=== PATIENT | female | born 1935 | race Caucasian/White ===

== ENCOUNTER 2020-09-12 18:18 | Inpatient (IN) | payer MEDICARE, BC ==
--- NOTE | 2020-09-12 19:00 | ED ---
General Adult HPI - General Chief complaint: Recheck/Abnormal Lab/Rx Stated complaint: Abn Lab Time Seen by Provider: 09/12/20 18:22 Source: patient, EMS Mode of arrival: EMS Limitations: no limitations - History of Present Illness Initial comments: Patient is an 85 year old female past medical history of hypertension, gout who presents to the emergency department as a transfer from [facility]. Patient was taken into their facility for weakness and slurring. Patient reports that she has had the symptoms for the past month. Laboratory studies were obtained and the patient a CT of her head performed. Abnormal labs included a pro calcitonin of 23.9, troponin 0.481, AST 425, ALT 197, alk phos 455, white blood cell count 35.8. CT the patient's brain was performed which demonstrated chronic small vessel ischemia without acute process. She was given an aspirin, dose of Zosyn and Flagyl and sent to our emergency department for further evaluation. Patient admits that she did have some nausea without vomiting couple of days ago which has subsequently gone away. Denies any abdominal pain. No fevers. Patient does admit to recent weakness. No chest pain or shortness of breath. Patient lives alone however states that her nephew checks up on her frequently. Denies any sick contacts. Covid testing was negative. - Related Data Home Medications Medication Instructions Recorded Confirmed Allopurinol [Zyloprim] 100 mg PO DAILY 09/12/20 09/12/20 Losartan Potassium 100 mg PO DAILY 09/12/20 09/12/20 Metoprolol Tartrate [Lopressor] 50 mg PO BID 09/12/20 09/12/20 Travoprost [Travatan Z 0.004%] 1 drop BOTH EYES HS 09/12/20 09/12/20 Allergies Allergy/AdvReac Type Severity Reaction Status Date / Time No Known Allergies Allergy Verified 09/12/20 21:09 Review of Systems ROS Statement: Those systems with pertinent positive or pertinent negative responses have been documented in the HPI. ROS Other: All systems not noted in ROS Statement are negative. Past Medical History Past Medical History: Hyperlipidemia, Hypertension Additional Past Medical History / Comment(s): gout, History of Any Multi-Drug Resistant Organisms: None Reported Past Surgical History: Cholecystectomy, Orthopedic Surgery Past Psychological History: No Psychological Hx Reported Smoking Status: Never smoker Past Alcohol Use History: None Reported Past Drug Use History: None Reported General Exam Limitations: no limitations Course Vital Signs 09/12/20 09/12/20 18:24 21:48 Temperature 97.1 F L Pulse Rate 81 71 Respiratory 16 18 Rate Blood Pressure 103/55 94/50 O2 Sat by Pulse 97 98 Oximetry EKG Findings - EKG Comments: EKG Findings:: EKG demonstrates normal sinus rhythm with a ventricular rate of 71. VT interval 154. QRS 124. QTC of 5:30. Left bundle branch block. No sgarbossa criteria. Deep inverted t waves in V2-V3 Medical Decision Making - Medical Decision Making Upon arrival patient was placed into room 16. History and physical exam was performed. I did repeat laboratory studies. Urine was obtained and the patient went for chest x-ray disease were studies that were previously performed. Laboratory studies continued to demonstrate a high white count of 34.7. Creatinine 1.5 with no known baseline. Lactic acid 2.1. AST 346, ALT 188. Troponin 0.444. Urinalysis demonstrates a UTI. Budding yeast in the urine. Blood cultures have been obtained at [facility] the patient was given Zosyn and Flagyl. Chest x-ray demonstrates mild pneumonia in the left lower lobe. CT of the abdomen and pelvis demonstrates mild linear infiltrate and atelectasis at the lung bases. I did recommend hospital admission. We'll continue broad-spectrum antibiotics and fluid. Patient is placed on heparin due to her end-stage me. No contraindications. Patient agreed to the treatment plan and is awaiting on the floor - Lab Data Result diagrams: 09/12/20 19:00 09/12/20 19:00 Lab Results 09/12/20 09/12/20 09/12/20 Range/Units 19:00 19:00 19:00 WBC 34.7 H (3.8-10.6) k/uL RBC 3.55 L (3.80-5.40) m/uL Hgb 11.4 (11.4-16.0) gm/dL Hct 35.7 (34.0-46.0) % MCV 100.8 H (80.0-100.0) fL MCH 32.0 (25.0-35.0) pg MCHC 31.8 (31.0-37.0) g/dL RDW 14.5 (11.5-15.5) % Plt Count 213 (150-450) k/uL MPV 8.2 Neutrophils % 95 % Lymphocytes % 2 % Monocytes % 2 % Eosinophils % 1 % Basophils % 0 % Neutrophils # 33.0 H (1.3-7.7) k/uL Lymphocytes # 0.6 L (1.0-4.8) k/uL Monocytes # 0.6 (0-1.0) k/uL Eosinophils # 0.3 (0-0.7) k/uL Basophils # 0.1 (0-0.2) k/uL Macrocytosis Slight PT (9.0-12.0) sec INR (<1.2) APTT (22.0-30.0) sec Sodium 135 L (137-145) mmol/L Potassium 3.9 (3.5-5.1) mmol/L Chloride 100 (98-107) mmol/L Carbon Dioxide 23 (22-30) mmol/L Anion Gap 12 mmol/L BUN 25 H (7-17) mg/dL Creatinine 1.53 H (0.52-1.04) mg/dL Est GFR (CKD-EPI)AfAm 35 (>60 ml/min/1.73 sqM) Est GFR (CKD-EPI)NonAf 31 (>60 ml/min/1.73 sqM) Glucose 105 H (74-99) mg/dL Lactic Ac Sepsis Rflx Plasma Lactic Acid Christ (0.7-2.0) mmol/L Calcium 9.0 (8.4-10.2) mg/dL Magnesium 1.5 L (1.6-2.3) mg/dL Total Bilirubin 3.6 H (0.2-1.3) mg/dL AST 346 H (14-36) U/L ALT 188 H (4-34) U/L Alkaline Phosphatase 401 H (38-126) U/L Creatine Kinase 422 H (30-135) U/L Troponin I (0.000-0.034) ng/mL Total Protein 6.7 (6.3-8.2) g/dL Albumin 3.5 (3.5-5.0) g/dL Urine Color Dark Yellow Urine Appearance Turbid H (Clear) Urine pH 6.0 (5.0-8.0) Ur Specific Elmer 1.018 (1.001-1.035) Urine Protein 3+ H (Negative) Urine Glucose (UA) Negative (Negative) Urine Ketones Negative (Negative) Urine Blood Moderate H (Negative) Urine Nitrite Negative (Negative) Urine Bilirubin 2+ H (Negative) Urine Urobilinogen 3.0 (<2.0) mg/dL Ur Leukocyte Esterase Large H (Negative) Urine RBC 10 H (0-5) /hpf Urine WBC >182 H (0-5) /hpf Urine WBC Clumps Many H (None) /hpf Ur Squamous Epith Cells 5 H (0-4) /hpf Urine Bacteria Many H (None) /hpf Urine Yeast (Budding) Many H (None) /hpf 09/12/20 09/12/20 09/12/20 Range/Units 19:00 19:00 19:00 WBC (3.8-10.6) k/uL RBC (3.80-5.40) m/uL Hgb (11.4-16.0) gm/dL Hct (34.0-46.0) % MCV (80.0-100.0) fL MCH (25.0-35.0) pg MCHC (31.0-37.0) g/dL RDW (11.5-15.5) % Plt Count (150-450) k/uL MPV Neutrophils % % Lymphocytes % % Monocytes % % Eosinophils % % Basophils % % Neutrophils # (1.3-7.7) k/uL Lymphocytes # (1.0-4.8) k/uL Monocytes # (0-1.0) k/uL Eosinophils # (0-0.7) k/uL Basophils # (0-0.2) k/uL Macrocytosis PT 11.1 (9.0-12.0) sec INR 1.0 (<1.2) APTT 22.3 (22.0-30.0) sec Sodium (137-145) mmol/L Potassium (3.5-5.1) mmol/L Chloride (98-107) mmol/L Carbon Dioxide (22-30) mmol/L Anion Gap mmol/L BUN (7-17) mg/dL Creatinine (0.52-1.04) mg/dL Est GFR (CKD-EPI)AfAm (>60 ml/min/1.73 sqM) Est GFR (CKD-EPI)NonAf (>60 ml/min/1.73 sqM) Glucose (74-99) mg/dL Lactic Ac Sepsis Rflx Plasma Lactic Acid Christ 2.1 H* (0.7-2.0) mmol/L Calcium (8.4-10.2) mg/dL Magnesium (1.6-2.3) mg/dL Total Bilirubin (0.2-1.3) mg/dL AST (14-36) U/L ALT (4-34) U/L Alkaline Phosphatase (38-126) U/L Creatine Kinase (30-135) U/L Troponin I 0.444 H* (0.000-0.034) ng/mL Total Protein (6.3-8.2) g/dL Albumin (3.5-5.0) g/dL Urine Color Urine Appearance (Clear) Urine pH (5.0-8.0) Ur Specific Elmer (1.001-1.035) Urine Protein (Negative) Urine Glucose (UA) (Negative) Urine Ketones (Negative) Urine Blood (Negative) Urine Nitrite (Negative) Urine Bilirubin (Negative) Urine Urobilinogen (<2.0) mg/dL Ur Leukocyte Esterase (Negative) Urine RBC (0-5) /hpf Urine WBC (0-5) /hpf Urine WBC Clumps (None) /hpf Ur Squamous Epith Cells (0-4) /hpf Urine Bacteria (None) /hpf Urine Yeast (Budding) (None) /hpf 09/12/20 Range/Units 19:34 WBC (3.8-10.6) k/uL RBC (3.80-5.40) m/uL Hgb (11.4-16.0) gm/dL Hct (34.0-46.0) % MCV (80.0-100.0) fL MCH (25.0-35.0) pg MCHC (31.0-37.0) g/dL RDW (11.5-15.5) % Plt Count (150-450) k/uL MPV Neutrophils % % Lymphocytes % % Monocytes % % Eosinophils % % Basophils % % Neutrophils # (1.3-7.7) k/uL Lymphocytes # (1.0-4.8) k/uL Monocytes # (0-1.0) k/uL Eosinophils # (0-0.7) k/uL Basophils # (0-0.2) k/uL Macrocytosis PT (9.0-12.0) sec INR (<1.2) APTT (22.0-30.0) sec Sodium (137-145) mmol/L Potassium (3.5-5.1) mmol/L Chloride (98-107) mmol/L Carbon Dioxide (22-30) mmol/L Anion Gap mmol/L BUN (7-17) mg/dL Creatinine (0.52-1.04) mg/dL Est GFR (CKD-EPI)AfAm (>60 ml/min/1.73 sqM) Est GFR (CKD-EPI)NonAf (>60 ml/min/1.73 sqM) Glucose (74-99) mg/dL Lactic Ac Sepsis Rflx Y Plasma Lactic Acid Christ (0.7-2.0) mmol/L Calcium (8.4-10.2) mg/dL Magnesium (1.6-2.3) mg/dL Total Bilirubin (0.2-1.3) mg/dL AST (14-36) U/L ALT (4-34) U/L Alkaline Phosphatase (38-126) U/L Creatine Kinase (30-135) U/L Troponin I (0.000-0.034) ng/mL Total Protein (6.3-8.2) g/dL Albumin (3.5-5.0) g/dL Urine Color Urine Appearance (Clear) Urine pH (5.0-8.0) Ur Specific Elmer (1.001-1.035) Urine Protein (Negative) Urine Glucose (UA) (Negative) Urine Ketones (Negative) Urine Blood (Negative) Urine Nitrite (Negative) Urine Bilirubin (Negative) Urine Urobilinogen (<2.0) mg/dL Ur Leukocyte Esterase (Negative) Urine RBC (0-5) /hpf Urine WBC (0-5) /hpf Urine WBC Clumps (None) /hpf Ur Squamous Epith Cells (0-4) /hpf Urine Bacteria (None) /hpf Urine Yeast (Budding) (None) /hpf Disposition Clinical Impression: Leukocytosis, UTI (urinary tract infection), CAP (community acquired pneumonia), Transaminitis, NSTEMI (non-ST elevated myocardial infarction) Disposition: ADMITTED IP TO THIS HOSP Condition: Serious Is patient prescribed a controlled substance at d/c from ED?: No Decision to Admit Reason: Admit from EC Decision Date: 09/12/20 Decision Time: 22:32
[2020-09-12 19:19] LABS: Appearance,Urine Turbid (Clear); Bacteria,Urine Many /hpf; Bilirubin,Urine 2+ (Negative); Blood,Urine Moderate (Negative); Budding Yeast,Urine Many /hpf; Color,Urine Dark Yellow; Glucose,Urine (UA) Negative (Negative); Ketones,Urine Negative (Negative); Leukocyte Esterase,Urine Large (Negative); Nitrite,Urine Negative (Negative); Protein,Urine 3+ (Negative); RBC,Urine 10 /hpf (0-5); Specific Gravity,Urine 1.018 (1.001-1.035); Squamous Epithelial Cell,Urine 5 /hpf (0-4); WBC,Urine >182 /hpf (0-5)
[2020-09-12 19:21] LABS: Basophils # (A) 0.1 k/uL (0-0.2); Basophils % (A) 0 %; Eosinophils # (A) 0.3 k/uL (0-0.7); Eosinophils % (A) 1 %; HCT 35.7 % (34.0-46.0); HGB 11.4 gm/dL (11.4-16.0); Lymphocytes # (A) 0.6 k/uL (1.0-4.8); Lymphocytes % (A) 2 %; MCHC 31.8 g/dL (31.0-37.0); MCV 100.8 fL (80.0-100.0); Macrocytosis Slight; Mean Platelet Volume 8.2; Monocytes # (A) 0.6 k/uL (0-1.0); Monocytes % (A) 2 %; Neutrophils % (A) 95 %; Platelet Count 213 k/uL (150-450); RBC 3.55 m/uL (3.80-5.40); RDW 14.5 % (11.5-15.5); WBC 34.7 k/uL (3.8-10.6)
[2020-09-12 19:34] LABS: Albumin 3.5 g/dL (3.5-5.0); Magnesium 1.5 mg/dL (1.6-2.3); Potassium 3.9 mmol/L (3.5-5.1); Total Bilirubin 3.6 mg/dL (0.2-1.3); Total Protein 6.7 g/dL (6.3-8.2)
[2020-09-12 19:39] LABS: Partial Thromboplastin Time 22.3 sec (22.0-30.0); Prothrombin Time 11.1 sec (9.0-12.0)
--- NOTE | 2020-09-12 19:49 | XR ---
EXAMINATION TYPE: XR chest 2V DATE OF EXAM: 09/12/2020 COMPARISON: NONE HISTORY: Cough. Chest pain TECHNIQUE: 2 views FINDINGS: There is poor inspiration. Heart is enlarged. There is some patchy mild infiltrate in the l eft lower lobe. Right lung is fairly clear. There is no obvious heart failure. I see no pleural effus ion. IMPRESSION: There is evidence for mild pneumonia in the left lower lobe. Cardiomegaly.
[2020-09-12] MEDS ORDERED: MAGNESIUM SULFATE-D5W PMX 1 GM in DEXTROSE/WATER 1 100ML.BAG IVPB ONE (20:20)
[2020-09-12] MEDS ORDERED: SODIUM CHLORIDE 0.9% 500 ML 500 ML IV ONE (20:20)
--- NOTE | 2020-09-12 21:30 | CT ---
EXAMINATION TYPE: CT abdomen pelvis wo con DATE OF EXAM: 09/12/2020 COMPARISON: None HISTORY: elevated liver enzymes CT DLP: 544.7 mGycm Automated exposure control for dose reduction was used. Images obtained from the diaphragm to the floor the pelvis without contrast. There is some patchy atelectasis at the lung bases. Heart appears normal. There is no pericardial eff usion. There is bronchial cartilage calcification. There is dense coronary artery calcification. Liver spleen stomach pancreas appear intact. The bile ducts are not dilated. Gallbladder appears abse nt. There is no adrenal mass. Kidneys have normal size. There is no hydronephrosis. There is no retroperi toneal adenopathy. Bladder distends smoothly. There is no inguinal hernia. There is 6.7 cm rectum with fecal material. There is no free fluid in the pelvis. There is no mesente yaya edema. There is no ascites or free air. There is no evidence of a mechanical bowel obstruction. T here is multilevel lumbar spondylotic changes. There is no compression fracture. There is significant arthritic disease in both hip joints. There is acetabular spurring and osteosclerosis of the femoral heads and the acetabulum. IMPRESSION: There is some mild linear infiltrate and atelectasis at the lung bases. Atherosclerotic vascular dise ase. Mild rectal fecal impaction.
[2020-09-12] MEDS ORDERED: HEPARIN SODIUM 1,000 UN/ML (10ML VL) IV ONE (22:23)
[2020-09-12] MEDS ORDERED: HEPARIN SODIUM 1,000 UN/ML (10ML VL) IV PRN (22:23)
[2020-09-12] MEDS ORDERED: SODIUM CHLORIDE 0.9% 1,000 ML IV ONE (22:24)
[2020-09-12] MEDS ORDERED: HEPARIN SOD,PORK IN 0.45% NACL 25,000 UNIT in 0.45% NACL 1 250ML.BAG IV SCH (22:30)
[2020-09-12] MEDS ORDERED: NALOXONE 0.4 MG/ML 1 ML VIAL IV PRN (22:33)
[2020-09-12] MEDS ORDERED: PIPERACILLIN-TAZOBACTAM 3.375 GM in SODIUM CHLORIDE 0.9% 100 ML IVPB ONE (23:00)
[2020-09-13] MEDS: LATANOPROST 0.005% OPHTH DROPS 2.5 ML BTL BOTH EYES SCH ×2 (01:53→20:21)
[2020-09-13] MEDS: SODIUM CHLORIDE 0.9% 1,000 ML IV SCH ×4 (05:35→23:05)
[2020-09-13 07:53] LABS: Basophils % (A) 0 %; Eosinophils # (A) 0.1 k/uL (0-0.7); Eosinophils % (A) 0 %; HCT 31.7 % (34.0-46.0); HGB 10.3 gm/dL (11.4-16.0); Lymphocytes # (A) 1.1 k/uL (1.0-4.8); Lymphocytes % (A) 4 %; MCH 33.1 pg (25.0-35.0); MCHC 32.6 g/dL (31.0-37.0); MCV 101.4 fL (80.0-100.0); Macrocytosis Slight; Mean Platelet Volume 8.1; Monocytes # (A) 0.7 k/uL (0-1.0); Monocytes % (A) 3 %; Neutrophils # (A) 26.1 k/uL (1.3-7.7); Neutrophils % (A) 93 %; Platelet Count 179 k/uL (150-450); RBC 3.12 m/uL (3.80-5.40); RDW 14.1 % (11.5-15.5); WBC 28.2 k/uL (3.8-10.6)
[2020-09-13] MEDS ORDERED: PIPERACILLIN-TAZOBACTAM 3.375 GM in SODIUM CHLORIDE 0.9% 100 ML IVPB SCH ×2 (08:00→21:00)
[2020-09-13 08:19] LABS: INR 1.4 (<1.2)
[2020-09-13 08:41] LABS: Partial Thromboplastin Time >200.0 sec (22.0-30.0)
[2020-09-13] MEDS: allopurinoL 100 MG TAB PO SCH (08:42)
[2020-09-13 09:25] LABS: Calcium 8.1 mg/dL (8.4-10.2)
[2020-09-13] MEDS ORDERED: NA PHOS,M-B/NA PHOS,DI-BA 133 ML ENEMA RECTAL ONE (11:02)
--- NOTE | 2020-09-13 11:36 | ECHOF ---
Referral Reason:nstemi MEASUREMENTS -------- HEIGHT: 157.5 cm WEIGHT: 70.3 kg BP: IVSd: 1.5 cm (0.6 - 1.1) LVIDd: 4.3 cm (3.9 - 5.3) LVPWd: 1.3 cm (0.6 - 1.1) IVSs: 1.6 cm LVIDs: 2.6 cm LVPWs: 1.9 cm LAESV Index (A-L): 26.99 ml/m Ao Diam: 3.4 cm (2.0 - 3.7) AV Cusp: 1.9 cm (1.5 - 2.6) LA Diam: 3.9 cm (2.7 - 3.8) MV EXCURSION: 17.701 mm (> 18.000) MV EF SLOPE: 81 mm/s (70 - 150) EPSS: 2.6 cm MV E Rashaun: 0.91 m/s MV DecT: 216 ms MV A Rashaun: 1.19 m/s MV E/A Ratio: 0.76 RAP: 5.00 mmHg RVSP: 31.31 mmHg FINDINGS -------- This was a technically good study. The left ventricular size is normal. There is moderate concentric left ventricular hypertrophy. O verall left ventricular systolic function is low-normal with, an EF between 50 - 55 %. Normal LAP G rade 1 Diastolic Dysfunction. The right ventricle is normal in size. The left atrial size is normal. Normal LA size by volume 22+/-6 ml/m2. The right atrial size is normal. The aortic valve is trileaflet and appears structurally normal. The mitral valve is normal. The mitral valve leaflets are mildly thickened. Mild mitral regurgita tion is present. The tricuspid valve appears structurally normal. Mild tricuspid regurgitation present. Right vent ricular systolic pressure is normal at < 35 mmHg. There is no pulmonic regurgitation present. The aortic root size is normal. IVC Not well visulized. There is no pericardial effusion. CONCLUSIONS -------- 1. The left ventricular size is normal. 2. There is moderate concentric left ventricular hypertrophy. 3. Overall left ventricular systolic function is low-normal with, an EF between 50 - 55 %. 4. Normal LAP Grade 1 Diastolic Dysfunction. 5. The aortic valve is trileaflet and appears structurally normal. 6. The mitral valve leaflets are mildly thickened. 7. Mild mitral regurgitation is present. 8. Mild tricuspid regurgitation present. 9. There is no pericardial effusion. BUTTERMAKER HELPER: Destiny Menjivar RDCS
--- NOTE | 2020-09-13 11:49 | US ---
EXAMINATION TYPE: US liver DATE OF EXAM: 09/13/2020 COMPARISON: CT 09/12/20 CLINICAL HISTORY: transaminitis. EXAM MEASUREMENTS: Liver Length: 15.7 cm Gallbladder Wall: Surgically absent cm CBD: 0.8 cm Right Kidney: 11.4 x 5.9 x 5.0 cm Pancreas: Partially Obscured by bowel gas Liver: Partially Obscured by overlying bowel gas Gallbladder: Surgically absent Evidence for sonographic Wilcox's sign: No CBD: wnl Right Kidney: Decreased renal cortex =0.9 cm IMPRESSION: Renal parenchymal thinning.
[2020-09-13 11:59] LABS: Basophils % (A) 0 %; Eosinophils # (A) 0.1 k/uL (0-0.7); Eosinophils % (A) 0 %; HCT 31.5 % (34.0-46.0); HGB 10.4 gm/dL (11.4-16.0); Lymphocytes % (A) 4 %; MCHC 33.1 g/dL (31.0-37.0); MCV 102.5 fL (80.0-100.0); Macrocytosis Slight; Mean Platelet Volume 8.3; Monocytes # (A) 0.7 k/uL (0-1.0); Monocytes % (A) 2 %; Neutrophils # (A) 26.3 k/uL (1.3-7.7); Neutrophils % (A) 93 %; Platelet Count 183 k/uL (150-450); RBC 3.08 m/uL (3.80-5.40); RDW 14.2 % (11.5-15.5); WBC 28.2 k/uL (3.8-10.6)
--- NOTE | 2020-09-13 12:27 | P.CRDCN ---
History of Present Illness History of present illness: HISTORY OF PRESENTING ILLNESS This is a pleasant 85-year-old female past medical history significant for hypertension, dyslipidemia. 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 We have been asked to see in consultation for possible NSTEMI. Patient presents to [facility] with complaints of slurred speech for one month. Also complaining of abdominal pain and nausea. CT brain there revealed age related atrophic and chronic small vessel ischemic change without acute intracranial process, differental diagnosis dose include demyelination. 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 Patient transferred to [facility] for further evaluation. Patient states her nephew told her she had slurred speech. She also has been having lower extremity weakness. She denies any chest pain, shortness of breath, palpitations, dizziness or lightheadedness. Denies symptoms of orthopnea or PND. She is a non-smoker, non-diabetic. On admission BP 94/50, HR 71, afebrile, 98% on room air. Patient started on IV Zosyn, IV heparin. BP medications held due to hypotension. Echocardiogram revealed EF 50-55%, mild mitral regurgitation, mild tricuspid reguritation DIAGNOSTICS EKG reveals normal sinus rhythm HR 71, QTC of 530. Left bundle branch block. T wave inversions in lateral leads and V2-V6 Prior EKG at [facility] revealed sinus rhythm, left bundle branch block. Telemetry tracings indicate sinus mechanism HR 50-70, no arrhythmia noted Chest xray mild patchy infiltrate in the left lower lobe. no obvious heart failure. CT A/P- Mild rectal fecal impaction. Some mild linear infiltrate and atelectasis at the lung bases. Heart appears normal. Laboratory reviewed, troponin trend 0.48-->0.44-->0.27, sodium 135, potassium 3.9, serum creatinine 1.53, V1 25, lactate 2.1, repeat lactate 1.4, magnesium 1.5, AST 346, PLT 188, alkaline phosphatase 401, covid-19 negative, UA positive for UTI, WBC 34.7, Hgb 11.4, Plt 213. Current daily home cardiac medications include metoprolol tartrate 50mg BID, losartan 100mg daily REVIEW OF SYSTEMS At the time of my exam: CONSTITUTIONAL: Denies fever or chills. CARDIOVASCULAR: Denies chest pain, shortness of breath, orthopnea, PND or palpitations. RESPIRATORY: Denies cough. GASTROINTESTINAL: Denies abdominal pain, diarrhea, constipation, nausea or vomiting. MUSCULOSKELETAL: Denies myalgias. NEUROLOGIC: +slurred speech +bilateral leg weakness. ENDOCRINE: Denies fatigue, weight change, polydipsia or polyurina. GENITOURINARY: Denies burning, hematuria or urgency with micturation. HEMATOLOGIC: Denies history of anemia or bleeding. PHYSICAL EXAMINATION Blood pressure 101/58 heart rate 61 afebrile and maintaining oxygen saturation 97% on room air. CONSTITUTIONAL: No apparent distress. HEENT: Head is normocephalic. Pupils are equal, round. Sclerae anicteric. Mucous membranes of the mouth are moist. No JVD. No carotid bruit. CHEST EXAMINATION: Lungs are clear to auscultation. No chest wall tenderness is noted on palpation or with deep breathing. HEART EXAMINATION: Regular rate and rhythm. S1, S2 heard. No murmurs, gallops or rub. ABDOMEN: Soft, nontender. Positive bowel sounds. EXTREMITIES: 2+ peripheral pulses, no lower extremity edema and no calf tenderness. NEUROLOGIC EXAMINATION: Patient is awake, alert and oriented x3. ASSESSMENT Slurred Speech and Weakness Elevated troponin, pattern not indicative of acute coronary syndrome, patient without chest pain. no evidence of acute ischemia on EKG History of Hypertension- hypotensive on admission. BP medications on hold Dyslipidemia Hypomagnesemia - replaced Transaminitis PLAN 2D echocardiogram ordered revealed normal EF, mild MR, mild TR Continue to monitor blood pressure and heart rate, and add patient's anti- hypertensives if indicated. No further recommendations at this time from cardiology perspective Nurse Practitioner note has been reviewed, I agree with a documented findings and plan of care. Patient was seen and examined. Past Medical History Past Medical History: Hyperlipidemia, Hypertension Additional Past Medical History / Comment(s): gout, History of Any Multi-Drug Resistant Organisms: None Reported Past Surgical History: Cholecystectomy, Orthopedic Surgery Past Psychological History: No Psychological Hx Reported Smoking Status: Never smoker Past Alcohol Use History: None Reported Past Drug Use History: None Reported - Past Family History Mother Family Medical History: Cancer Father Family Medical History: Myocardial Infarction (MS) Medications and Allergies Home Medications Medication Instructions Recorded Confirmed Type Allopurinol [Zyloprim] 100 mg PO DAILY 09/12/20 09/12/20 History Losartan Potassium 100 mg PO DAILY 09/12/20 09/12/20 History Metoprolol Tartrate [Lopressor] 50 mg PO BID 09/12/20 09/12/20 History Travoprost [Travatan Z 0.004%] 1 drop BOTH EYES HS 09/12/20 09/12/20 History Allergies Allergy/AdvReac Type Severity Reaction Status Date / Time No Known Allergies Allergy Verified 09/12/20 21:09 Physical Exam Vitals: Vital Signs Temp Pulse Pulse Resp BP BP Pulse Ox 09/13/20 04:00 96.8 F L 67 17 128/62 96 09/13/20 00:25 70 09/13/20 00:00 97.7 F 72 18 133/59 97 09/12/20 21:48 71 18 94/50 98 09/12/20 18:24 97.1 F L 81 16 103/55 97 Intake and Output 09/12/20 09/13/20 09/13/20 22:59 06:59 14:59 Intake Total 1099 Balance 1099 Intake: Intake, IV Titration 1099 Amount Piperacillin-Tazobactam 3 100 .375 gm In Sodium Chloride 0.9% 100 ml @ 25 mls/hr IVPB Q8HR [facility] Rx# :[id number] Sodium Chloride 0.9% 1, 999 000 ml @ 999 mls/hr IV . Q1H1M ONE Rx#:[id number] Other: Weight 77.111 kg 70.5 kg Results 09/13/20 11:21 09/13/20 07:36 Cardiac Enzymes 09/12/20 09/12/20 Range/Units 19:00 19:00 AST 346 H (14-36) U/L Troponin I 0.444 H* (0.000-0.034) ng/mL Coagulation 09/12/20 Range/Units 19:00 PT 11.1 (9.0-12.0) sec APTT 22.3 (22.0-30.0) sec CBC 09/12/20 Range/Units 19:00 WBC 34.7 H (3.8-10.6) k/uL RBC 3.55 L (3.80-5.40) m/uL Hgb 11.4 (11.4-16.0) gm/dL Hct 35.7 (34.0-46.0) % Plt Count 213 (150-450) k/uL Comprehensive Metabolic Panel 09/12/20 Range/Units 19:00 Sodium 135 L (137-145) mmol/L Potassium 3.9 (3.5-5.1) mmol/L Chloride 100 (98-107) mmol/L Carbon Dioxide 23 (22-30) mmol/L BUN 25 H (7-17) mg/dL Creatinine 1.53 H (0.52-1.04) mg/dL Glucose 105 H (74-99) mg/dL Calcium 9.0 (8.4-10.2) mg/dL AST 346 H (14-36) U/L ALT 188 H (4-34) U/L Alkaline Phosphatase 401 H (38-126) U/L Total Protein 6.7 (6.3-8.2) g/dL Albumin 3.5 (3.5-5.0) g/dL Current Medications Generic Name Dose Route Start Last Admin Trade Name Freq PRN Reason Stop Dose Admin Allopurinol 100 mg 09/13/20 09:00 Allopurinol 100 Mg Tab PO DAILY [facility] Heparin Sodium (Porcine) 0 unit 09/12/20 22:23 Heparin Sodium 1,000 Un/Ml (10ml Vl) IV PER PROTOCOL PRN Low PTT Protocol Heparin Sodium/Sodium Chloride 250 mls @ 9.253 mls/hr 09/12/20 22:30 09/12/20 23:22 25,000 unit/ Sodium Chloride IV 12 units/kg/hr .Q24H KARI 9.253 mls/hr Administration Protocol 12 UNITS/KG/HR Sodium Chloride 1,000 mls @ 130 mls/hr 09/12/20 22:30 09/13/20 05:35 Saline 0.9% IV 130 mls/hr .Q7H42M KARI Administration Piperacillin Sod/Tazobactam 100 mls @ 25 mls/hr 09/13/20 08:00 Sod 3.375 gm/ Sodium Chloride IVPB Q8HR [facility] Latanoprost 1 drops 09/12/20 23:00 09/13/20 01:53 Latanoprost 0.005% Ophth Drops 2.5 Ml Btl BOTH EYES Not Given HS [facility] Naloxone HCl 0.2 mg 09/12/20 22:33 Naloxone 0.4 Mg/Ml 1 Ml Vial IV Q2M PRN Opioid Reversal Intake and Output 09/12/20 09/13/20 09/13/20 22:59 06:59 14:59 Intake Total 1099 Balance 1099 Intake: Intake, IV Titration 1099 Amount Piperacillin-Tazobactam 3 100 .375 gm In Sodium Chloride 0.9% 100 ml @ 25 mls/hr IVPB Q8HR [facility] Rx# :[id number] Sodium Chloride 0.9% 1, 999 000 ml @ 999 mls/hr IV . Q1H1M ONE Rx#:[id number] Other: Weight 77.111 kg 70.5 kg 09/12/20 19:00 09/12/20 19:00
[2020-09-13 12:45] LABS: Albumin 2.8 g/dL (3.5-5.0); Calcium 8.2 mg/dL (8.4-10.2); Total Bilirubin 2.9 mg/dL (0.2-1.3); Total Protein 5.6 g/dL (6.3-8.2)
[2020-09-13 13:13] LABS: Cholesterol 98 mg/dL (<200); HDL Cholesterol 52 mg/dL (40-60); LDL Cholesterol,Calculated 33 mg/dL (0-99); Triglycerides 66 mg/dL (<150)
--- NOTE | 2020-09-13 16:05 | P.HPIM ---
History of Present Illness H&P Date: 09/13/20 This is 85 years old female with past medical history of hypertension,and gout comes in as a transfer from [facility]. Patient came into the facility for increased weakness and slurring of speech. Apparently these symptoms are going on for a month intermittently. Patient is having significant weakness in the right lower extremity and intermittent slurring of speech. On evaluation in the ER patient was found to have pro- calcitonin of 23.9 elevated troponin and liver enzymes. WBC was high. CAT scan of head was performed that was negative for any acute abnormality but did d emonstrate chronic small vessel ischemia without acute process. She was given a dose of aspirin a dose of Zosyn and flatulence in to ER for evaluation. In the ER patient admitted to some nausea but denies any vomiting. She denies any abdominal pain, fever or chills. She denies any frequency or burning on micturition. She denies any sick contact. An assessment in the ER patient was found to be afebrile respiratory rate of 16 blood pressure 103/55 pulse of 81. EKG was obtained that showed normal sinus rhythm with inverted T waves in V2 and V3. Repeat labs were obtained, patient's WBC was 34.7 hemoglobin 11.4 glucose 213, sodium 135 potassium 3.9 chloride 100 bicarb 23 BUN 25 creatinine 1.53 glucose 105. Urinalysis were ordered that suggested UTI with budding yeast. Bilirubin 3.6 total protein 6.7 albumin 3.5 lactic acid 2.1 troponin 0.444. Patient was started on heparin drip. One dose of Zosyn was given. Patient received 1.5 L of IV fluids. GI and cardiology was consulted. On evaluation today patient denies any chest pain or shortness of breath. She does have some weakness in the right lower extremity but denies any slurring of speech. She had last bowel movement was 2 days ago denies any diarrhea or change in bowel habit. Patient denies any melena. She denies any loss of appetite or weight. Patient was seen by cardiology, heparin drip was discontinued. Echo was obtained that showed normal ejection fraction and mild MR and mild TR. No further intervention needed. If his was ruled out. Gastroenterology was consulted for increased liver enzymes. Hepatitis panel is pending. Neurology recommendations are pending. CT abdomen was obtained patient and mild bleeding infiltrate and atelectasis at lung bases and atherosclerotic vascular disease with mild rectal fecal impaction. Review of Systems Constitutional: Denies chills, Denies fever, endorses weakness Eyes: denies decreased vision, denies diplopia, denies discharge, denies pain Ears: deny: decreased hearing Ears, nose, mouth and throat: Denies dental pain, Denies headache, Denies nasal discharge, Denies nose pain Cardiovascular: Denies chest pain, Denies decreased exercise tolerance, Denies edema, Denies high blood pressure, Denies irregular heart beat, Denies palpitations, Denies paroxysmal nocturnal dyspnea, Denies rapid heart beat, Denies shortness of breath Respiratory: Denies congestion, Denies cough, Denies cough with sputum, Denies dyspnea, Denies home oxygen, Denies wheezing Gastrointestinal: Denies abdominal pain, Denies change in bowel habits, Denies coffee ground emesis, Denies early satiety, Denies excessive gas, Denies heartburn, Denies hematemesis, Denies hematochezia, Denies loss of appetite, Denies nausea, Denies vomiting Genitourinary: Denies dysuria, Denies flank pain, Denies kidney stones, Denies menorrhagia, Denies urgency, Denies urinary frequency Musculoskeletal: Endorses gait dysfunction, endorses limitation of motion, Denies morning stiffness, Denies muscle cramps Integumentary: Denies rash, Denies wounds, Denies brittle nails, Denies change in hair/nails, Denies darkening of skin Neurological: Endorses balance difficulties, endorses change in speech, Denies double vision, endorses gait dysfunction, Denies loss of vision, endorses motor disturbance, Denies numbness, Denies paralysis, Denies paresthesias, Denies seizures Psychiatric: Denies anxiety, Denies depression Endocrine: Denies excessive sweating, Denies excessive thirst, Denies high blood sugars, Denies palpitations Hematologic/Lymphatic: Denies easy bruising, Denies lymphadenopathy Past Medical History Past Medical History: Hyperlipidemia, Hypertension Additional Past Medical History / Comment(s): gout, History of Any Multi-Drug Resistant Organisms: None Reported Past Surgical History: Cholecystectomy, Orthopedic Surgery Past Psychological History: No Psychological Hx Reported Smoking Status: Never smoker Past Alcohol Use History: None Reported Past Drug Use History: None Reported - Past Family History Mother Family Medical History: Cancer Father Family Medical History: Myocardial Infarction ([place]) Medications and Allergies Home Medications Medication Instructions Recorded Confirmed Type Allopurinol [Zyloprim] 100 mg PO DAILY 09/12/20 09/12/20 History Losartan Potassium 100 mg PO DAILY 09/12/20 09/12/20 History Metoprolol Tartrate [Lopressor] 50 mg PO BID 09/12/20 09/12/20 History Travoprost [Travatan Z 0.004%] 1 drop BOTH EYES HS 09/12/20 09/12/20 History Allergies Allergy/AdvReac Type Severity Reaction Status Date / Time No Known Allergies Allergy Verified 09/12/20 21:09 Physical Exam Vitals: Vital Signs Temp Pulse Pulse Resp BP BP Pulse Ox 09/13/20 12:00 97.7 F 70 18 126/77 97 09/13/20 08:00 97.9 F 61 18 101/58 97 09/13/20 04:00 96.8 F L 67 17 128/62 96 09/13/20 00:25 70 09/13/20 00:00 97.7 F 72 18 133/59 97 09/12/20 21:48 71 18 94/50 98 09/12/20 18:24 97.1 F L 81 16 103/55 97 Intake and Output 09/13/20 09/13/20 09/13/20 06:59 14:59 22:59 Intake Total 1099 326.207 Balance 1099 326.207 Intake: Intake, IV Titration 1099 86.207 Amount Heparin Sod,Pork in 0.45% 86.207 NaCl 25,000 unit In 0.45 % NaCl 1 250ml.bag @ 12 UNITS/KG/HR 9.253 mls/hr IV .Q24H KARI Rx#: [id number] Piperacillin-Tazobactam 3 100 .375 gm In Sodium Chloride 0.9% 100 ml @ 25 mls/hr IVPB Q8HR KARI Rx# :[id number] Sodium Chloride 0.9% 1, 999 000 ml @ 999 mls/hr IV . Q1H1M ONE Rx#:[id number] Oral 240 Other: # Voids 1 # Bowel Movements 1 Weight 70.5 kg - Constitutional General appearance: cooperative, no acute distress, obese - EENT Eyes: anicteric sclerae, PERRLA, normal appearance ENT: hearing grossly normal - Neck Neck: no lymphadenopathy, normal ROM, no other, no rigidity, no stridor, no thyromegaly - Respiratory Respiratory: bilateral: CTA, negative: diminished, dullness, rales, rhonchi - Cardiovascular Rhythm: regular Heart sounds: normal: S1, S2 Abnormal Heart Sounds: no systolic murmur, no diastolic murmur, no rub, no S3 Gallop, no S4 Gallop, no click, no other - Gastrointestinal General gastrointestinal: normal bowel sounds, soft nontender - Integumentary Integumentary: no rash - Neurologic Neurologic: Right lower extremity weaker than the left 4+/5 bilateral lower extremity. [id number] test normal. No sensory deficit - Musculoskeletal Musculoskeletal: Gait not assessed strength decreased bilaterally lower extremity may be weaker on the right - Psychiatric Psychiatric: A&O x's 3, appropriate affect Results CBC & Chem 7: 09/13/20 11:21 09/13/20 11:21 Labs: Abnormal Lab Results - Last 24 Hours (Table) 09/12/20 09/12/20 09/12/20 Range/Units 19:00 19:00 19:00 WBC 34.7 H (3.8-10.6) k/uL RBC 3.55 L (3.80-5.40) m/uL Hgb (11.4-16.0) gm/dL Hct (34.0-46.0) % MCV 100.8 H (80.0-100.0) fL Neutrophils # 33.0 H (1.3-7.7) k/uL Lymphocytes # 0.6 L (1.0-4.8) k/uL PT (9.0-12.0) sec INR (<1.2) APTT (22.0-30.0) sec Sodium 135 L (137-145) mmol/L Chloride (98-107) mmol/L Carbon Dioxide (22-30) mmol/L BUN 25 H (7-17) mg/dL Creatinine 1.53 H (0.52-1.04) mg/dL Glucose 105 H (74-99) mg/dL Plasma Lactic Acid Christ (0.7-2.0) mmol/L Calcium (8.4-10.2) mg/dL Magnesium 1.5 L (1.6-2.3) mg/dL Total Bilirubin 3.6 H (0.2-1.3) mg/dL AST 346 H (14-36) U/L ALT 188 H (4-34) U/L Alkaline Phosphatase 401 H (38-126) U/L Creatine Kinase 422 H (30-135) U/L Troponin I (0.000-0.034) ng/mL Total Protein (6.3-8.2) g/dL Albumin (3.5-5.0) g/dL Urine Appearance Turbid H (Clear) Urine Protein 3+ H (Negative) Urine Blood Moderate H (Negative) Urine Bilirubin 2+ H (Negative) Ur Leukocyte Esterase Large H (Negative) Urine RBC 10 H (0-5) /hpf Urine WBC >182 H (0-5) /hpf Urine WBC Clumps Many H (None) /hpf Ur Squamous Epith Cells 5 H (0-4) /hpf Urine Bacteria Many H (None) /hpf Urine Yeast (Budding) Many H (None) /hpf 09/12/20 09/12/20 09/13/20 Range/Units 19:00 19:00 07:36 WBC (3.8-10.6) k/uL RBC (3.80-5.40) m/uL Hgb (11.4-16.0) gm/dL Hct (34.0-46.0) % MCV (80.0-100.0) fL Neutrophils # (1.3-7.7) k/uL Lymphocytes # (1.0-4.8) k/uL PT 14.0 H (9.0-12.0) sec INR 1.4 H (<1.2) APTT >200.0 H* (22.0-30.0) sec Sodium (137-145) mmol/L Chloride (98-107) mmol/L Carbon Dioxide (22-30) mmol/L BUN (7-17) mg/dL Creatinine (0.52-1.04) mg/dL Glucose (74-99) mg/dL Plasma Lactic Acid Christ 2.1 H* (0.7-2.0) mmol/L Calcium (8.4-10.2) mg/dL Magnesium (1.6-2.3) mg/dL Total Bilirubin (0.2-1.3) mg/dL AST (14-36) U/L ALT (4-34) U/L Alkaline Phosphatase (38-126) U/L Creatine Kinase (30-135) U/L Troponin I 0.444 H* (0.000-0.034) ng/mL Total Protein (6.3-8.2) g/dL Albumin (3.5-5.0) g/dL Urine Appearance (Clear) Urine Protein (Negative) Urine Blood (Negative) Urine Bilirubin (Negative) Ur Leukocyte Esterase (Negative) Urine RBC (0-5) /hpf Urine WBC (0-5) /hpf Urine WBC Clumps (None) /hpf Ur Squamous Epith Cells (0-4) /hpf Urine Bacteria (None) /hpf Urine Yeast (Budding) (None) /hpf 09/13/20 09/13/20 09/13/20 Range/Units 07:36 07:36 07:36 WBC 28.2 H (3.8-10.6) k/uL RBC 3.12 L (3.80-5.40) m/uL Hgb 10.3 L (11.4-16.0) gm/dL Hct 31.7 L (34.0-46.0) % MCV 101.4 H (80.0-100.0) fL Neutrophils # 26.1 H (1.3-7.7) k/uL Lymphocytes # (1.0-4.8) k/uL PT (9.0-12.0) sec INR (<1.2) APTT (22.0-30.0) sec Sodium (137-145) mmol/L Chloride 108 H (98-107) mmol/L Carbon Dioxide 17 L (22-30) mmol/L BUN 31 H (7-17) mg/dL Creatinine 2.06 H (0.52-1.04) mg/dL Glucose (74-99) mg/dL Plasma Lactic Acid Christ (0.7-2.0) mmol/L Calcium 8.1 L (8.4-10.2) mg/dL Magnesium (1.6-2.3) mg/dL Total Bilirubin (0.2-1.3) mg/dL AST (14-36) U/L ALT (4-34) U/L Alkaline Phosphatase (38-126) U/L Creatine Kinase (30-135) U/L Troponin I 0.277 H* (0.000-0.034) ng/mL Total Protein (6.3-8.2) g/dL Albumin (3.5-5.0) g/dL Urine Appearance (Clear) Urine Protein (Negative) Urine Blood (Negative) Urine Bilirubin (Negative) Ur Leukocyte Esterase (Negative) Urine RBC (0-5) /hpf Urine WBC (0-5) /hpf Urine WBC Clumps (None) /hpf Ur Squamous Epith Cells (0-4) /hpf Urine Bacteria (None) /hpf Urine Yeast (Budding) (None) /hpf 09/13/20 09/13/20 Range/Units 11:21 11:21 WBC 28.2 H (3.8-10.6) k/uL RBC 3.08 L (3.80-5.40) m/uL Hgb 10.4 L (11.4-16.0) gm/dL Hct 31.5 L (34.0-46.0) % MCV 102.5 H (80.0-100.0) fL Neutrophils # 26.3 H (1.3-7.7) k/uL Lymphocytes # (1.0-4.8) k/uL PT (9.0-12.0) sec INR (<1.2) APTT (22.0-30.0) sec Sodium 135 L (137-145) mmol/L Chloride (98-107) mmol/L Carbon Dioxide 18 L (22-30) mmol/L BUN 33 H (7-17) mg/dL Creatinine 2.17 H (0.52-1.04) mg/dL Glucose (74-99) mg/dL Plasma Lactic Acid Christ (0.7-2.0) mmol/L Calcium 8.2 L (8.4-10.2) mg/dL Magnesium (1.6-2.3) mg/dL Total Bilirubin 2.9 H (0.2-1.3) mg/dL AST 239 H (14-36) U/L ALT 160 H (4-34) U/L Alkaline Phosphatase 291 H (38-126) U/L Creatine Kinase (30-135) U/L Troponin I (0.000-0.034) ng/mL Total Protein 5.6 L (6.3-8.2) g/dL Albumin 2.8 L (3.5-5.0) g/dL Urine Appearance (Clear) Urine Protein (Negative) Urine Blood (Negative) Urine Bilirubin (Negative) Ur Leukocyte Esterase (Negative) Urine RBC (0-5) /hpf Urine WBC (0-5) /hpf Urine WBC Clumps (None) /hpf Ur Squamous Epith Cells (0-4) /hpf Urine Bacteria (None) /hpf Urine Yeast (Budding) (None) /hpf Microbiology - Last 24 Hours (Table) 09/12/20 19:00 Urine Culture - Preliminary Urine,Voided Thrombosis Risk Factor Assmnt - DVT/VTE Prophylaxis DVT/VTE Prophylaxis: Pharmacologic Prophylaxis ordered, Mechanical Prophylaxis ordered - Choose All That Apply Each Factor Represents 1 point: Obesity (BMI >25) Each Risk Factor Represents 3 Points: Age 75 years or older Thrombosis Risk Factor Assessment Total Risk Factor Score: 4 Thrombosis Risk Factor Assessment Level: Moderate Risk Assessment and Plan Plan: #1 slurring of speech with right-sided weakness echocardiogram and carotid ordered. CT head was negative for any acute intracranial process chronic ischemic changes noted. Lipid panel ordered. Aspirin started 81 mg by mouth daily. Lipitor study of 40 mg by mouth daily #2 sepsis secondary to UTI continue Zosyn 3.375 every 12 hours. Urine culture pending continue IV fluids at 1 30 mL per hour. 6 CBC tomorrow #3 troponin elevation likely secondary to sepsis most of ACS ruled out #4 hypertension with pressure pattern will initiated on metoprolol 50 twice a day #5 gout continue allopurinol 100 mg by mouth daily #6 chronic kidney disease stage III creatinine 2.17. Renal ultrasound suggestive of parenchymal thinning suggestive chronic kidney disease. #7 acute transaminitis. Hepatitis panel ordered. Liver ultrasound suggestive of renal parenchymal thinning. CBC within normal limits. Gallbladder surgically absent #8 hypomagnesemia status was magnesium sulfate 1 g 1 time dose. Repeat magnesium ordered #9 hyponatremia likely hypovolemic. Continue fluids at 1 30 mL/h #10 leukocytosis with anemia secondary to sepsis with bone marrow suppression continue to monitor #11 fecal impaction status post Fleet enema #12CODE STATUS full code #13DVT prophylaxis heparin every 12 #14 disposition patient needs to be in the hospital for 1-2 inpatient nights
[2020-09-13] MEDS ORDERED: IPRATROPIUM-ALBUTEROL 3 ML NEB INHALATION PRN (16:07)
[2020-09-13] MEDS ORDERED: ACETAMINOPHEN TAB 325 MG TAB PO PRN (16:07)
[2020-09-13] MEDS ORDERED: ONDANSETRON 4 MG/2 ML VIAL IVP PRN (16:07)
[2020-09-13] MEDS: ASPIRIN 81 MG PO SCH (16:55)
--- NOTE | 2020-09-13 17:15 | P.CNNES ---
History of Present Illness Consult date: 09/13/20 Requesting physician: Maria A Sparks Reason for Consult: slurring speech and weakness History of Present Illness: This is an 85-year-old woman with medical history of hypertension, hyperlipidemia that presented emergency department on 09/12/2020 as a transfer for [facility] for weakness and slurring the speech. Per the patient's she stated that she's been having the slurring the speech for last 1 month on and off as well as that she having weakness. Initially she was very vague about her weakness and she said generalized weakness but then later she stated that she's having right leg weakness. She denies of any visual disturbance, denies of any numbness. Denies of any difficulty getting her words out. She said that she takes aspirin 81 mg daily at home. She denies of being on any statins at home. Over [facility] she had CT of the head which was reported as age- related atrophic and chronic small vessel ischemic change without acute intracranial process seen at this time. Diffuse white matter changes may reflect underlying demyelinating. Remote cerebellar insult. She was given aspirin. Patient had elevated troponin over at the other facility of 0.481, AST 425 and ALT of 197 as well as alk phos of 455 as well as white blood cell is 35.8 patient was started on Zosyn. Workup in our facility consisted of: Initial vital signs his blood pressure of 103/55, heart rate of 81, temperature of 97.1 Fahrenheit oral, respiratory of 16 and pulse ox of 97% at room air. Patient labs initial white blood cell is 34.7 and it's trending down slightly the last one is 28.2. MCV is 100.8 and the most recent is 102.5. Patient's creatinine on initial presentation is 1.53 and BUN is 25 most recent creatinine is 2.17. Her troponin presentation is 0.277 which is elevated. As a result of the elev ated troponin the patient is on heparin drip. Lipid panel is triglyceride of 66, cholesterol of 98, LDL of 33 and HDL of 52. Sodium last sodium is 135 which is minimally low at. Glucose high 70s to 105. Urinalysis is positive for urinary tract infection. Looks turbid, nitrate was negative, looks a history of his large, urine white blood cells more than 182, urine white blood cell clumps are many. 2-D echo was reported as there is moderate concentric left ventricular hypertrophy. Ejection fraction of 50-55%. Left atrial size is normal. Past Medical History Past Medical History: Hyperlipidemia, Hypertension Additional Past Medical History / Comment(s): gout, History of Any Multi-Drug Resistant Organisms: None Reported Past Surgical History: Cholecystectomy, Orthopedic Surgery Past Psychological History: No Psychological Hx Reported Smoking Status: Never smoker Past Alcohol Use History: None Reported Past Drug Use History: None Reported - Past Family History Mother Family Medical History: Cancer Father Family Medical History: Myocardial Infarction ([place]) Medications and Allergies Home Medications Medication Instructions Recorded Confirmed Type Allopurinol [Zyloprim] 100 mg PO DAILY 09/12/20 09/12/20 History Losartan Potassium 100 mg PO DAILY 09/12/20 09/12/20 History Metoprolol Tartrate [Lopressor] 50 mg PO BID 09/12/20 09/12/20 History Travoprost [Travatan Z 0.004%] 1 drop BOTH EYES HS 09/12/20 09/12/20 History Allergies Allergy/AdvReac Type Severity Reaction Status Date / Time No Known Allergies Allergy Verified 09/12/20 21:09 Physical Examination - Vital Signs Vital Signs: Vital Signs Temp Pulse Pulse Resp BP BP Pulse Ox 09/13/20 12:00 97.7 F 70 18 126/77 97 09/13/20 08:00 97.9 F 61 18 101/58 97 09/13/20 04:00 96.8 F L 67 17 128/62 96 09/13/20 00:25 70 09/13/20 00:00 97.7 F 72 18 133/59 97 09/12/20 21:48 71 18 94/50 98 09/12/20 18:24 97.1 F L 81 16 103/55 97 Intake and Output 09/13/20 09/13/20 09/13/20 06:59 14:59 22:59 Intake Total 1099 326.207 Balance 1099 326.207 Intake: Intake, IV Titration 1099 86.207 Amount Heparin Sod,Pork in 0.45% 86.207 NaCl 25,000 unit In 0.45 % NaCl 1 250ml.bag @ 12 UNITS/KG/HR 9.253 mls/hr IV .Q24H [facility] Rx#: [id number] Piperacillin-Tazobactam 3 100 .375 gm In Sodium Chloride 0.9% 100 ml @ 25 mls/hr IVPB Q8HR [facility] Rx# :[id number] Sodium Chloride 0.9% 1, 999 000 ml @ 999 mls/hr IV . Q1H1M ONE Rx#:[id number] Oral 240 Other: # Voids 1 # Bowel Movements 1 Weight 70.5 kg GENERAL: The patient is lying in bed and is not in acute distress. CHEST: The heart rate is regular rate rhythm. No murmurs to auscultation. No carotid bruit bilaterally. LUNG: Clear to auscultation bilaterally no wheezing noted throughout. Not labored breathing. ABDOMEN/GI: Bowel sounds present in all 4 quadrants. No tenderness to palpation throughout. NEUROLOGICAL: Higher mental function: The patient is awake, alert, oriented to self, place and time. Patient is following commands. She had difficulty repeating phrase. Maybe some expressive aphasia at instances. No neglect. Cranial nerves: The pupils are round, equal and reactive to light and accommodation. Visual goldstein are full to confrontation throughout. Extraocular movement is intact no nystagmus is noted. Facial sensation is normal to touch throughout. The facial strength is right mild nasolabial flattening. Hearing is mildly to moderately decreased to hand rubs bilaterally to hand rub. Tongue is midline and moved [id number] without any difficulty. Mild dysarthria is noted. Shoulder shrug is normal bilaterally. Motor: Gait is deferred. The strength is bilateral hand collection correspondent are 4+ to 5-/5. While proximal are 5/5. While is able to lift bilateral lower extremities above graivty (strength over left > right and she mentioned something about her ankle pain that was remote). Normal tone and bulk. Cerebellum: Normal finger to nose bilaterally. Sensation: Sensation is normal to touch throughout. Reflexes (right/left): 1+ throughout. Plantars are downgoing bilaterally. Results Coagulation study in our facility initially PT of 11.1, INR 1.0, PTT of 22.3. Most recent INR is 1.4 and a PTT is more than 200. alcohol is less than 10. Marvin virus PCR was not detected - Laboratory Findings CBC and BMP: 09/13/20 11:21 09/13/20 11:21 Abnormal Lab Findings: Abnormal Labs 09/12/20 09/12/20 09/12/20 19:00 19:00 19:00 WBC 34.7 H RBC 3.55 L Hgb Hct MCV 100.8 H Neutrophils # 33.0 H Lymphocytes # 0.6 L PT INR APTT Sodium 135 L Chloride Carbon Dioxide BUN 25 H Creatinine 1.53 H Glucose 105 H Plasma Lactic Acid Christ Calcium Magnesium 1.5 L Total Bilirubin 3.6 H AST 346 H ALT 188 H Alkaline Phosphatase 401 H Creatine Kinase 422 H Troponin I Total Protein Albumin Urine Appearance Turbid H Urine Protein 3+ H Urine Blood Moderate H Urine Bilirubin 2+ H Ur Leukocyte Esterase Large H Urine RBC 10 H Urine WBC >182 H Urine WBC Clumps Many H Ur Squamous Epith Cells 5 H Urine Bacteria Many H Urine Yeast (Budding) Many H 09/12/20 09/12/20 09/13/20 19:00 19:00 07:36 WBC RBC Hgb Hct MCV Neutrophils # Lymphocytes # PT 14.0 H INR 1.4 H APTT >200.0 H* Sodium Chloride Carbon Dioxide BUN Creatinine Glucose Plasma Lactic Acid Christ 2.1 H* Calcium Magnesium Total Bilirubin AST ALT Alkaline Phosphatase Creatine Kinase Troponin I 0.444 H* Total Protein Albumin Urine Appearance Urine Protein Urine Blood Urine Bilirubin Ur Leukocyte Esterase Urine RBC Urine WBC Urine WBC Clumps Ur Squamous Epith Cells Urine Bacteria Urine Yeast (Budding) 09/13/20 09/13/20 09/13/20 07:36 07:36 07:36 WBC 28.2 H RBC 3.12 L Hgb 10.3 L Hct 31.7 L MCV 101.4 H Neutrophils # 26.1 H Lymphocytes # PT INR APTT Sodium Chloride 108 H Carbon Dioxide 17 L BUN 31 H Creatinine 2.06 H Glucose Plasma Lactic Acid Christ Calcium 8.1 L Magnesium Total Bilirubin AST ALT Alkaline Phosphatase Creatine Kinase Troponin I 0.277 H* Total Protein Albumin Urine Appearance Urine Protein Urine Blood Urine Bilirubin Ur Leukocyte Esterase Urine RBC Urine WBC Urine WBC Clumps Ur Squamous Epith Cells Urine Bacteria Urine Yeast (Budding) 09/13/20 09/13/20 11:21 11:21 WBC 28.2 H RBC 3.08 L Hgb 10.4 L Hct 31.5 L MCV 102.5 H Neutrophils # 26.3 H Lymphocytes # PT INR APTT Sodium 135 L Chloride Carbon Dioxide 18 L BUN 33 H Creatinine 2.17 H Glucose Plasma Lactic Acid Christ Calcium 8.2 L Magnesium Total Bilirubin 2.9 H AST 239 H ALT 160 H Alkaline Phosphatase 291 H Creatine Kinase Troponin I Total Protein 5.6 L Albumin 2.8 L Urine Appearance Urine Protein Urine Blood Urine Bilirubin Ur Leukocyte Esterase Urine RBC Urine WBC Urine WBC Clumps Ur Squamous Epith Cells Urine Bacteria Urine Yeast (Budding) Assessment and Plan Assessment: Mild dysarthria on for the last 1 month (on examination patient had mild dysarthria, right nasolabila flattening, difficulty repeating phrases and right lower extremity weakness). 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 Macrocytosis Acute urinary tract infection Hypertension with episode of hypotensive on admission (was low as 94/50) Elevated troponin Elevated liver function test (AST 239 and ALT 160) Acute kidney insufficiency--worsening Dyslipidemia Plan: Over [facility] she had CT of the head which was reported as age-related atrophic and chronic small vessel ischemic change without acute intracranial process seen at this time. Diffuse white matter changes may reflect underlying demyelinating. Remote cerebellar insult. Lipid panel is triglyceride of 66, cholesterol of 98, LDL of 33 and HDL of 52. 2-D echo was reported as there is moderate concentric left ventricular hypertrophy. Ejection fraction of 50-55%. Left atrial size is normal. I will get a repeat CT of the head since there is no imaging the on this the recent admission and it was at the outside the facility to see whether there is any acute/subacute ischemia. carotid duplex is ordered and is pending. Continue aspirin 81mg daily (home dose). Will not add plavix yet since patient was on heparin drip. Once PTT normalizes will consider adding Plavix in addition to ASA 81mg. Continue Lipitor 40 mg daily for secondary stroke prophylaxis. Patient is on heparin drip for the elevated troponin which stopped today. We'll defer the management to the cardiology team. I ordered TSH, vitamin B12, folate and hemoglobin A1c since the patient's having generalized weakness. q4 hour neuro checks. Continue cardiac monitoring Physical therapy and occupation therapy are consulted. I consulted the speech therapy I ordered ammonia level is elevated all defer the management to the primary team Cardiology is on board. The plan was discussed with the patient nurse Thank you for the consultation. Laith Michaud M.D. Neuro-hospitalist Time with Patient: Greater than 30
--- NOTE | 2020-09-13 19:17 | CT ---
EXAMINATION TYPE: CT brain wo con DATE OF EXAM: 09/13/2020 COMPARISON: None HISTORY: Altered mental status. CT DLP: 1099.4 mGycm Automated exposure control for dose reduction was used. Images were obtained of the brain without contrast. There is hypodensity in the periventricular white matter. There is no mass effect nor midline shift. There is no sign of intracranial hemorrhage. The calvarium is intact. Impression new graft bilateral white matter hypodensity probably due to chronic small vessel ischemia . No acute intracranial abnormality. Cerebral atrophy.
--- NOTE | 2020-09-13 19:34 | US ---
EXAMINATION TYPE: US carotid duplex BILAT DATE OF EXAM: 09/13/2020 COMPARISON: NONE CLINICAL HISTORY: stroke. EXAM MEASUREMENTS: RIGHT: Peak Systolic Velocity (PSV) cm/sec ----- Right CCA: 155.4 ----- Right ICA: 159.4 ----- Right ECA: 298.7 ICA/CCA ratio: 1.0 RIGHT: End Diastole cm/sec ----- Right CCA: 0.0 ----- Right ICA: 9.7 ----- Right ECA: 23.7 LEFT: Peak Systolic Velocity (PSV) cm/sec ----- Left CCA: 194.9 ----- Left ICA: 127.4 ----- Left ECA: 23.0 ICA/CCA ratio: 0.7 LEFT: End Diastole cm/sec ----- Left CCA: 13.7 ----- Left ICA: 14.4 ----- Left ECA: 23.0 VERTEBRALS (direction of flow): Right Vertebral: Antegrade Left Vertebral: Antegrade Rhythm: Normal . Elevated velocities noted throughout . Intimal thickening noted throughout. IMPRESSION: There is antegrade flow in the vertebral arteries. There are elevated velocities in the internal and external carotid arteries bilaterally that correspond to 50-70% stenosis. Bilateral plaque formation. Criteria for Assigning % of Stenosis / Diameter reduction (Estimation based on the indirect measurements of the internal carotid artery velocities (ICA PSV). 1. Normal (no stenosis)=ICA PSV < 125 cm/s: ratio < 2.0: ICA EDV<40 cm/s. 2. Less than 50% stenosis=ICA PSV < 125 cm/s: ratio < 2.0: ICA EDV<40 cm/s. 3. 50 to 69% stenosis=ICA PSV of 125 to 230 cm/s: ration 2.0 ? 4.0: ICA EDV 40-100 cm/s. 4. Greater than 70% stenosis to near occlusion= ICA PSV > 230 cm/s: ratio > 4.0: ICA EDV > 100 cm/s. 5. Near occlusion= ICA PSV velocities may be low or undetectable: variable ratio and ICA EDV. 6. Total occlusion=unable to detect flow.
[2020-09-13] MEDS: METOPROLOL TARTRATE 50 MG TAB PO SCH (23:04)
[2020-09-14 04:39] LABS: Hepatitis A Antibody IgM Non-Reactive (Non-Reactive); Hepatitis B Core IgM Non-Reactive (Non-Reactive); Hepatitis B Surface Antigen Non-Reactive (Non-Reactive); Hepatitis C IgG Antibody Non-Reactive (Non-Reactive)
--- NOTE | 2020-09-14 07:22 | P.CONS ---
History of Present Illness - Reason for Consult Consult date: 09/13/20 Elevated liver enzymes Requesting physician: Maria A Sparks - Chief Complaint Weakness, slurred speech - History of Present Illness 85-year-old female with a medical history significant for hypertension, hyperlipidemia and gout who was transferred from outside hospital for evaluation of weakness and slurred speech. She had initially presented for increasing weakness and altered speech reporting significant weakness in the right lower extremity with intermittent slurring of speech. Currently the patient is being evaluated by the neurology service. Gastroenterology was consulted to evaluate the patient for elevation in liver enzymes with initial elevation in liver enzymes about the outside facility with total bilirubin 3.8, alkaline phosphatase 455, AST 427 and ALT 197 which has subsequently improved at 3.1, 401, 346 and 188 respectively. On questioning the patient has no history of liver disease, alcohol abuse, viral hepatitis and no new medications. She denies any abdominal pain. She did have computed tomography scan of the abdomen and pelvis showing mild infiltrate in the chest with atelectasis at lung bases, atherosclerosis and mild fecal rectal impaction. Urinalysis was suggestive of urinary tract infection. Review of Systems REVIEW OF SYSTEMS: CONSTITUTIONAL: Denies any fevers, chills, weight change or fatigue. CARDIOVASCULAR: Denies any chest pain, palpitations high or low blood pressures RESPIRATORY: Denies any shortness of breath, hemoptysis or cough. GENITOURINARY: No dysuria or hematuria. MUSCULOSKELETAL: Intermittent right-sided weakness and slurred speech. SKIN: Denies any new rashes or lesions, jaundice or pallor. PSYCHIATRIC: Denies any depression or anxiety. NEUROLOGY: Denies headache, denies any new focal deficits, intermittent right- sided weakness and slurred speech. EARS/NOSE/THROAT: No recent hearing change, congestion, nasal discharge or sore throat. EYES: No pain in eyes, discharge or change in vision. GASTROINTESTINAL: As per HPI. Past Medical History Past Medical History: Hyperlipidemia, Hypertension Additional Past Medical History / Comment(s): gout, History of Any Multi-Drug Resistant Organisms: None Reported Past Surgical History: Cholecystectomy, Orthopedic Surgery Past Psychological History: No Psychological Hx Reported Smoking Status: Never smoker Past Alcohol Use History: None Reported Past Drug Use History: None Reported - Past Family History Mother Family Medical History: Cancer Father Family Medical History: Myocardial Infarction ([place]) Medications and Allergies Home Medications Medication Instructions Recorded Confirmed Type Allopurinol [Zyloprim] 100 mg PO DAILY 09/12/20 09/12/20 History Losartan Potassium 100 mg PO DAILY 09/12/20 09/12/20 History Metoprolol Tartrate [Lopressor] 50 mg PO BID 09/12/20 09/12/20 History Travoprost [Travatan Z 0.004%] 1 drop BOTH EYES HS 09/12/20 09/12/20 History Allergies Allergy/AdvReac Type Severity Reaction Status Date / Time No Known Allergies Allergy Verified 09/12/20 21:09 Physical Exam Vitals: Vital Signs Temp Pulse Pulse Resp BP BP Pulse Ox 09/13/20 04:00 96.8 F L 67 17 128/62 96 09/13/20 00:25 70 09/13/20 00:00 97.7 F 72 18 133/59 97 09/12/20 21:48 71 18 94/50 98 09/12/20 18:24 97.1 F L 81 16 103/55 97 Intake and Output 09/12/20 09/13/20 09/13/20 22:59 06:59 14:59 Intake Total 1099 Balance 1099 Intake: Intake, IV Titration 1099 Amount Piperacillin-Tazobactam 3 100 .375 gm In Sodium Chloride 0.9% 100 ml @ 25 mls/hr IVPB Q8HR [facility] Rx# :[id number] Sodium Chloride 0.9% 1, 999 000 ml @ 999 mls/hr IV . Q1H1M ONE Rx#:[id number] Other: Weight 77.111 kg 70.5 kg On physical examination, patient appears comfortable in no apparent distress. HEAD: Normocephalic, atraumatic. EYES: No scleral icterus. No conjunctival injection. MOUTH: No lesions, tongue midline. NECK: Trachea midline, no gross abnormalities. CHEST: Clear to auscultation with no wheezing or rhonchi appreciated. HEART: S1-S2 appreciated. ABDOMEN: Soft, nontender to palpation. Bowel sounds are positive. No organomegaly. No guarding or rigidity. EXTREMITIES: No pedal edema. SKIN: No rashes, no jaundice. NEUROLOGIC: Alert and oriented x3. Results CBC & Chem 7: 09/13/20 11:21 09/13/20 11:21 Labs: Abnormal Lab Results - Last 24 Hours (Table) 0509/12/20 09/12/20 Range/Units 19:00 19:00 19:00 WBC 34.7 H (3.8-10.6) k/uL RBC 3.55 L (3.80-5.40) m/uL MCV 100.8 H (80.0-100.0) fL Neutrophils # 33.0 H (1.3-7.7) k/uL Lymphocytes # 0.6 L (1.0-4.8) k/uL Sodium 135 L (137-145) mmol/L BUN 25 H (7-17) mg/dL Creatinine 1.53 H (0.52-1.04) mg/dL Glucose 105 H (74-99) mg/dL Plasma Lactic Acid Christ (0.7-2.0) mmol/L Magnesium 1.5 L (1.6-2.3) mg/dL Total Bilirubin 3.6 H (0.2-1.3) mg/dL AST 346 H (14-36) U/L ALT 188 H (4-34) U/L Alkaline Phosphatase 401 H (38-126) U/L Creatine Kinase 422 H (30-135) U/L Troponin I (0.000-0.034) ng/mL Urine Appearance Turbid H (Clear) Urine Protein 3+ H (Negative) Urine Blood Moderate H (Negative) Urine Bilirubin 2+ H (Negative) Ur Leukocyte Esterase Large H (Negative) Urine RBC 10 H (0-5) /hpf Urine WBC >182 H (0-5) /hpf Urine WBC Clumps Many H (None) /hpf Ur Squamous Epith Cells 5 H (0-4) /hpf Urine Bacteria Many H (None) /hpf Urine Yeast (Budding) Many H (None) /hpf 09/12/20 09/12/20 Range/Units 19:00 19:00 WBC (3.8-10.6) k/uL RBC (3.80-5.40) m/uL MCV (80.0-100.0) fL Neutrophils # (1.3-7.7) k/uL Lymphocytes # (1.0-4.8) k/uL Sodium (137-145) mmol/L BUN (7-17) mg/dL Creatinine (0.52-1.04) mg/dL Glucose (74-99) mg/dL Plasma Lactic Acid Christ 2.1 H* (0.7-2.0) mmol/L Magnesium (1.6-2.3) mg/dL Total Bilirubin (0.2-1.3) mg/dL AST (14-36) U/L ALT (4-34) U/L Alkaline Phosphatase (38-126) U/L Creatine Kinase (30-135) U/L Troponin I 0.444 H* (0.000-0.034) ng/mL Urine Appearance (Clear) Urine Protein (Negative) Urine Blood (Negative) Urine Bilirubin (Negative) Ur Leukocyte Esterase (Negative) Urine RBC (0-5) /hpf Urine WBC (0-5) /hpf Urine WBC Clumps (None) /hpf Ur Squamous Epith Cells (0-4) /hpf Urine Bacteria (None) /hpf Urine Yeast (Budding) (None) /hpf Microbiology - Last 24 Hours (Table) 09/12/20 19:00 Urine Culture - Preliminary Urine,Voided CT scan - abdomen: report reviewed (Computed tomography scan of the abdomen with findings of mild linear infiltrate and atelectasis at lung bases, at herosclerotic disease and mild fecal impaction.) Assessment and Plan (1) Transaminitis Narrative/Plan: 85-year-old female with multiple medical comorbidities presenting to the hospital as a transfer from outside facility where she was seen for weakness and slurred speech. Currently being evaluated by the neurology service she is also being evaluated for possible urinary tract infection and pneumonia. Patient was found to have elevation in her liver enzymes in both a hepatocellular and cholestatic pattern which are currently trending down with total bilirubin 3.1, alkaline phosphatase 41, AST 346 and ALT 188. Patient has no history of liver disease, alcohol abuse, viral hepatitis and denies any new medications. Unclear etiology, may be related to underlying infection or hypoperfusion with plan for liver serologies and ultrasound of the liver for further evaluation. Current Visit: Yes Status: Acute Code(s): R74.01 - ELEVATION OF LEVELS OF LIVER TRANSAMINASE LEVELS SNOMED Code(s): 707029548 (2) UTI (urinary tract infection) Current Visit: Yes Status: Acute Code(s): N39.0 - URINARY TRACT INFECTION, SITE NOT SPECIFIED SNOMED Code(s): 60776201 Plan: Supportive care Okay for diet as tolerated Continue monitor CBC, BMP, LFTs Ultrasound of the liver ordered, full liver serologies including acute viral hepatitis panel ordered Avoid hepatotoxic medications Continue management per primary team and other consulting services Thank you for allowing us to participate in the care of the patient
[2020-09-14] MEDS: SODIUM CHLORIDE 0.9% 1,000 ML IV SCH ×2 (07:43→12:36)
[2020-09-14 08:02] LABS: HGB 10.1 gm/dL (11.4-16.0); MCH 32.3 pg (25.0-35.0); MCHC 31.5 g/dL (31.0-37.0); MCV 102.5 fL (80.0-100.0); Macrocytosis Slight; Mean Platelet Volume 8.7; Platelet Count 196 k/uL (150-450); RBC 3.12 m/uL (3.80-5.40); RDW 14.6 % (11.5-15.5); WBC 17.1 k/uL (3.8-10.6)
[2020-09-14 08:24] LABS: Albumin 2.5 g/dL (3.5-5.0); Magnesium 2.1 mg/dL (1.6-2.3); Potassium 3.6 mmol/L (3.5-5.1); Total Bilirubin 1.3 mg/dL (0.2-1.3); Total Protein 5.2 g/dL (6.3-8.2)
[2020-09-14] MEDS: allopurinoL 100 MG TAB PO SCH (08:25)
[2020-09-14] MEDS: METOPROLOL TARTRATE 50 MG TAB PO SCH ×2 (08:25→19:52)
[2020-09-14] MEDS: ATORVASTATIN 40 MG TAB PO SCH (08:25)
[2020-09-14] MEDS: ENOXAPARIN 30 MG/0.3 ML SYRINGE SQ SCH (08:25)
[2020-09-14] MEDS: ASPIRIN 81 MG PO SCH (08:25)
--- NOTE | 2020-09-14 12:56 | P.PN ---
Subjective Progress Note Date: 09/14/20 Principal diagnosis: Transaminitis Patient was seen and examined sitting up at the bedside. She just worked with physical therapy. She states she had a bowel movement this morning. Denies any abdominal pain, nausea, or vomiting. Repeat liver enzymes are trending down. Neurology is following for possible TIA, rule out stroke. Patient continues treatment for urinary tract infection ceftriaxone. Objective - Vital Signs Vital signs: Vital Signs Temp 97.5 F L 09/14/20 03:55 Pulse 89 09/14/20 03:55 Resp 18 09/14/20 03:55 BP 129/74 09/14/20 03:55 Pulse Ox 99 09/14/20 03:55 Intake & Output 09/13/20 09/14/20 09/14/20 18:59 06:59 18:59 Intake Total 326.207 240 Balance 326.207 240 Weight 71 kg Intake: Intake, IV Titration 86.207 Amount Heparin Sod,Pork in 0.45% 86.207 NaCl 25,000 unit In 0.45 % NaCl 1 250ml.bag @ 12 UNITS/KG/HR 9.253 mls/hr IV .Q24H [facility] Rx#: [id number] Oral 240 240 Other: Voiding Method Diaper Incontinent # Voids 1 1 # Bowel Movements 1 - Exam General appearance: The patient is alert, oriented, appears in no acute distress. HET: Head is normocephalic and atraumatic. Conjunctiva pink. Sclera anicteric. Neck: Supple without lymphadenopathy. Abdomen: Soft, nontender, nondistended with bowel sounds. No guarding or rigidity. Extremities: Normal skin color and turgor. No pedal edema Skin: No rashes, no jaundice Neurological: No focal deficits. Alert and oriented 3. - Labs CBC & Chem 7: 09/14/20 07:01 09/14/20 07:01 Labs: Abnormal Lab Results - Last 24 Hours (Table) 09/13/20 09/13/20 09/14/20 Range/Units 11:21 11: 07:01 WBC 28.2 H (3.8-10.6) k/uL RBC 3.08 L (3.80-5.40) m/uL Hgb 10.4 L (11.4-16.0) gm/dL Hct 31.5 L (34.0-46.0) % MCV 102.5 H (80.0-100.0) fL Neutrophils # 26.3 H (1.3-7.7) k/uL Sodium 135 L (137-145) mmol/L Chloride 110 H (98-107) mmol/L Carbon Dioxide 18 L 17 L (22-30) mmol/L BUN 33 H 41 H (7-17) mg/dL Creatinine 2.17 H 2.65 H (0.52-1.04) mg/dL Calcium 8.2 L 8.0 L (8.4-10.2) mg/dL Total Bilirubin 2.9 H (0.2-1.3) mg/dL AST 239 H 111 H (14-36) U/L ALT 160 H 112 H (4-34) U/L Alkaline Phosphatase 291 H 240 H (38-126) U/L Total Protein 5.6 L 5.2 L (6.3-8.2) g/dL Albumin 2.8 L 2.5 L (3.5-5.0) g/dL 09/14/20 Range/Units 07:01 WBC 17.1 H (3.8-10.6) k/uL RBC 3.12 L (3.80-5.40) m/uL Hgb 10.1 L (11.4-16.0) gm/dL Hct 32.0 L (34.0-46.0) % MCV 102.5 H (80.0-100.0) fL Neutrophils # (1.3-7.7) k/uL Sodium (137-145) mmol/L Chloride (98-107) mmol/L Carbon Dioxide (22-30) mmol/L BUN (7-17) mg/dL Creatinine (0.52-1.04) mg/dL Calcium (8.4-10.2) mg/dL Total Bilirubin (0.2-1.3) mg/dL AST (14-36) U/L ALT (4-34) U/L Alkaline Phosphatase (38-126) U/L Total Protein (6.3-8.2) g/dL Albumin (3.5-5.0) g/dL Microbiology - Last 24 Hours (Table) 09/12/20 23:00 Blood Culture - Final Blood 09/12/20 23:15 Blood Culture - Preliminary Blood No Growth after 24 hours 09/12/20 23:15 Blood Culture Gram Stain - Preliminary Blood Blood Culture - Preliminary Klebsiella oxytoca 09/12/20 19:00 Urine Culture - Preliminary Urine,Voided Gram Neg Bacilli Assessment and Plan (1) Transaminitis Narrative/Plan: 85-year-old female with multiple medical comorbidities presenting to the hospital as a transfer from outside facility where she was seen for weakness and slurred speech. Currently being evaluated by the neurology service she is also being evaluated for possible urinary tract infection and pneumonia. Patient was found to have elevation in her liver enzymes in both a hepatocellular and cholestatic pattern which are currently trending down with total bilirubin 3.1, alkaline phosphatase 41, AST 346 and ALT 188. Patient has no history of liver disease, alcohol abuse, viral hepatitis and denies any new medications. Unclear etiology, may be related to underlying infection or hypoperfusion with plan for liver serologies and ultrasound of the liver for further evaluation. Hepatitis panel negative. Liver serologies pending. Liver ultrasound with no abnormal findings. Liver enzymes continue to trend down. Current Visit: Yes Status: Acute Code(s): R74.01 - ELEVATION OF LEVELS OF LIVER TRANSAMINASE LEVELS SNOMED Code(s): 588810067 (2) UTI (urinary tract infection) Current Visit: Yes Status: Acute Code(s): N39.0 - URINARY TRACT INFECTION, SITE NOT SPECIFIED SNOMED Code(s): 11377898 Plan: Supportive care Okay for diet as tolerated Continue monitor CBC, BMP, LFTs Ultrasound of the liver ordered, full liver serologies including acute viral hepatitis panel ordered and reviewed Avoid hepatotoxic medications Continue management per primary team and other consulting services Thank you for allowing us to participate in the care of the patient will we will continue to follow Dr. Diana I agree with the dictator's note, documented as a scribe by Rosa Ortiz.
[2020-09-14 13:01] LABS: Ceruloplasmin 24.9 mg/dL (20.0-60.0)
[2020-09-14 13:35] LABS: Protein, Total 5.2 g/dL (6.2-8.2)
[2020-09-14 13:41] LABS: Hemoglobin A1C 5.1 % (4.0-6.0)
--- NOTE | 2020-09-14 13:42 | P.PN ---
Subjective Progress Note Date: 09/14/20 This is 85 years old female with past medical history of hypertension,and gout comes in as a transfer from [facility]. Patient came into the facility for increased weakness and slurring of speech. Apparently these symptoms are going on for a month intermittently. Patient is having significant weakness in the right lower extremity and intermittent slurring of speech. On evaluation in the ER patient was found to have pro- calcitonin of 23.9 elevated troponin and liver enzymes. WBC was high. CAT scan of head was performed that was negative for any acute abnormality but did demonstrate chronic small vessel ischemia without acute process. She was given a dose of aspirin a dose of Zosyn and flatulence in to ER for evaluation. In the ER patient admitted to some nausea but denies any vomiting. She denies any abdominal pain, fever or chills. She denies any frequency or burning on micturition. She denies any sick contact. An assessment in the ER patient was found to be afebrile respiratory rate of 16 blood pressure 103/55 pulse of 81. EKG was obtained that showed normal sinus rhythm with inverted T waves in V2 and V3. Repeat labs were obtained, patient's WBC was 34.7 hemoglobin 11.4 glucose 213, sodium 135 potassium 3.9 chloride 100 bicarb 23 BUN 25 creatinine 1.53 glucose 105. Urinalysis were ordered that suggested UTI with budding yeast. Bilirubin 3.6 total protein 6.7 albumin 3.5 lactic acid 2.1 troponin 0.444. Patient was started on heparin drip. One dose of Zosyn was given. Patient received 1.5 L of IV fluids. GI and cardiology was consulted. On evaluation today patient denies any chest pain or shortness of breath. She does have some weakness in the right lower extremity but denies any slurring of speech. She had last bowel movement was 2 days ago denies any diarrhea or change in bowel habit. Patient denies any melena. She denies any loss of appetite or weight. Patient was seen by cardiology, heparin drip was discontinued. Echo was obtained that showed normal ejection fraction and mild MR and mild TR. No further intervention needed. If his was ruled out. Gastroenterology was consulted for increased liver enzymes. Hepatitis panel is pending. Neurology recommendations are pending. CT abdomen was obtained patient and mild bleeding infiltrate and atelectasis at lung bases and atherosclerotic vascular disease with mild rectal fecal impaction. 09/14 patient examined bedside. She is alert answering questions appropriately does feel a little numb in her face and has weakness involving the right upper extremity. She denies any chest pain or shortness of breath or abdominal pain or diarrhea. Vitals were reviewed patient on a temp of 96.8, respiratory rate 18 blood pressure 118/67 oxygen saturation 97% on room air. Labs suggest improvement in leukocytosis from 28-17, hemoglobin stable at 10, platelet 196, bicarb 17 creatinine was 2.65 BUN 41 AST ALT and alkaline phosphatase is improved since yesterday, triglycerides are normal LDL 33 TSH is 2.2 hepatitis panel is negative alcohol level is negative. Blood cultures are positive for Klebsiella. Repeat cultures ordered. Patient's carotid ultrasound positive for 50-70% stenosis bilaterally. Repeat CAT scan suggestive of chronic small vessel changes no acute phenomena noted. Neurology evaluation was concerning for an ischemic stroke. Further recommendations pending. Continue aspirin and Lipitor. With addition of Plavix once PTT normalizes. PTOT consult placed. Vascular surgery consult Constitutional: Denies chills, Denies fever, endorses lethargy, Denies weight loss Eyes: denies decreased vision, denies diplopia, denies discharge, denies pain Ears: deny: decreased hearing Ears, nose, mouth and throat: Denies dental pain, Denies headache, Denies nasal discharge, Denies nose pain Cardiovascular: Denies chest pain, Denies decreased exercise tolerance, Denies edema, Denies high blood pressure, Denies irregular heart beat, Denies palpitations, Denies paroxysmal nocturnal dyspnea, Denies rapid heart beat, Denies shortness of breath Respiratory: Denies congestion, Denies cough, Denies cough with sputum, Denies dyspnea, Denies home oxygen, Denies wheezing Gastrointestinal: Denies abdominal pain, Denies change in bowel habits, Denies coffee ground emesis, Denies early satiety, Denies excessive gas, Denies heartburn, Denies hematemesis, Denies hematochezia, Denies loss of appetite, Denies nausea, Denies vomiting Genitourinary: Denies dysuria, Denies flank pain, Denies kidney stones, Denies menorrhagia, Denies urgency, Denies urinary frequency Musculoskeletal: Endorses gait dysfunction, endorses limitation of motion, Denies morning stiffness, Denies muscle cramps Integumentary: Denies rash, Denies wounds, Denies brittle nails, Denies change in hair/nails, Denies darkening of skin Neurological: Endorses balance difficulties, endorses change in speech, Denies double vision, endorses gait dysfunction, Denies loss of vision, endorses motor disturbance, Denies numbness, Denies paralysis, Denies paresthesias, Denies seizures Psychiatric: Denies anxiety, Denies depression Endocrine: Denies excessive sweating, Denies excessive thirst, Denies high blood sugars, Denies palpitations Hematologic/Lymphatic: Denies easy bruising, Denies lymphadenopathy Objective - Vital Signs Vital signs: Vital Signs Temp 96.8 F L 09/14/20 11:30 Pulse 87 09/14/20 11:30 Resp 18 09/14/20 11:30 BP 118/67 09/14/20 11:30 Pulse Ox 97 09/14/20 11:30 Intake & Output 09/13/20 09/14/20 09/14/20 18:59 06:59 18:59 Intake Total 326.207 240 Balance 326.207 240 Weight 71 kg Intake: Intake, IV Titration 86.207 Amount Heparin Sod,Pork in 0.45% 86.207 NaCl 25,000 unit In 0.45 % NaCl 1 250ml.bag @ 12 UNITS/KG/HR 9.253 mls/hr IV .Q24H [facility] Rx#: [id number] Oral 240 240 Other: Voiding Method Diaper Diaper Incontinent Incontinent # Voids 1 1 # Bowel Movements 1 - Exam - Constitutional General appearance: cooperative, no acute distress, cachectic-appearing - EENT Eyes: anicteric sclerae, PERRLA, normal appearance ENT: hearing grossly normal - Neck Neck: no lymphadenopathy, normal ROM, no other, no rigidity, no stridor, no thyromegaly - Respiratory Respiratory: bilateral: CTA, negative: diminished, dullness, rales, rhonchi - Cardiovascular Rhythm: regular Heart sounds: normal: S1, S2 Abnormal Heart Sounds: no systolic murmur, no diastolic murmur, no rub, no S3 Gallop, no S4 Gallop, no click, no other - Gastrointestinal General gastrointestinal: normal bowel sounds, soft - Integumentary Integumentary: no rash - Neurologic Neurologic:Right lower extremity weaker than the left 4+/5 bilateral lower extremity. Mild facial droop noted on the right [id number] test normal. No sensory deficit - Musculoskeletal Musculoskeletal: gait normal, strength equal bilaterally - Psychiatric Psychiatric: A&O x's 3, appropriate affect - Labs CBC & Chem 7: 09/14/20 07:01 09/14/20 07:01 Labs: Abnormal Lab Results - Last 24 Hours (Table) 09/14/20 09/14/20 Range/Units 07:01 07:01 WBC 17.1 H (3.8-10.6) k/uL RBC 3.12 L (3.80-5.40) m/uL Hgb 10.1 L (11.4-16.0) gm/dL Hct 32.0 L (34.0-46.0) % MCV 102.5 H (80.0-100.0) fL Chloride 110 H (98-107) mmol/L Carbon Dioxide 17 L (22-30) mmol/L BUN 41 H (7-17) mg/dL Creatinine 2.65 H (0.52-1.04) mg/dL Calcium 8.0 L (8.4-10.2) mg/dL AST 111 H (14-36) U/L ALT 112 H (4-34) U/L Alkaline Phosphatase 240 H (38-126) U/L Total Protein 5.2 L (6.3-8.2) g/dL Albumin 2.5 L (3.5-5.0) g/dL Microbiology - Last 24 Hours (Table) 09/12/20 23:00 Blood Culture - Final Blood 09/12/20 23:15 Blood Culture - Preliminary Blood No Growth after 24 hours 09/12/20 23:15 Blood Culture Gram Stain - Preliminary Blood Blood Culture - Preliminary Klebsiella oxytoca 09/12/20 19:00 Urine Culture - Preliminary Urine,Voided Gram Neg Bacilli Assessment and Plan Plan: #1 slurring of speech with right-sided weakness echocardiogram and carotid ordered. CT head was negative for any acute intracranial process chronic ischemic changes noted. Repeat CT with no changes Lipid panel ordered. Aspirin started 81 mg by mouth daily. Lipitor study of 40 mg by mouth daily neurology recommendation appreciated. Plavix to be initiated once PTT normalizes. Repeat PTT ordered #2 sepsis with bacteremia secondary to UTI Klebsiella positive on blood cultures. Repeat blood cultures ordered Zosyn switched to Rocephin. Urine culture pending continue IV fluids at 1 30 mL per hour. 6 CBC tomorrow #3 troponin elevation likely secondary to sepsis most of ACS ruled out #4 hypertension with pressure pattern will initiated on metoprolol 50 twice a day #5 gout continue allopurinol 100 mg by mouth daily #6 chronic kidney disease stage III Renal ultrasound suggestive of parenchymal thinning suggestive chronic kidney disease. #7 acute transaminitis. Improving Hepatitis panel normal Liver ultrasound suggestive of renal parenchymal thinning. CBC within normal limits. Gallbladder surgically absent #8 hypomagnesemia status was magnesium sulfate 1 g 1 time dose. Repeat magnesium normal #9 hyponatremia likely hypovolemic. Resolved #10 leukocytosis with anemia secondary to sepsis with bone marrow suppression continue to monitor #11 fecal impaction status post Fleet enema #12CODE STATUS full code #13DVT prophylaxis heparin every 12 #14 disposition PT OT consult for possible re-
[2020-09-14 14:29] LABS: Alpha Fetoprotein, Tumor Mkr <2.5 ng/mL (0.0-7.9)
--- NOTE | 2020-09-14 15:14 | P.PN ---
Subjective Progress Note Date: 09/14/20 She was seen at bedside and she denies of any neurological problems. She feels about the same today compared to yesterday. CT of the head is reported as "new graft bilateral matter hypodensity probably due to chronic small vessel ischemia. No acute intracranial abnormality. Cerebral atrophy". I spoke with (reading radiologist) also was the one that read this CT and I notified him that the I felt that the patient did have chronic small vessel disease but I felt like there is a lacunar infarct over the left frontal region which seems old. He agreed with me and he stated that that he'll addendum's note. Carotid duplex was reported as they're antegrade flow in the vertebral arteries. There are elevated velocity in the internal/external carotid artery bilaterally corresponding to 50-70% stenosis. Bilateral plaque formation. Objective - Vital Signs Vital signs: Vital Signs Temp 96.8 F L 09/14/20 11:30 Pulse 87 09/14/20 11:30 Resp 18 09/14/20 11:30 BP 118/67 09/14/20 11:30 Pulse Ox 97 09/14/20 11:30 Intake & Output 09/13/20 09/14/20 09/14/20 18:59 06:59 18:59 Intake Total 326.207 240 Balance 326.207 240 Weight 71 kg Intake: Intake, IV Titration 86.207 Amount Heparin Sod,Pork in 0.45% 86.207 NaCl 25,000 unit In 0.45 % NaCl 1 250ml.bag @ 12 UNITS/KG/HR 9.253 mls/hr IV .Q24H [facility] [place] Rx#: [id number] Oral 240 240 Other: Voiding Method Diaper Diaper Incontinent Incontinent # Voids 1 1 1 # Bowel Movements 1 - Exam GENERAL: The patient is lying in bed and is not in acute distress. NEUROLOGICAL: Higher mental function: The patient is awake, alert, oriented to self, place and time. Patient is following commands. She had difficulty repeating phrase. Maybe some expressive aphasia at instances. No neglect. Cranial nerves: The pupils are round, equal and reactive to light and accommodation. Visual goldstein are full to confrontation throughout. Extraocular movement is intact no nystagmus is noted. Facial sensation is normal to touch throughout. The facial strength is right mild nasolabial flattening. Hearing is mildly to moderately decreased to hand rubs bilaterally to hand rub. Tongue is midline and moved [id number] without any difficulty. Mild dysarthria is noted. Shoulder shrug is normal bilaterally. Motor: Gait is deferred. 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 While proximal are 5/5. While is able to lift bilateral lower extremities above graivty (strength over left > right and she mentioned something about her ankle pain that was remote). Normal tone and bulk. Cerebellum: Normal finger to nose bilaterally. Sensation: Sensation is normal to touch throughout. Reflexes (right/left): 1+ throughout. Plantars are downgoing bilaterally. - Labs CBC & Chem 7: 09/14/20 07:01 09/14/20 07:01 Labs: Abnormal Lab Results - Last 24 Hours (Table) 09/14/20 09/14/20 09/14/20 Range/Units 07:01 07:01 07:01 WBC 17.1 H (3.8-10.6) k/uL RBC 3.12 L (3.80-5.40) m/uL Hgb 10.1 L (11.4-16.0) gm/dL Hct 32.0 L (34.0-46.0) % MCV 102.5 H (80.0-100.0) fL Chloride 110 H (98-107) mmol/L Carbon Dioxide 17 L (22-30) mmol/L BUN 41 H (7-17) mg/dL Creatinine 2.65 H (0.52-1.04) mg/dL Calcium 8.0 L (8.4-10.2) mg/dL AST 111 H (14-36) U/L ALT 112 H (4-34) U/L Alkaline Phosphatase 240 H (38-126) U/L Total Protein 5.2 L (6.3-8.2) g/dL Total Protein (PEP) 5.2 L (6.2-8.2) g/dL Albumin 2.5 L (3.5-5.0) g/dL Microbiology - Last 24 Hours (Table) 09/12/20 23:00 Blood Culture - Final Blood 09/12/20 23:15 Blood Culture - Preliminary Blood No Growth after 24 hours 09/12/20 23:15 Blood Culture Gram Stain - Preliminary Blood Blood Culture - Preliminary Klebsiella oxytoca 09/12/20 19:00 Urine Culture - Preliminary Urine,Voided Gram Neg Bacilli Assessment and Plan Assessment: Old left lacunar infarct over the left frontal region (with presentation of Mild dysarthria on for the last 1 month. on examination patient had mild dysarthria, right nasolabila flattening, difficulty repeating phrases and right lower ex tremity weakness). 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 Internal/external carotid artery bilaterally corresponding to 50-70% stenosis per carotid duplex Macrocytosis Acute urinary tract infection Hypertension with episode of hypotensive on admission (was low as 94/50) Elevated troponin Elevated liver function test (AST 239 and ALT 160) Acute kidney insufficiency--worsening Dyslipidemia Plan: * Over [facility] she had CT of the head which was reported as age- related atrophic and chronic small vessel ischemic change without acute intracranial process seen at this time. Diffuse white matter changes may reflect underlying demyelinating. Remote cerebellar insult. * Lipid panel is triglyceride of 66, cholesterol of 98, LDL of 33 and HDL of 52. * 2-D echo was reported as there is moderate concentric left ventricular hypertrophy. Ejection fraction of 50-55%. Left atrial size is normal. * CT of the head is reported as "new graft bilateral matter hypodensity probably due to chronic small vessel ischemia. No acute intracranial abnormality. Cerebral atrophy". I spoke with (reading radiologist) also was the one that read this CT and I notified him that the I felt that the patient did have chronic small vessel disease but I felt like there is a lacunar infarct over the left frontal region which seems old. He agreed with me and he stated that that he'll addendum's note. * Carotid duplex was reported as they're antegrade flow in the vertebral arterie s. There are elevated velocity in the internal/external carotid artery bilaterally corresponding to 50-70% stenosis. Bilateral plaque formation. * Hemoglobin A1c is 5.1 which is considered normal. * Continue aspirin 81 mg and will add Plavix 75mg daily for secondary stroke prophylaxis and will help with carotid stenosis. Continue Lipitor 40 mg daily * Vascular surgery team is consulted because of the carotid stenosis by the primary team. They recommended symptomatic treatment. * vitamin B12, folate are ordered because of patient's generalized weakness and are pending. If Vitamin B12 is low recommend Vitamin B12 1000mcg daily and if folate is low then recommend folate 1mg daily. Will defer management to the primary team. * Continue q4 hour neuro checks. * Continue cardiac monitoring * Physical therapy, occupation therapy and speech therapy are consulted * I ordered ammonia level is elevated all defer the management to the primary team * Cardiology is on board. * Receommend VIN since patient had old bilateral cerebellar and left frontal lacunar but patient refused (she is alert oriented X3 and naming objects appropriately). Consider VIN as outpatient if patient changes her mind. * Recommend loop recorder/holter monitor. * Will defer the rest of the medical management to the primary team. There is no further neurological work-up needed. The patient needs to follow-up with a neurologist as outpatient upon discharge within 1-2 weeks. The plan was discussed with the patient nurse Laith Michaud M.D. Neuro-hospitalist Time with Patient: Less than 30
[2020-09-14 16:04] LABS: Folate, Serum 16.2 ng/mL
--- NOTE | 2020-09-14 16:18 | P.GSCN ---
History of Present Illness Consult date: 09/14/20 Reason for Consult: Bilateral carotid stenosis Requesting physician: Maria A Sparks History of present illness: This is an 85-year-old woman with medical history of hypertension, hyperlipidemia that presented emergency department on 09/12/2020 as a transfer for [facility] for weakness and slurring the speech. Per the patient's she stated that she's been having the slurring the speech for last 1 month on and off as well as that she having weakness. Initially she was very vague about her weakness and she said generalized weakness but then later she stated that she's having right leg weakness. She denies of any visual disturbance, denies of any numbness. Denies of any difficulty getting her words out. She said that she takes aspirin 81 mg daily at home. She denies of being on any statins at home. Over [facility] she had CT of the head which was reported as age- related atrophic and chronic small vessel ischemic change without acute intracranial process seen at this time. Diffuse white matter changes may reflect underlying demyelinating. Remote cerebellar insult. Was noted to have some right-sided weakness and facial droop therefore neurology was consulted. Further evaluation for TIA/stroke included CT and carotid ultrasound. Patient was noted to have bilateral carotid stenosis therefore vascular surgery was consulted. Today the patient states she is feeling well. She did have some to some work with physical therapy. She is denying any visual disturbances, extremity weakness, states that she always has somewhat of a slurred speech, and denies any other focal deficits at this time. She denies any shortness of breath, chest pain, or abdominal pain. She is also being worked up for transaminitis and noted to have a current urinary tract infection and initially acute encephalopathy. She had a carotid ultrasound as part of her workup which showed right ICA 159.4 with an ICA/CCA ratio 1.0, left ICA 127.4 with an ICA/CCA ratio of 0.7. Impression states there is antegrade flow in the vertebral arteries. There are elevated velocities in the internal and external carotid arteries bilaterally that correspond to 50-70% stenosis. Bilateral plaque formation. CT of brain impression states bilateral white matter hypodensity probably due to chronic small vessel ischemia. No acute intracranial abnormality. Cerebral atrophy. Addendum states there is a 1 cm area of more noticeable hypodensity in the left posterior frontal lobe white matter adjacent to the more extensive diffuse white matter disease. This is consistent with an old lacunar infarct left posterior frontal lobe. This appears unchanged compared to [place] computed tomography scan of 09/12/2020 Review of Systems A 14 point review of systems was completed all pertinent positives and negatives as stated in the HPI. Past Medical History Past Medical History: Hyperlipidemia, Hypertension Additional Past Medical History / Comment(s): gout, History of Any Multi-Drug Resistant Organisms: None Reported Past Surgical History: Cholecystectomy, Orthopedic Surgery Past Psychological History: No Psychological Hx Reported Smoking Status: Never smoker Past Alcohol Use History: None Reported Past Drug Use History: None Reported - Past Family History Mother Family Medical History: Cancer Father Family Medical History: Myocardial Infarction (MT) Medications and Allergies Home Medications Medication Instructions Recorded Confirmed Type Allopurinol [Zyloprim] 100 mg PO DAILY 09/12/20 09/12/20 History Metoprolol Tartrate [Lopressor] 50 mg PO BID 09/12/20 09/12/20 History RX: Losartan Potassium 100 mg PO DAILY 09/12/20 09/12/20 History Travoprost [Travatan Z 0.004%] 1 drop BOTH EYES HS 09/12/20 09/12/20 History Allergies Allergy/AdvReac Type Severity Reaction Status Date / Time No Known Allergies Allergy Verified 09/12/20 21:09 Surgical - Exam Vital Signs Temp Pulse Resp BP Pulse Ox 97.1 F L 81 16 103/55 97 09/12/20 18:24 09/12/20 18:24 09/12/20 18:24 09/12/20 18:24 09/12/20 18:24 General appearance: The patient is alert, oriented, in no acute distress. HET: Head is normocephalic and atraumatic. Neck: Supple without lymphadenopathy. Trachea midline. Heart: S1 S2. Regular rate and rhythm. Lungs: Clear to auscultation Abdomen: Soft, nontender, nondistended with bowel sounds. Extremities: Normal skin color and turgor. No pedal edema bilaterally. Palpable bilateral radial +2 pulses Neurological: Speech is understandable, slight slur noted. Answers questions appropriately and follows commands. Tongue protrudes midline, patient did look like she had a slight left facial droop with smile. She has some extremity weakness bilateral upper and lower. Results - Labs 09/14/20 07:01 09/14/20 07:01 Abnormal Lab Results - Last 24 Hours (Table) 09/14/20 09/14/20 09/14/20 Range/Units 07:01 07:01 07:01 WBC 17.1 H (3.8-10.6) k/uL RBC 3.12 L (3.80-5.40) m/uL Hgb 10.1 L (11.4-16.0) gm/dL Hct 32.0 L (34.0-46.0) % MCV 102.5 H (80.0-100.0) fL Chloride 110 H (98-107) mmol/L Carbon Dioxide 17 L (22-30) mmol/L BUN 41 H (7-17) mg/dL Creatinine 2.65 H (0.52-1.04) mg/dL Calcium 8.0 L (8.4-10.2) mg/dL AST 111 H (14-36) U/L ALT 112 H (4-34) U/L Alkaline Phosphatase 240 H (38-126) U/L Total Protein 5.2 L (6.3-8.2) g/dL Total Protein (PEP) 5.2 L (6.2-8.2) g/dL Albumin 2.5 L (3.5-5.0) g/dL Microbiology - Last 24 Hours (Table) 09/12/20 23:00 Blood Culture - Final Blood 09/12/20 23:15 Blood Culture - Preliminary Blood No Growth after 24 hours 09/12/20 23:15 Blood Culture Gram Stain - Preliminary Blood Blood Culture - Preliminary Klebsiella oxytoca 09/12/20 19:00 Urine Culture - Preliminary Urine,Voided Gram Neg Bacilli Diabetes panel 09/14/20 09/14/20 Range/Units 07:01 07:01 Sodium 138 (137-145) mmol/L Potassium 3.6 (3.5-5.1) mmol/L Chloride 110 H (98-107) mmol/L Carbon Dioxide 17 L (22-30) mmol/L BUN 41 H (7-17) mg/dL Creatinine 2.65 H (0.52-1.04) mg/dL Glucose 92 (74-99) mg/dL Hemoglobin A1c 5.1 (4.0-6.0) % Calcium 8.0 L (8.4-10.2) mg/dL AST 111 H (14-36) U/L ALT 112 H (4-34) U/L Alkaline Phosphatase 240 H (38-126) U/L Total Protein 5.2 L (6.3-8.2) g/dL Albumin 2.5 L (3.5-5.0) g/dL Thyroid panel 09/14/20 Range/Units 07:01 TSH 2.260 (0.465-4.680) mIU/L Calcium panel 09/14/20 Range/Units 07:01 Calcium 8.0 L (8.4-10.2) mg/dL Albumin 2.5 L (3.5-5.0) g/dL Pituitary panel 09/14/20 Range/Units 07:01 Sodium 138 (137-145) mmol/L Potassium 3.6 (3.5-5.1) mmol/L Chloride 110 H (98-107) mmol/L Carbon Dioxide 17 L (22-30) mmol/L BUN 41 H (7-17) mg/dL Creatinine 2.65 H (0.52-1.04) mg/dL Glucose 92 (74-99) mg/dL Calcium 8.0 L (8.4-10.2) mg/dL TSH 2.260 (0.465-4.680) mIU/L Adrenal panel 09/14/20 Range/Units 07:01 Sodium 138 (137-145) mmol/L Potassium 3.6 (3.5-5.1) mmol/L Chloride 110 H (98-107) mmol/L Carbon Dioxide 17 L (22-30) mmol/L BUN 41 H (7-17) mg/dL Creatinine 2.65 H (0.52-1.04) mg/dL Glucose 92 (74-99) mg/dL Calcium 8.0 L (8.4-10.2) mg/dL Total Bilirubin 1.3 (0.2-1.3) mg/dL AST 111 H (14-36) U/L ALT 112 H (4-34) U/L Alkaline Phosphatase 240 H (38-126) U/L Total Protein 5.2 L (6.3-8.2) g/dL Albumin 2.5 L (3.5-5.0) g/dL - Imaging Additional studies: carotid ultrasound as part of her workup which showed right ICA 159.4 with an ICA/CCA ratio 1.0, left ICA 127.4 with an ICA/CCA ratio of 0.7. Impression states there is antegrade flow in the vertebral arteries. There are elevated velocities in the internal and external carotid arteries bilaterally that correspond to 50-70% stenosis. Bilateral plaque formation. CT of brain impression states bilateral white matter hypodensity probably due to chronic small vessel ischemia. No acute intracranial abnormality. Cerebral atrophy. Addendum states there is a 1 cm area of more noticeable hypodensity in the left posterior frontal lobe white matter adjacent to the more extensive diffuse white matter disease. This is consistent with an old lacunar infarct left posterior frontal lobe. This appears unchanged compared to [facility] of 09[facility]12/2020 Assessment and Plan Assessment: 1. Bilateral carotid stenosis noted on carotid ultrasound estimating 50-70% 2. 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 Urinary tract infection 4. History of hypertension with episode of hypotension on admission 5. History of hyperlipidemia (1) Transaminitis Current Visit: Yes Status: Acute Code(s): R74.01 - ELEVATION OF LEVELS OF LIVER TRANSAMINASE LEVELS SNOMED Code(s): 603029463 (2) UTI (urinary tract infection) Current Visit: Yes Status: Acute Code(s): N39.0 - URINARY TRACT INFECTION, SITE NOT SPECIFIED SNOMED Code(s): 10435535 Plan: Continue symptomatic and supportive care Carotid ultrasound reviewed Consider CT angiogram of head and neck, however patient currently has acute kidney insufficiency with a creatinine of 2.65 Continue with aspirin and Plavix as ordered per neurology Outpatient follow-up recommended Further recommendations to follow Thank you for this consultation and allowing us take part in the plan of care of your patient The impression and plan of care has been dictated as directed. Dr. Wolfe I performed a history and examination of this patient, discussed the same with the dictator. I agree with the dictator's note ,documented as a scribe. Any additional findings or plans will be noted.
[2020-09-14] MEDS: CLOPIDOGREL 75 MG TAB PO SCH (16:42)
[2020-09-14] MEDS: LATANOPROST 0.005% OPHTH DROPS 2.5 ML BTL BOTH EYES SCH (19:52)
[2020-09-15 07:50] LABS: Basophils % (A) 0 %; Eosinophils # (A) 0.2 k/uL (0-0.7); Eosinophils % (A) 1 %; HCT 29.9 % (34.0-46.0); HGB 9.8 gm/dL (11.4-16.0); Hypochromasia Slight; Lymphocytes # (A) 1.1 k/uL (1.0-4.8); Lymphocytes % (A) 9 %; MCH 33.9 pg (25.0-35.0); MCHC 32.6 g/dL (31.0-37.0); MCV 103.9 fL (80.0-100.0); Macrocytosis Slight; Mean Platelet Volume 8.6; Monocytes # (A) 0.3 k/uL (0-1.0); Monocytes % (A) 3 %; Neutrophils # (A) 9.6 k/uL (1.3-7.7); Neutrophils % (A) 85 %; Platelet Count 154 k/uL (150-450); RBC 2.88 m/uL (3.80-5.40); RDW 14.3 % (11.5-15.5); WBC 11.3 k/uL (3.8-10.6)
[2020-09-15 07:58] LABS: Albumin 2.4 g/dL (3.5-5.0); Potassium 4.2 mmol/L (3.5-5.1); Total Bilirubin 0.8 mg/dL (0.2-1.3); Total Protein 5.2 g/dL (6.3-8.2)
[2020-09-15] MEDS: ASPIRIN 81 MG PO SCH (08:44)
[2020-09-15] MEDS: METOPROLOL TARTRATE 50 MG TAB PO SCH ×2 (08:44→20:41)
[2020-09-15] MEDS: ENOXAPARIN 30 MG/0.3 ML SYRINGE SQ SCH (08:45)
[2020-09-15] MEDS: ATORVASTATIN 40 MG TAB PO SCH (08:45)
[2020-09-15] MEDS: allopurinoL 100 MG TAB PO SCH (08:45)
[2020-09-15] MEDS: CLOPIDOGREL 75 MG TAB PO SCH (08:45)
--- NOTE | 2020-09-15 09:51 | P.PN ---
Subjective Progress Note Date: 09/15/20 Principal diagnosis: Transaminitis She was seen and examined sitting up in her bed. She denies any abdominal pain, nausea, or vomiting. She is tolerating her regular diet. Liver enzymes continued to trend down and are almost normalized. Objective - Vital Signs Vital signs: Vital Signs Temp 98.2 F 09/15/20 08:00 Pulse 93 09/15/20 08:00 Resp 18 09/15/20 08:00 BP 153/83 09/15/20 08:00 Pulse Ox 96 09/15/20 08:00 Intake & Output 09/14/20 09/15/20 09/15/20 18:59 06:59 18:59 Intake Total 720 100 Balance 720 100 Weight 73.5 kg Intake: Intake, IV Titration 100 Amount cefTRIAXone 2 gm In 100 Sodium Chloride 0.9% 50 ml @ 100 mls/hr IVPB Q24HR [facility] Rx#:[id number] Oral 720 Other: Voiding Method Diaper Bedpan Incontinent Diaper # Voids 1 1 - Exam General appearance: The patient is alert, oriented, appears in no acute distress. HET: Head is normocephalic and atraumatic. Conjunctiva pink. Sclera anicteric. Neck: Supple without lymphadenopathy. Abdomen: Soft, nontender, nondistended with bowel sounds. No guarding or rigidity. Extremities: Normal skin color and turgor. No pedal edema Skin: No rashes, no jaundice Neurological: No focal deficits. Alert and oriented 3. - Labs CBC & Chem 7: 09/15/20 07:04 09/15/20 07:04 Labs: Abnormal Lab Results - Last 24 Hours (Table) 09/14/20 09/14/20 09/15/20 Range/Units 07:01 07:01 07:04 WBC 11.3 H (3.8-10.6) k/uL RBC 2.88 L (3.80-5.40) m/uL Hgb 9.8 L (11.4-16.0) gm/dL Hct 29.9 L (34.0-46.0) % MCV 103.9 H (80.0-100.0) fL Neutrophils # 9.6 H (1.3-7.7) k/uL Chloride (98-107) mmol/L Carbon Dioxide (22-30) mmol/L BUN (7-17) mg/dL Creatinine (0.52-1.04) mg/dL Calcium (8.4-10.2) mg/dL Iron 37 L (50-170) ug/dL TIBC 185 L (228-460) ug/dL AST (14-36) U/L ALT (4-34) U/L Alkaline Phosphatase (38-126) U/L Total Protein (6.3-8.2) g/dL Total Protein (PEP) 5.2 L (6.2-8.2) g/dL Albumin (3.5-5.0) g/dL 09/15/20 Range/Units 07:04 WBC (3.8-10.6) k/uL RBC (3.80-5.40) m/uL Hgb (11.4-16.0) gm/dL Hct (34.0-46.0) % MCV (80.0-100.0) fL Neutrophils # (1.3-7.7) k/uL Chloride 115 H (98-107) mmol/L Carbon Dioxide 15 L (22-30) mmol/L BUN 41 H (7-17) mg/dL Creatinine 2.46 H (0.52-1.04) mg/dL Calcium 8.0 L (8.4-10.2) mg/dL Iron (50-170) ug/dL TIBC (228-460) ug/dL AST 56 H (14-36) U/L ALT 80 H (4-34) U/L Alkaline Phosphatase 221 H (38-126) U/L Total Protein 5.2 L (6.3-8.2) g/dL Total Protein (PEP) (6.2-8.2) g/dL Albumin 2.4 L (3.5-5.0) g/dL Microbiology - Last 24 Hours (Table) 09/12/20 23:15 Blood Culture - Preliminary Blood No Growth after 48 hours 09/12/20 23:15 Blood Culture Gram Stain - Final Blood Blood Culture - Final Klebsiella oxytoca 09/12/20 19:00 Urine Culture - Final Urine,Voided Escherichia coli 09/12/20 23:00 Blood Culture - Final Blood Assessment and Plan (1) Transaminitis Narrative/Plan: 85-year-old female with multiple medical comorbidities presenting to the hospital as a transfer from outside facility where she was seen for weakness and slurred speech. Currently being evaluated by the neurology service she is also being evaluated for possible urinary tract infection and pneumonia. Patient was found to have elevation in her liver enzymes in both a hepatocellular and cholestatic pattern which are currently trending down with total bilirubin 3.1, alkaline phosphatase 41, AST 346 and ALT 188. Patient has no history of liver disease, alcohol abuse, viral hepatitis and denies any new medications. Unclear etiology, may be related to underlying infection or hypoperfusion with plan for liver serologies and ultrasound of the liver for further evaluation. Hepatitis panel negative. Liver serologies negative. Liver ultrasound with no abnormal findings. Liver enzymes continue to trend down and are almost normalized. Current Visit: Yes Status: Acute Code(s): R74.01 - ELEVATION OF LEVELS OF LIVER TRANSAMINASE LEVELS SNOMED Code(s): 099223542 (2) UTI (urinary tract infection) Current Visit: Yes Status: Acute Code(s): N39.0 - URINARY TRACT INFECTION, SITE NOT SPECIFIED SNOMED Code(s): 63935794 Plan: Continue symptomatic and supportive care Diet as tolerated Liver serologies ordered and reviewed, negative Hepatitis panel negative LFTs continue to trend down and are almost normalized, likely related to hypoperfusion and underlying infection Thank you for this consultation, we will sign off at this time Dr. Diana I agree with the dictator's note, documented as a scribe by Rosa Ortiz.
[2020-09-15 11:47] LABS: Liver/Kidney Microsome Antibod 2.6 UNITS (<=20)
--- NOTE | 2020-09-15 14:25 | P.PN ---
Subjective This is 85 years old female with past medical history of hypertension,and gout comes in as a transfer from [facility]. Patient came into the facility for increased weakness and slurring of speech. Apparently these symptoms are going on for a month intermittently. Patient is having significant weakness in the right lower extremity and intermittent slurring of speech. On evaluation in the ER patient was found to have pro-calci tonin of 23.9 elevated troponin and liver enzymes. WBC was high. CAT scan of head was performed that was negative for any acute abnormality but did demonstrate chronic small vessel ischemia without acute process. She was given a dose of aspirin a dose of Zosyn and flatulence in to ER for evaluation. In the ER patient admitted to some nausea but denies any vomiting. She denies any abdominal pain, fever or chills. She denies any frequency or burning on micturition. She denies any sick contact. An assessment in the ER patient was found to be afebrile respiratory rate of 16 blood pressure 103/55 pulse of 81. EKG was obtained that showed normal sinus rhythm with inverted T waves in V2 and V3. Repeat labs were obtained, patient's WBC was 34.7 hemoglobin 11.4 glucose 213, sodium 135 potassium 3.9 chloride 100 bicarb 23 BUN 25 creatinine 1.53 glucose 105. Urinalysis were ordered that suggested UTI with budding yeast. Bilirubin 3.6 total protein 6.7 albumin 3.5 lactic acid 2.1 troponin 0.444. Patient was started on heparin drip. One dose of Zosyn was given. Patient received 1.5 L of IV fluids. GI and cardiology was consulted. On evaluation today patient denies any chest pain or shortness of breath. She does have some weakness in the right lower extremity but denies any slurring of speech. She had last bowel movement was 2 days ago denies any diarrhea or change in bowel habit. Patient denies any melena. She denies any loss of appetite or weight. Patient was seen by cardiology, heparin drip was discontinued. Echo was obtained that showed normal ejection fraction and mild MR and mild TR. No further intervention needed. If his was ruled out. Gastroenterology was consulted for increased liver enzymes. Hepatitis panel is pending. Neurology recommendations are pending. CT abdomen was obtained patient and mild bleeding infiltrate and atelectasis at lung bases and atherosclerotic vascular disease with mild rectal fecal impaction. 09/14 patient examined bedside. She is alert answering questions appropriately does feel a little numb in her face and has weakness involving the right upper extremity. She denies any chest pain or shortness of breath or abdominal pain or diarrhea. Vitals were reviewed patient on a temp of 96.8, respiratory rate 18 blood pressure 118/67 oxygen saturation 97% on room air. Labs suggest improvement in leukocytosis from 28-17, hemoglobin stable at 10, platelet 196, bicarb 17 creatinine was 2.65 BUN 41 AST ALT and alkaline phosphatase is improved since yesterday, triglycerides are normal LDL 33 TSH is 2.2 hepatitis panel is negative alcohol level is negative. Blood cultures are positive for Klebsiella. Repeat cultures ordered. Patient's carotid ultrasound positive for 50-70% stenosis bilaterally. Repeat CAT scan suggestive of chronic small vessel changes no acute phenomena noted. Neurology evaluation was concerning for an ischemic stroke. Further recommendations pending. Continue aspirin and Lipitor. With addition of Plavix once PTT normalizes. PTOT consult placed. Vascular surgery consult 09/15: Patient examined the bedside today. She denies any abdominal pain, nausea, or vomiting. She is tolerating a regular diet. Vital signs are stable she is afebrile temp 98.2, pulse 93, blood pressure 153/83, respiratory 18, she's 96% on room air. Labs show improvement in leukocytosis to 11.3 today, h emoglobin 9.8, BUN 41, creatinine 2.46, AST 56, ALT 80, alk phos 221. Liver enzymes continue to trend down. Blood cultures were positive for Klebsiella, repeat preliminary blood cultures show no growth to date. Neurology has recommended VIN but patient is currently declining. Objective - Vital Signs Vital signs: Vital Signs Temp 98.2 F 09/15/20 08:00 Pulse 93 09/15/20 08:00 Resp 18 09/15/20 08:00 BP 153/83 09/15/20 08:00 Pulse Ox 96 09/15/20 08:00 Intake & Output 09/14/20 09/15/20 09/15/20 18:59 06:59 18:59 Intake Total 720 100 Balance 720 100 Weight 73.5 kg Intake: Intake, IV Titration 100 Amount cefTRIAXone 2 gm In 100 Sodium Chloride 0.9% 50 ml @ 100 mls/hr IVPB Q24HR [facility] Rx#:[id number] Oral 720 Other: Voiding Method Diaper Bedpan Incontinent Diaper # Voids 1 1 - Exam - Exam - Constitutional General appearance: cooperative, no acute distress, cachectic-appearing - EENT Eyes: anicteric sclerae, PERRLA, normal appearance ENT: hearing grossly normal - Neck Neck: no lymphadenopathy, normal ROM, no other, no rigidity, no stridor, no thyromegaly - Respiratory Respiratory: bilateral: CTA, negative: diminished, dullness, rales, rhonchi - Cardiovascular Rhythm: regular Heart sounds: normal: S1, S2 Abnormal Heart Sounds: no systolic murmur, no diastolic murmur, no rub, no S3 Gallop, no S4 Gallop, no click, no other - Gastrointestinal General gastrointestinal: normal bowel sounds, soft - Integumentary Integumentary: no rash - Neurologic Neurologic:Right lower extremity weaker than the left 4+/5 bilateral lower extremity. Mild facial droop noted on the right [id number] test normal. No sensory deficit. - Musculoskeletal Musculoskeletal: gait normal, strength equal bilaterally - Psychiatric Psychiatric: A&O x's 3, appropriate affect - Labs CBC & Chem 7: 09/15/20 07:04 09/15/20 07:04 Labs: Abnormal Lab Results - Last 24 Hours (Table) 09/14/20 09/15/20 09/15/20 Range/Units 07:01 07:04 07:04 WBC 11.3 H (3.8-10.6) k/uL RBC 2.88 L (3.80-5.40) m/uL Hgb 9.8 L (11.4-16.0) gm/dL Hct 29.9 L (34.0-46.0) % MCV 103.9 H (80.0-100.0) fL Neutrophils # 9.6 H (1.3-7.7) k/uL Chloride 115 H (98-107) mmol/L Carbon Dioxide 15 L (22-30) mmol/L BUN 41 H (7-17) mg/dL Creatinine 2.46 H (0.52-1.04) mg/dL Calcium 8.0 L (8.4-10.2) mg/dL Iron 37 L (50-170) ug/dL TIBC 185 L (228-460) ug/dL AST 56 H (14-36) U/L ALT 80 H (4-34) U/L Alkaline Phosphatase 221 H (38-126) U/L Total Protein 5.2 L (6.3-8.2) g/dL Albumin 2.4 L (3.5-5.0) g/dL Microbiology - Last 24 Hours (Table) 09/14/20 11:40 Blood Culture - Preliminary Blood No Growth after 24 hours 09/14/20 11:46 Blood Culture - Preliminary Blood No Growth after 24 hours 09/12/20 23:15 Blood Culture - Preliminary Blood No Growth after 48 hours 09/12/20 23:15 Blood Culture Gram Stain - Final Blood Blood Culture - Final Klebsiella oxytoca 09/12/20 19:00 Urine Culture - Final Urine,Voided Escherichia coli Assessment and Plan Plan: #1 slurring of speech with right-sided weakness echocardiogram and carotid ordered. CT head was negative for any acute intracranial process chronic ischemic changes noted. Repeat CT with no changes Lipid panel ordered. Aspirin started 81 mg by mouth daily. Lipitor study of 40 mg by mouth daily neurology recommendation appreciated. Plavix to be initiated once PTT normalizes. #2 sepsis with bacteremia secondary to UTI Klebsiella positive on blood cultures. Repeat blood cultures ordered Zosyn switched to Rocephin. Urine cu lture pending continue IV fluids at 1 30 mL per hour. #3 troponin elevation likely secondary to sepsis most of ACS ruled out #4 hypertension with pressure pattern will initiated on metoprolol 50 twice a day #5 gout continue allopurinol 100 mg by mouth daily #6 chronic kidney disease stage III Renal ultrasound suggestive of parenchymal thinning suggestive chronic kidney disease. #7 acute transaminitis. Improving Hepatitis panel normal Liver ultrasound suggestive of renal parenchymal thinning. CBC within normal limits. Gallbladder surgically absent #8 hypomagnesemia status was magnesium sulfate 1 g 1 time dose. Repeat magnesium normal #9 hyponatremia likely hypovolemic. Resolved #10 leukocytosis with anemia secondary to sepsis with bone marrow suppression continue to monitor #11 fecal impaction status post Fleet enema #12CODE STATUS full code #13DVT prophylaxis heparin every 12 #14 disposition PT OT consult for possible re-hab The above impression and plan of care have been discussed and directed by signing physician. Savannah Mott nurse practitioner acting as scribe for signing physician.
--- NOTE | 2020-09-15 16:21 | P.PN ---
Subjective Progress Note Date: 09/15/20 Principal diagnosis: Carotid stenosis Patient was seen and examined sitting up in chair. She denies any acute changes through the night. Denies any focal deficits. Physical therapy has been working with patient. Neurology has seen and signed off on patient. Recommends cardiology follow-up with loop recorder and Holter monitor. 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 HET: Head is normocephalic and atraumatic. Pupils are equal and reactive. Neck: Supple without lymphadenopathy. Trachea midline. No audible carotid bruit Abdomen: Soft, nontender, nondistended. Extremities: Normal skin color and turgor. No cyanosis, rash, ulceration, clubbing, or edema. Radial and pedal pulses are 2/4 bilaterally. Neurological: No focal deficits. Left highway painter greater than right, bilateral lower extremity strength equal, with good tone. Tongue protrudes midline, patient has slight facial droop to the right side of mouth with smiling. Otherwise facial symmetry is noted. Patient is alert and oriented answers questions appropriately and follows commands. - Labs CBC & Chem 7: 09/15/20 07:04 09/15/20 07:04 Labs: Abnormal Lab Results - Last 24 Hours (Table) 09/14/20 09/14/20 09/15/20 Range/Units 07:01 07:01 07:04 WBC 11.3 H (3.8-10.6) k/uL RBC 2.88 L (3.80-5.40) m/uL Hgb 9.8 L (11.4-16.0) gm/dL Hct 29.9 L (34.0-46.0) % MCV 103.9 H (80.0-100.0) fL Neutrophils # 9.6 H (1.3-7.7) k/uL Chloride (98-107) mmol/L Carbon Dioxide (22-30) mmol/L BUN (7-17) mg/dL Creatinine (0.52-1.04) mg/dL Calcium (8.4-10.2) mg/dL Iron 37 L (50-170) ug/dL TIBC 185 L (228-460) ug/dL AST (14-36) U/L ALT (4-34) U/L Alkaline Phosphatase (38-126) U/L Total Protein (6.3-8.2) g/dL Total Protein (PEP) 5.2 L (6.2-8.2) g/dL Albumin (3.5-5.0) g/dL 09/15/20 Range/Units 07:04 WBC (3.8-10.6) k/uL RBC (3.80-5.40) m/uL Hgb (11.4-16.0) gm/dL Hct (34.0-46.0) % MCV (80.0-100.0) fL Neutrophils # (1.3-7.7) k/uL Chloride 115 H (98-107) mmol/L Carbon Dioxide 15 L (22-30) mmol/L BUN 41 H (7-17) mg/dL Creatinine 2.46 H (0.52-1.04) mg/dL Calcium 8.0 L (8.4-10.2) mg/dL Iron (50-170) ug/dL TIBC (228-460) ug/dL AST 56 H (14-36) U/L ALT 80 H (4-34) U/L Alkaline Phosphatase 221 H (38-126) U/L Total Protein 5.2 L (6.3-8.2) g/dL Total Protein (PEP) (6.2-8.2) g/dL Albumin 2.4 L (3.5-5.0) g/dL Microbiology - Last 24 Hours (Table) 05/11/21 23:15 Blood Culture - Preliminary Blood No Growth after 48 hours 09/12/20 23:15 Blood Culture Gram Stain - Final Blood Blood Culture - Final Klebsiella oxytoca 09/12/20 19:00 Urine Culture - Final Urine,Voided Escherichia coli 09/12/20 23:00 Blood Culture - Final Blood Assessment and Plan Assessment: 1. Bilateral carotid stenosis noted on carotid ultrasound estimating 50-70% 2. 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 Urinary tract infection 4. History of hypertension with episode of hypotension on admission 5. History of hyperlipidemia (1) Transaminitis Current Visit: Yes Status: Acute Code(s): R74.01 - ELEVATION OF LEVELS OF LIVER TRANSAMINASE LEVELS SNOMED Code(s): 749183325 (2) UTI (urinary tract infection) Current Visit: Yes Status: Acute Code(s): N39.0 - URINARY TRACT INFECTION, SITE NOT SPECIFIED SNOMED Code(s): 59324151 Plan: Continue symptomatic and supportive care Carotid ultrasound reviewed Recommend CT angiogram of head and neck, unfortunately patient currently has acute kidney insufficiency with a creatinine of 2.49. Can consider this as an outpatient option. Continue with aspirin, Plavix, and statin Outpatient follow-up recommended There is no indication for any acute vascular surgical intervention at this time. Discussed with patient importance of outpatient follow-up to monitor carotid stenosis. Thank you for this consultation and allowing us take part in the plan of care of your patient The impression and plan of care has been dictated as directed. Dr. Spaulding I performed a history and examination of this patient, discussed the same with the dictator. I agree with the dictator's note ,documented as a scribe. Any additional findings or plans will be noted.Chelly
[2020-09-15] MEDS: LATANOPROST 0.005% OPHTH DROPS 2.5 ML BTL BOTH EYES SCH (20:41)
[2020-09-16 08:53] LABS: HCT 35.4 % (34.0-46.0); HGB 10.8 gm/dL (11.4-16.0); Hypochromasia Moderate; MCH 32.5 pg (25.0-35.0); MCHC 30.5 g/dL (31.0-37.0); MCV 106.3 fL (80.0-100.0); Macrocytosis Moderate; Mean Platelet Volume 8.7; Platelet Count 192 k/uL (150-450); RBC 3.33 m/uL (3.80-5.40); RDW 14.7 % (11.5-15.5); WBC 13.3 k/uL (3.8-10.6)
[2020-09-16 09:03] LABS: Albumin 2.9 g/dL (3.5-5.0); Calcium 8.6 mg/dL (8.4-10.2); Potassium 4.2 mmol/L (3.5-5.1); Total Bilirubin 0.6 mg/dL (0.2-1.3); Total Protein 5.8 g/dL (6.3-8.2)
[2020-09-16] MEDS: METOPROLOL TARTRATE 50 MG TAB PO SCH ×2 (10:30→20:56)
[2020-09-16] MEDS: ENOXAPARIN 30 MG/0.3 ML SYRINGE SQ SCH (10:30)
[2020-09-16] MEDS: allopurinoL 100 MG TAB PO SCH (10:30)
[2020-09-16] MEDS: ATORVASTATIN 40 MG TAB PO SCH (10:30)
[2020-09-16] MEDS: ASPIRIN 81 MG PO SCH (10:30)
[2020-09-16] MEDS: CLOPIDOGREL 75 MG TAB PO SCH (10:30)
--- NOTE | 2020-09-16 10:50 | P.PN ---
Subjective This is 85 years old female with past medical history of hypertension,and gout comes in as a transfer from [facility]. Patient came into the facility for increased weakness and slurring of speech. Apparently these symptoms are going on for a month intermittently. Patient is having significant weakness in the right lower extremity and intermittent slurring of speech. On evaluation in the ER patient was found to have pro-calci tonin of 23.9 elevated troponin and liver enzymes. WBC was high. CAT scan of head was performed that was negative for any acute abnormality but did demonstrate chronic small vessel ischemia without acute process. She was given a dose of aspirin a dose of Zosyn and flatulence in to ER for evaluation. In the ER patient admitted to some nausea but denies any vomiting. She denies any abdominal pain, fever or chills. She denies any frequency or burning on micturition. She denies any sick contact. An assessment in the ER patient was found to be afebrile respiratory rate of 16 blood pressure 103/55 pulse of 81. EKG was obtained that showed normal sinus rhythm with inverted T waves in V2 and V3. Repeat labs were obtained, patient's WBC was 34.7 hemoglobin 11.4 glucose 213, sodium 135 potassium 3.9 chloride 100 bicarb 23 BUN 25 creatinine 1.53 glucose 105. Urinalysis were ordered that suggested UTI with budding yeast. Bilirubin 3.6 total protein 6.7 albumin 3.5 lactic acid 2.1 troponin 0.444. Patient was started on heparin drip. One dose of Zosyn was given. Patient received 1.5 L of IV fluids. GI and cardiology was consulted. On evaluation today patient denies any chest pain or shortness of breath. She does have some weakness in the right lower extremity but denies any slurring of speech. She had last bowel movement was 2 days ago denies any diarrhea or change in bowel habit. Patient denies any melena. She denies any loss of appetite or weight. Patient was seen by cardiology, heparin drip was discontinued. Echo was obtained that showed normal ejection fraction and mild MR and mild TR. No further intervention needed. If his was ruled out. Gastroenterology was consulted for increased liver enzymes. Hepatitis panel is pending. Neurology recommendations are pending. CT abdomen was obtained patient and mild bleeding infiltrate and atelectasis at lung bases and atherosclerotic vascular disease with mild rectal fecal impaction. 09/14 patient examined bedside. She is alert answering questions appropriately does feel a little numb in her face and has weakness involving the right upper extremity. She denies any chest pain or shortness of breath or abdominal pain or diarrhea. Vitals were reviewed patient on a temp of 96.8, respiratory rate 18 blood pressure 118/67 oxygen saturation 97% on room air. Labs suggest improvement in leukocytosis from 28-17, hemoglobin stable at 10, platelet 196, bicarb 17 creatinine was 2.65 BUN 41 AST ALT and alkaline phosphatase is improved since yesterday, triglycerides are normal LDL 33 TSH is 2.2 hepatitis panel is negative alcohol level is negative. Blood cultures are positive for Klebsiella. Repeat cultures ordered. Patient's carotid ultrasound positive for 50-70% stenosis bilaterally. Repeat CAT scan suggestive of chronic small vessel changes no acute phenomena noted. Neurology evaluation was concerning for an ischemic stroke. Further recommendations pending. Continue aspirin and Lipitor. With addition of Plavix once PTT normalizes. PTOT consult placed. Vascular surgery consult 09/15: Patient examined the bedside today. She denies any abdominal pain, nausea, or vomiting. She is tolerating a regular diet. Vital signs are stable she is afebrile temp 98.2, pulse 93, blood pressure 153/83, respiratory 18, she's 96% on room air. Labs show improvement in leukocytosis to 11.3 today, h emoglobin 9.8, BUN 41, creatinine 2.46, AST 56, ALT 80, alk phos 221. Liver enzymes continue to trend down. Blood cultures were positive for Klebsiella, repeat preliminary blood cultures show no growth to date. Neurology has recommended VIN but patient is currently declining. 09/16: Patient seen at bedside for follow-up. She denies any complaints of abdominal pain, nausea, vomiting, constipation or diarrhea. Previous blood cultures were positive for Klebsiella, repeat blood cultures still show no growth to date. Urine culture was positive for E. coli, she continues on ceftriaxone. Vital signs are stable, blood pressure 148/71, heart rate 78, she is afebrile with a temperature of 98.2. Nephrology and GI plans for no further workup. Will plan for subacute rehab possibly for Friday Objective - Vital Signs Vital signs: Vital Signs Temp 98.2 F 09/16/20 04:00 Pulse 78 09/16/20 04:00 Resp 17 09/16/20 04:00 BP 148/71 09/16/20 04:00 Pulse Ox 97 09/16/20 04:00 Intake & Output 09/15/20 09/16/20 09/16/20 18:59 06:59 18:59 Intake Total 480 0 Output Total 200 0 Balance 280 0 Weight 67 kg Intake: Oral 480 0 Output: Urine 0 Stool 200 Other: Voiding Method Bedpan Bedpan Diaper Diaper - Exam - Exam - Constitutional General appearance: cooperative, no acute distress, cachectic-appearing. - EENT Eyes: anicteric sclerae, PERRLA, normal appearance ENT: hearing grossly normal - Neck Neck: no lymphadenopathy, normal ROM, no other, no rigidity, no stridor, no thyromegaly - Respiratory Respiratory: bilateral: CTA, negative: diminished, dullness, rales, rhonchi - Cardiovascular Rhythm: regular Heart sounds: normal: S1, S2 Abnormal Heart Sounds: no systolic murmur, no diastolic murmur, no rub, no S3 Gallop, no S4 Gallop, no click, no other - Gastrointestinal General gastrointestinal: normal bowel sounds, soft - Integumentary Integumentary: no rash - Neurologic Neurologic: Right lower extremity weaker than the left 4+/5 bilateral lower extremity. Mild facial droop noted on the right [id number] test normal. No sensory deficit. - Musculoskeletal Musculoskeletal: gait normal, strength equal bilaterally - Psychiatric Psychiatric: A&O x's 3, appropriate affect - Labs CBC & Chem 7: 09/16/20 08:31 09/16/20 08:31 Labs: Microbiology - Last 24 Hours (Table) 09/12/20 23:15 Blood Culture - Preliminary Blood No Growth after 72 hours 09/14/20 11:40 Blood Culture - Preliminary Blood No Growth after 24 hours 09/14/20 11:46 Blood Culture - Preliminary Blood No Growth after 24 hours Assessment and Plan Plan: #1 slurring of speech with right-sided weakness echocardiogram and carotid ordered. CT head was negative for any acute intracranial process chronic ischemic changes noted. Repeat CT with no changes. Aspirin started 81 mg by mouth daily. Lipitor 40 mg by mouth daily neurology recommendation appreciated. Plavix 75 mg daily #2 sepsis with bacteremia secondary to UTI Klebsiella positive on blood cultures. Repeat blood cultures ordered, showed no growth to date. Zosyn switched to Rocephin. #3 troponin elevation likely secondary to sepsis most of ACS ruled out #4 hypertension with pressure pattern will initiated on metoprolol 50 twice a day #5 gout continue allopurinol 100 mg by mouth daily #6 chronic kidney disease stage III Renal ultrasound suggestive of parenchymal thinning suggestive chronic kidney disease. #7 acute transaminitis. Improving Hepatitis panel normal Liver ultrasound suggestive of renal parenchymal thinning. CBC within normal limits. Gallbladder surgically absent #8 hypomagnesemia status was magnesium sulfate 1 g 1 time dose. Repeat magnesium normal #9 hyponatremia likely hypovolemic. Resolved #10 leukocytosis with anemia secondary to sepsis with bone marrow suppression continue to monitor #11 fecal impaction status post Fleet enema #12CODE STATUS full code #13DVT prophylaxis heparin every 12 #14 disposition PT OT consult for possible re-hab #15 bilateral carotid stenosis. Carotid ultrasound shows 50-70%, vascular consult appreciated recommends a small CT angiogram of the head and neck possibly as outpatient. The above impression and plan of care have been discussed and directed by signing physician. Savannah Mott nurse practitioner acting as scribe for signing physician.
[2020-09-16] MEDS: LATANOPROST 0.005% OPHTH DROPS 2.5 ML BTL BOTH EYES SCH (20:57)
[2020-09-17 08:03] LABS: Basophils # (A) 0.1 k/uL (0-0.2); Basophils % (A) 1 %; Eosinophils # (A) 0.3 k/uL (0-0.7); Eosinophils % (A) 3 %; HCT 35.4 % (34.0-46.0); HGB 11.4 gm/dL (11.4-16.0); Hypochromasia Slight; Lymphocytes # (A) 1.4 k/uL (1.0-4.8); Lymphocytes % (A) 14 %; MCH 33.5 pg (25.0-35.0); MCHC 32.2 g/dL (31.0-37.0); Macrocytosis Slight; Mean Platelet Volume 8.7; Monocytes # (A) 0.5 k/uL (0-1.0); Monocytes % (A) 5 %; Neutrophils # (A) 7.8 k/uL (1.3-7.7); Neutrophils % (A) 76 %; Platelet Count 171 k/uL (150-450); RBC 3.41 m/uL (3.80-5.40); RDW 14.3 % (11.5-15.5); WBC 10.3 k/uL (3.8-10.6)
[2020-09-17 08:11] LABS: Albumin 2.7 g/dL (3.5-5.0); Calcium 8.4 mg/dL (8.4-10.2); Potassium 4.4 mmol/L (3.5-5.1); Total Bilirubin 0.7 mg/dL (0.2-1.3); Total Protein 5.8 g/dL (6.3-8.2)
[2020-09-17] MEDS: allopurinoL 100 MG TAB PO SCH (09:11)
[2020-09-17] MEDS: METOPROLOL TARTRATE 50 MG TAB PO SCH ×2 (09:11→20:46)
[2020-09-17] MEDS: ENOXAPARIN 30 MG/0.3 ML SYRINGE SQ SCH (09:11)
[2020-09-17] MEDS: ATORVASTATIN 40 MG TAB PO SCH (09:11)
[2020-09-17] MEDS: ASPIRIN 81 MG PO SCH (09:11)
[2020-09-17] MEDS: CLOPIDOGREL 75 MG TAB PO SCH (09:11)
--- NOTE | 2020-09-17 09:55 | XR ---
EXAMINATION TYPE: XR chest 2V DATE OF EXAM: 09/17/2020 COMPARISON: 09/12/2020 TECHNIQUE: PA and lateral views submitted. HISTORY: Cough FINDINGS: Calcified granuloma is coarsened interstitial pattern Limited inspiration small bilateral effusions w ith basilar infiltrate. Degenerative changes spine. Prominence the right paratracheal region may be r otational. Arthropathy shoulders. No pneumothorax. IMPRESSION: 1. Small bilateral pleural effusions and basilar atelectasis or infiltrate. Pleural effusions appear increased from prior exam. Interstitium appears improved correlate for interstitial pneumonitis or ve nous congestion.
--- NOTE | 2020-09-17 10:24 | P.PN ---
Subjective This is 85 years old female with past medical history of hypertension,and gout comes in as a transfer from [facility]. Patient came into the facility for increased weakness and slurring of speech. Apparently these symptoms are going on for a month intermittently. Patient is having significant weakness in the right lower extremity and intermittent slurring of speech. On evaluation in the ER patient was found to have pro-calci tonin of 23.9 elevated troponin and liver enzymes. WBC was high. CAT scan of head was performed that was negative for any acute abnormality but did demonstrate chronic small vessel ischemia without acute process. She was given a dose of aspirin a dose of Zosyn and flatulence in to ER for evaluation. In the ER patient admitted to some nausea but denies any vomiting. She denies any abdominal pain, fever or chills. She denies any frequency or burning on micturition. She denies any sick contact. An assessment in the ER patient was found to be afebrile respiratory rate of 16 blood pressure 103/55 pulse of 81. EKG was obtained that showed normal sinus rhythm with inverted T waves in V2 and V3. Repeat labs were obtained, patient's WBC was 34.7 hemoglobin 11.4 glucose 213, sodium 135 potassium 3.9 chloride 100 bicarb 23 BUN 25 creatinine 1.53 glucose 105. Urinalysis were ordered that suggested UTI with budding yeast. Bilirubin 3.6 total protein 6.7 albumin 3.5 lactic acid 2.1 troponin 0.444. Patient was started on heparin drip. One dose of Zosyn was given. Patient received 1.5 L of IV fluids. GI and cardiology was consulted. On evaluation today patient denies any chest pain or shortness of breath. She does have some weakness in the right lower extremity but denies any slurring of speech. She had last bowel movement was 2 days ago denies any diarrhea or change in bowel habit. Patient denies any melena. She denies any loss of appetite or weight. Patient was seen by cardiology, heparin drip was discontinued. Echo was obtained that showed normal ejection fraction and mild MR and mild TR. No further intervention needed. If his was ruled out. Gastroenterology was consulted for increased liver enzymes. Hepatitis panel is pending. Neurology recommendations are pending. CT abdomen was obtained patient and mild bleeding infiltrate and atelectasis at lung bases and atherosclerotic vascular disease with mild rectal fecal impaction. 09/14 patient examined bedside. She is alert answering questions appropriately does feel a little numb in her face and has weakness involving the right upper extremity. She denies any chest pain or shortness of breath or abdominal pain or diarrhea. Vitals were reviewed patient on a temp of 96.8, respiratory rate 18 blood pressure 118/67 oxygen saturation 97% on room air. Labs suggest improvement in leukocytosis from 28-17, hemoglobin stable at 10, platelet 196, bicarb 17 creatinine was 2.65 BUN 41 AST ALT and alkaline phosphatase is improved since yesterday, triglycerides are normal LDL 33 TSH is 2.2 hepatitis panel is negative alcohol level is negative. Blood cultures are positive for Klebsiella. Repeat cultures ordered. Patient's carotid ultrasound positive for 50-70% stenosis bilaterally. Repeat CAT scan suggestive of chronic small vessel changes no acute phenomena noted. Neurology evaluation was concerning for an ischemic stroke. Further recommendations pending. Continue aspirin and Lipitor. With addition of Plavix once PTT normalizes. PTOT consult placed. Vascular surgery consult 09/15: Patient examined the bedside today. She denies any abdominal pain, nausea, or vomiting. She is tolerating a regular diet. Vital signs are stable she is afebrile temp 98.2, pulse 93, blood pressure 153/83, respiratory 18, she's 96% on room air. Labs show improvement in leukocytosis to 11.3 today, h emoglobin 9.8, BUN 41, creatinine 2.46, AST 56, ALT 80, alk phos 221. Liver enzymes continue to trend down. Blood cultures were positive for Klebsiella, repeat preliminary blood cultures show no growth to date. Neurology has recommended VIN but patient is currently declining. 09/16: Patient seen at bedside for follow-up. She denies any complaints of abdominal pain, nausea, vomiting, constipation or diarrhea. Previous blood cultures were positive for Klebsiella, repeat blood cultures still show no growth to date. Urine culture was positive for E. coli, she continues on ceftriaxone. Vital signs are stable, blood pressure 148/71, heart rate 78, she is afebrile with a temperature of 98.2. Nephrology and GI plans for no further workup. Will plan for subacute rehab possibly for Sunday 09/17: Patient evaluated this morning. Patient resting comfortably in bed, has no complaints of abdominal pain, nausea, vomiting. Previous blood cultures were positive for Klebsiella, repeat blood cultures still show no growth to date. Consult placed to to infectious disease for positive blood and urine cultures, and recommendations for discharge antibiotics. Patient's blood pressure noted to be elevated at 181/83, Norvasc 5 mg daily was added. Laboratory values showed WBC 10.3, sodium 140, potassium 4.4, BUN 39, creatinine 1.7. Will plan for discharge tomorrow. Objective - Vital Signs Vital signs: Vital Signs Temp 98.4 F 09/17/20 08:00 Pulse 73 09/17/20 08:00 Resp 18 09/17/20 08:00 BP 181/83 09/17/20 08:00 Pulse Ox 95 09/17/20 08:00 Intake & Output 09/16/20 09/17/20 09/17/20 18:59 06:59 18:59 Intake Total 720 480 480 Balance 720 480 480 Weight 66.5 kg Intake: Oral 720 480 480 Other: Voiding Method Bedpan Bedpan Diaper Diaper # Voids 2 - Exam - Exam - Constitutional General appearance: cooperative, no acute distress - EENT Eyes: anicteric sclerae, PERRLA, normal appearance ENT: hearing grossly normal - Neck Neck: no lymphadenopathy, normal ROM, no other, no rigidity, no stridor, no thyromegaly - Respiratory Respiratory: bilateral: Rhonchi at the bases - Cardiovascular Rhythm: regular Heart sounds: normal: S1, S2 Abnormal Heart Sounds: no systolic murmur, no diastolic murmur, no rub, no S3 Gallop, no S4 Gallop, no click, no other - Gastrointestinal General gastrointestinal: normal bowel sounds, soft - Integumentary Integumentary: no rash - Neurologic Neurologic: Generalized weakness - Musculoskeletal Musculoskeletal: strength equal bilaterally - Psychiatric Psychiatric: A&O x's 3, appropriate affect - Labs CBC & Chem 7: 09/17/20 06:39 09/17/20 06:39 Labs: Abnormal Lab Results - Last 24 Hours (Table) 09/17/20 09/17/20 Range/Units 06:39 06:39 RBC 3.41 L (3.80-5.40) m/uL MCV 104.0 H (80.0-100.0) fL Neutrophils # 7.8 H (1.3-7.7) k/uL Chloride 114 H (98-107) mmol/L Carbon Dioxide 15 L (22-30) mmol/L BUN 39 H (7-17) mg/dL Creatinine 1.77 H (0.52-1.04) mg/dL ALT 46 H (4-34) U/L Alkaline Phosphatase 275 H (38-126) U/L Total Protein 5.8 L (6.3-8.2) g/dL Albumin 2.7 L (3.5-5.0) g/dL Microbiology - Last 24 Hours (Table) 09/12/20 23:15 Blood Culture - Preliminary Blood No Growth after 96 hours 09/14/20 11:40 Blood Culture - Preliminary Blood No Growth after 48 hours 09/14/20 11:46 Blood Culture - Preliminary Blood No Growth after 48 hours Assessment and Plan Plan: #1 slurring of speech with right-sided weakness echocardiogram and carotid ordered. CT head was negative for any acute intracranial process chronic ische lashae changes noted. Repeat CT with no changes. Aspirin started 81 mg by mouth daily. Lipitor 40 mg by mouth daily neurology recommendation appreciated. Plavix 75 mg daily #2 sepsis with bacteremia secondary to UTI Klebsiella positive on blood cultures. Repeat blood cultures ordered, showed no growth to date. Continues on Rocephin, infectious disease consulted for discharge antibiotic choice #3 troponin elevation likely secondary to sepsis most of ACS ruled out #4 hypertension with pressure pattern will initiated on metoprolol 50 twice a day #5 gout continue allopurinol 100 mg by mouth daily #6 chronic kidney disease stage III Renal ultrasound suggestive of parenchymal thinning suggestive chronic kidney disease. #7 acute transaminitis. Improving Hepatitis panel normal Liver ultrasound suggestive of renal parenchymal thinning. CBC within normal limits. Gallbladder surgically absent #8 hypomagnesemia status was magnesium sulfate 1 g 1 time dose. Repeat magnesium normal #9 hyponatremia likely hypovolemic. Resolved #10 leukocytosis with anemia secondary to sepsis with bone marrow suppression continue to monitor #11 fecal impaction status post Fleet enema #12CODE STATUS full code #13DVT prophylaxis heparin every 12 #14 disposition PT OT consult for possible re-hab #15 bilateral carotid stenosis. Carotid ultrasound shows 50-70%, vascular consult appreciated recommends a small CT angiogram of the head and neck possibly as outpatient. The above impression and plan of care have been discussed and directed by signing physician. Savannah Mott nurse practitioner acting as scribe for signing physician.
[2020-09-17] MEDS: amLODIPine 5 MG TAB PO SCH (10:30)
[2020-09-17] MEDS: LATANOPROST 0.005% OPHTH DROPS 2.5 ML BTL BOTH EYES SCH (20:46)
--- NOTE | 2020-09-18 06:52 | CONS ---
CONSULTATION DATE OF SERVICE: 09/17/2020 REASON FOR CONSULTATION: Klebsiella bacteremia. HISTORY OF PRESENT ILLNESS: The patient is an 85-year-old female who presented to [facility] on September 12, about 5 days ago, for evaluation of slurred speech as the patient's family was concerned for possible CVA stroke. The patient did have an evaluation at that facility. The patient's CT of the head was negative for any bleed. She was noticed to have elevated procalcitonin, as well as elevated white count. The patient received a dose of Zosyn and Flagyl and subsequently transferred to this facility. On arrival to this facility, the patient did have a CT of abdomen and pelvis completed which shows mild linear infiltrate with atelectasis in lung bases. Mild active fecal impaction. The patient did have a positive UA. Subsequently blood culture came back positive with Gram-negative. However, urine showing E coli with blood culture and Klebsiella. Repeat blood cultures have been negative. The patient has been treated with Rocephin. She did have a white count of 34.7 on admission, which is down to 10.3 as of today. Infectious Disease was was consulted today regarding further management this bacteremia that the patient has had for about 5 days now. The patient did mention she is feeling better. The patient denies any headache. The patient denies having any chest pain, shortness of breath. Occasional cough. The patient denies any nausea, vomiting. Denies any abdominal pain. No vomiting. No diarrhea. REVIEW OF SYSTEMS: Positive points have been mentioned in HPI. Rest of systems are negative. PAST MEDICAL HISTORY: Hypertension, hyperlipidemia, gout. PAST SURGICAL HISTORY: Cholecystectomy. SOCIAL HISTORY: Denies smoking, drinking or drug use. FAMILY HISTORY: No pertinent findings noticed. ALLERGIES: No known drug allergies. MEDICATIONS: The patient is currently on Tylenol, DuoNeb, Zyloprim, , aspirin, Lipitor, Rocephin 2 grams daily. She is on Plavix, Lovenox, Lopressor, Narcan, Zofran. PHYSICAL EXAMINATION: VITAL SIGNS: Blood pressure 135/76 with a pulse of 68, temperature 98.4. She is 97% on room air. GENERAL DESCRIPTION: Patient is an elderly female lying in bed in no distress. HEENT: Examination shows pallor, no scleral icterus. Oral mucous membrane is dry. NECK: Trachea central, no thyromegaly. LUNGS: Unlabored breathing, clear to auscultation anteriorly. No wheeze or crackle. HEART: S1-S2, regular rate and rhythm. ABDOMEN: Soft, no tenderness. No guarding or rigidity. EXTREMITIES: No edema of the feet. SKIN: No rash or mass palpable. NEUROLOGICAL: Patient is awake, alert, oriented times three. Mood and affect normal. LABS: Hemoglobin 11.4, white count of 10.3, BUN of 39, creatinine 1.77. Liver enzymes have improved. The abdomen apparently showed some rectal fecal impaction. Ultrasound of the liver with surgically absent gallbladder and CBD was mildly dilated. DIAGNOSTIC IMPRESSION AND PLAN: 1. Patient with Klebsiella bacteremia, source could be more likely abdominal concern, possible ascending cholangitis in this patient admitted to the hospital with weakness, slurred speech. Patient did have elevated liver enzymes. The patient has history of cholecystectomy. Hepatitis panel was negative. The patient did have a positive UA. However, urine grew E coli different that what she has in the blood. PLAN: 1. The patient to continue on Rocephin 2 gram IV. 2. The patient to continue to finish with oral antibiotics. Duration of antibiotics should be 2 weeks. Thank you for this consultation. Will follow this patient along with you. MMODL / IJN: [id number] /
[2020-09-18 07:51] LABS: Basophils # (A) 0.1 k/uL (0-0.2); Basophils % (A) 0 %; Eosinophils # (A) 0.3 k/uL (0-0.7); Eosinophils % (A) 2 %; HCT 33.1 % (34.0-46.0); HGB 10.6 gm/dL (11.4-16.0); Lymphocytes # (A) 1.6 k/uL (1.0-4.8); Lymphocytes % (A) 11 %; MCH 32.8 pg (25.0-35.0); MCHC 32.1 g/dL (31.0-37.0); MCV 102.3 fL (80.0-100.0); Macrocytosis Slight; Mean Platelet Volume 8.3; Monocytes # (A) 0.7 k/uL (0-1.0); Monocytes % (A) 5 %; Neutrophils # (A) 11.5 k/uL (1.3-7.7); Neutrophils % (A) 80 %; Platelet Count 226 k/uL (150-450); RBC 3.23 m/uL (3.80-5.40); RDW 14.3 % (11.5-15.5); WBC 14.4 k/uL (3.8-10.6)
[2020-09-18 07:59] LABS: Albumin 2.6 g/dL (3.5-5.0); Calcium 8.3 mg/dL (8.4-10.2); Total Bilirubin 0.6 mg/dL (0.2-1.3); Total Protein 5.5 g/dL (6.3-8.2)
[2020-09-18] MEDS: METOPROLOL TARTRATE 50 MG TAB PO SCH (08:03)
[2020-09-18] MEDS: ENOXAPARIN 30 MG/0.3 ML SYRINGE SQ SCH (08:03)
[2020-09-18] MEDS: CLOPIDOGREL 75 MG TAB PO SCH (08:03)
[2020-09-18] MEDS: amLODIPine 5 MG TAB PO SCH (08:03)
[2020-09-18] MEDS: allopurinoL 100 MG TAB PO SCH (08:03)
[2020-09-18] MEDS: ASPIRIN 81 MG PO SCH (08:04)
[2020-09-18 08:05] VITALS: BP 176/76; PULSE 79; RESP 18; TEMP 97.8
[2020-09-18] MEDS: ATORVASTATIN 40 MG TAB PO SCH (08:06)
--- NOTE | 2020-09-18 10:09 | P.DS ---
Providers Date of admission: 09/12/20 22:33 Expected date of discharge: 09/18/20 Attending physician: Maria A Sparks MD Consults: 09/12/20 22:34 Consult Physician Urgent Consulting Provider: [facility] Consult Reason/Comments: nstemi Do you want consulting provider notified?: Yes 09/13/20 11:00 Consult Physician Routine Consulting Provider: Laith Michaud Consult Reason/Comments: acute stroke, slurring speech and weakness Do you want consulting provider notified?: Yes 09/14/20 13:36 Consult Physician Routine Consulting Provider: Tonia Sultana Consult Reason/Comments: b/l carotid stenosis Do you want consulting provider notified?: Yes 09/17/20 09:18 Consult Physician Routine Consulting Provider: Lynne Eisenberg Consult Reason/Comments: Klebsiella bactremia Do you want consulting provider notified?: Yes Primary care physician: [facility] Course: This is 85 years old female with past medical history of hypertension,and gout comes in as a transfer from [facility]. Patient came into the facility for increased weakness and slurring of speech. Apparently these symptoms are going on for a month intermittently. Patient is having significant weakness in the right lower extremity and intermittent slurring of speech. On evaluation in the ER patient was found to have pro- calcitonin of 23.9 elevated troponin and liver enzymes. WBC was high. CAT scan of head was performed that was negative for any acute abnormality but did demonstrate chronic small vessel ischemia without acute process. She was given a dose of aspirin a dose of Zosyn and flatulence in to ER for evaluation. In the ER patient admitted to some nausea but denies any vomiting. She denies any abdominal pain, fever or chills. She denies any frequency or burning on micturition. She denies any sick contact. An assessment in the ER patient was found to be afebrile respiratory rate of 16 blood pressure 103/55 pulse of 81. EKG was obtained that showed normal sinus rhythm with inverted T waves in V2 and V3. Repeat labs were obtained, patient's WBC was 34.7 hemoglobin 11.4 glucose 213, sodium 135 potassium 3.9 chloride 100 bicarb 23 BUN 25 creatinine 1.53 glucose 105. Urinalysis were ordered that suggested UTI with budding yeast. Bilirubin 3.6 total protein 6.7 albumin 3.5 lactic acid 2.1 troponin 0.444. Patient was started on heparin drip. One dose of Zosyn was given. Patient received 1.5 L of IV fluids. GI and cardiology was consulted. On evaluation today patient denies any chest pain or shortness of breath. She does have some weakness in the right lower extremity but denies any slurring of speech. She had last bowel movement was 2 days ago denies any diarrhea or change in bowel habit. Patient denies any melena. She denies any loss of appetite or weight. Patient was seen by cardiology, heparin drip was discontinued. Echo was obtained that showed normal ejection fraction and mild MR and mild TR. No further intervention needed. If his was ruled out. Gastroenterology was consulted for increased liver enzymes. Hepatitis panel is pending. Neurology recommendations are pending. CT abdomen was obtained patient and mild bleeding infiltrate and atelectasis at lung bases and atherosclerotic vascular disease with mild rectal fecal impaction. 09/14 patient examined bedside. She is alert answering questions appropriately does feel a little numb in her face and has weakness involving the right upper extremity. She denies any chest pain or shortness of breath or abdominal pain or diarrhea. Vitals were reviewed patient on a temp of 96.8, respiratory rate 18 blood pressure 118/67 oxygen saturation 97% on room air. Labs suggest improvement in leukocytosis from 28-17, hemoglobin stable at 10, platelet 196, bicarb 17 creatinine was 2.65 BUN 41 AST ALT and alkaline phosphatase is improved since yesterday, triglycerides are normal LDL 33 TSH is 2.2 hepatitis panel is negative alcohol level is negative. Blood cultures are positive for Klebsiella. Repeat cultures ordered. Patient's carotid ultrasound positive for 50-70% stenosis bilaterally. Repeat CAT scan suggestive of chronic small vessel changes no acute phenomena noted. Neurology evaluation was concerning for an ischemic stroke. Further recommendations pending. Continue aspirin and Lipitor. With addition of Plavix once PTT normalizes. PTOT consult placed. Vascular surgery consult 09/15: Patient examined the bedside today. She denies any abdominal pain, nausea, or vomiting. She is tolerating a regular diet. Vital signs are stable she is afebrile temp 98.2, pulse 93, blood pressure 153/83, respiratory 18, she's 96% on room air. Labs show improvement in leukocytosis to 11.3 today, hemoglobin 9.8, BUN 41, creatinine 2.46, AST 56, ALT 80, alk phos 221. Liver enzymes continue to trend down. Blood cultures were positive for Klebsiella, repeat preliminary blood cultures show no growth to date. Neurology has recommended VIN but patient is currently declining. 09/16: Patient seen at bedside for follow-up. She denies any complaints of abdominal pain, nausea, vomiting, constipation or diarrhea. Previous blood cultures were positive for Klebsiella, repeat blood cultures still show no growth to date. Urine culture was positive for E. coli, she continues on ceftriaxone. Vital signs are stable, blood pressure 148/71, heart rate 78, she is afebrile with a temperature of 98.2. Nephrology and GI plans for no further workup. Will plan for subacute rehab possibly for Sunday 09/17: Patient evaluated this morning. Patient resting comfortably in bed, has no complaints of abdominal pain, nausea, vomiting. Previous blood cultures were positive for Klebsiella, repeat blood cultures still show no growth to date. Co nsult placed to to infectious disease for positive blood and urine cultures, and recommendations for discharge antibiotics. Patient's blood pressure noted to be elevated at 181/83, Norvasc 5 mg daily was added. Laboratory values showed WBC 10.3, sodium 140, potassium 4.4, BUN 39, creatinine 1.7. Will plan for discharge tomorrow. 09/18: Patient has been seen by Dr. Eisenberg with recommendations for Ceftin and Flagyl to complete course of antibiotics regarding Klebsiella bacteremia possible: Jaundice or abdominal source. DISCHARGE DIAGNOSES #1 slurring of speech with right-sided weakness echocardiogram and carotid ordered. CT head was negative for any acute intracranial process chronic ischemic changes noted. Repeat CT with no changes. Aspirin started 81 mg by mouth daily. Lipitor 40 mg by mouth daily neurology recommendation appreciated. Plavix 75 mg daily #2 sepsis with bacteremia secondary to UTI Klebsiella positive on blood cultures. Repeat blood cultures ordered, showed no growth to date. Continues on Rocephin, infectious disease consulted for discharge antibiotic choice #3 troponin elevation likely secondary to sepsis most of ACS ruled out #4 hypertension with pressure pattern will initiated on metoprolol 50 twice a day #5 gout continue allopurinol 100 mg by mouth daily #6 chronic kidney disease stage III Renal ultrasound suggestive of parenchymal thinning suggestive chronic kidney disease. #7 acute transaminitis secondary to hypoperfusion. #8 hypomagnesemia status post replacement #9 hyponatremia likely hypovolemic. Resolved #10 leukocytosis with anemia secondary to sepsis with bone marrow suppression continue to monitor #11 fecal impaction status post Fleet enema #15 bilateral carotid stenosis. Carotid ultrasound shows 50-70%, vascular consult appreciated recommends a small CT angiogram of the head and neck possibly as outpatient. DISCHARGE PLAN [facility] for subacute rehab Impression and plan of care have been directed as dictated by the signing physician. Elidia Messina nurse practitioner acting as scribe for signing physician. Patient Condition at Discharge: Stable Plan - Discharge Summary New Discharge Prescriptions: New Aspirin 81 mg PO DAILY chew Ipratropium-Albuterol Nebulize [Duoneb 0.5 mg-3 mg/3 ml Soln] 3 ml INHALATION RT-QID PRN ml PRN Reason: Shortness Of Breath Atorvastatin [Lipitor] 40 mg PO DAILY tab metroNIDAZOLE [Flagyl] 500 mg PO Q8HR #30 tab Cefuroxime [Ceftin] 250 mg PO BID 14 Days #28 tab amLODIPine [Norvasc] 5 mg PO DAILY tab Clopidogrel [Plavix] 75 mg PO DAILY #0 tab Continue Metoprolol Tartrate [Lopressor] 50 mg PO BID Allopurinol [Zyloprim] 100 mg PO DAILY Travoprost [Travatan Z 0.004%] 1 drop BOTH EYES HS Discontinued Losartan Potassium 100 mg PO DAILY Discharge Medication List Allopurinol [Zyloprim] 100 mg PO DAILY 09/12/20 [History] Metoprolol Tartrate [Lopressor] 50 mg PO BID 09/12/20 [History] Travoprost [Travatan Z 0.004%] 1 drop BOTH EYES HS 09/12/20 [History] Aspirin 81 mg PO DAILY chew 09/18/20 [Rx] Atorvastatin [Lipitor] 40 mg PO DAILY tab 09/18/20 [Rx] Cefuroxime [Ceftin] 250 mg PO BID 14 Days #28 tab 09/18/20 [Rx] Clopidogrel [Plavix] 75 mg PO DAILY #0 tab 09/18/20 [Rx] Ipratropium-Albuterol Nebulize [Duoneb 0.5 mg-3 mg/3 ml Soln] 3 ml INHALATION RT-QID PRN ml 09/18/20 [Rx] amLODIPine [Norvasc] 5 mg PO DAILY tab 09/18/20 [Rx] metroNIDAZOLE [Flagyl] 500 mg PO Q8HR #30 tab 09/18/20 [Rx] Follow up Appointment(s)/Referral(s): [facility] [NON-STAFF] - Aiden Wolfe DO [Doctor of Osteopathic Medicine] - 1 Week Lynne Eisenberg MD [STAFF PHYSICIAN] - 1 Week Brennon Delong MD [Primary Care Provider] - 1 Week (AFTER DC FROM [facility]) Discharge Disposition: TRANSFER TO SNF/ECF
[2020-09-18 11:03] LABS: Albumin 2.44 g/dL (3.80-4.90); Gamma Globulin 0.68 g/dL (0.70-1.50)
--- NOTE | 2020-09-18 13:10 | PN ---
PROGRESS NOTE DATE OF SERVICE: 09/18/2020 REASON FOR FOLLOWUP: Klebsiella bacteremia. INTERVAL HISTORY: The patient is currently afebrile. Patient is breathing comfortably. Patient denies having any chest pain. No shortness of breath or cough. No nausea, no vomiting. No abdominal pain or diarrhea. PHYSICAL EXAMINATION: Blood pressure is 176/76, pulse of 79, temperature 97.8. She is 95% on room air. General description is an elderly female up in the chair in no distress. RESPIRATORY SYSTEM: Unlabored breathing, clear to auscultation anteriorly. HEART: S1, S2. Regular rate and rhythm. ABDOMEN: Soft, no tenderness. LABS: Hemoglobin 10.6, white count 14.4. DIAGNOSTIC IMPRESSION AND PLAN: Patient with Klebsiella bacteremia possible cholangitis or abdominal source while improvement on Rocephin finishing therapy with Ceftin and Flagyl and close outpatient followup. Continue with supportive care. MMODL / IJN: [id number] /
== END 2020-09-18 14:01 | DRG 871 ==
LOC: EC 18:18 → 3SCARD 22:33
PROVIDERS: ADMIT Internal Medicine; ATTEND Internal Medicine
DX: A41.59 Other Gram-negative sepsis (principal); J18.9 Pneumonia, unspecified organism; R64 Cachexia; I67.89 Other cerebrovascular disease; I69.351 Hemiplegia and hemiparesis following cerebral infarction affecting right dominant side; E87.1 Hypo-osmolality and hyponatremia; N39.0 Urinary tract infection, site not specified; J98.11 Atelectasis; I95.9 Hypotension, unspecified; I13.10 Hypertensive heart and chronic kidney disease without heart failure, with stage 1 through stage 4 chronic kidney disease, or unspecified chronic kidney disease; N18.30 Chronic kidney disease, stage 3 unspecified; K56.41 Fecal impaction; Z20.822 Contact with and (suspected) exposure to COVID-19; B96.20 Unspecified Escherichia coli [E. coli] as the cause of diseases classified elsewhere; I65.23 Occlusion and stenosis of bilateral carotid arteries; R77.8 Other specified abnormalities of plasma proteins; R74.01 Elevation of levels of liver transaminase levels; E83.42 Hypomagnesemia; E86.1 Hypovolemia; D75.89 Other specified diseases of blood and blood-forming organs; E78.5 Hyperlipidemia, unspecified; M10.9 Gout, unspecified; E66.9 Obesity, unspecified; Z68.25 Body mass index [BMI] 25.0-25.9, adult; Z79.899 Other long term (current) drug therapy; Z90.49 Acquired absence of other specified parts of digestive tract; Z87.19 Personal history of other diseases of the digestive system; Z98.890 Other specified postprocedural states; Z82.49 Family history of ischemic heart disease and other diseases of the circulatory system; I69.322 Dysarthria following cerebral infarction; D64.9 Anemia, unspecified
CPT/HCPCS: 36415; 70450; 71046; 74176; 76705; 80048; 80053; 80061; 80074; 80143; 80320; 81001; 82103; 82105; 82390; 82550; 82607; 82746; 83036; 83516; 83540; 83550; 83605; 83735; 84165; 84443; 84484; 85025; 85027; 85610; 85730; 86376; 87040; 87077; 87086; 87186; 87635; 93005; 93306; 93880; 96365; 99285

== ENCOUNTER 2021-01-18 18:42 | Inpatient (IN) | payer MEDICARE, BC ==
[2021-01-18] MEDS ORDERED: cefTRIAXone IN SWFI 1,000 MG/10 ML SYRINGE IVP STA (19:17)
[2021-01-18] MEDS ORDERED: AZITHROMYCIN 500 MG in SODIUM CHLORIDE 0.9% 250 ML IVPB STA (19:17)
--- NOTE | 2021-01-18 19:17 | ED ---
General Adult HPI - General Stated complaint: SOB Time Seen by Provider: 01/18/21 18:46 Source: patient Mode of arrival: EMS Limitations: no limitations - History of Present Illness Initial comments: Dictation was produced using [employer] dictation software. please excuse any g rammatical, word or spelling errors. Chief Complaint: 85-year-old female presents to the emergency department for higher level of care. History of Present Illness: Patient is a 5-year-old female she was transferred from [facility] emergency room. Patient was transferred to emergency department for concerns of ST segment elevation AR. EKG was performed and was interpreted by [facility] emergency room doctor as a ST segment elevation AR. Patient was given thrombolytics. She was then transferred to our hospital. More history was obtained from patient. Patient states that she initially presented to [facility] for ep isode of shortness of breath this morning. She states she is she's been having a cough and wheezy breathing. At the bedside she denies any complaints at this time. She denies any chest pain. No headache numbness and paresthesias. Patient has history of idiopathic gout and encephalopathy. She is currently resident at [facility]. Patient was given thrombolytics for EKG interpretation of STEMI. En route, EMS reports the patient had severe bleeding. Patient is DO NOT RESUSCITATE. The ROS documented in this emergency department record has been reviewed and confirmed by me. Those systems with pertinent positive or negative responses have been documented in the HPI. All other systems are other negative and/or noncontributory. PHYSICAL EXAM: General Impression: Alert and oriented x3, not in acute distress HEENT: Normocephalic atraumatic, extra-ocular movements intact, pupils equal and reactive to light bilaterally, mucous membranes moist. Cardiovascular: Heart regular rate and rhythm Chest: Able to complete full sentences, no retractions, no tachypnea, diffuse rhonchi with auscultation Abdomen: abdomen soft, non-tender, non-distended, no organomegaly Musculoskeletal: Pulses present and equal in all extremities, no peripheral edema Motor: no focal deficits noted Neurological: CN II-XII grossly intact, no focal motor or sensory deficits noted Skin: Intact with no visualized rashes Psych: Normal affect and mood ED course: 5-year-old female brought to our emergency Department from [facility] emergency room for higher level of care. She was diagnosed by emergency medicine doctor at [facility] for ST segment elevation AR. She was given treatment with thrombolytics. Patient was also given aspirin and heparin and metoprolol. At the bedside patient is well- appearing. She has no complaints. She does have multiple sites of blood oozing from IV catheters likely secondary to thrombolytic administration. Patient does report respiratory symptoms and has noisy breathing and cough. Concern that patient has pneumonia. Patient has A. fib with RVR on the monitor and an EKG. Patient's transfer documentation was reviewed in its entirety. EKGs were reviewed. There were 5 EKGs. Initial EKG showed A. fib with RVR. QRS is 124. EKG concerning for A. fib RVR. EKG from 09/12/2020 shows that patient has left bundle branch block. The wave forms of the ST and T waves appear to be stable compared to previous EKG from September. There is a note on the second EKG interpreting the EKG from as STEMI with A. fib with RVR. Patient was given normal lytics started on heparin given aspirin and given metoprolol [address] banks shows that patient initially presented with shortness of breath and epigastric abdominal pain for 30 minutes. X-ray from today showed an radiology interpretation is diffuse reticular airspace opacities throughout both lungs may represent edema or pneumonia. Patient's d-dimer was 4.400, troponin 0.168. Metabolic panel showed CO2 of 18 with a gap of 17. Brain natruretic peptide was 21. White Blood cell count of 27.8. Chest x-ray shows perhaps early developing pneumonia. EKG in our hospital shows atrial fibrillation with rapid ventricular rate with the rate of 121. Patient reviewed at the bedside found to be stable medical condition per she has no active complaints at this time. She states she had shortness of breath and some mild epigastric pain last for 30 minutes. Clinical presentation concerning for respiratory infection. Patient has positive lung sounds, reported symptoms of cough, congestion. His elevated white count of 27.8. Patient is in A. fib with rapid ventricular rate likely secondary to sepsis. Patient's oxygenation went up and down. Nonrebreather was removed and patient was placed on bilevel positive airway pressure. Case is discussed with cardiology who will be on consult. Case discussed with map drafter was on consult. Patient be admitted to [facility] hospitalist group's service. Case was discussed with Marina Willett. Patient's lactic acidosis of 7.1. There is concern of sepsis. Patient given 30 mL per KG bolus idealbodyweight. - Related Data Home Medications Medication Instructions Recorded Confirmed Allopurinol [Zyloprim] 100 mg PO DAILY 09/12/20 01/18/21 Travoprost [Travatan Z 0.004%] 1 drop BOTH EYES HS 09/12/20 01/18/21 Acetaminophen Tab [Tylenol] 650 mg PO Q6H PRN 01/18/21 01/18/21 Ascorbic Acid [Vitamin C] 500 mg PO DAILY 01/18/21 01/18/21 Atorvastatin [Lipitor] 40 mg PO HS 01/18/21 01/18/21 Bisacodyl 5 - 10 mg PO Q72H PRN 01/18/21 01/18/21 Ferrous Sulfate [Feosol] 325 mg PO DAILY 01/18/21 01/18/21 Furosemide [Lasix] 20 mg PO DAILY 01/18/21 01/18/21 HYDROcodone/APAP 5-325MG [[place] 1 tab PO TID@0900,1300,2100 01/18/21 01/18/21 5-325] Mag Hydrox/Aluminum Hyd/Simeth 30 ml PO Q4H PRN 01/18/21 01/18/21 [Mylanta Maximum Strength Liq] Metoprolol Tartrate [Lopressor] 25 mg PO BID 01/18/21 01/18/21 bisacodyL [Dulcolax] 10 mg RECTAL Q72H PRN 01/18/21 01/18/21 Previous Rx's Medication Instructions Recorded Aspirin 81 mg PO DAILY chew 09/18/20 Clopidogrel [Plavix] 75 mg PO DAILY #0 tab 09/18/20 Ipratropium-Albuterol Nebulize 3 ml INHALATION RT-QID PRN ml 09/18/20 [Duoneb 0.5 mg-3 mg/3 ml Soln] amLODIPine [Norvasc] 5 mg PO DAILY tab 09/18/20 Allergies Allergy/AdvReac Type Severity Reaction Status Date / Time No Known Allergies Allergy Verified 01/18/21 18:53 Review of Systems ROS Statement: Those systems with pertinent positive or pertinent negative responses have been documented in the HPI. ROS Other: All systems not noted in ROS Statement are negative. Past Medical History Past Medical History: Hyperlipidemia, Hypertension Additional Past Medical History / Comment(s): gout, History of Any Multi-Drug Resistant Organisms: None Reported Past Surgical History: Cholecystectomy, Orthopedic Surgery Past Psychological History: No Psychological Hx Reported Smoking Status: Never smoker Past Alcohol Use History: None Reported Past Drug Use History: None Reported - Past Family History Mother Family Medical History: Cancer Father Family Medical History: Myocardial Infarction (AR) General Exam Limitations: no limitations Course Vital Signs 01/18/21 01/18/21 01/18/21 18:44 19:19 20:24 Temperature 98.2 F Pulse Rate 120 H 161 H 130 H Respiratory 20 22 29 H Rate Blood Pressure 120/75 116/78 O2 Sat by Pulse 98 96 Oximetry 01/18/21 21:00 Temperature Pulse Rate 118 H Respiratory 18 Rate Blood Pressure 89/60 O2 Sat by Pulse 99 Oximetry Procedures - Sepsis Sepsis Focused Exam #1 Time Sepsis Criteria Met: 21:01 Sepsis Focused Exam Date: 01/18/21 Sepsis Focused Exam Time: 21:01 Sepsis Focused Exam Complete: Yes Vital Signs & RN Notes Reviewed: Yes Capillary Refill: > 2 Seconds: Fingers, Toes Peripheral Pulses: Weak: Radial (R), Radial (L), Posterior Tibialis (R), Posterior Tibialis (L), Dorsalis Pedis (R), Dorsalis Pedis (L) Skin Color: Normal for Patient Respiratory Exam: rhonchi Cardiovascular Exam: tachycardia, other (afib rvr) Medical Decision Making - Lab Data Result diagrams: 01/18/21 19:15 01/18/21 19:15 Lab Results 01/18/21 01/18/21 01/18/21 Range/Units 19:15 19:15 19:15 WBC 29.2 H (3.8-10.6) k/uL RBC 3.48 L (3.80-5.40) m/uL Hgb 11.3 L (11.4-16.0) gm/dL Hct 34.6 (34.0-46.0) % MCV 99.2 (80.0-100.0) fL MCH 32.5 (25.0-35.0) pg MCHC 32.8 (31.0-37.0) g/dL RDW 14.3 (11.5-15.5) % Plt Count 304 (150-450) k/uL MPV 8.1 Neutrophils % 96 % Lymphocytes % 1 % Monocytes % 2 % Eosinophils % 0 % Basophils % 0 % Neutrophils # 28.0 H (1.3-7.7) k/uL Lymphocytes # 0.3 L (1.0-4.8) k/uL Monocytes # 0.7 (0-1.0) k/uL Eosinophils # 0.1 (0-0.7) k/uL Basophils # 0.0 (0-0.2) k/uL PT 12.1 H (9.0-12.0) sec INR 1.2 H (<1.2) APTT 58.3 H (22.0-30.0) sec Sodium (137-145) mmol/L Potassium (3.5-5.1) mmol/L Chloride (98-107) mmol/L Carbon Dioxide (22-30) mmol/L Anion Gap mmol/L BUN (7-17) mg/dL Creatinine (0.52-1.04) mg/dL Est GFR (CKD-EPI)AfAm (>60 ml/min/1.73 sqM) Est GFR (CKD-EPI)NonAf (>60 ml/min/1.73 sqM) Glucose (74-99) mg/dL Plasma Lactic Acid Christ (0.7-2.0) mmol/L Calcium (8.4-10.2) mg/dL Total Bilirubin (0.2-1.3) mg/dL AST (14-36) U/L ALT (4-34) U/L Alkaline Phosphatase (38-126) U/L Troponin I (0.000-0.034) ng/mL Total Protein (6.3-8.2) g/dL Albumin (3.5-5.0) g/dL Coronavirus (PCR) (Not Detectd) Blood Type A Positive Blood Type Confirm Blood Type Recheck No Previous Record Bld Type Recheck Status CABO Indicated Antibody Screen NEGATIVE Spec Expiration Date 01/21/2021 - 231401/18/21 01/18/21 01/18/21 Range/Units 19:15 19:15 19:30 WBC (3.8-10.6) k/uL RBC (3.80-5.40) m/uL Hgb (11.4-16.0) gm/dL Hct (34.0-46.0) % MCV (80.0-100.0) fL MCH (25.0-35.0) pg MCHC (31.0-37.0) g/dL RDW (11.5-15.5) % Plt Count (150-450) k/uL MPV Neutrophils % % Lymphocytes % % Monocytes % % Eosinophils % % Basophils % % Neutrophils # (1.3-7.7) k/uL Lymphocytes # (1.0-4.8) k/uL Monocytes # (0-1.0) k/uL Eosinophils # (0-0.7) k/uL Basophils # (0-0.2) k/uL PT (9.0-12.0) sec INR (<1.2) APTT (22.0-30.0) sec Sodium 129 L (137-145) mmol/L Potassium 3.5 (3.5-5.1) mmol/L Chloride 97 L (98-107) mmol/L Carbon Dioxide 18 L (22-30) mmol/L Anion Gap 14 mmol/L BUN 34 H (7-17) mg/dL Creatinine 0.86 (0.52-1.04) mg/dL Est GFR (CKD-EPI)AfAm 71 (>60 ml/min/1.73 sqM) Est GFR (CKD-EPI)NonAf 62 (>60 ml/min/1.73 sqM) Glucose 174 H (74-99) mg/dL Plasma Lactic Acid Christ (0.7-2.0) mmol/L Calcium 8.2 L (8.4-10.2) mg/dL Total Bilirubin 2.5 H (0.2-1.3) mg/dL AST 250 H (14-36) U/L ALT 115 H (4-34) U/L Alkaline Phosphatase 873 H (38-126) U/L Troponin I 0.790 H* (0.000-0.034) ng/mL Total Protein 6.6 (6.3-8.2) g/dL Albumin 3.0 L (3.5-5.0) g/dL Coronavirus (PCR) Not Detected (Not Detectd) Blood Type Blood Type Confirm Blood Type Recheck Bld Type Recheck Status Antibody Screen Spec Expiration Date 01/18/21 01/18/21 Range/Units 19:45 19:49 WBC (3.8-10.6) k/uL RBC (3.80-5.40) m/uL Hgb (11.4-16.0) gm/dL Hct (34.0-46.0) % MCV (80.0-100.0) fL MCH (25.0-35.0) pg MCHC (31.0-37.0) g/dL RDW (11.5-15.5) % Plt Count (150-450) k/uL MPV Neutrophils % % Lymphocytes % % Monocytes % % Eosinophils % % Basophils % % Neutrophils # (1.3-7.7) k/uL Lymphocytes # (1.0-4.8) k/uL Monocytes # (0-1.0) k/uL Eosinophils # (0-0.7) k/uL Basophils # (0-0.2) k/uL PT (9.0-12.0) sec INR (<1.2) APTT (22.0-30.0) sec Sodium (137-145) mmol/L Potassium (3.5-5.1) mmol/L Chloride (98-107) mmol/L Carbon Dioxide (22-30) mmol/L Anion Gap mmol/L BUN (7-17) mg/dL Creatinine (0.52-1.04) mg/dL Est GFR (CKD-EPI)AfAm (>60 ml/min/1.73 sqM) Est GFR (CKD-EPI)NonAf (>60 ml/min/1.73 sqM) Glucose (74-99) mg/dL Plasma Lactic Acid Christ 7.1 H* (0.7-2.0) mmol/L Calcium (8.4-10.2) mg/dL Total Bilirubin (0.2-1.3) mg/dL AST (14-36) U/L ALT (4-34) U/L Alkaline Phosphatase (38-126) U/L Troponin I (0.000-0.034) ng/mL Total Protein (6.3-8.2) g/dL Albumin (3.5-5.0) g/dL Coronavirus (PCR) (Not Detectd) Blood Type Blood Type Confirm A Positive Blood Type Recheck Bld Type Recheck Status Antibody Screen Spec Expiration Date Critical Care Time Critical Care Time: Yes Total Critical Care Time: 33 Disposition Clinical Impression: Sepsis, Pneumonia Disposition: ADMITTED IP TO THIS HOSP Condition: Critical
[2021-01-18] MEDS ORDERED: SODIUM CHLORIDE 0.9% 1,000 ML IV STA (19:22)
[2021-01-18 19:24] LABS: Basophils % (A) 0 %; Eosinophils # (A) 0.1 k/uL (0-0.7); Eosinophils % (A) 0 %; HCT 34.6 % (34.0-46.0); HGB 11.3 gm/dL (11.4-16.0); Lymphocytes # (A) 0.3 k/uL (1.0-4.8); Lymphocytes % (A) 1 %; MCH 32.5 pg (25.0-35.0); MCHC 32.8 g/dL (31.0-37.0); MCV 99.2 fL (80.0-100.0); Mean Platelet Volume 8.1; Monocytes # (A) 0.7 k/uL (0-1.0); Monocytes % (A) 2 %; Neutrophils % (A) 96 %; Platelet Count 304 k/uL (150-450); RBC 3.48 m/uL (3.80-5.40); RDW 14.3 % (11.5-15.5); WBC 29.2 k/uL (3.8-10.6)
[2021-01-18] MEDS ORDERED: PANTOPRAZOLE 40 MG/10 ML VIAL IVP STA (19:25)
[2021-01-18 19:30] LABS: INR 1.2 (<1.2); Partial Thromboplastin Time 58.3 sec (22.0-30.0); Prothrombin Time 12.1 sec (9.0-12.0)
[2021-01-18 19:43] LABS: Calcium 8.2 mg/dL (8.4-10.2); Total Bilirubin 2.5 mg/dL (0.2-1.3); Total Protein 6.6 g/dL (6.3-8.2)
[2021-01-18 19:59] LABS: Potassium 3.5 mmol/L (3.5-5.1)
[2021-01-18] MEDS ORDERED: SODIUM CHLORIDE 0.9% 1,100 ML IV STA (20:50)
[2021-01-18] MEDS ORDERED: ACETAMINOPHEN TAB 325 MG TAB PO PRN (20:59)
[2021-01-18] MEDS ORDERED: NALOXONE 0.4 MG/ML 1 ML VIAL IV PRN (20:59)
[2021-01-18] MEDS: SODIUM CHLORIDE 0.9% 1,000 ML IV SCH (21:00)
--- NOTE | 2021-01-18 21:22 | XR ---
EXAMINATION: XR chest 1V portable DATE AND TIME: 01/18/2021 8:04 PM CLINICAL INDICATION: PHH; hypoxia TECHNIQUE: AP upright portable COMPARISON: 09/17/2020 FINDINGS: There are a few scattered subtle opacities over the lungs, which could correlate with a clinical diag nosis of developing pneumonia. In addition, there is a fine reticular pattern which can correlate wit h a clinical diagnosis of mild interstitial phase pulmonary edema. The above findings are mild in degree. The lungs demonstrate no lucy consolidation. No airspace filling process. The pleural spaces are negative. The cardiac silhouette is not enlarged. The remainder of the mediastinal silhouette is unremarkable. The skeletal structures and soft tissues are negative for acute findings. IMPRESSION: Mild pulmonary findings.
[2021-01-18] MEDS ORDERED: NOREPINEPHRINE 4 MG in SODIUM CHLORIDE 0.9% 250 ML IV ONE (22:15)
[2021-01-18 22:55] LABS: HCT 27.5 % (34.0-46.0); MCH 32.8 pg (25.0-35.0); MCV 99.5 fL (80.0-100.0); Mean Platelet Volume 7.9; Platelet Count 224 k/uL (150-450); RBC 2.76 m/uL (3.80-5.40); RDW 14.4 % (11.5-15.5); WBC 28.7 k/uL (3.8-10.6)
[2021-01-18 23:01] LABS: HGB 9.1 gm/dL (11.4-16.0)
[2021-01-19] MEDS: SODIUM CHLORIDE 0.9% 1,000 ML IV SCH ×2 (06:42→09:21)
[2021-01-19] MEDS ORDERED: HEPARIN SODIUM 1,000 UN/ML (10ML VL) IV PRN (08:57)
[2021-01-19] MEDS ORDERED: HEPARIN SODIUM 1,000 UN/ML (10ML VL) IV ONE (08:57)
[2021-01-19 09:03] LABS: HCT 34.2 % (34.0-46.0); HGB 10.8 gm/dL (11.4-16.0); MCH 31.6 pg (25.0-35.0); MCHC 31.5 g/dL (31.0-37.0); MCV 100.4 fL (80.0-100.0); Macrocytosis Slight; Platelet Count 368 k/uL (150-450); RDW 14.7 % (11.5-15.5); WBC 41.1 k/uL (3.8-10.6)
[2021-01-19] MEDS ORDERED: RX INFO: IV CONTRAST WAS GIVEN 1 EACH MISC MISCELLANE PRN (09:05)
[2021-01-19 09:12] LABS: Calcium 8.3 mg/dL (8.4-10.2); Potassium 4.1 mmol/L (3.5-5.1)
--- NOTE | 2021-01-19 09:12 | P.CRDCN ---
History of Present Illness History of present illness: HISTORY OF PRESENTING ILLNESS This is a pleasant 85-year-old with past medical history significant for carotid artery stenosis, hypertension, hyperlipidemia who presents as a transfer from [facility]. She normally resides in an F where she was noted to be hypoxic with oxygen saturation in the 80s, short of breath and some reported epigastric pain. Patient is a fair historian however does not recall the details of her medical history. She states she has not had much of an appetite over the last 3 days, has not been eating or drinking much and had a fever approximately 3 days ago. She states she has felt somewhat like she could not catch her breath. Per [place] chart she had acute onset of short of breath as well as some epigastric pain. There was concern regarding ST elevation however EKG appears to be A. fib with left bundle branch morphology with mild V1 and V2 and 1-1.5 mm. There was no improvement with TPA which was given. Lab work from [place] reveals elevated white blood cell count in the 20s, initial troponin 0.16, d-dimer greater than 4.4, mildly elevated AST, ALT, total bilirubin in the 2's. Chest x-ray without acute process. Currently she denies any chest pain or pressure. She states her breathing is somewhat better. She has been in A. fib with heart rates in the 100s to 130s. She was placed on Levophed drip however blood pressures have improved after 2 L IV fluid bolus. She had been on BiPAP however now currently on nasal cannula and appears comfortable. REVIEW OF SYSTEMS At the time of my exam: CONSTITUTIONAL: +fever, no chills. CARDIOVASCULAR: Denies chest pain, +shortness of breath, no orthopnea, PND or palpitations. RESPIRATORY: Denies cough. GASTROINTESTINAL: Denies abdominal pain, diarrhea, constipation, nausea or vomiting. MUSCULOSKELETAL: Denies myalgias. NEUROLOGIC: Denies numbness, tingling or weakness. ENDOCRINE: Denies fatigue, weight change, polydipsia or polyurina. GENITOURINARY: Denies burning, hematuria or urgency with micturation. HEMATOLOGIC: Denies history of anemia or bleeding. PHYSICAL EXAMINATION Vital signs reviewed. CONSTITUTIONAL: No apparent distress. HEENT: Head is normocephalic. Pupils are equal, round. Sclerae anicteric. Mucous membranes of the mouth are moist. No JVD. No carotid bruit. CHEST EXAMINATION: Lungs are clear to auscultation. No chest wall tenderness is noted on palpation or with deep breathing. HEART EXAMINATION: Irregularly irregular rate and rhythm. S1, S2 heard. No murmurs, gallops or rub. ABDOMEN: Soft, nontender. Positive bowel sounds. EXTREMITIES: 2+ peripheral pulses, no lower extremity edema and no calf tenderness. NEUROLOGIC EXAMINATION: Patient is awake, alert and oriented x3. ASSESSMENT 1. Non-STEMI, initial concern of ST elevation however appears related to left bundle branch morphology, s/p TPA at [facility] 2. Hypotension, currently improved status post IV fluids 3. Reported fever approximately 3 days prior to arrival, elevated white blood cell count, elevated lactic acid, rule out sepsis 4. Reported carotid artery stenosis, on aspirin and Plavix at home 5. Mildly elevated AST, ALT 6. A. fib with mild RVR, unclear if new or old 7. Lactic acidosis 8. History of hypertension 9. Hyperlipidemia 10. Elevated d-dimer 11. Hyponatremia PLAN Continue to trend troponins. Initial EKG not consistent with STEMI. There is concern of possible pulmonary embolism with acute onset of dyspnea and hypoxia. PE may however have been resolved with TPA. We will check CT PE protocol. We will start amiodarone and monitor heart rates. Ideally beta aba if blood pressure control rate. Rule out infection, sepsis. Trend lactic acid. Monitor response of gentle IV fluids. Check 2-D echo. Continue aspirin and heparin drip at this time. Further recommendations to follow. Past Medical History Past Medical History: Hyperlipidemia, Hypertension Additional Past Medical History / Comment(s): gout, History of Any Multi-Drug Resistant Organisms: None Reported Past Surgical History: Cholecystectomy, Orthopedic Surgery Past Psychological History: No Psychological Hx Reported Smoking Status: Never smoker Past Alcohol Use History: None Reported Past Drug Use History: None Reported - Past Family History Mother Family Medical History: Cancer Father Family Medical History: Myocardial Infarction (DC) Medications and Allergies Home Medications Medication Instructions Recorded Confirmed Type Allopurinol [Zyloprim] 100 mg PO DAILY 09/12/20 01/18/21 History Travoprost [Travatan Z 0.004%] 1 drop BOTH EYES HS 09/12/20 01/18/21 History Aspirin 81 mg PO DAILY chew 09/18/20 01/18/21 Rx Clopidogrel [Plavix] 75 mg PO DAILY #0 tab 09/18/20 01/18/21 Rx Ipratropium-Albuterol Nebulize 3 ml INHALATION RT-QID PRN ml 09/18/20 01/18/21 Rx [Duoneb 0.5 mg-3 mg/3 ml Soln] amLODIPine [Norvasc] 5 mg PO DAILY tab 09/18/20 01/18/21 Rx Acetaminophen Tab [Tylenol] 650 mg PO Q6H PRN 01/18/21 01/18/21 History Ascorbic Acid [Vitamin C] 500 mg PO DAILY 01/18/21 01/18/21 History Atorvastatin [Lipitor] 40 mg PO HS 01/18/21 01/18/21 History Bisacodyl 5 - 10 mg PO Q72H PRN 01/18/21 01/18/21 History Ferrous Sulfate [Feosol] 325 mg PO DAILY 01/18/21 01/18/21 History Furosemide [Lasix] 20 mg PO DAILY 01/18/21 01/18/21 History HYDROcodone/APAP 5-325MG [[place] 1 tab PO TID@0900,1300,2100 01/18/21 01/18/21 History 5-325] Mag Hydrox/Aluminum Hyd/Simeth 30 ml PO Q4H PRN 01/18/21 01/18/21 History [Mylanta Maximum Strength Liq] Metoprolol Tartrate [Lopressor] 25 mg PO BID 01/18/21 01/18/21 History bisacodyL [Dulcolax] 10 mg RECTAL Q72H PRN 01/18/21 01/18/21 History Allergies Allergy/AdvReac Type Severity Reaction Status Date / Time No Known Allergies Allergy Verified 01/18/21 18:53 Physical Exam Vitals: Vital Signs Temp Pulse Resp BP Pulse Ox 01/19/21 07:11 84 22 101/54 99 01/19/21 06:00 93 25 H 118/66 99 01/19/21 05:00 77 23 107/56 99 01/19/21 04:00 78 25 H 114/63 98 01/19/21 03:00 88 30 H 96/34 99 01/19/21 02:00 98.1 F 87 22 81/41 100 01/19/21 01:00 96 22 102/66 98 01/19/21 00:00 90 23 95/76 99 01/18/21 23:16 67/39 01/18/21 22:39 92 28 H 76/49 99 01/18/21 22:08 99 28 H 69/43 99 01/18/21 21:00 118 H 22 89/60 99 01/18/21 20:24 130 H 29 H 116/78 96 01/18/21 19:19 161 H 22 01/18/21 18:44 98.2 F 120 H 20 120/75 98 Intake and Output 01/18/21 01/19/21 01/19/21 22:59 06:59 14:59 Intake Total 75.938 Balance 75.938 Intake: Intake, IV Titration 75.938 Amount Norepinephrine 4 mg In 75.938 Sodium Chloride 0.9% 250 ml @ 0.05 MCG/KG/MIN 13. 48 mls/hr IV .[id number] ONE Rx#:[id number] Other: Weight 70.76 kg Results 01/18/21 22:45 01/18/21 19:15 Cardiac Enzymes 01/18/21 01/18/21 Range/Units 19:15 19:15 AST 250 H (14-36) U/L Troponin I 0.790 H* (0.000-0.034) ng/mL Coagulation 01/18/21 Range/Units 19:15 PT 12.1 H (9.0-12.0) sec APTT 58.3 H (22.0-30.0) sec CBC 01/18/21 01/18/21 Range/Units 19:15 22:45 WBC 29.2 H 28.7 H (3.8-10.6) k/uL RBC 3.48 L 2.76 L (3.80-5.40) m/uL Hgb 11.3 L 9.1 L D (11.4-16.0) gm/dL Hct 34.6 27.5 L (34.0-46.0) % Plt Count 304 224 (150-450) k/uL Comprehensive Metabolic Panel 01/18/21 Range/Units 19:15 Sodium 129 L (137-145) mmol/L Potassium 3.5 (3.5-5.1) mmol/L Chloride 97 L (98-107) mmol/L Carbon Dioxide 18 L (22-30) mmol/L BUN 34 H (7-17) mg/dL Creatinine 0.86 (0.52-1.04) mg/dL Glucose 174 H (74-99) mg/dL Calcium 8.2 L (8.4-10.2) mg/dL AST 250 H (14-36) U/L ALT 115 H (4-34) U/L Alkaline Phosphatase 873 H (38-126) U/L Total Protein 6.6 (6.3-8.2) g/dL Albumin 3.0 L (3.5-5.0) g/dL Current Medications Generic Name Dose Route Start Last Admin Trade Name Freq PRN Reason Stop Dose Admin Acetaminophen 650 mg 01/18/21 20:59 Acetaminophen Tab 325 Mg Tab PO Q4HR PRN Fever and/or Mild Pain Aspirin 81 mg 01/19/21 09:00 Aspirin 81 Mg PO DAILY KARI Sodium Chloride 1,000 mls @ 130 mls/hr 01/18/21 21:00 01/19/21 06:42 Saline 0.9% IV 130 mls/hr .[id number] KARI Administration Norepinephrine Bitartrate 4 mg 254 mls @ 13.48 mls/hr 01/18/21 22:15 01/19/21 02:52 / Sodium Chloride IV 01/19/21 17:05 0.09 mcg/kg/min .[id number] ONE 24.264 mls/hr Titration Protocol 0.05 MCG/KG/MIN Sodium Chloride 1,000 mls @ 75 mls/hr 01/19/21 08:45 Saline 0.9% IV .[id number] KARI Naloxone HCl 0.2 mg 01/18/21 20:59 Naloxone 0.4 Mg/Ml 1 Ml Vial IV Q2M PRN Opioid Reversal Intake and Output 01/18/21 01/19/21 01/19/21 22:59 06:59 14:59 Intake Total 75.938 Balance 75.938 Intake: Intake, IV Titration 75.938 Amount Norepinephrine 4 mg In 75.938 Sodium Chloride 0.9% 250 ml @ 0.05 MCG/KG/MIN 13. 48 mls/hr IV .[id number] ONE Rx#:[id number] Other: Weight 70.76 kg 01/18/21 22:45 01/18/21 19:15
[2021-01-19] MEDS ORDERED: DEXTROSE 5% IN WATER 100 ML with AMIODARONE 150 MG IV ONE (09:15)
[2021-01-19] MEDS ORDERED: HEPARIN SOD,PORK IN 0.45% NACL 25,000 UNIT in 0.45% NACL 1 250ML.BAG IV SCH ×2 (09:15→15:30)
[2021-01-19 09:19] LABS: Glucose,Whole Blood 135 mg/dL (75-99)
--- NOTE | 2021-01-19 09:29 | ECHOF ---
Referral Reason:re: LV function MEASUREMENTS -------- HEIGHT: 157.5 cm WEIGHT: 70.8 kg BP: 142/73 RVIDd: 2.5 cm (< 3.3) IVSd: 1.0 cm (0.6 - 1.1) LVIDd: 4.0 cm (3.9 - 5.3) LVPWd: 1.2 cm (0.6 - 1.1) IVSs: 1.5 cm LVIDs: 3.1 cm LVPWs: 1.4 cm LA Diam: 3.7 cm (2.7 - 3.8) LAESV Index (A-L): 27.44 ml/m Ao Diam: 3.2 cm (2.0 - 3.7) AV Cusp: 2.2 cm (1.5 - 2.6) MV EXCURSION: 18.872 mm (> 18.000) MV EF SLOPE: 99 mm/s (70 - 150) EPSS: 0.4 cm RAP: 5.00 mmHg RVSP: 40.14 mmHg FINDINGS -------- Atrial fibrillation. This was a technically adequate study. The left ventricular size is normal. There is borderline concentric left ventricular hypertrophy. Overall left ventricular systolic function is moderate-severely impaired with, an EF between 30 - 35 %. Global hypokinesis The right ventricle is normal in size. Normal LA size by volume 22+/-6 ml/m2. The right atrium is normal in size. Interatrial and interventricular septum intact. The aortic valve is trileaflet, and appears structurally normal. No aortic stenosis or regurgitation. Moderate mitral regurgitation is present. Moderate tricuspid regurgitation present. There is mild pulmonary hypertension. The right ventric ular systolic pressure, as measured by Doppler, is 40.14mmHg. There is no pulmonic regurgitation present. The aortic root size is normal. Normal inferior vena cava with normal inspiratory collapse consistent with estimated right atrial pre ssure of 5 mmHg. There is no pericardial effusion. CONCLUSIONS -------- 1. The left ventricular size is normal. 2. There is borderline concentric left ventricular hypertrophy. 3. Overall left ventricular systolic function is moderate-severely impaired with, an EF between 30 - 35 %. 4. Global hypokinesis 5. The aortic valve is trileaflet, and appears structurally normal. No aortic stenosis or regurgitati on. 6. Moderate mitral regurgitation is present. 7. Moderate tricuspid regurgitation present. 8. There is mild pulmonary hypertension. 9. The right ventricular systolic pressure, as measured by Doppler, is 40.14mmHg. 10. There is no pulmonic regurgitation present. 11. There is no pericardial effusion. WILDLIFE ECOLOGY PROFESSOR: Tiffany Estrada RDCS
[2021-01-19] MEDS ORDERED: AMIODARONE 360 MG in DEXTROSE 5% IN WATER 200 ML IV ONE ×2 (09:30)
[2021-01-19] MEDS: ASPIRIN 81 MG PO SCH (09:40)
--- NOTE | 2021-01-19 11:01 | CT ---
CT CHEST FOR PULMONARY EMBOLISM. EXAMINATION TYPE: CT chest angio for PE DATE OF EXAM: 01/19/2021 INDICATION: rule out pe CT DLP: 338.8 mGycm, Automated exposure control for dose reduction was used. CONTRAST: Patient injected with 100 mL of Isovue 370. COMPARISON: None TECHNIQUE: CT of the chest is performed on a spiral scan at 2 mm thick sections. Study is performed with intravenous contrast timed for evaluation for pulmonary embolism. This will limit additional po rtions of the evaluation. 3-D MIP images reconstructed by the technologist are reviewed on the compu ter in the coronal and sagittal planes. FINDINGS: No persistent filling defects are evident to suggest an acute pulmonary embolism. No mediastinal or hilar adenopathy enlarged by CT criteria is evident. The ascending aorta diameter at the level of the main pulmonary artery is 3.3 cm. The main pulmonary artery diameter at the bifur cation is 3.6 cm. Correlate for pulmonary hypertension. Right heart strain however is not identified. There is a small right pleural effusion. Small left pleural effusion is evident. Some adjacent compre ssive atelectasis is evident. Limited CT section through the upper abdomen are unremarkable. IMPRESSIONS: 1. No acute pulmonary embolism. 2. Small bilateral pleural effusions with some adjacent compressive atelectasis. 3. Clinical consideration for pulmonary edema hypertension is recommended.
[2021-01-19 11:08] LABS: INR 1.5 (<1.2); Prothrombin Time 15.2 sec (9.0-12.0)
[2021-01-19] MEDS ORDERED: IPRATROPIUM-ALBUTEROL 3 ML NEB INHALATION PRN (11:11)
[2021-01-19 11:16] LABS: Appearance,Urine Cloudy (Clear); Bacteria,Urine Moderate /hpf; Bilirubin,Urine 1+ (Negative); Blood,Urine Negative (Negative); Color,Urine Yellow; Glucose,Urine (UA) Negative (Negative); Ketones,Urine Negative (Negative); Leukocyte Esterase,Urine Large (Negative); Mucus,Urine Occasional /hpf; Nitrite,Urine Negative (Negative); PH, Urine 5.5 (5.0-8.0); Protein,Urine 1+ (Negative); RBC,Urine 2 /hpf (0-5); Squamous Epithelial Cell,Urine 1 /hpf (0-4); WBC,Urine 166 /hpf (0-5)
--- NOTE | 2021-01-19 11:21 | P.HPIM ---
History of Present Illness H&P Date: 01/19/21 HISTORY OF PRESENT ILLNESS This is an 85-year-old female patient of Dr. Brennon Delong with past medical history of hypertension, gout, chronic kidney disease stage III, bilateral carotid stenosis. Patient had a recent hospitalization with us in September of this year which time she presented with slurring of speech and right-sided weakness, sepsis with bacteremia and Klebsiella UTI. Patient was discharged to subacute rehab at [facility] and continues to reside there. She states that yesterday she developed a cough along with shortness of breath and chest pressure. She denies abdominal pain. She was found to be hypoxic with pulse ox in the 80s. She states she has not had much of an appetite over the last 3 days, has not been eating or drinking much and had a fever approximately 3 days ago. She was transferred to [facility] for evaluation and there was concern about ST elevation on EKG but subsequently cardiology has evaluated and EKG was A. fib with left bundle branch. Patient was provided with TPA. Lab work from [facility] reveals elevated white blood cell count in the 20s, initial troponin 0.16, d-dimer greater than 4.4. Chest x-ray without acute process. Patient was then transferred to [facility] emergency center. Patient has been placed on BiPAP initially now seen in the ICU on O2 at 2 L nasal cannula. Patient was on norepinephrine for brief period and is status post 2 L of IV fluid maintaining adequate blood pressure. Patient did have episode of A. fib with heart rates in the 100s to 130s And cardiology has ordered amiodarone bolus which has affected her blood pressure somewhat but not back on vasopressors at this point and amiodarone drip. Laboratory studies here revealed white count of 29.2, hemoglobin 11.3, platelet count 304. INR 1.2. Sodium 129 with repeat 134. CO2 17, BUN 34 creatinine 1.03. Troponins have been 0.79 and 2.57. Lactic acid 7.1 currently down to 1.4. Magnesium 2.0. Liver function tests are all elevated with total bilirubin 2.5, AST 250, ALT 115, alkaline phosphatase 873. Marvin virus not detected. Echocardiogram reveals EF of 30-35% with borderline concentric left ventricular hypertrophy, moderate mitral regurgitation, moderate tricuspid regurgitation, mild pulmonary hypertension. Echocardiogram performed in September revealed EF of 50-55% with mild mitral regu rgitation, mild tricuspid regurgitation. Patient was admitted into the intensive care unit and consults are also in place with pulmonary medicine. Patient is status post a azithromycin and Rocephin 1 dose each and currently on Zosyn. CT angiogram of the chest and repeat chest x- ray ordered for today. Patient denies history of irregular heartbeat. She is not O2 dependent. REVIEW OF SYSTEMS Constitutional: Reported fever, no chills, no night sweats. No weight change. Reported weakness, reported fatigue no lethargy. No daytime sleepiness. EENT: No headache. No blurred vision or double vision, no loss of vision. No dizziness. No nasal drainage or congestion. No epistaxis. No sore throat. Lungs: Reported shortness of breath, cough, no sputum production. No wheezing. Cardiovascular: Reported chest pain and resolved, no lower extremity edema. Denies palpitations. No paroxysmal nocturnal dyspnea. No orthopnea. No lightheadedness or dizziness. No syncopal episodes. Abdominal: Denies abdominal pain. No nausea, vomiting. No diarrhea. No constipation. No bloody or tarry stools. Reports loss of appetite. Genitourinary: No dysuria, increased frequency, urgency. No urinary retention. Musculoskeletal: No myalgias. No muscle weakness, no gait dysfunction, no frequent falls. No back pain. No neck pain. Integumentary: No wounds, no lesions. No rash or pruritus. No unusual bruising. No change in hair or nails. Neurologic: No aphasia. No facial droop. No change in mentation. No head injury. No headache. No paralysis. No paresthesia. Psychiatric: No depression. No anxiety. No mood swings. Endocrine: No abnormal blood sugars. No weight change. SOCIAL HISTORY Patient is a lifelong nonsmoker, no illicit drug use, no marijuana use. She is currently residing at [facility]. Patient verbalizes her nephew, Chris Lubin, is the person to make decisions for her if she is unable to make her decisions. FAMILY HISTORY Mother had history of cancer and is . Father from myocardial infarction. She states that all her brothers and sisters have passed. She does not have any children. PHYSICAL EXAMINATION Gen: This is an 85-year-old female. Patient is sitting up in the ICU bed and appears to be comfortable, in no acute distress noted. She is currently on nasal cannula oxygen at 2 L. HEENT: Head is atraumatic, normocephalic. Pupils equal, round. Sclerae is anicteric. Oral mucous membranes slightly dry. NECK: Supple. No JVD. No lymphadenopathy. No thyromegaly. LUNGS: Clear to auscultation. No wheezes or rhonchi. No intercostal retractions. No accessory muscle usage. HEART: Irregular rate and rhythm. No murmur. ABDOMEN: Soft. Bowel sounds are present. No masses. No tenderness. Sultana catheter draining clear francisco urine. EXTREMITIES: No pedal edema. No calf tenderness. Dorsalis pedis +2 bilaterally. NEUROLOGICAL: Patient is awake, alert and oriented x3. Cranial nerves 2 through 12 are grossly intact. ASSESSMENT AND PLAN 1. Non-ST elevated myocardial infarction. Cardiology consult appreciated. Patient is status post TPA. 2. Elevated d-dimer, rule out pulmonary embolism. Patient is scheduled for CTA of the chest today. Patient is status post TPA. 3. Lactic acidosis resolved. Patient is status post 2 L of IV fluid. 4. Hypotension possible septic shock versus cardiogenic shock. Suspect sepsis as underlying cause due to fever prior to arrival and leukocytosis. Patient is currently on Zosyn, repeat chest x-ray ordered, urinalysis and culture to be obtained. 5. A. fib with RVR, new onset paroxysmal atrial fibrillation. Cardiology consult appreciated. Patient's to start on amiodarone bolus and drip, heparin drip. 6. Elevated liver function tests secondary to shock liver. Hold atorvastatin, monitor CMP. 7. History of hypertension. Amlodipine 5 mg daily, Lasix 20 mg daily, Lopressor 25 mg twice daily on hold. 8. Chronic gout. Continue allopurinol 100 mg daily. 9. Hyperlipidemia. Hold Lipitor 40 mg at bedtime. 10. Chronic kidney disease stage III. Avoid nephrotoxic agents, hypotension, monitor renal function. 11. Anemia of chronic disease. Continue ferrous sulfate 325 mg daily. 12. Bilateral carotid stenosis. Continue aspirin 81 mg daily, Plavix 75 mg daily, hold atorvastatin 40 mg at bedtime. 13. Glaucoma. Continue eyedrops. 14. GI prophylaxis. Protonix. 15. DVT prophylaxis. Heparin drip. Patient will be admitted to the hospital for a minimum of 2 night stay. CODE STATUS: DNR DISCHARGE PLAN Return to [facility]. Impression and plan of care have been directed as dictated by the signing physician. Elidia Messina nurse practitioner acting as scribe for signing physician. Past Medical History Past Medical History: Hyperlipidemia, Hypertension Additional Past Medical History / Comment(s): gout, History of Any Multi-Drug Resistant Organisms: None Reported Past Surgical History: Cholecystectomy, Orthopedic Surgery Past Psychological History: No Psychological Hx Reported Smoking Status: Never smoker Past Alcohol Use History: None Reported Past Drug Use History: None Reported - Past Family History Mother Family Medical History: Cancer Father Family Medical History: Myocardial Infarction ([place]) Medications and Allergies Home Medications Medication Instructions Recorded Confirmed Type Allopurinol [Zyloprim] 100 mg PO DAILY 09/12/20 01/18/21 History Travoprost [Travatan Z 0.004%] 1 drop BOTH EYES HS 09/12/20 01/18/21 History Aspirin 81 mg PO DAILY chew 09/18/20 01/18/21 Rx Clopidogrel [Plavix] 75 mg PO DAILY #0 tab 09/18/20 01/18/21 Rx Ipratropium-Albuterol Nebulize 3 ml INHALATION RT-QID PRN ml 09/18/20 01/18/21 Rx [Duoneb 0.5 mg-3 mg/3 ml Soln] amLODIPine [Norvasc] 5 mg PO DAILY tab 09/18/20 01/18/21 Rx Acetaminophen Tab [Tylenol] 650 mg PO Q6H PRN 01/18/21 01/18/21 History Ascorbic Acid [Vitamin C] 500 mg PO DAILY 01/18/21 01/18/21 History Atorvastatin [Lipitor] 40 mg PO HS 01/18/21 01/18/21 History Bisacodyl 5 - 10 mg PO Q72H PRN 01/18/21 01/18/21 History Ferrous Sulfate [Feosol] 325 mg PO DAILY 01/18/21 01/18/21 History Furosemide [Lasix] 20 mg PO DAILY 01/18/21 01/18/21 History HYDROcodone/APAP 5-325MG [N[place]in 1 tab PO TID@0900,1300,2100 01/18/21 01/18/21 History 5-325] Mag Hydrox/Aluminum Hyd/Simeth 30 ml PO Q4H PRN 01/18/21 01/18/21 History [Mylanta Maximum Strength Liq] Metoprolol Tartrate [Lopressor] 25 mg PO BID 01/18/21 01/18/21 History bisacodyL [Dulcolax] 10 mg RECTAL Q72H PRN 01/18/21 01/18/21 History Allergies Allergy/AdvReac Type Severity Reaction Status Date / Time No Known Allergies Allergy Verified 01/18/21 18:53 Physical Exam Vitals: Vital Signs Temp Pulse Resp BP Pulse Ox 01/19/21 07:11 84 22 101/54 99 01/19/21 06:00 93 25 H 118/66 99 01/19/21 05:00 77 23 107/56 99 01/19/21 04:00 78 25 H 114/63 98 01/19/21 03:00 88 30 H 96/34 99 01/19/21 02:00 98.1 F 87 22 81/41 100 01/19/21 01:00 96 22 102/66 98 01/19/21 00:00 90 23 95/76 99 01/18/21 23:16 67/39 01/18/21 22:39 92 28 H 76/49 99 01/18/21 22:08 99 28 H 69/43 99 01/18/21 21:00 118 H 22 89/60 99 01/18/21 20:24 130 H 29 H 116/78 96 01/18/21 19:19 161 H 22 01/18/21 18:44 98.2 F 120 H 20 120/75 98 Intake and Output 01/18/21 01/19/21 01/19/21 22:59 06:59 14:59 Intake Total 75.938 Balance 75.938 Intake: Intake, IV Titration 75.938 Amount Norepinephrine 4 mg In 75.938 Sodium Chloride 0.9% 250 ml @ 0.05 MCG/KG/MIN 13. 48 mls/hr IV .[id number] ONE Rx#:[id number] Other: Weight 70.76 kg Results CBC & Chem 7: 01/19/21 08:47 01/19/21 08:47 Labs: Abnormal Lab Results - Last 24 Hours (Table) 01/18/21 01/18/21 01/18/21 Range/Units 19:15 19:15 19:15 WBC 29.2 H (3.8-10.6) k/uL RBC 3.48 L (3.80-5.40) m/uL Hgb 11.3 L (11.4-16.0) gm/dL Hct (34.0-46.0) % Neutrophils # 28.0 H (1.3-7.7) k/uL Lymphocytes # 0.3 L (1.0-4.8) k/uL PT 12.1 H (9.0-12.0) sec INR 1.2 H (<1.2) APTT 58.3 H (22.0-30.0) sec Sodium 129 L (137-145) mmol/L Chloride 97 L (98-107) mmol/L Carbon Dioxide 18 L (22-30) mmol/L BUN 34 H (7-17) mg/dL Glucose 174 H (74-99) mg/dL Plasma Lactic Acid Christ (0.7-2.0) mmol/L Calcium 8.2 L (8.4-10.2) mg/dL Total Bilirubin 2.5 H (0.2-1.3) mg/dL AST 250 H (14-36) U/L ALT 115 H (4-34) U/L Alkaline Phosphatase 873 H (38-126) U/L Troponin I (0.000-0.034) ng/mL Albumin 3.0 L (3.5-5.0) g/dL 01/18/21 01/18/21 01/18/21 Range/Units 19:15 19:45 22:45 WBC 28.7 H (3.8-10.6) k/uL RBC 2.76 L (3.80-5.40) m/uL Hgb 9.1 L D (11.4-16.0) gm/dL Hct 27.5 L (34.0-46.0) % Neutrophils # (1.3-7.7) k/uL Lymphocytes # (1.0-4.8) k/uL PT (9.0-12.0) sec INR (<1.2) APTT (22.0-30.0) sec Sodium (137-145) mmol/L Chloride (98-107) mmol/L Carbon Dioxide (22-30) mmol/L BUN (7-17) mg/dL Glucose (74-99) mg/dL Plasma Lactic Acid Christ 7.1 H* (0.7-2.0) mmol/L Calcium (8.4-10.2) mg/dL Total Bilirubin (0.2-1.3) mg/dL AST (14-36) U/L ALT (4-34) U/L Alkaline Phosphatase (38-126) U/L Troponin I 0.790 H* (0.000-0.034) ng/mL Albumin (3.5-5.0) g/dL 01/18/21 01/19/21 Range/Units 22:45 02:05 WBC (3.8-10.6) k/uL RBC (3.80-5.40) m/uL Hgb (11.4-16.0) gm/dL Hct (34.0-46.0) % Neutrophils # (1.3-7.7) k/uL Lymphocytes # (1.0-4.8) k/uL PT (9.0-12.0) sec INR (<1.2) APTT (22.0-30.0) sec Sodium (137-145) mmol/L Chloride (98-107) mmol/L Carbon Dioxide (22-30) mmol/L BUN (7-17) mg/dL Glucose (74-99) mg/dL Plasma Lactic Acid Christ 3.9 H* 2.7 H* (0.7-2.0) mmol/L Calcium (8.4-10.2) mg/dL Total Bilirubin (0.2-1.3) mg/dL AST (14-36) U/L ALT (4-34) U/L Alkaline Phosphatase (38-126) U/L Troponin I (0.000-0.034) ng/mL Albumin (3.5-5.0) g/dL
--- NOTE | 2021-01-19 11:31 | XR ---
EXAMINATION TYPE: XR chest 1V portable DATE OF EXAM: 01/19/2021 COMPARISON: 01/18/2021 HISTORY: Sepsis TECHNIQUE: Single frontal view of the chest is obtained. FINDINGS: Small bilateral pleural effusions with basilar consolidation. Patient is rotated. Likely a ccounts for the prominence of left hilum. No overt failure. No pneumothorax. Arthropathy of the shoul ders. Hypertrophic and degenerative change of the spine. Heart size normal. Tiny calcified granuloma left lower lobe. IMPRESSION: Bilateral lower lobe infiltrate and small pleural effusion.
[2021-01-19 11:36] LABS: Band Neutrophils % 1 %; Lymphocytes # (M) 1.23 k/uL (1.0-4.8); Monocytes # (M) 0.41 k/uL (0-1.0); Neutrophils % (M) 96 %; Nucleated Red Blood Cells 0 /100 WBC (0-0); Total Cells Counted 200
[2021-01-19] MEDS: PIPERACILLIN-TAZOBACTAM 3.375 GM in SODIUM CHLORIDE 0.9% 100 ML IVPB SCH ×2 (11:50→17:16)
--- NOTE | 2021-01-19 13:31 | P.CNPUL ---
History of Present Illness Consult date: 01/19/21 Requesting physician: Maria A Sparks Reason for consult: other Chief complaint: Non-ST elevated myocardial infarction, elevated d-dimer History of present illness: 85-year-old female patient with past medical history of hypertension, gout, chronic kidney disease stage III, glaucoma, chronic anemia, and bilateral carotid stenosis who was transferred to [facility] yesterday for evaluation of shortness of breath, pulse ox in the 80s, poor appetite, weakness, and fever approximately 3 days ago. The [facility] she had EKG and there was a concern about ST elevation which was determined to be atrial fibrillation with left bundle branch block by cardiology. Patient did receive TPA. She was transferred to [facility] for further care, her CODE STATUS is DO NOT RESUSCITATE, her rate was still poorly controlled, she remains in A. fib this morning as well with a rate of 106-135 BPM, she was placed on BiPAP support overnight with pressures of 12/6 and FiO2 of 35%, she was given IV fluids for hypotension, she is on a small amount of labor fed currently at 4 mics per minute. Her d-dimer was elevated at 1.4. COVID-19 PCR was negative, chest x-ray did not show acute process. Lab work from [place] showed white blood cell count 29.2, hemoglobin is 11.3, platelet count of 304, INR is 1.2, sodium is 1.29, subsequently improved to 134, CO2 17, BUN is 34 creatinine is 1.03. Second and third troponin came back as 0.79 and 2.57. Lactic acid was 7.1, currently down to 1.4, LFTs showed elevated bilirubin of 2.5, AST of 250, ALT is 1:15, and alkaline phosphatase of 873. Echocardiogram showed EF of 30- 35% with borderline concentric left ventricular hypertrophy, moderate mitral regurgitation, moderate tricuspid regurgitation mild pulmonary hypertension. He r previous echocardiogram from September 2020 showed EF of 50-55%. Those a concern for underlying sepsis, patient was given a dose of azithromycin and Rocephin in the emergency department. Currently CT angiogram of the chest is pending. Her follow-up blood work from today shows white blood cell count which is up to 41.1, hemoglobin is 10.8, sodium is 134, potassium is 4.1, BUN is 84, creatinine is 1.03, urinalysis showed 1+ protein, 1+ bilirubin, large amount of leuks, large amount of white blood cells and white blood cells in clumps with moderate amount of bacteria, suggesting acute urinary tract infection, patient is on 3 L of oxygen a pulse ox of 98%, breathing comfortably Review of Systems All systems: negative Constitutional: Reports fever, Reports malaise, Reports weakness, Denies chills Eyes: denies blurred vision, denies pain Ears, nose, mouth and throat: Denies headache, Denies sore throat Cardiovascular: Denies chest pain, Denies shortness of breath Respiratory: Reports dyspnea, Denies cough Gastrointestinal: Denies abdominal pain, Denies diarrhea, Denies nausea, Denies vomiting Genitourinary: Denies dysuria, Denies hematuria Musculoskeletal: Denies myalgias Integumentary: Denies pruritus, Denies rash Neurological: Denies numbness, Denies weakness Psychiatric: Denies anxiety, Denies depression Endocrine: Denies fatigue, Denies weight change Past Medical History Past Medical History: Hyperlipidemia, Hypertension Additional Past Medical History / Comment(s): gout, History of Any Multi-Drug Resistant Organisms: None Reported Past Surgical History: Cholecystectomy, Orthopedic Surgery Past Psychological History: No Psychological Hx Reported Smoking Status: Never smoker Past Alcohol Use History: None Reported Past Drug Use History: None Reported - Past Family History Mother Family Medical History: Cancer Father Family Medical History: Myocardial Infarction ([place]) Medications and Allergies Home Medications Medication Instructions Recorded Confirmed Type Allopurinol [Zyloprim] 100 mg PO DAILY 09/12/20 01/18/21 History Travoprost [Travatan Z 0.004%] 1 drop BOTH EYES HS 09/12/20 01/18/21 History Aspirin 81 mg PO DAILY chew 09/18/20 01/18/21 Rx Clopidogrel [Plavix] 75 mg PO DAILY #0 tab 09/18/20 01/18/21 Rx Ipratropium-Albuterol Nebulize 3 ml INHALATION RT-QID PRN ml 09/18/20 01/18/21 Rx [Duoneb 0.5 mg-3 mg/3 ml Soln] amLODIPine [Norvasc] 5 mg PO DAILY tab 09/18/20 01/18/21 Rx Acetaminophen Tab [Tylenol] 650 mg PO Q6H PRN 01/18/21 01/18/21 History Ascorbic Acid [Vitamin C] 500 mg PO DAILY 01/18/21 01/18/21 History Atorvastatin [Lipitor] 40 mg PO HS 01/18/21 01/18/21 History Bisacodyl 5 - 10 mg PO Q72H PRN 01/18/21 01/18/21 History Ferrous Sulfate [Feosol] 325 mg PO DAILY 01/18/21 01/18/21 History Furosemide [Lasix] 20 mg PO DAILY 01/18/21 01/18/21 History HYDROcodone/APAP 5-325MG [[place] 1 tab PO TID@0900,1300,2100 01/18/21 01/18/21 History 5-325] Mag Hydrox/Aluminum Hyd/Simeth 30 ml PO Q4H PRN 01/18/21 01/18/21 History [Mylanta Maximum Strength Liq] Metoprolol Tartrate [Lopressor] 25 mg PO BID 01/18/21 01/18/21 History bisacodyL [Dulcolax] 10 mg RECTAL Q72H PRN 01/18/21 01/18/21 History Allergies Allergy/AdvReac Type Severity Reaction Status Date / Time No Known Allergies Allergy Verified 01/18/21 18:53 Physical Exam Vitals: Vital Signs Temp Pulse Resp BP Pulse Ox 01/19/21 12:15 91 12 80/50 98 01/19/21 12:00 97.7 F 95 13 85/49 98 01/19/21 11:45 86 11 L 93/52 98 01/19/21 11:30 94 10 L 96/62 99 01/19/21 11:15 92 14 93/53 97 01/19/21 11:00 96 20 85/68 96 01/19/21 10:45 104 H 4 L 88/52 98 01/19/21 10:30 101 H 18 96/56 96 01/19/21 10:15 96 20 106/84 97 01/19/21 10:00 98 19 89/48 96 01/19/21 09:45 87 16 121/70 97 01/19/21 09:30 101 H 15 140/71 99 01/19/21 09:15 116 H 17 130/61 98 01/19/21 09:00 98.2 F 107 H 15 142/73 99 01/19/21 08:47 121 H 9 L 105/67 98 01/19/21 07:11 84 22 101/54 99 01/19/21 06:00 93 25 H 118/66 99 01/19/21 05:00 77 23 107/56 99 01/19/21 04:00 78 25 H 114/63 98 01/19/21 03:00 88 30 H 96/34 99 01/19/21 02:00 98.1 F 87 22 81/41 100 01/19/21 01:00 96 22 102/66 98 01/19/21 00:00 90 23 95/76 99 01/18/21 23:16 67/39 01/18/21 22:39 92 28 H 76/49 99 01/18/21 22:08 99 28 H 69/43 99 01/18/21 21:00 118 H 22 89/60 99 01/18/21 20:24 130 H 29 H 116/78 96 01/18/21 19:19 161 H 22 01/18/21 18:44 98.2 F 120 H 20 120/75 98 Intake and Output 01/18/21 01/19/21 01/19/21 22:59 06:59 14:59 Intake Total 75.938 969.994 Output Total 455 Balance 75.938 514.994 Intake: IV 784 Amiodarone 360 mg In 99 Dextrose 5% in Water 200 ml @ 1 MG/MIN 33.333 mls/ hr IV .Q6H ONE Rx#: [id number] Dextrose 5% in Water 100 100 ml @ 618 mls/hr IV .Q10M ONE with Amiodarone 150 mg Rx#:[id number] Piperacillin-Tazobactam 3 100 .375 gm In Sodium Chloride 0.9% 100 ml @ 25 mls/hr IVPB Q8HR [facility] Rx# :[id number] Sodium Chloride 0.9% 1, 485 000 ml @ 75 mls/hr IV . [id number] [facility] Rx#:[id number] Intake, IV Titration 75.938 185.994 Amount Heparin Sod,Pork in 0.45% 24.413 NaCl 25,000 unit In 0.45 % NaCl 1 250ml.bag @ 18 UNITS/KG/HR 12.737 mls/hr IV .[id number] [facility] Rx#: [id number] Norepinephrine 4 mg In 75.938 161.581 Sodium Chloride 0.9% 250 ml @ 0.05 MCG/KG/MIN 13. 48 mls/hr IV .[id number] [facility] Rx#:[id number] Output: Urine 455 Other: Voiding Method Indwelling Catheter Weight 70.76 kg GENERAL EXAM: Alert, 85-year-old white female, appears weak, but awake, answers simple questions, currently on 3 L of oxygen, pulse ox of 98%, comfortable in no apparent distress. HEAD: Normocephalic/atraumatic. EYES: Normal reaction of pupils, equal size. Conjunctiva pink, sclera white. NOSE: Clear with pink turbinates. THROAT: No erythema or exudates. NECK: No masses, no JVD, no thyroid enlargement, no adenopathy. CHEST: No chest wall deformity. Symmetrical expansion. LUNGS: Equal air entry with diminished breath sounds at the bases, with no rhonchi or wheezes. CVS: Irregular rate and rhythm, normal S1 and S2, no gallops, no murmurs, no rubs ABDOMEN: Soft, nontender. No hepatosplenomegaly, normal bowel sounds, no guarding or rigidity. EXTREMITIES: No clubbing, no edema, no cyanosis, 2+ pulses and upper and lower extremities. MUSCULOSKELETAL: Muscle strength and tone normal. SPINE: No scoliosis or deformity SKIN: No rashes CENTRAL NERVOUS SYSTEM: Alert and oriented -3. No focal deficits, tone is normal in all 4 extremities. PSYCHIATRIC: Alert and oriented -3. Appropriate affect. Intact judgment and insight. Results - Laboratory Findings CBC and BMP: 01/19/21 08:47 01/19/21 08:47 PT/INR, D-dimer PT 15.2 sec (9.0-12.0) H 01/19/21 10:10 INR 1.5 (<1.2) H 01/19/21 10:10 Abnormal lab findings: Abnormal Labs 01/18/21 01/18/21 01/18/21 19:15 19:15 19:15 WBC 29.2 H RBC 3.48 L Hgb 11.3 L Hct MCV Neutrophils # 28.0 H Neutrophils # (Manual) Lymphocytes # 0.3 L PT 12.1 H INR 1.2 H APTT 58.3 H Sodium 129 L Chloride 97 L Carbon Dioxide 18 L BUN 34 H Glucose 174 H POC Glucose (mg/dL) Plasma Lactic Acid Christ Calcium 8.2 L Total Bilirubin 2.5 H AST 250 H ALT 115 H Alkaline Phosphatase 873 H Troponin I Albumin 3.0 L Urine Appearance Urine Protein Urine Bilirubin Ur Leukocyte Esterase Urine WBC Urine WBC Clumps Urine Bacteria Urine Mucus 01/18/21 01/18/21 01/18/21 19:15 19:45 22:45 WBC 28.7 H RBC 2.76 L Hgb 9.1 L D Hct 27.5 L MCV Neutrophils # Neutrophils # (Manual) Lymphocytes # PT INR APTT Sodium Chloride Carbon Dioxide BUN Glucose POC Glucose (mg/dL) Plasma Lactic Acid Christ 7.1 H* Calcium Total Bilirubin AST ALT Alkaline Phosphatase Troponin I 0.790 H* Albumin Urine Appearance Urine Protein Urine Bilirubin Ur Leukocyte Esterase Urine WBC Urine WBC Clumps Urine Bacteria Urine Mucus 01/18/21 01/19/21 01/19/21 22:45 02:05 08:47 WBC RBC Hgb Hct MCV Neutrophils # Neutrophils # (Manual) Lymphocytes # PT INR APTT Sodium Chloride Carbon Dioxide BUN Glucose POC Glucose (mg/dL) Plasma Lactic Acid Christ 3.9 H* 2.7 H* Calcium Total Bilirubin AST ALT Alkaline Phosphatase Troponin I 0.257 H* Albumin Urine Appearance Urine Protein Urine Bilirubin Ur Leukocyte Esterase Urine WBC Urine WBC Clumps Urine Bacteria Urine Mucus 01/19/21 01/19/21 01/19/21 08:47 08:47 09:16 WBC 41.1 H RBC 3.40 L Hgb 10.8 L Hct MCV 100.4 H Neutrophils # Neutrophils # (Manual) 39.80 H Lymphocytes # PT INR APTT Sodium 134 L Chloride Carbon Dioxide 17 L BUN 34 H Glucose 145 H POC Glucose (mg/dL) 135 H Plasma Lactic Acid Christ Calcium 8.3 L Total Bilirubin AST ALT Alkaline Phosphatase Troponin I Albumin Urine Appearance Urine Protein Urine Bilirubin Ur Leukocyte Esterase Urine WBC Urine WBC Clumps Urine Bacteria Urine Mucus 01/19/21 01/19/21 10:10 11:02 WBC RBC Hgb Hct MCV Neutrophils # Neutrophils # (Manual) Lymphocytes # PT 15.2 H INR 1.5 H APTT 198.0 H* Sodium Chloride Carbon Dioxide BUN Glucose POC Glucose (mg/dL) Plasma Lactic Acid Christ Calcium Total Bilirubin AST ALT Alkaline Phosphatase Troponin I Albumin Urine Appearance Cloudy H Urine Protein 1+ H Urine Bilirubin 1+ H Ur Leukocyte Esterase Large H Urine WBC 166 H Urine WBC Clumps Moderate H Urine Bacteria Moderate H Urine Mucus Occasional H - Diagnostic Findings Chest x-ray: report reviewed, image reviewed CT scan - chest: report reviewed, image reviewed Assessment and Plan Plan: Assessment: #1. Acute hypoxic respiratory failure related to acute sepsis, possibly related to acute urinary tract infection. COVID-19 PCR was negative, CTA chest ruled out pulmonary embolism, did show mild bilateral pleural effusions with compressive atelectasis #2. Non-ST elevated myocardial infarction, she received a dose of TPA at the [facility] #3. Septic shock #4. Elevated d-dimer, CT chest was negative for acute pulmonary embolism #5. Hyponatremia likely hypovolemic, improved with IV hydration #6. Lactic acidosis related to sepsis, improved with IV fluid resuscitation #7. History of hypertension #8. Hyperlipidemia #9. Elevated liver function test, and elevated bilirubin, rule out possibility of acute gallbladder cholecystitis #10. Anemia of chronic disease #11. History of bilateral carotid stenosis #12. Glaucoma Plan: Switch the antibiotic coverage to Zosyn, Continue IV hydration, we'll cut back the IV Fto 75 ML per hour Wean vasopressor support Patient is being started on heparin infusion Monitor for any signs of bleeding CTA chest showed no evidence of pulmonary embolism Send cultures, urine culture and sputum culture Urinalysis shows infected urine Consider abdominal ultrasound for possibility of acute cholecystitis We'll obtain amylase and lipase Echocardiogram has been noted Rate control medications and anticoagulation of atrial fibrillation with RVR per cardiology Continue close monitoring in the intensive care unit Patient is off BiPAP support, she is breathing comfortably, she is maintaining stable O2 saturations on 2 L May use BiPAP support as needed We'll continue to follow I performed a history & physical examination of the patient and discussed their management with my nurse practitioner, Radha Gurrola. I reviewed the nurse practitioner's note and agree with the documented findings and plan of care. Lung sounds are positive for diminished breath sounds throughout the lung goldstein. The findings and the impression was discussed with the patient. I attest to the documentation by the nurse practitioner. Time with Patient: Greater than 30
[2021-01-19 15:14] LABS: Amylase 41 U/L (30-110); Lipase 55 U/L (23-300)
[2021-01-19] MEDS: AMIODARONE 450 MG in DEXTROSE 5% IN WATER 250 ML IV SCH ×2 (15:28)
--- NOTE | 2021-01-19 15:55 | US ---
EXAMINATION TYPE: US liver DATE OF EXAM: 01/19/2021 COMPARISON: 09/13/2020 CLINICAL HISTORY: elevated LFTs. elevated LFT's. cholecystectomy EXAM MEASUREMENTS: Liver Length: 15.1 cm Gallbladder Wall: Surgically absent CBD: 0.8 cm Right Kidney: 9.0 x 3.9 x 4.1 cm *technical limitations due to large amount of overlying bowel content Pancreas: Obscured by bowel gas Liver: only visualized intercostally Gallbladder: Surgically absent Evidence for sonographic Wilcox's sign: no CBD: wnl Right Kidney: no evidence of hydronephrosis IMPRESSION: 1. Markedly limited exam as discussed above. Visualized portions of the liver homogeneous. Small amou nt of fluid surrounding the liver not excluded correlate with CT scan as clinically warranted. 2. Small right pleural effusion
[2021-01-19] MEDS ORDERED: NOREPINEPHRINE 4 MG in SODIUM CHLORIDE 0.9% 250 ML IV SCH (17:45)
[2021-01-19 18:20] LABS: Glucose,Whole Blood 137 mg/dL (75-99)
[2021-01-19] MEDS: LATANOPROST 0.005% OPHTH DROPS 2.5 ML BTL BOTH EYES SCH (20:29)
[2021-01-19] MEDS ORDERED: ATORVASTATIN 40 MG TAB PO SCH (21:00)
[2021-01-20 00:29] LABS: Hepatitis A Antibody IgM Non-Reactive (Non-Reactive); Hepatitis B Surface Antigen Non-Reactive (Non-Reactive); Hepatitis C IgG Antibody Non-Reactive (Non-Reactive)
[2021-01-20 03:25] LABS: Hepatitis B Core IgM Non-Reactive (Non-Reactive)
[2021-01-20] MEDS: SODIUM CHLORIDE 0.9% 1,000 ML IV SCH ×2 (04:35→09:45)
[2021-01-20 05:44] LABS: Basophils % (A) 0 %; Eosinophils % (A) 0 %; HCT 28.1 % (34.0-46.0); Lymphocytes % (A) 5 %; MCH 32.2 pg (25.0-35.0); MCHC 32.5 g/dL (31.0-37.0); MCV 98.8 fL (80.0-100.0); Mean Platelet Volume 8.4; Monocytes # (A) 0.5 k/uL (0-1.0); Monocytes % (A) 2 %; Neutrophils # (A) 18.8 k/uL (1.3-7.7); Neutrophils % (A) 92 %; Platelet Count 277 k/uL (150-450); RBC 2.84 m/uL (3.80-5.40); WBC 20.5 k/uL (3.8-10.6)
[2021-01-20 05:48] LABS: HGB 9.1 gm/dL (11.4-16.0)
[2021-01-20 05:52] LABS: Partial Thromboplastin Time 52.7 sec (22.0-30.0); Prothrombin Time 10.5 sec (9.0-12.0)
[2021-01-20 06:02] LABS: Calcium 8.1 mg/dL (8.4-10.2); Potassium 3.5 mmol/L (3.5-5.1)
[2021-01-20] MEDS ORDERED: Potassium Replacement Protocol 1 EACH MISC MISCELLANE PRN (06:13)
[2021-01-20] MEDS: POTASSIUM CHLORIDE ER 20 MEQ TAB.ER PO SCH ×2 (06:53→08:22)
[2021-01-20] MEDS: PANTOPRAZOLE 40 MG TABLET PO SCH (06:53)
[2021-01-20] MEDS: AMIODARONE 450 MG in DEXTROSE 5% IN WATER 250 ML IV SCH ×2 (06:53)
--- NOTE | 2021-01-20 07:19 | XR ---
EXAMINATION TYPE: XR chest 1V portable DATE OF EXAM: 01/20/2021 COMPARISON: 01/19/2021 HISTORY: 85 years Female. STUDY INDICATION GIVEN: shortness of breath . TECHNIQUE: AP chest radiograph IMPRESSION: No pleural effusion or pneumothorax seen. Stable bibasilar opacities which could represent a combination of subsegmental atelectasis and/or pne umonic infiltrates. Mild central interstitial prominence suggests mild pulmonary vascular congestion. Normal cardiomediastinal silhouette. Stable osseous structures. Gas-filled distended bowel loops noted in the upper abdomen decreased amount of stool compared to sylvia or study.
[2021-01-20] MEDS: allopurinoL 100 MG TAB PO SCH (08:33)
[2021-01-20] MEDS: FERROUS SULFATE 325 MG TAB PO SCH (08:33)
[2021-01-20] MEDS: ASPIRIN 81 MG PO SCH (08:33)
[2021-01-20] MEDS: PIPERACILLIN-TAZOBACTAM 3.375 GM in SODIUM CHLORIDE 0.9% 100 ML IVPB SCH ×5 (08:34→23:34)
[2021-01-20] MEDS ORDERED: CLOPIDOGREL 75 MG TAB PO SCH (09:00)
[2021-01-20] MEDS ORDERED: SODIUM CHLORIDE 0.9% 1,000 ML IV SCH (09:15)
--- NOTE | 2021-01-20 09:49 | P.PN ---
Subjective HISTORY OF PRESENTING ILLNESS This is a pleasant 85-year-old with past medical history significant for carotid artery stenosis, hypertension, hyperlipidemia who presents as a transfer from [facility]. She normally resides in an ECF where she was noted to be hypoxic with oxygen saturation in the 80s, short of breath and some reported ep igastric pain. Patient is a fair historian however does not recall the details of her medical history. She states she has not had much of an appetite over the last 3 days, has not been eating or drinking much and had a fever approximately 3 days ago. She states she has felt somewhat like she could not catch her breath. Per [place] chart she had acute onset of short of breath as well as some epigastric pain. There was concern regarding ST elevation however EKG appears to be A. fib with left bundle branch morphology with mild V1 and V2 and 1-1.5 mm. There was no improvement with TPA which was given. Lab work from [place] reveals elevated white blood cell count in the 20s, initial troponin 0.16, d-dimer greater than 4.4, mildly elevated AST, ALT, total bilirubin in the 2's. Chest x-ray without acute process. Currently she denies any chest pain or pressure. She states her breathing is somewhat better. She has been in A. fib with heart rates in the 100s to 130s. She was placed on Levophed drip however blood pressures have improved after 2 L IV fluid bolus. She had been on BiPAP however now currently on nasal cannula and appears comfortable. 01/20 Patient seen and examined. Patient remains somewhat lethargic. She did not sleep well last night. CT PE protocol showed no PE. Urinalysis showed UTI. White blood cell count improved today. She denies any chest pain, pressure, shortness breath. She has been getting IV fluids at 75 mL/h. She has been on the amiodarone drip and she did briefly converted to normal sinus rhythm however back in A. fib, heart rates predominantly controlled 80s up to low 100s. Blood pressures have been marginal however vasopressors were discontinued approximately midnight and blood pressure remained stable. Echo reveals ejec tion fraction 30-35%. PHYSICAL EXAMINATION Vital signs reviewed. CONSTITUTIONAL: No apparent distress. HEENT: Head is normocephalic. Pupils are equal, round. Sclerae anicteric. Mucous membranes of the mouth are moist. No JVD. No carotid bruit. CHEST EXAMINATION: Lungs are clear to auscultation. No chest wall tenderness is noted on palpation or with deep breathing. HEART EXAMINATION: Irregularly irregular rate and rhythm. S1, S2 heard. No murmurs, gallops or rub. ABDOMEN: Soft, nontender. Positive bowel sounds. EXTREMITIES: 2+ peripheral pulses, no lower extremity edema and no calf tenderne ss. NEUROLOGIC EXAMINATION: Patient is awake, alert and oriented x3. ASSESSMENT 1. Non-STEMI, initial concern of ST elevation however appears related to left bundle branch morphology, s/p TPA at [facility] 2. Hypotension, currently improved status post IV fluids 3. Reported fever approximately 3 days prior to arrival, elevated white blood cell count, elevated lactic acid, rule out sepsis 4. Reported carotid artery stenosis, on aspirin and Plavix at home 5. Mildly elevated AST, ALT 6. A. fib with mild RVR, unclear if new or old 7. Lactic acidosis 8. History of hypertension 9. Hyperlipidemia 10. Elevated d-dimer 11. Hyponatremia 12. Cardiomyopathy ejection fraction 30-35% PLAN Troponins relatively flat and patient not experiencing obvious angina-type symptoms. She did have decrease in ejection fraction however suspect related to A. fib, cardioversions, sepsis. Ideally heart catheterization however do not feel patient is good interventional candidate at this standpoint. Patient's main presentation appears consistent with sepsis with urinary tract infection. Continue to treat patient medically, antibiotics. If patient continues improved and ejection fraction remains down, may consider ischemic workup. Blood pressures still marginal and we will give gentle IV fluids as she has not been much oral intake. Stop heparin drip and start Eliquis 5 mg twice a day. Stop Plavix which was for her carotid artery stenosis. Continue amiodarone however changed to oral loading. Prognosis guarded. Objective - Vital Signs Vital signs: Vital Signs Temp 97.5 F L 01/20/21 04:00 Pulse 100 01/20/21 07:00 Resp 19 01/20/21 07:00 BP 96/53 01/20/21 07:00 Pulse Ox 96 01/20/21 07:00 Intake & Output 01/19/21 01/20/21 01/20/21 18:59 06:59 18:59 Intake Total 7000.369 3983.844 75 Output Total 640 345 30 Balance 979.994 890.844 45 Weight 70.76 kg 73.8 kg Intake: IV 1234 900 75 Amiodarone 360 mg In 99 Dextrose 5% in Water 200 ml @ 1 MG/MIN 33.333 mls/ hr IV .Q6H ONE Rx#: [id number] Dextrose 5% in Water 100 100 ml @ 618 mls/hr IV .Q10M ONE with Amiodarone 150 mg Rx#:[id number] Piperacillin-Tazobactam 3 100 .375 gm In Sodium Chloride 0.9% 100 ml @ 25 mls/hr IVPB Q8HR [facility] Rx# :[id number] Sodium Chloride 0.9% 1, 935 900 75 000 ml @ 75 mls/hr IV . [id number] [facility] Rx#:[id number] Intake, IV Titration 385.994 335.844 Amount Amiodarone 360 mg In 200 Dextrose 5% in Water 200 ml @ 1 MG/MIN 33.333 mls/ hr IV .Q6H [facility] Rx#: [id number] Amiodarone 450 mg In 250 Dextrose 5% in Water 250 ml @ 0.5 MG/MIN 16.667 mls/hr IV .Q15H [facility] Rx#: [id number] Heparin Sod,Pork in 0.45% 52.503 NaCl 25,000 unit In 0.45 % NaCl 1 250ml.bag @ 12 UNITS/KG/HR 8.491 mls/hr IV .Q24H [facility] Rx#: [id number] Heparin Sod,Pork in 0.45% 24.413 NaCl 25,000 unit In 0.45 % NaCl 1 250ml.bag @ 18 UNITS/KG/HR 12.737 mls/hr IV .[id number] [facility] Rx#: [id number] Norepinephrine 4 mg In 33.341 Sodium Chloride 0.9% 250 ml @ 0.02 MCG/KG/MIN 5. 392 mls/hr IV .Q24H [facility] Rx#:[id number] Norepinephrine 4 mg In 161.581 Sodium Chloride 0.9% 250 ml @ 0.05 MCG/KG/MIN 13. 48 mls/hr IV .[id number] [facility] Rx#:[id number] Output: Urine 640 345 30 Other: Voiding Method Indwelling Catheter Indwelling Catheter - Labs CBC & Chem 7: 01/20/21 04:45 01/20/21 04:45 Labs: Abnormal Lab Results - Last 24 Hours (Table) 01/19/21 01/19/21 01/19/21 Range/Units 08:47 08:47 10:10 WBC (3.8-10.6) k/uL RBC (3.80-5.40) m/uL Hgb (11.4-16.0) gm/dL Hct (34.0-46.0) % Neutrophils # (1.3-7.7) k/uL Neutrophils # (Manual) 39.80 H (1.3-7.7) k/uL PT 15.2 H (9.0-12.0) sec INR 1.5 H (<1.2) APTT 198.0 H* (22.0-30.0) sec Sodium (137-145) mmol/L Carbon Dioxide (22-30) mmol/L BUN (7-17) mg/dL Creatinine (0.52-1.04) mg/dL Glucose (74-99) mg/dL POC Glucose (mg/dL) (75-99) mg/dL Calcium (8.4-10.2) mg/dL Troponin I 0.257 H* (0.000-0.034) ng/mL Urine Appearance (Clear) Urine Protein (Negative) Urine Bilirubin (Negative) Ur Leukocyte Esterase (Negative) Urine WBC (0-5) /hpf Urine WBC Clumps (None) /hpf Urine Bacteria (None) /hpf Urine Mucus (None) /hpf 01/19/21 01/19/21 01/19/21 Range/Units 11:02 14:06 18:19 WBC (3.8-10.6) k/uL RBC (3.80-5.40) m/uL Hgb (11.4-16.0) gm/dL Hct (34.0-46.0) % Neutrophils # (1.3-7.7) k/uL Neutrophils # (Manual) (1.3-7.7) k/uL PT (9.0-12.0) sec INR (<1.2) APTT 34.4 H (22.0-30.0) sec Sodium (137-145) mmol/L Carbon Dioxide (22-30) mmol/L BUN (7-17) mg/dL Creatinine (0.52-1.04) mg/dL Glucose (74-99) mg/dL POC Glucose (mg/dL) 137 H (75-99) mg/dL Calcium (8.4-10.2) mg/dL Troponin I (0.000-0.034) ng/mL Urine Appearance Cloudy H (Clear) Urine Protein 1+ H (Negative) Urine Bilirubin 1+ H (Negative) Ur Leukocyte Esterase Large H (Negative) Urine WBC 166 H (0-5) /hpf Urine WBC Clumps Moderate H (None) /hpf Urine Bacteria Moderate H (None) /hpf Urine Mucus Occasional H (None) /hpf 01/19/21 01/20/21 01/20/21 Range/Units 21:09 04:45 04:45 WBC 20.5 H (3.8-10.6) k/uL RBC 2.84 L (3.80-5.40) m/uL Hgb 9.1 L D (11.4-16.0) gm/dL Hct 28.1 L (34.0-46.0) % Neutrophils # 18.8 H (1.3-7.7) k/uL Neutrophils # (Manual) (1.3-7.7) k/uL PT (9.0-12.0) sec INR (<1.2) APTT 39.2 H 52.7 H (22.0-30.0) sec Sodium (137-145) mmol/L Carbon Dioxide (22-30) mmol/L BUN (7-17) mg/dL Creatinine (0.52-1.04) mg/dL Glucose (74-99) mg/dL POC Glucose (mg/dL) (75-99) mg/dL Calcium (8.4-10.2) mg/dL Troponin I (0.000-0.034) ng/mL Urine Appearance (Clear) Urine Protein (Negative) Urine Bilirubin (Negative) Ur Leukocyte Esterase (Negative) Urine WBC (0-5) /hpf Urine WBC Clumps (None) /hpf Urine Bacteria (None) /hpf Urine Mucus (None) /hpf 01/20/21 Range/Units 04:45 WBC (3.8-10.6) k/uL RBC (3.80-5.40) m/uL Hgb (11.4-16.0) gm/dL Hct (34.0-46.0) % Neutrophils # (1.3-7.7) k/uL Neutrophils # (Manual) (1.3-7.7) k/uL PT (9.0-12.0) sec INR (<1.2) APTT (22.0-30.0) sec Sodium 134 L (137-145) mmol/L Carbon Dioxide 15 L (22-30) mmol/L BUN 35 H (7-17) mg/dL Creatinine 1.08 H (0.52-1.04) mg/dL Glucose 113 H (74-99) mg/dL POC Glucose (mg/dL) (75-99) mg/dL Calcium 8.1 L (8.4-10.2) mg/dL Troponin I (0.000-0.034) ng/mL Urine Appearance (Clear) Urine Protein (Negative) Urine Bilirubin (Negative) Ur Leukocyte Esterase (Negative) Urine WBC (0-5) /hpf Urine WBC Clumps (None) /hpf Urine Bacteria (None) /hpf Urine Mucus (None) /hpf Microbiology - Last 24 Hours (Table) 01/18/21 22:00 Blood Culture - Preliminary Blood No Growth after 24 hours 01/18/21 20:30 Blood Culture - Preliminary Blood No Growth after 24 hours 01/19/21 11:02 Urine Culture - Preliminary Urine,Voided
--- NOTE | 2021-01-20 10:14 | P.PN ---
Subjective Progress Note Date: 01/20/21 Principal diagnosis: non-ST TN, severe ischemic heart failure, A. fib with RVR, abnormal liver function tests, anemia and hyperlipidemia. HISTORY OF PRESENT ILLNESS This is an 85-year-old female patient of Dr. Brennon Delong with past medical history of hypertension, gout, chronic kidney disease stage III, bilateral carotid stenosis. Patient had a recent hospitalization with us in September of this year which time she presented with slurring of speech and right-sided weakness, sepsis with bacteremia and Klebsiella UTI. Patient was discharged to subacute rehab at [facility] and continues to reside there. She states that yesterday she developed a cough along with shortness of breath and chest pressure. She denies abdominal pain. She was found to be hypoxic with pulse ox in the 80s. She states she has not had much of an appetite over the last 3 days, has not been eating or drinking much and had a fever approximately 3 days ago. She was transferred to [facility] for evaluation and there was concern about ST elevation on EKG but subsequently cardiology has evaluated and EKG was A. fib with left bundle branch. Patient was provided with TPA. Lab work from [place] reveals elevated white blood cell count in the 20s, in itial troponin 0.16, d-dimer greater than 4.4. Chest x-ray without acute process. Patient was then transferred to [facility] emergency center. Patient has been placed on BiPAP initially now seen in the ICU on O2 at 2 L nasal cannula. Patient was on norepinephrine for brief period and is status post 2 L of IV fluid maintaining adequate blood pressure. Patient did have episode of A. fib with heart rates in the 100s to 130s And cardiology has ordered amiodarone bolus which has affected her blood pressure somewhat but not back on vasopressors at this point and amiodarone dri p. Laboratory studies here revealed white count of 29.2, hemoglobin 11.3, platelet count 304. INR 1.2. Sodium 129 with repeat 134. CO2 17, BUN 34 creatinine 1.03. Troponins have been 0.79 and 2.57. Lactic acid 7.1 currently down to 1.4. Magnesium 2.0. Liver function tests are all elevated with total bilirubin 2.5, AST 250, ALT 115, alkaline phosphatase 873. Marvin virus not detected. Echocardiogram reveals EF of 30-35% with borderline concentric left ventricular hypertrophy, moderate mitral regurgitation, moderate tricuspid regurgitation, mild pulmonary hypertension. Echocardiogram performed in September revealed EF of 50-55% with mild mitral regurgitation, mild tricuspid regurgitation. Patient was admitted into the intensive care unit and consults are also in place with pulmonary medicine. Patient is status post a azithromycin and Rocephin 1 dose each and currently on Zosyn. CT angiogram of the chest and repeat chest x- ray ordered for today. Patient denies history of irregular heartbeat. She is not O2 dependent. 01/20: Patient is doing slightly but better today, ejection fraction came at 30- 35% Only. Patient was switched to azithromycin and Zosyn after receiving 1 dose of Rocephin with suspicion for aspiration pneumonia. Heart failure management still not doing well at this point. Liver function test and ultrasound did not show any major abnormality, patient still been treated for UTI, culture is not finalized so far. She still on heparin drip and patient most likely will require amiodarone drip at this point because of her A. fib still not well-controlled with oral medication. Chest x-ray will be done tomorrow again to see the change compared to the original one if there is any more infiltrate or more heart failure with fluid retention. REVIEW OF SYSTEMS Constitutional: Reported fever, no chills, no night sweats. No weight change. Reported weakness, reported fatigue no lethargy. No daytime sleepiness. EENT: No headache. No blurred vision or double vision, no loss of vision. No dizziness. No nasal drainage or congestion. No epistaxis. No sore throat. Lungs: Reported shortness of breath, cough, no sputum production. No wheezing. Cardiovascular: Reported chest pain and resolved, no lower extremity edema. Denies palpitations. No paroxysmal nocturnal dyspnea. No orthopnea. No lightheadedness or dizziness. No syncopal episodes. Abdominal: Denies abdominal pain. No nausea, vomiting. No diarrhea. No constipation. No bloody or tarry stools. Reports loss of appetite. Genitourinary: No dysuria, increased frequency, urgency. No urinary retention. Musculoskeletal: No myalgias. No muscle weakness, no gait dysfunction, no frequent falls. No back pain. No neck pain. Integumentary: No wounds, no lesions. No rash or pruritus. No unusual bruising. No change in hair or nails. Neurologic: No aphasia. No facial droop. No change in mentation. No head injury. No headache. No paralysis. No paresthesia. Psychiatric: No depression. No anxiety. No mood swings. Endocrine: No abnormal blood sugars. No weight change. PHYSICAL EXAMINATION Gen: This is an 85-year-old female. Patient is sitting up in the ICU bed and appears to be comfortable, in no acute distress noted. She is currently on nasal cannula oxygen at 2 L. HEENT: Head is atraumatic, normocephalic. Pupils equal, round. Sclerae is anicteric. Oral mucous membranes slightly dry. NECK: Supple. No JVD. No lymphadenopathy. No thyromegaly. LUNGS: Clear to auscultation. No wheezes or rhonchi. No intercostal retractions. No accessory muscle usage. HEART: Irregular rate and rhythm. No murmur. ABDOMEN: Soft. Bowel sounds are present. No masses. No tenderness. Sultana catheter draining clear francisco urine. EXTREMITIES: No pedal edema. No calf tenderness. Dorsalis pedis +2 bilaterally. NEUROLOGICAL: Patient is awake, alert and oriented x3. Cranial nerves 2 through 12 are grossly intact. ASSESSMENT AND PLAN 1. Non-ST elevated myocardial infarction. post TPA patient still seeing cardiology echocardiogram showed ischemic cardiopathy no intervention will be done at this point continue medical management. 2. ischemic cardiomyopathy: With significant low ejection fraction most likely from the effect of the TN happen last 24 hours patient is not going to go for any intervention with heart cath continue medical management continue IV diuretics at this point. 3. UTI and possible aspiration pneumonia: Continue patient on Zosyn and azithromycin for now final culture is not complete continue to watch chest x-ray in culture the next 24 hours. 4. Hypotension possible septic shock versus cardiogenic shock. Suspect sepsis as underlying cause due to fever prior to arrival and leukocytosis. Patient is currently on Zosyn, repeat chest x-ray ordered, urinalysis and culture to be obtained. 5. A. fib with RVR, new onset paroxysmal atrial fibrillation. patient still on heparin drip will require probably amiodarone drip the meanwhile continue metoprolol try to control her pulse rate. 6. Elevated liver function tests secondary to shock liver. Hold atorvastatin, monitor CMP. 7. History of hypertension. Amlodipine 5 mg daily, Lasix 20 mg daily, Lopressor 25 mg twice daily on hold. 8. Chronic gout. Continue allopurinol 100 mg daily. 9. Hyperlipidemia. Hold Lipitor 40 mg at bedtime. 10. Chronic kidney disease stage III. Avoid nephrotoxic agents, hypotension, monitor renal function. 11. Anemia of chronic disease. Continue ferrous sulfate 325 mg daily. 12. Bilateral carotid stenosis. Continue aspirin 81 mg daily, Plavix 75 mg daily, hold atorvastatin 40 mg at bedtime. 13. Glaucoma. Continue eyedrops. CODE STATUS: DO NOT RESUSCITATE Prognosis: Is very guarded. Objective - Vital Signs Vital signs: Vital Signs Temp 97.8 F 01/20/21 08:00 Pulse 100 01/20/21 09:30 Resp 12 01/20/21 09:30 BP 98/46 01/20/21 09:30 Pulse Ox 98 01/20/21 09:30 Intake & Output 01/19/21 01/20/21 01/20/21 18:59 06:59 18:59 Intake Total 3522.665 4248.844 75 Output Total 640 345 30 Balance 979.994 890.844 45 Weight 70.76 kg 73.8 kg Intake: IV 1234 900 75 Amiodarone 360 mg In 99 Dextrose 5% in Water 200 ml @ 1 MG/MIN 33.333 mls/ hr IV .Q6H ONE Rx#: [id number] Dextrose 5% in Water 100 100 ml @ 618 mls/hr IV .Q10M ONE with Amiodarone 150 mg Rx#:[id number] Piperacillin-Tazobactam 3 100 .375 gm In Sodium Chloride 0.9% 100 ml @ 25 mls/hr IVPB Q8HR [facility] Rx# :[id number] Sodium Chloride 0.9% 1, 935 900 75 000 ml @ 75 mls/hr IV . [id number] [facility] Rx#:[id number] Intake, IV Titration 385.994 335.844 Amount Amiodarone 360 mg In 200 Dextrose 5% in Water 200 ml @ 1 MG/MIN 33.333 mls/ hr IV .Q6H ONE Rx#: [id number] Amiodarone 450 mg In 250 Dextrose 5% in Water 250 ml @ 0.5 MG/MIN 16.667 mls/hr IV .Q15H [facility] Rx#: [id number] Heparin Sod,Pork in 0.45% 52.503 NaCl 25,000 unit In 0.45 % NaCl 1 250ml.bag @ 12 UNITS/KG/HR 8.491 mls/hr IV .Q24H [facility] Rx#: [id number] Heparin Sod,Pork in 0.45% 24.413 NaCl 25,000 unit In 0.45 % NaCl 1 250ml.bag @ 18 UNITS/KG/HR 12.737 mls/hr IV .[id number] [facility] Rx#: [id number] Norepinephrine 4 mg In 33.341 Sodium Chloride 0.9% 250 ml @ 0.02 MCG/KG/MIN 5. 392 mls/hr IV .Q24H [facility] Rx#:[id number] Norepinephrine 4 mg In 161.581 Sodium Chloride 0.9% 250 ml @ 0.05 MCG/KG/MIN 13. 48 mls/hr IV .[id number] [facility] Rx#:[id number] Output: Urine 640 345 30 Other: Voiding Method Indwelling Catheter Indwelling Catheter - Labs CBC & Chem 7: 01/20/21 04:45 01/20/21 04:45 Labs: Abnormal Lab Results - Last 24 Hours (Table) 01/19/21 01/19/21 01/19/21 Range/Units 08:47 10:10 11:02 WBC (3.8-10.6) k/uL RBC (3.80-5.40) m/uL Hgb (11.4-16.0) gm/dL Hct (34.0-46.0) % Neutrophils # (1.3-7.7) k/uL Neutrophils # (Manual) 39.80 H (1.3-7.7) k/uL PT 15.2 H (9.0-12.0) sec INR 1.5 H (<1.2) APTT 198.0 H* (22.0-30.0) sec Sodium (137-145) mmol/L Carbon Dioxide (22-30) mmol/L BUN (7-17) mg/dL Creatinine (0.52-1.04) mg/dL Glucose (74-99) mg/dL POC Glucose (mg/dL) (75-99) mg/dL Calcium (8.4-10.2) mg/dL Urine Appearance Cloudy H (Clear) Urine Protein 1+ H (Negative) Urine Bilirubin 1+ H (Negative) Ur Leukocyte Esterase Large H (Negative) Urine WBC 166 H (0-5) /hpf Urine WBC Clumps Moderate H (None) /hpf Urine Bacteria Moderate H (None) /hpf Urine Mucus Occasional H (None) /hpf 01/19/21 01/19/21 01/19/21 Range/Units 14:06 18:19 21:09 WBC (3.8-10.6) k/uL RBC (3.80-5.40) m/uL Hgb (11.4-16.0) gm/dL Hct (34.0-46.0) % Neutrophils # (1.3-7.7) k/uL Neutrophils # (Manual) (1.3-7.7) k/uL PT (9.0-12.0) sec INR (<1.2) APTT 34.4 H 39.2 H (22.0-30.0) sec Sodium (137-145) mmol/L Carbon Dioxide (22-30) mmol/L BUN (7-17) mg/dL Creatinine (0.52-1.04) mg/dL Glucose (74-99) mg/dL POC Glucose (mg/dL) 137 H (75-99) mg/dL Calcium (8.4-10.2) mg/dL Urine Appearance (Clear) Urine Protein (Negative) Urine Bilirubin (Negative) Ur Leukocyte Esterase (Negative) Urine WBC (0-5) /hpf Urine WBC Clumps (None) /hpf Urine Bacteria (None) /hpf Urine Mucus (None) /hpf 01/20/21 01/20/21 01/20/21 Range/Units 04:45 04:45 04:45 WBC 20.5 H (3.8-10.6) k/uL RBC 2.84 L (3.80-5.40) m/uL Hgb 9.1 L D (11.4-16.0) gm/dL Hct 28.1 L (34.0-46.0) % Neutrophils # 18.8 H (1.3-7.7) k/uL Neutrophils # (Manual) (1.3-7.7) k/uL PT (9.0-12.0) sec INR (<1.2) APTT 52.7 H (22.0-30.0) sec Sodium 134 L (137-145) mmol/L Carbon Dioxide 15 L (22-30) mmol/L BUN 35 H (7-17) mg/dL Creatinine 1.08 H (0.52-1.04) mg/dL Glucose 113 H (74-99) mg/dL POC Glucose (mg/dL) (75-99) mg/dL Calcium 8.1 L (8.4-10.2) mg/dL Urine Appearance (Clear) Urine Protein (Negative) Urine Bilirubin (Negative) Ur Leukocyte Esterase (Negative) Urine WBC (0-5) /hpf Urine WBC Clumps (None) /hpf Urine Bacteria (None) /hpf Urine Mucus (None) /hpf Microbiology - Last 24 Hours (Table) 01/18/21 22:00 Blood Culture - Preliminary Blood No Growth after 24 hours 01/18/21 20:30 Blood Culture - Preliminary Blood No Growth after 24 hours 01/19/21 11:02 Urine Culture - Preliminary Urine,Voided
[2021-01-20] MEDS: AMIODARONE 200 MG TAB PO SCH ×2 (11:38→21:16)
[2021-01-20] MEDS: APIXABAN 5 MG TAB PO SCH ×2 (11:38→21:16)
--- NOTE | 2021-01-20 11:39 | P.PN ---
Subjective Progress Note Date: 01/20/21 Principal diagnosis: Acute non-ST elevation myocardial infarction, suspect sepsis and septic shock, acute urinary tract infection, possible aspiration pneumonia. 85-year-old female patient with past medical history of hypertension, gout, chronic kidney disease stage III, glaucoma, chronic anemia, and bilateral carotid stenosis who was transferred to [facility] yesterday for evaluation of shortness of breath, pulse ox in the 80s, poor appetite, weakness, and fever approximately 3 days ago. [facility] she had EKG and there was a concern about ST elevation which was determined to be atrial fibrillation with left bundle branch block by cardiology. Patient did receive TPA. She was transferred to [facility] for further care, her CODE STATUS is DO NOT RESUSCITATE, her rate was still poorly controlled, she remains in A. fib this morning as well with a rate of 106-135 BPM, she was placed on BiPAP support overnight with pressures of 12/6 and FiO2 of 35%, she was given IV fluids for hypotension, she is on a small amount of labor fed currently at 4 mics per minute. Her d-dimer was elevated at 1.4. COVID-19 PCR was negative, chest x-ray did not show acute process. Lab work from [place] showed white blood cell count 29.2, hemoglobin is 11.3, platelet count of 304, INR is 1.2, sodium is 1.29, subsequently improved to 134, CO2 17, BUN is 34 creatinine is 1.03. Second and third troponin came back as 0.79 and 2.57. Lactic acid was 7.1, currently down to 1.4, LFTs showed elevated bilirubin of 2.5, AST of 250, ALT is 1:15, and alkaline phosphatase of 873. Echocardiogram showed EF of 30- 35% with borderline concentric left ventricular hypertrophy, moderate mitral regurgitation, moderate tricuspid regurgitation mild pulmonary hypertension. Her previous echocardiogram from September 2020 showed EF of 50-55%. Those a concern for underlying sepsis, patient was given a dose of azithromycin and Rocephin in the emergency department. Currently CT angiogram of the chest is pending. Her follow-up blood work from today shows white blood cell count which is up to 41.1, hemoglobin is 10.8, sodium is 134, potassium is 4.1, BUN is 84, creatinine is 1.03, urinalysis showed 1+ protein, 1+ bilirubin, large amount of leuks, large amount of white blood cells and white blood cells in clumps with moderate amount of bacteria, suggesting acute urinary tract infection, patient is on 3 L of oxygen a pulse ox of 98%, breathing comfortably Patient was reevaluated today on 01/20/2021, remains in the ICU, hemodynamically stable, remains on amiodarone, off pressors not requiring any more norepinephrine. Remains on Zosyn. Patient is on 2 L nasal cannula with O2 saturation 96%. IV fluid is at 75 mL per hour. Patient is in sinus rhythm, a patient converted to sinus. And she is alert oriented, she has minimal cough. And feels generally weak. WBC count is elevated 20.5, hemoglobin is 9.1. PTT is 52.7. Electrolytes are normal bicarb remains low at 15 and anion gap of 14. Cultures including blood cultures and urine cultures are nondiagnostic so far. Chest x-ray showed stable bibasilar opacities suspicious for pneumonia and/or at electasis. There is also slight prominence of the pulmonary vasculature. Objective - Vital Signs Vital signs: Vital Signs Temp 97.8 F 01/20/21 08:00 Pulse 87 01/20/21 11:00 Resp 16 01/20/21 11:00 BP 112/73 01/20/21 11:00 Pulse Ox 97 01/20/21 11:00 Intake & Output 01/19/21 01/20/21 01/20/21 18:59 06:59 18:59 Intake Total 2263.699 5104.844 75 Output Total 640 345 30 Balance 979.994 890.844 45 Weight 70.76 kg 73.8 kg Intake: IV 1234 900 75 Amiodarone 360 mg In 99 Dextrose 5% in Water 200 ml @ 1 MG/MIN 33.333 mls/ hr IV .Q6H [facility] Rx#: [id number] Dextrose 5% in Water 100 100 ml @ 618 mls/hr IV .Q10M ONE with Amiodarone 150 mg Rx#:[id number] Piperacillin-Tazobactam 3 100 .375 gm In Sodium Chloride 0.9% 100 ml @ 25 mls/hr IVPB Q8HR [facility] Rx# :[id number] Sodium Chloride 0.9% 1, 935 900 75 000 ml @ 75 mls/hr IV . [id number] [facility] Rx#:[id number] Intake, IV Titration 385.994 335.844 Amount Amiodarone 360 mg In 200 Dextrose 5% in Water 200 ml @ 1 MG/MIN 33.333 mls/ hr IV .Q6H [facility] Rx#: [id number] Amiodarone 450 mg In 250 Dextrose 5% in Water 250 ml @ 0.5 MG/MIN 16.667 mls/hr IV .Q15H [facility] Rx#: [id number] Heparin Sod,Pork in 0.45% 52.503 NaCl 25,000 unit In 0.45 % NaCl 1 250ml.bag @ 12 UNITS/KG/HR 8.491 mls/hr IV .Q24H [facility] Rx#: [id number] Heparin Sod,Pork in 0.45% 24.413 NaCl 25,000 unit In 0.45 % NaCl 1 250ml.bag @ 18 UNITS/KG/HR 12.737 mls/hr IV .[id number] [facility] Rx#: [id number] Norepinephrine 4 mg In 33.341 Sodium Chloride 0.9% 250 ml @ 0.02 MCG/KG/MIN 5. 392 mls/hr IV .Q24H [facility] Rx#:[id number] Norepinephrine 4 mg In 161.581 Sodium Chloride 0.9% 250 ml @ 0.05 MCG/KG/MIN 13. 48 mls/hr IV .[id number] [facility] Rx#:[id number] Output: Urine 640 345 30 Other: Voiding Method Indwelling Catheter Indwelling Catheter - Exam GENERAL EXAM: Revealed 85-year-old female in no distress. On 2 L nasal cannula. HEAD: Normocephalic/atraumatic. ENT: PERRLA, EOMI, nonicteric, no neck masses, no JVD. CHEST: No chest wall deformity. Symmetrical expansion. LUNGS: Equal air entry with diminished breath sounds at the bases, minimal crackles at the bases. CVS: Regular rate and rhythm, normal S1 and S2, no S3 gallop. ABDOMEN: Soft nontender no megaly no rebound no guarding. EXTREMITIES: No clubbing, no edema, no cyanosis, 2+ pulses and upper and lower extremities. MUSCULOSKELETAL: Muscle strength and tone normal. SKIN: No rashes CENTRAL NERVOUS SYSTEM: Alert and oriented 3 no gross focal deficits. PSYCHIATRIC: Normal mood affect and normal mental status examination. - Labs CBC & Chem 7: 01/20/21 04:45 01/20/21 04:45 Labs: Abnormal Lab Results - Last 24 Hours (Table) 01/19/21 01/19/21 01/19/21 Range/Units 08:47 14:06 18:19 WBC (3.8-10.6) k/uL RBC (3.80-5.40) m/uL Hgb (11.4-16.0) gm/dL Hct (34.0-46.0) % Neutrophils # (1.3-7.7) k/uL Neutrophils # (Manual) 39.80 H (1.3-7.7) k/uL APTT 34.4 H (22.0-30.0) sec Sodium (137-145) mmol/L Carbon Dioxide (22-30) mmol/L BUN (7-17) mg/dL Creatinine (0.52-1.04) mg/dL Glucose (74-99) mg/dL POC Glucose (mg/dL) 137 H (75-99) mg/dL Calcium (8.4-10.2) mg/dL 01/19/21 01/20/21 01/20/21 Range/Units 21:09 04:45 04:45 WBC 20.5 H (3.8-10.6) k/uL RBC 2.84 L (3.80-5.40) m/uL Hgb 9.1 L D (11.4-16.0) gm/dL Hct 28.1 L (34.0-46.0) % Neutrophils # 18.8 H (1.3-7.7) k/uL Neutrophils # (Manual) (1.3-7.7) k/uL APTT 39.2 H 52.7 H (22.0-30.0) sec Sodium (137-145) mmol/L Carbon Dioxide (22-30) mmol/L BUN (7-17) mg/dL Creatinine (0.52-1.04) mg/dL Glucose (74-99) mg/dL POC Glucose (mg/dL) (75-99) mg/dL Calcium (8.4-10.2) mg/dL 01/20/21 Range/Units 04:45 WBC (3.8-10.6) k/uL RBC (3.80-5.40) m/uL Hgb (11.4-16.0) gm/dL Hct (34.0-46.0) % Neutrophils # (1.3-7.7) k/uL Neutrophils # (Manual) (1.3-7.7) k/uL APTT (22.0-30.0) sec Sodium 134 L (137-145) mmol/L Carbon Dioxide 15 L (22-30) mmol/L BUN 35 H (7-17) mg/dL Creatinine 1.08 H (0.52-1.04) mg/dL Glucose 113 H (74-99) mg/dL POC Glucose (mg/dL) (75-99) mg/dL Calcium 8.1 L (8.4-10.2) mg/dL Microbiology - Last 24 Hours (Table) 01/18/21 22:00 Blood Culture - Preliminary Blood No Growth after 24 hours 01/18/21 20:30 Blood Culture - Preliminary Blood No Growth after 24 hours 01/19/21 11:02 Urine Culture - Preliminary Urine,Voided Assessment and Plan Assessment: #1. Acute hypoxic respiratory failure related to acute sepsis, possibly related to acute urinary tract infection. COVID-19 PCR was negative, CTA chest ruled out pulmonary embolism, did show mild bilateral pleural effusions with compressive atelectasis #2. Non-ST elevated myocardial infarction, she received a dose of TPA at the [facility] #3. Septic shock, source could be related to UTI or pulmonary in nature. #4. Elevated d-dimer, CT chest was negative for acute pulmonary embolism #5. Hyponatremia likely hypovolemic, improved with IV hydration #6. Lactic acidosis related to sepsis, improved with IV fluid resuscitation #7. History of hypertension #8. Hyperlipidemia #9. Elevated liver function test, and elevated bilirubin, rule out possibility of acute gallbladder cholecystitis #10. Anemia of chronic disease #11. History of bilateral carotid stenosis #12. Glaucoma Recommendation: Continue antibiotics. Continue antiarrhythmic treatment as per cardiology. Patient is on amiodarone. Continue IV fluids. Reviewed the results of her ultrasound of the abdomen. Anticoagulation therapy as per cardiology on the case. Patient is on heparin at present. Early ambulation. Transfer patient out of the ICU to a monitor bed on selective. We will continue to follow. Time with Patient: Less than 30
[2021-01-20] MEDS: LATANOPROST 0.005% OPHTH DROPS 2.5 ML BTL BOTH EYES SCH (21:17)
[2021-01-21 04:18] LABS: HCT 27.4 % (34.0-46.0); HGB 8.7 gm/dL (11.4-16.0); MCH 31.9 pg (25.0-35.0); MCHC 31.7 g/dL (31.0-37.0); MCV 100.7 fL (80.0-100.0); Macrocytosis Slight; Mean Platelet Volume 8.3; Platelet Count 230 k/uL (150-450); RBC 2.73 m/uL (3.80-5.40); RDW 14.6 % (11.5-15.5); WBC 13.1 k/uL (3.8-10.6)
[2021-01-21 04:48] LABS: Albumin 2.5 g/dL (3.5-5.0); Calcium 8.2 mg/dL (8.4-10.2); Potassium 4.1 mmol/L (3.5-5.1); Total Bilirubin 1.2 mg/dL (0.2-1.3); Total Protein 5.6 g/dL (6.3-8.2)
[2021-01-21] MEDS: SODIUM CHLORIDE 0.9% 1,000 ML IV SCH (08:14)
[2021-01-21] MEDS: PIPERACILLIN-TAZOBACTAM 3.375 GM in SODIUM CHLORIDE 0.9% 100 ML IVPB SCH ×2 (08:18→20:46)
[2021-01-21] MEDS: PANTOPRAZOLE 40 MG TABLET PO SCH (08:18)
[2021-01-21] MEDS: AMIODARONE 200 MG TAB PO SCH ×2 (08:19→20:46)
[2021-01-21] MEDS: FERROUS SULFATE 325 MG TAB PO SCH (08:19)
[2021-01-21] MEDS: allopurinoL 100 MG TAB PO SCH (08:19)
[2021-01-21] MEDS: ASPIRIN 81 MG PO SCH (08:19)
[2021-01-21] MEDS: APIXABAN 5 MG TAB PO SCH ×2 (08:19→20:46)
--- NOTE | 2021-01-21 11:24 | P.PN ---
Subjective Progress Note Date: 01/21/21 Principal diagnosis: non-ST WI, severe ischemic heart failure, A. fib with RVR, abnormal liver function tests, anemia and hyperlipidemia. HISTORY OF PRESENT ILLNESS This is an 85-year-old female patient of Dr. Brennon Delong with past medical history of hypertension, gout, chronic kidney disease stage III, bilateral carotid stenosis. Patient had a recent hospitalization with us in September of this year which time she presented with slurring of speech and right-sided weakness, sepsis with bacteremia and Klebsiella UTI. Patient was discharged to subacute rehab at [facility] and continues to reside there. She states that yesterday she developed a cough along with shortness of breath and chest pressure. She denies abdominal pain. She was found to be hypoxic with pulse ox in the 80s. She states she has not had much of an appetite over the last 3 days, has not been eating or drinking much and had a fever approximately 3 days ago. She was transferred to [facility] for evaluation and there was concern about ST elevation on EKG but subsequently cardiology has evaluated and EKG was A. fib with left bundle branch. Patient was provided with TPA. Lab work from [employer] reveals elevated white blood cell count in the 20s, in itial troponin 0.16, d-dimer greater than 4.4. Chest x-ray without acute process. Patient was then transferred to [facility] emergency center. Patient has been placed on BiPAP initially now seen in the ICU on O2 at 2 L nasal cannula. Patient was on norepinephrine for brief period and is status post 2 L of IV fluid maintaining adequate blood pressure. Patient did have episode of A. fib with heart rates in the 100s to 130s And cardiology has ordered amiodarone bolus which has affected her blood pressure somewhat but not back on vasopressors at this point and amiodarone dri p. Laboratory studies here revealed white count of 29.2, hemoglobin 11.3, platelet count 304. INR 1.2. Sodium 129 with repeat 134. CO2 17, BUN 34 creatinine 1.03. Troponins have been 0.79 and 2.57. Lactic acid 7.1 currently down to 1.4. Magnesium 2.0. Liver function tests are all elevated with total bilirubin 2.5, AST 250, ALT 115, alkaline phosphatase 873. Marvin virus not detected. Echocardiogram reveals EF of 30-35% with borderline concentric left ventricular hypertrophy, moderate mitral regurgitation, moderate tricuspid regurgitation, mild pulmonary hypertension. Echocardiogram performed in September revealed EF of 50-55% with mild mitral regurgitation, mild tricuspid regurgitation. Patient was admitted into the intensive care unit and consults are also in place with pulmonary medicine. Patient is status post a azithromycin and Rocephin 1 dose each and currently on Zosyn. CT angiogram of the chest and repeat chest x- ray ordered for today. Patient denies history of irregular heartbeat. She is not O2 dependent. 01/20: Patient is doing slightly but better today, ejection fraction came at 30- 35% Only. Patient was switched to azithromycin and Zosyn after receiving 1 dose of Rocephin with suspicion for aspiration pneumonia. Heart failure management still not doing well at this point. Liver function test and ultrasound did not show any major abnormality, patient still been treated for UTI, culture is not finalized so far. She still on heparin drip and patient most likely will require amiodarone drip at this point because of her A. fib still not well-controlled with oral medication. Chest x-ray will be done tomorrow again to see the change compared to the original one if there is any more infiltrate or more heart failure with fluid retention. 01/21: Patient is resting comfortable still in the ICU as an overflow, she is not having any chest pain or angina, her A. fib is well controlled this point. Patient remain on anticoagulation with Eliquis 5 mg twice a day pulse rate is under better control so far having to start amiodarone 400 mg twice a day when she is ready to be discharge we will reduce amiodarone to 200 mg twice a day for one week then once a day thereafter the meanwhile patient is to be watch for any bradycardia she was taking off metoprolol by cardiology since yesterday. Hemoglobin is dropped down today to 8.7 and her GFR decline down to 37 from 47 yesterday. Repeat CMP and CBC tomorrow patient possible discharge to [facility] on Friday morning. REVIEW OF SYSTEMS Constitutional: Reported fever, no chills, no night sweats. No weight change. Reported weakness, reported fatigue no lethargy. No daytime sleepiness. EENT: No headache. No blurred vision or double vision, no loss of vision. No dizziness. No nasal drainage or congestion. No epistaxis. No sore throat. Lungs: Reported shortness of breath, cough, no sputum production. No wheezing. Cardiovascular: Reported chest pain and resolved, no lower extremity edema. Denies palpitations. No paroxysmal nocturnal dyspnea. No orthopnea. No lightheadedness or dizziness. No syncopal episodes. Abdominal: Denies abdominal pain. No nausea, vomiting. No diarrhea. No constipation. No bloody or tarry stools. Reports loss of appetite. Genitourinary: No dysuria, increased frequency, urgency. No urinary retention. Musculoskeletal: No myalgias. No muscle weakness, no gait dysfunction, no frequent falls. No back pain. No neck pain. Integumentary: No wounds, no lesions. No rash or pruritus. No unusual bruising. No change in hair or nails. Neurologic: No aphasia. No facial droop. No change in mentation. No head injury. No headache. No paralysis. No paresthesia. Psychiatric: No depression. No anxiety. No mood swings. Endocrine: No abnormal blood sugars. No weight change. PHYSICAL EXAMINATION Gen: This is an 85-year-old female. Patient is sitting up in the ICU bed and appears to be comfortable, in no acute distress noted. She is currently on nasal cannula oxygen at 2 L. HEENT: Head is atraumatic, normocephalic. Pupils equal, round. Sclerae is anicteric. Oral mucous membranes slightly dry. NECK: Supple. No JVD. No lymphadenopathy. No thyromegaly. LUNGS: Clear to auscultation. No wheezes or rhonchi. No intercostal retractions. No accessory muscle usage. HEART: Irregular rate and rhythm. No murmur. ABDOMEN: Soft. Bowel sounds are present. No masses. No tenderness. Sultana catheter draining clear francisco urine. EXTREMITIES: No pedal edema. No calf tenderness. Dorsalis pedis +2 bilaterally. NEUROLOGICAL: Patient is awake, alert and oriented x3. Cranial nerves 2 through 12 are grossly intact. ASSESSMENT AND PLAN 1. Non-ST elevated myocardial infarction. post TPA patient still seeing cardiology echocardiogram showed ischemic cardiopathy no intervention will be done at this point continue medical management. She has done well so far might benefit from adding smaller dose of diuretics mostly spironolactone possible. Also if the blood pressure will help well can benefit from adding smaller dose of azar, she will be good candidate for Entresto whille watching side effect. 2. ischemic cardiomyopathy: With significant low ejection fraction most likely from the effect of the WI happen last 24 hours patient is not going to go for any intervention with heart cath, patient might benefit from smaller dose of Entresto or Azar with Aldactone. 3. UTI and possible aspiration pneumonia: Continue patient on Zosyn and when she is ready to be discharged can be switched to Ceftin. 4. Hypotension possible septic shock versus cardiogenic shock. Suspect sepsis as underlying cause due to fever prior to arrival and leukocytosis. Patient is currently on Zosyn, repeat chest x-ray ordered, urinalysis and culture to be obtained. 5. A. fib with RVR, new onset paroxysmal atrial fibrillation. patient still on heparin drip will require probably amiodarone drip the meanwhile continue metoprolol try to control her pulse rate. 6. Elevated liver function tests secondary to shock liver. Hold atorvastatin, monitor CMP. 7. History of hypertension. Amlodipine 5 mg daily, Lasix 20 mg daily, Lopressor 25 mg twice daily on hold. 8. Chronic gout. Continue allopurinol 100 mg daily. 9. Hyperlipidemia. Hold Lipitor 40 mg at bedtime. 10. Chronic kidney disease stage III. Avoid nephrotoxic agents, hypotension, monitor renal function. 11. Anemia of chronic disease. Continue ferrous sulfate 325 mg daily. 12. Bilateral carotid stenosis. Continue aspirin 81 mg daily, Plavix 75 mg daily, hold atorvastatin 40 mg at bedtime. 13. Glaucoma. Continue eyedrops. CODE STATUS: DO NOT RESUSCITATE Prognosis: Is very guarded. Discharge planning: Most likely will be able to go back to the [facility] on Friday. Objective - Vital Signs Vital signs: Vital Signs Temp 98.1 F 01/21/21 08:00 Pulse 91 01/21/21 08:00 Resp 29 H 01/21/21 08:00 BP 115/65 01/21/21 08:00 Pulse Ox 96 01/21/21 08:00 Intake & Output 01/20/21 01/21/21 01/21/21 18:59 06:59 18:59 Intake Total 600 600 50 Output Total 216 195 50 Balance 384 405 0 Weight 74 kg Intake: IV 500 600 50 Piperacillin-Tazobactam 3 100 .375 gm In Sodium Chloride 0.9% 100 ml @ 25 mls/hr IVPB Q8HR [facility] Rx# :[id number] Sodium Chloride 0.9% 1, 250 600 50 000 ml @ 50 mls/hr IV . Q20H [facility] Rx#:[id number] Sodium Chloride 0.9% 1, 150 000 ml @ 75 mls/hr IV . [id number] [facility] Rx#:[id number] Intake, IV Titration 100 Amount Sodium Chloride 0.9% 1, 100 000 ml @ 50 mls/hr IV . Q20H [facility] Rx#:[id number] Output: Urine 216 195 50 Other: Voiding Method Indwelling Catheter Indwelling Catheter Indwelling Catheter - Labs CBC & Chem 7: 01/21/21 03:20 01/21/21 03:20 Labs: Abnormal Lab Results - Last 24 Hours (Table) 01/21/21 01/21/21 Range/Units 03:20 03:20 WBC 13.1 H (3.8-10.6) k/uL RBC 2.73 L (3.80-5.40) m/uL Hgb 8.7 L (11.4-16.0) gm/dL Hct 27.4 L (34.0-46.0) % MCV 100.7 H (80.0-100.0) fL Sodium 135 L (137-145) mmol/L Chloride 109 H (98-107) mmol/L Carbon Dioxide 17 L (22-30) mmol/L BUN 36 H (7-17) mg/dL Creatinine 1.32 H (0.52-1.04) mg/dL Calcium 8.2 L (8.4-10.2) mg/dL AST 99 H (14-36) U/L ALT 72 H (4-34) U/L Alkaline Phosphatase 688 H (38-126) U/L Total Protein 5.6 L (6.3-8.2) g/dL Albumin 2.5 L (3.5-5.0) g/dL Microbiology - Last 24 Hours (Table) 01/18/21 22:00 Blood Culture - Preliminary Blood No Growth after 48 hours 01/18/21 20:30 Blood Culture - Preliminary Blood No Growth after 48 hours 01/19/21 11:02 Urine Culture - Preliminary Urine,Voided Gram Neg Bacilli
--- NOTE | 2021-01-21 12:20 | P.PN ---
Subjective Progress Note Date: 01/21/21 Principal diagnosis: Acute non-ST elevation myocardial infarction, suspect sepsis and septic shock, acute urinary tract infection, possible aspiration pneumonia. 85-year-old female patient with past medical history of hypertension, gout, chronic kidney disease stage III, glaucoma, chronic anemia, and bilateral carotid stenosis who was transferred to [facility] yesterday for evaluation of shortness of breath, pulse ox in the 80s, poor appetite, weakness, and fever approximately 3 days ago. The [facility] she had EKG and there was a concern about ST elevation which was determined to be atrial fibrillation with left bundle branch block by cardiology. Patient did receive TPA. She was transferred to [facility] for further care, her CODE STATUS is DO NOT RESUSCITATE, her rate was still poorly controlled, she remains in A. fib this morning as well with a rate of 106-135 BPM, she was placed on BiPAP support overnight with pressures of 12/6 and FiO2 of 35%, she was given IV fluids for hypotension, she is on a small amount of labor fed currently at 4 mics per minute. Her d-dimer was elevated at 1.4. COVID-19 PCR was negative, chest x-ray did not show acute process. Lab work from [place] showed white blood cell count 29.2, hemoglobin is 11.3, platelet count of 304, INR is 1.2, sodium is 1.29, subsequently improved to 134, CO2 17, BUN is 34 creatinine is 1.03. Second and third troponin came back as 0.79 and 2.57. Lactic acid was 7.1, currently down to 1.4, LFTs showed elevated bilirubin of 2.5, AST of 250, ALT is 1:15, and alkaline phosphatase of 873. Echocardiogram showed EF of 30- 35% with borderline concentric left ventricular hypertrophy, moderate mitral regurgitation, moderate tricuspid regurgitation mild pulmonary hypertension. Her previous echocardiogram from September 2020 showed EF of 50-55%. Those a concern for underlying sepsis, patient was given a dose of azithromycin and Rocephin in the emergency department. Currently CT angiogram of the chest is pending. Her follow-up blood work from today shows white blood cell count which is up to 41.1, hemoglobin is 10.8, sodium is 134, potassium is 4.1, BUN is 84, creatinine is 1.03, urinalysis showed 1+ protein, 1+ bilirubin, large amount of leuks, large amount of white blood cells and white blood cells in clumps with moderate amount of bacteria, suggesting acute urinary tract infection, patient is on 3 L of oxygen a pulse ox of 98%, breathing comfortably Patient was reevaluated today on 01/20/2021, remains in the ICU, hemodynamically stable, remains on amiodarone, off pressors not requiring any more norepinephrine. Remains on Zosyn. Patient is on 2 L nasal cannula with O2 saturation 96%. IV fluid is at 75 mL per hour. Patient is in sinus rhythm, a patient converted to sinus. And she is alert oriented, she has minimal cough. And feels generally weak. WBC count is elevated 20.5, hemoglobin is 9.1. PTT is 52.7. Electrolytes are normal bicarb remains low at 15 and anion gap of 14. Cultures including blood cultures and urine cultures are nondiagnostic so far. Chest x-ray showed stable bibasilar opacities suspicious for pneumonia and/or at electasis. There is also slight prominence of the pulmonary vasculature. Reevaluated today on 01/22/24, patient remains in the ICU as an overflow, she is comfortable, she is in sinus rhythm, patient remains on anticoagulation therapy in the form of Eliquis. She is also on oral amiodarone. Patient is doing great, relatively asymptomatic, CBC is relatively normal hemoglobin 13.7.Abnormal renal profile showed slightly elevated creatinine of 1.32. Otherwise her labs are unremarkable. No chest x-ray done today, however chest x-ray from yesterday showed stable bibasilar opacities consistent with atelectasis or possibly minimal infiltrates. Objective - Vital Signs Vital signs: Vital Signs Temp 98.1 F 01/21/21 08:00 Pulse 91 01/21/21 08:00 Resp 29 H 01/21/21 08:00 BP 115/65 01/21/21 08:00 Pulse Ox 96 01/21/21 08:00 Intake & Output 01/20/21 01/21/21 01/21/21 18:59 06:59 18:59 Intake Total 600 600 50 Output Total 216 195 50 Balance 384 405 0 Weight 74 kg Intake: IV 500 600 50 Piperacillin-Tazobactam 3 100 .375 gm In Sodium Chloride 0.9% 100 ml @ 25 mls/hr IVPB Q8HR [facility] Rx# :[id number] Sodium Chloride 0.9% 1, 250 600 50 000 ml @ 50 mls/hr IV . Q20H [facility] Rx#:[id number] Sodium Chloride 0.9% 1, 150 000 ml @ 75 mls/hr IV . [id number] [facility] Rx#:[id number] Intake, IV Titration 100 Amount Sodium Chloride 0.9% 1, 100 000 ml @ 50 mls/hr IV . Q20H [facility] Rx#:[id number] Output: Urine 216 195 50 Other: Voiding Method Indwelling Catheter Indwelling Catheter Indwelling Catheter - Exam GENERAL EXAM: Revealed 85-year-old female in no distress. On 2 L nasal cannula. HEAD: Normocephalic/atraumatic. ENT: PERRLA, EOMI, nonicteric, no neck masses, no JVD. CHEST: No chest wall deformity. Symmetrical expansion. LUNGS: Equal air entry with diminished breath sounds at the bases, minimal crackles at the bases. CVS: Regular rate and rhythm, normal S1 and S2, no S3 gallop. ABDOMEN: Soft nontender no megaly no rebound no guarding. EXTREMITIES: No clubbing, no edema, no cyanosis, 2+ pulses and upper and lower extremities. MUSCULOSKELETAL: Muscle strength and tone normal. SKIN: No rashes CENTRAL NERVOUS SYSTEM: Alert and oriented 3 no gross focal deficits. PSYCHIATRIC: Normal mood affect and normal mental status examination. - Labs CBC & Chem 7: 01/21/21 03:20 01/21/21 03:20 Labs: Abnormal Lab Results - Last 24 Hours (Table) 01/21/21 01/21/21 Range/Units 03:20 03:20 WBC 13.1 H (3.8-10.6) k/uL RBC 2.73 L (3.80-5.40) m/uL Hgb 8.7 L (11.4-16.0) gm/dL Hct 27.4 L (34.0-46.0) % MCV 100.7 H (80.0-100.0) fL Sodium 135 L (137-145) mmol/L Chloride 109 H (98-107) mmol/L Carbon Dioxide 17 L (22-30) mmol/L BUN 36 H (7-17) mg/dL Creatinine 1.32 H (0.52-1.04) mg/dL Calcium 8.2 L (8.4-10.2) mg/dL AST 99 H (14-36) U/L ALT 72 H (4-34) U/L Alkaline Phosphatase 688 H (38-126) U/L Total Protein 5.6 L (6.3-8.2) g/dL Albumin 2.5 L (3.5-5.0) g/dL Microbiology - Last 24 Hours (Table) 01/18/21 22:00 Blood Culture - Preliminary Blood No Growth after 48 hours 01/18/21 20:30 Blood Culture - Preliminary Blood No Growth after 48 hours 01/19/21 11:02 Urine Culture - Preliminary Urine,Voided Gram Neg Bacilli Assessment and Plan Assessment: #1. Acute hypoxic respiratory failure related to acute sepsis, possibly related to acute urinary tract infection. COVID-19 PCR was negative, CTA chest ruled out pulmonary embolism, did show mild bilateral pleural effusions with compressive atelectasis #2. Non-ST elevated myocardial infarction, she received a dose of TPA at the [facility] #3. Septic shock, source could be related to UTI or pulmonary in nature. #4. Elevated d-dimer, CT chest was negative for acute pulmonary embolism #5. Hyponatremia likely hypovolemic, improved with IV hydration #6. Lactic acidosis related to sepsis, improved with IV fluid resuscitation #7. History of hypertension #8. Hyperlipidemia #9. Elevated liver function test, and elevated bilirubin, rule out possibility of acute gallbladder cholecystitis #10. Anemia of chronic disease #11. History of bilateral carotid stenosis #12. Glaucoma Recommendation: Continue antibiotics. Continue oral amiodarone, off metoprolol. Continue IV fluids. Anticoagulation therapy as per cardiology on the case. , Patient is on adequate Emulate patient with assistance. Transfer patient out of the ICU to a monitor bed on selective. Once a bed is available. Will see the patient on when necessary basis.. Time with Patient: Less than 30
--- NOTE | 2021-01-21 13:50 | P.PN ---
Subjective HISTORY OF PRESENTING ILLNESS This is a pleasant 85-year-old with past medical history significant for carotid artery stenosis, hypertension, hyperlipidemia who presents as a transfer from [facility]. She normally resides in an ECF where she was noted to be hypoxic with oxygen saturation in the 80s, short of breath and some reported ep igastric pain. Patient is a fair historian however does not recall the details of her medical history. She states she has not had much of an appetite over the last 3 days, has not been eating or drinking much and had a fever approximately 3 days ago. She states she has felt somewhat like she could not catch her breath. Per [place] chart she had acute onset of short of breath as well as some epigastric pain. There was concern regarding ST elevation however EKG appears to be A. fib with left bundle branch morphology with mild V1 and V2 and 1-1.5 mm. There was no improvement with TPA which was given. Lab work from [place] reveals elevated white blood cell count in the 20s, initial troponin 0.16, d-dimer greater than 4.4, mildly elevated AST, ALT, total bilirubin in the 2's. Chest x-ray without acute process. Currently she denies any chest pain or pressure. She states her breathing is somewhat better. She has been in A. fib with heart rates in the 100s to 130s. She was placed on Levophed drip however blood pressures have improved after 2 L IV fluid bolus. She had been on BiPAP however now currently on nasal cannula and appears comfortable. 01/20 Patient seen and examined. Patient remains somewhat lethargic. She did not sleep well last night. CT PE protocol showed no PE. Urinalysis showed UTI. White blood cell count improved today. She denies any chest pain, pressure, shortness breath. She has been getting IV fluids at 75 mL/h. She has been on the amiodarone drip and she did briefly converted to normal sinus rhythm however back in A. fib, heart rates predominantly controlled 80s up to low 100s. Blood pressures have been marginal however vasopressors were discontinued approximately midnight and blood pressure remained stable. Echo reveals ejec tion fraction 30-35%. 01/21 Patient seen and examined. Patient states she feels somewhat better today however still ill-appearing, fatigued. Blood pressures however have been stable and heart rates predominantly controlled on amiodarone oral with heart rates 80s up to the low 100s. She denies any chest pain or pressure. PHYSICAL EXAMINATION Vital signs reviewed. CONSTITUTIONAL: No apparent distress. HEENT: Head is normocephalic. Pupils are equal, round. Sclerae anicteric. Mucous membranes of the mouth are moist. No JVD. No carotid bruit. CHEST EXAMINATION: Lungs are clear to auscultation. No chest wall tenderness is noted on palpation or with deep breathing. HEART EXAMINATION: Irregularly irregular rate and rhythm. S1, S2 heard. No murmurs, gallops or rub. ABDOMEN: Soft, nontender. Positive bowel sounds. EXTREMITIES: 2+ peripheral pulses, no lower extremity edema and no calf tend erness. NEUROLOGIC EXAMINATION: Patient is awake, alert and oriented x3. ASSESSMENT 1. Non-STEMI, initial concern of ST elevation however appears related to left bundle branch morphology, s/p TPA at [facility] [place] 2. Hypotension, currently improved status post IV fluids 3. Reported fever approximately 3 days prior to arrival, elevated white blood cell count, elevated lactic acid, rule out sepsis 4. Reported carotid artery stenosis, on aspirin and Plavix at home 5. Mildly elevated AST, ALT 6. A. fib with mild RVR, unclear if new or old 7. Lactic acidosis 8. History of hypertension 9. Hyperlipidemia 10. Elevated d-dimer 11. Hyponatremia 12. Cardiomyopathy ejection fraction 30-35% PLAN A she and appears to be somewhat improving, shock has improved and shock most likely related to sepsis. Her kidney function did increase, creatinine 1.3 today and likely related to ATN from hypotension. Continue antibiotics and treatment of sepsis. Patient did have a mild drop in ejection fraction with mild non-STEMI however not having significant angina-type symptoms. We will co ntinue to treat medically and optimize heart failure regimen as able however borderline IPO tensive. Continue amiodarone which may help somewhat with rate control and unclear if she is more chronic or persistent atrial fibrillation. Continue with anticoagulation. Stop aspirin given epistaxis Objective - Vital Signs Vital signs: Vital Signs Temp 98.1 F 01/21/21 12:00 Pulse 134 H 01/21/21 12:00 Resp 22 01/21/21 12:00 BP 111/59 01/21/21 12:00 Pulse Ox 93 L 01/21/21 12:00 Intake & Output 01/20/21 01/21/21 01/21/21 18:59 06:59 18:59 Intake Total 600 600 50 Output Total 216 195 50 Balance 384 405 0 Weight 74 kg Intake: IV 500 600 50 Piperacillin-Tazobactam 3 100 .375 gm In Sodium Chloride 0.9% 100 ml @ 25 mls/hr IVPB Q8HR KARI Rx# :[id number] Sodium Chloride 0.9% 1, 250 600 50 000 ml @ 50 mls/hr IV . Q20H KARI Rx#:[id number] Sodium Chloride 0.9% 1, 150 000 ml @ 75 mls/hr IV . [id number] KARI Rx#:[id number] Intake, IV Titration 100 Amount Sodium Chloride 0.9% 1, 100 000 ml @ 50 mls/hr IV . Q20H KARI Rx#:[id number] Output: Urine 216 195 50 Other: Voiding Method Indwelling Catheter Indwelling Catheter Indwelling Catheter - Labs CBC & Chem 7: 01/21/21 03:20 01/21/21 03:20 Labs: Abnormal Lab Results - Last 24 Hours (Table) 01/21/21 01/21/21 Range/Units 03:20 03:20 WBC 13.1 H (3.8-10.6) k/uL RBC 2.73 L (3.80-5.40) m/uL Hgb 8.7 L (11.4-16.0) gm/dL Hct 27.4 L (34.0-46.0) % MCV 100.7 H (80.0-100.0) fL Sodium 135 L (137-145) mmol/L Chloride 109 H (98-107) mmol/L Carbon Dioxide 17 L (22-30) mmol/L BUN 36 H (7-17) mg/dL Creatinine 1.32 H (0.52-1.04) mg/dL Calcium 8.2 L (8.4-10.2) mg/dL AST 99 H (14-36) U/L ALT 72 H (4-34) U/L Alkaline Phosphatase 688 H (38-126) U/L Total Protein 5.6 L (6.3-8.2) g/dL Albumin 2.5 L (3.5-5.0) g/dL Microbiology - Last 24 Hours (Table) 01/18/21 22:00 Blood Culture - Preliminary Blood No Growth after 48 hours 01/18/21 20:30 Blood Culture - Preliminary Blood No Growth after 48 hours 01/19/21 11:02 Urine Culture - Preliminary Urine,Voided Gram Neg Bacilli
[2021-01-21] MEDS: LATANOPROST 0.005% OPHTH DROPS 2.5 ML BTL BOTH EYES SCH (20:46)
[2021-01-22] MEDS: PIPERACILLIN-TAZOBACTAM 3.375 GM in SODIUM CHLORIDE 0.9% 100 ML IVPB SCH ×3 (03:21→15:13)
[2021-01-22] MEDS: SODIUM CHLORIDE 0.9% 1,000 ML IV SCH ×2 (03:43→21:00)
[2021-01-22 04:49] LABS: HCT 26.3 % (34.0-46.0); HGB 8.7 gm/dL (11.4-16.0); MCH 32.4 pg (25.0-35.0); MCV 98.1 fL (80.0-100.0); Platelet Count 305 k/uL (150-450); RBC 2.68 m/uL (3.80-5.40); RDW 15.2 % (11.5-15.5); WBC 14.5 k/uL (3.8-10.6)
[2021-01-22 05:07] LABS: Albumin 2.7 g/dL (3.5-5.0); Calcium 8.2 mg/dL (8.4-10.2); Potassium 3.9 mmol/L (3.5-5.1); Total Bilirubin 1.4 mg/dL (0.2-1.3); Total Protein 5.8 g/dL (6.3-8.2)
--- NOTE | 2021-01-22 07:29 | P.PN ---
Subjective Progress Note Date: 01/22/21 Principal diagnosis: Acute coronary syndrome The patient was seen this morning. She seems to be slightly confused and somewhat poor historian. No reports of any chest pain or chest discomfort. On examination she is slightly hypervolemic with lower extremities edema noted. Cholo lozano continues to be in atrial fibrillation with relatively controlled heart rate and she continues to be on oral anticoagulation. The echo revealed impaired LV function with EF between 30-35% with moderate MR and moderate TR. The atrial fibrillation is of unknown duration and with normal she was diagnosed with atrial fibrillation in the past or not. She was treated medically for acute coronary syndrome. The hemoglobin continues to be stable and around 8. At this point I'm going to continue the current medical regimen including oral anticoagulation with Eliquis and in addition to that and going to start the patient on small dose of beta aba for the cardiomyopathy. Down the line she is to be also on NADER inhibitor for the same reason. We'll continue amiodarone by mouth at this point. Beside that and because she is slightly hypervolemic with lower extremities edema going to start the patient on Lasix by mouth at a small dose of 20 mg daily. We'll continue monitor the kidney function and electrolytes and continue monitoring the hemoglobin Objective - Vital Signs Vital signs: Vital Signs Temp 98.5 F 01/22/21 00:00 Pulse 87 01/22/21 04:00 Resp 22 01/22/21 04:00 BP 111/53 01/22/21 04:00 Pulse Ox 91 L 01/22/21 04:00 Intake & Output 01/21/21 01/22/21 01/22/21 18:59 06:59 18:59 Intake Total 500 900 Output Total 130 610 Balance 370 290 Weight 75.4 kg Intake: IV 500 900 Piperacillin-Tazobactam 3 100 100 .375 gm In Sodium Chloride 0.9% 100 ml @ 25 mls/hr IVPB Q8HR KARI Rx# :[id number] Sodium Chloride 0.9% 1, 400 000 ml @ 50 mls/hr IV . Q20H KARI Rx#:[id number] Sodium Chloride 0.9% 1, 800 000 ml @ 50 mls/hr IV . Q20H KARI Rx#:[id number] Output: Urine 130 610 Other: Voiding Method Indwelling Catheter Indwelling Catheter # Voids 1 - Constitutional General appearance: Present: no acute distress - Respiratory Respiratory: bilateral: diminished - Cardiovascular Rhythm: irregularly irregular Heart sounds: normal: S1 - Labs CBC & Chem 7: 01/22/21 03:49 01/22/21 03:49 Labs: Abnormal Lab Results - Last 24 Hours (Table) 01/22/21 01/22/21 Range/Units 03:49 03:49 WBC 14.5 H (3.8-10.6) k/uL RBC 2.68 L (3.80-5.40) m/uL Hgb 8.7 L (11.4-16.0) gm/dL Hct 26.3 L (34.0-46.0) % Sodium 136 L (137-145) mmol/L Chloride 110 H (98-107) mmol/L Carbon Dioxide 17 L (22-30) mmol/L BUN 31 H (7-17) mg/dL Creatinine 1.33 H (0.52-1.04) mg/dL Calcium 8.2 L (8.4-10.2) mg/dL Total Bilirubin 1.4 H (0.2-1.3) mg/dL AST 65 H (14-36) U/L ALT 54 H (4-34) U/L Alkaline Phosphatase 730 H (38-126) U/L Total Protein 5.8 L (6.3-8.2) g/dL Albumin 2.7 L (3.5-5.0) g/dL Microbiology - Last 24 Hours (Table) 01/18/21 22:00 Blood Culture - Preliminary Blood No Growth after 72 hours 01/18/21 20:30 Blood Culture - Preliminary Blood No Growth after 72 hours 01/19/21 11:02 Urine Culture - Final Urine,Voided Escherichia coli Assessment and Plan Assessment: Assessment #1 acute coronary syndrome #2 severe cardiomyopathy was EF around 35% #3 atrial fibrillation was relatively controlled heart rate. The A. fib is of unknown duration #4 carotid disease #5 lower extremities edema #6 multiple comorbid conditions Plan #1 continue the current medical regimen including amiodarone and oral anticoagulation #2 add a small dose of beta aba with metoprolol #3 add a small dose of diuretics with Lasix #4 continue monitor the kidney function and electrolytes #5 continue monitor the hemoglobin
[2021-01-22] MEDS: FERROUS SULFATE 325 MG TAB PO SCH (07:51)
[2021-01-22] MEDS: PANTOPRAZOLE 40 MG TABLET PO SCH (07:51)
[2021-01-22] MEDS: AMIODARONE 200 MG TAB PO SCH ×2 (07:52→21:00)
[2021-01-22] MEDS: METOPROLOL SUCCINATE (ER) 25 MG TAB.ER.24H PO SCH (07:52)
[2021-01-22] MEDS: allopurinoL 100 MG TAB PO SCH (07:52)
[2021-01-22] MEDS: FUROSEMIDE 20 MG TAB PO SCH (07:52)
[2021-01-22] MEDS: APIXABAN 5 MG TAB PO SCH ×2 (07:52→21:00)
[2021-01-22] MEDS ORDERED: PROCHLORPERAZINE 5 MG TAB PO PRN (09:48)
[2021-01-22] MEDS: SIMETHICONE 80 MG CHEWABLE PO SCH ×3 (10:11→21:00)
--- NOTE | 2021-01-22 10:22 | XR ---
EXAMINATION TYPE: XR KUB portable DATE OF EXAM: 01/22/2021 COMPARISON: NONE HISTORY: Pain TECHNIQUE: Single supine KUB image of the abdomen is obtained FINDINGS: Small bowel demonstrates no evidence for dilatation or air fluid levels. Gas and fecal material is seen in non-distended colon. No convincing evidence for pneumoperitoneum. Moderate fecal stasis. No unusual calcifications. The lung bases are clear. Severe degenerative change lumbar spine and bilateral hips IMPRESSION: 1. Overall nonobstructive bowel gas pattern.
[2021-01-22] MEDS ORDERED: NA PHOS,M-B/NA PHOS,DI-BA 133 ML ENEMA RECTAL ONE (10:27)
--- NOTE | 2021-01-22 11:42 | P.PN ---
Subjective Progress Note Date: 01/22/21 Principal diagnosis: non-ST MO, severe ischemic heart failure, A. fib with RVR, abnormal liver function tests, anemia and hyperlipidemia, severe constipation with no bowel movement for 10 days. HISTORY OF PRESENT ILLNESS This is an 85-year-old female patient of Dr. Brennon Delong with past medical history of hypertension, gout, chronic kidney disease stage III, bilateral carotid stenosis. Patient had a recent hospitalization with us in September of this year which time she presented with slurring of speech and right-sided weakness, sepsis with bacteremia and Klebsiella UTI. Patient was discharged to subacute rehab at [facility] and continues to reside there. She states that yesterday she developed a cough along with shortness of breath and chest pressure. She denies abdominal pain. She was found to be hypoxic with pulse ox in the 80s. She stat es she has not had much of an appetite over the last 3 days, has not been eating or drinking much and had a fever approximately 3 days ago. She was transferred to [facility] for evaluation and there was concern about ST elevation on EKG but subsequently cardiology has evaluated and EKG was A. fib with left bundle branch. Patient was provided with TPA. Lab work from [place] reveals elevated white blood cell count in the 20s, initial troponin 0.16, d-dimer greater than 4.4. Chest x-ray without acute process. Patient was then transferred to [facility] emergency center. Patient has been placed on BiPAP initially now seen in the ICU on O2 at 2 L nasal cannula. Patient was on norepinephrine for brief period and is status post 2 L of IV fluid maintaining adequate blood pressure. Patient did have episode of A. fib with heart rates in the 100s to 130s And cardiology has ordered amiodarone bolus which has affected her blood pressure somewhat but not back on vasopressors at this point and amiodarone drip. Laboratory studies here revealed white count of 29.2, hemoglobin 11.3, platelet count 304. INR 1.2. Sodium 129 with repeat 134. CO2 17, BUN 34 creatinine 1.03. Troponins have been 0.79 and 2.57. Lactic acid 7.1 currently down to 1.4. Magnesium 2.0. Liver function tests are all elevated with total bilirubin 2.5, AST 250, ALT 115, alkaline phosphatase 873. Marvin virus not detected. Echocardiogram reveals EF of 30-35% with borderline concentric left ventricular hypertrophy, moderate mitral regurgitation, moderate tricuspid regurgitation, mild pulmonary hypertension. Echocardiogram performed in September revealed EF of 50-55% with mild mitral regurgitation, mild tricuspid regurgitation. Patient was admitted into the intensive care unit and consults are also in place with pulmonary medicine. Patient is status post a azithromycin and Rocephin 1 dose each and currently on Zosyn. CT angiogram of the chest and repeat chest x-ray ordered for today. Patient denies history of irregular heartbeat. She is not O2 dependent. 01/20: Patient is doing slightly but better today, ejection fraction came at 30- 35% Only. Patient was switched to azithromycin and Zosyn after receiving 1 dose of Rocephin with suspicion for aspiration pneumonia. Heart failure management still not doing well at this point. Liver function test and ultrasound did not show any major abnormality, patient still been treated for UTI, culture is not finalized so far. She still on heparin drip and patient most likely will require amiodarone drip at this point because of her A. fib still not well-controlled with oral medication. Chest x-ray will be done tomorrow again to see the change compared to the original one if there is any more infiltrate or more heart failure with fluid retention. 01/21: Patient is resting comfortable still in the ICU as an overflow, she is not having any chest pain or angina, her A. fib is well controlled this point. Patient remain on anticoagulation with Eliquis 5 mg twice a day pulse rate is under better control so far having to start amiodarone 400 mg twice a day when she is ready to be discharge we will reduce amiodarone to 200 mg twice a day for one week then once a day thereafter the meanwhile patient is to be watch for any bradycardia she was taking off metoprolol by cardiology since yesterday. Hemoglobin is dropped down today to 8.7 and her GFR decline down to 37 from 47 yesterday. Repeat CMP and CBC tomorrow patient possible discharge to [facility] on Friday. 01/22: Patient is not comfortable today she still in the ICU as an overflow has not had any chest pain or angina but has been feeling sick to her stomach with significant nausea, abdominal x-ray showed severe constipation with impacted stool, patient will be having Fleet Enema originally and some laxative to help to resolve the problem. Review her chest x-ray still showing no sign of infection with the base of the lungs more clear at this point. Patient also is not any management for heart failure more than the metoprolol and Lasix with try to add Entresto smaller dose if patient able to tolerate it. REVIEW OF SYSTEMS Constitutional: Reported fever, no chills, no night sweats. No weight change. Reported weakness, reported fatigue no lethargy. No daytime sleepiness. EENT: No headache. No blurred vision or double vision, no loss of vision. No dizziness. No nasal drainage or congestion. No epistaxis. No sore throat. Lungs: Reported shortness of breath, cough, no sputum production. No wheezing. Cardiovascular: Reported chest pain and resolved, no lower extremity edema. Denies palpitations. No paroxysmal nocturnal dyspnea. No orthopnea. No lightheadedness or dizziness. No syncopal episodes. Abdominal: Denies abdominal pain. No nausea, vomiting. No diarrhea. No constipation. No bloody or tarry stools. Reports loss of appetite. Genitourinary: No dysuria, increased frequency, urgency. No urinary retention. Musculoskeletal: No myalgias. No muscle weakness, no gait dysfunction, no frequent falls. No back pain. No neck pain. Integumentary: No wounds, no lesions. No rash or pruritus. No unusual bruising. No change in hair or nails. Neurologic: No aphasia. No facial droop. No change in mentation. No head injury. No headache. No paralysis. No paresthesia. Psychiatric: No depression. No anxiety. No mood swings. Endocrine: No abnormal blood sugars. No weight change. PHYSICAL EXAMINATION Gen: This is an 85-year-old female. Patient is sitting up in the ICU bed and appears to be comfortable, in no acute distress noted. She is currently on nasal cannula oxygen at 2 L. HEENT: Head is atraumatic, normocephalic. Pupils equal, round. Sclerae is anicteric. Oral mucous membranes slightly dry. NECK: Supple. No JVD. No lymphadenopathy. No thyromegaly. LUNGS: Clear to auscultation. No wheezes or rhonchi. No intercostal retractions. No accessory muscle usage. HEART: Irregular rate and rhythm. No murmur. ABDOMEN: Soft. Bowel sounds are present. No masses. No tenderness. Sultana catheter draining clear francisco urine. EXTREMITIES: No pedal edema. No calf tenderness. Dorsalis pedis +2 bilaterally. NEUROLOGICAL: Patient is awake, alert and oriented x3. Cranial nerves 2 through 12 are grossly intact. ASSESSMENT AND PLAN 1. Non-ST elevated myocardial infarction. post TPA patient still seeing cardiology echocardiogram showed ischemic cardiopathy no intervention will be done at this point with her medical management will add Entresto continue metoprolol along with furosemide and if able to tolerate smaller dose of spironolactone. 2. ischemic cardiomyopathy: With very low ejection fraction, patient be started on Entresto will try to add Aldactone the next day or 2 if she is able to tolerated. 3. UTI and possible aspiration pneumonia: Urine culture was positive for E. coli with ESBL patient remain on Zosyn will be switched to Macrodantin or Bactrim when she is ready to leave the hospital. 4. Hypotension possible septic shock versus cardiogenic shock. Suspect sepsis as underlying cause due to fever prior to arrival and leukocytosis. Patient is currently on Zosyn, repeat chest x-ray ordered, urinalysis and culture to be obtained. 5. A. fib with RVR, new onset paroxysmal atrial fibrillation. Patient is still on metoprolol and amiodarone 400 mg twice a day and try to move to 200 mg twice a day before she leaves the hospital also still on Eliquis 5 mg twice a day. 6. Elevated liver function tests secondary to shock liver. Hold atorvastatin, monitor CMP. Doing well so far. 7. History of hypertension. She is off amlodipine and continue metoprolol. 8. Chronic gout. Continue allopurinol 100 mg daily. 9. Hyperlipidemia. Was start patient back on Lipitor 40 mg daily. 10. Chronic kidney disease stage III. Avoid nephrotoxic agents, hypotension, monitor renal function. 11. Anemia of chronic disease. Continue ferrous sulfate 325 mg daily. 12. Bilateral carotid stenosis. Continue aspirin 81 mg daily, Plavix 75 mg daily, hold atorvastatin 40 mg at bedtime. 13. Glaucoma. Continue eyedrops. 14 severe constipation and impaction: Continue patient on laxatives along with Fleet enema. CODE STATUS: DO NOT RESUSCITATE Prognosis: Is very guarded. Discharge planning: Most likely [facility]. Objective - Vital Signs Vital signs: Vital Signs Temp 97.4 F L 01/22/21 08:00 Pulse 90 01/22/21 08:00 Resp 26 H 01/22/21 08:00 BP 142/75 01/22/21 08:00 Pulse Ox 91 L 01/22/21 08:00 Intake & Output 01/21/21 01/22/21 01/22/21 18:59 06:59 18:59 Intake Total 500 900 390 Output Total 130 610 250 Balance 370 290 140 Weight 75.4 kg Intake: IV 500 900 300 Piperacillin-Tazobactam 3 100 100 100 .375 gm In Sodium Chloride 0.9% 100 ml @ 25 mls/hr IVPB Q8HR K[facility]I Rx# :[id number] Sodium Chloride 0.9% 1, 400 000 ml @ 50 mls/hr IV . Q20H KARI Rx#:[id number] Sodium Chloride 0.9% 1, 800 200 000 ml @ 50 mls/hr IV . Q20H KARI Rx#:[id number] Oral 90 Output: Urine 130 610 250 Other: Voiding Method Indwelling Catheter Indwelling Catheter Indwelling Catheter # Voids 1 - Labs CBC & Chem 7: 01/22/21 03:49 01/22/21 03:49 Labs: Abnormal Lab Results - Last 24 Hours (Table) 01/22/21 01/22/21 Range/Units 03:49 03:49 WBC 14.5 H (3.8-10.6) k/uL RBC 2.68 L (3.80-5.40) m/uL Hgb 8.7 L (11.4-16.0) gm/dL Hct 26.3 L (34.0-46.0) % Sodium 136 L (137-145) mmol/L Chloride 110 H (98-107) mmol/L Carbon Dioxide 17 L (22-30) mmol/L BUN 31 H (7-17) mg/dL Creatinine 1.33 H (0.52-1.04) mg/dL Calcium 8.2 L (8.4-10.2) mg/dL Total Bilirubin 1.4 H (0.2-1.3) mg/dL AST 65 H (14-36) U/L ALT 54 H (4-34) U/L Alkaline Phosphatase 730 H (38-126) U/L Total Protein 5.8 L (6.3-8.2) g/dL Albumin 2.7 L (3.5-5.0) g/dL Microbiology - Last 24 Hours (Table) 01/18/21 22:00 Blood Culture - Preliminary Blood No Growth after 72 hours 01/18/21 20:30 Blood Culture - Preliminary Blood No Growth after 72 hours 01/19/21 11:02 Urine Culture - Final Urine,Voided Escherichia coli
--- NOTE | 2021-01-22 12:37 | P.CONS ---
History of Present Illness - Reason for Consult Consult date: 01/22/21 Elevated LFTs Requesting physician: Radha Gurrola - Chief Complaint Shortness of breath - History of Present Illness This 85-year-old white female who presented to the emergency department on 01/18/2021transfer from [facility] for shortness of breath. Patient was diagnosed with non-STEMI, atrial fibrillation, hypotension, acute hypoxic respiratory failure, and sepsis. She has a past medical history of hyperlipidemia, hypertension, gout, and has had previous elevation in her LFTs.on presentation the patient had elevation in her LFTs therefore gastroent erology was consulted. The patient denies any previous history of liver disease, no history of hepatitis, no history of alcoholism. She was seen by gastroenterology in August of this year when she was hospitalized and had a full serology workup completed which was negative. Liver ultrasound is unremarkable. She is status post cholecystectomy. There is no CBD dilation.on presentation to the hospital she had a WBC 28.7 hemoglobin 9.1 hematocrit 27 platelet count 224,000 INR 1.2 total bilirubin of 2.5 AST 250 ALT 115 Alkaline phosphatase 873. today's labs show WBC 14.5 hemoglobin 8.7 hematocrit 26 platelet count 305,000 total bilirubin 1.4 AST 65 AST 54 alkaline phosphatase 730. the patient was seen and examined sitting up at the bedside. She is reporting abdominal pain with belching. Some nausea but no vomiting. She is unsure when her last bowel movement was or if she's had one since she's been hospitalized. Review of Systems REVIEW OF SYSTEMS: CARDIOPULMONARY: No chest pain or shortness of breath. Gastrointestinal: Diffuse abdominal pain greatest in the left upper quadrant with frequent belching. No nausea or vomiting. No hematemesis, coffee-ground emesis. No rectal bleeding, or melena. GENITOURINARY: No dysuria or hematuria. MUSCULOSKELETAL: Reports normal range of motion., Joint pain. SKIN: No rashes. No jaundice. ENDOCRINE: No chills, fevers. No excessive weight gain or loss. No polydipsia or polyuria. PSYCHIATRIC: Unremarkable. NEUROLOGY: No change in mental status. Denies dizziness, headache. ENT: Vision unremarkable. CONSTITUTIONAL: No recent weight loss. No fever, chills, night sweats. Past Medical History Past Medical History: Hyperlipidemia, Hypertension Additional Past Medical History / Comment(s): gout, History of Any Multi-Drug Resistant Organisms: None Reported Past Surgical History: Cholecystectomy, Orthopedic Surgery Past Anesthesia/Blood Transfusion Reactions: No Reported Reaction Past Psychological History: No Psychological Hx Reported Smoking Status: Never smoker Past Alcohol Use History: None Reported Past Drug Use History: None Reported - Past Family History Mother History Unknown: Yes Family Medical History: Cancer Father History Unknown: Yes Family Medical History: Myocardial Infarction ([place]) Medications and Allergies Home Medications Medication Instructions Recorded Confirmed Type Allopurinol [Zyloprim] 100 mg PO DAILY 09/12/20 01/18/21 History Travoprost [Travatan Z 0.004%] 1 drop BOTH EYES HS 09/12/20 01/18/21 History Aspirin 81 mg PO DAILY chew 09/18/20 01/18/21 Rx Clopidogrel [Plavix] 75 mg PO DAILY #0 tab 09/18/20 01/18/21 Rx Ipratropium-Albuterol Nebulize 3 ml INHALATION RT-QID PRN ml 09/18/20 01/18/21 Rx [Duoneb 0.5 mg-3 mg/3 ml Soln] amLODIPine [Norvasc] 5 mg PO DAILY tab 09/18/20 01/18/21 Rx Acetaminophen Tab [Tylenol] 650 mg PO Q6H PRN 01/18/21 01/18/21 History Ascorbic Acid [Vitamin C] 500 mg PO DAILY 01/18/21 01/18/21 History Atorvastatin [Lipitor] 40 mg PO HS 01/18/21 01/18/21 History Bisacodyl 5 - 10 mg PO Q72H PRN 01/18/21 01/18/21 History Ferrous Sulfate [Feosol] 325 mg PO DAILY 01/18/21 01/18/21 History Furosemide [Lasix] 20 mg PO DAILY 01/18/21 01/18/21 History HYDROcodone/APAP 5-325MG [[place] 1 tab PO TID@0900,1300,2100 01/18/21 01/18/21 History 5-325] Mag Hydrox/Aluminum Hyd/Simeth 30 ml PO Q4H PRN 01/18/21 01/18/21 History [Mylanta Maximum Strength Liq] Metoprolol Tartrate [Lopressor] 25 mg PO BID 01/18/21 01/18/21 History bisacodyL [Dulcolax] 10 mg RECTAL Q72H PRN 01/18/21 01/18/21 History Allergies Allergy/AdvReac Type Severity Reaction Status Date / Time No Known Allergies Allergy Verified 01/18/21 18:53 Physical Exam Vitals: Vital Signs Temp Pulse Resp BP Pulse Ox 01/22/21 08:00 97.4 F L 90 26 H 142/75 91 L 01/22/21 06:00 91 23 128/61 93 L 01/22/21 04:00 87 22 111/53 91 L 01/22/21 02:00 76 15 111/50 94 L 01/22/21 00:00 98.5 F 79 20 104/57 92 L 01/21/21 22:00 97 20 128/70 94 L 01/21/21 20:50 100 29 H 128/70 90 L 01/21/21 20:00 97.7 F 98 27 H 106/62 91 L 01/21/21 18:00 86 19 107/50 93 L 01/21/21 16:00 86 19 113/60 94 L 01/21/21 14:00 81 23 97/82 94 L 01/21/21 12:00 98.1 F 134 H 22 111/59 93 L 01/21/21 10:00 89 19 115/65 94 L Intake and Output 01/21/21 01/22/21 01/22/21 22:59 06:59 14:59 Intake Total 500 400 390 Output Total 250 360 250 Balance 250 40 140 Intake: IV 500 400 300 Piperacillin-Tazobactam 3 100 100 .375 gm In Sodium Chloride 0.9% 100 ml @ 25 mls/hr IVPB Q8HR [facility] Rx# :[id number] Sodium Chloride 0.9% 1, 400 400 200 000 ml @ 50 mls/hr IV . Q20H [facility]I Rx#:[id number] Oral 90 Output: Urine 250 360 250 Other: Voiding Method Indwelling Catheter Indwelling Catheter Indwelling Catheter Weight 75.4 kg General appearance: The patient is alert, oriented, appears in no acute distress. HET: Head is normocephalic and atraumatic. Conjunctiva pink. Sclera anicteric. Neck: Supple without lymphadenopathy. Trachea midline. Heart: S1 S2. Regular rate and rhythm. Lungs: Clear to auscultation. Abdomen: Soft, left upper quadrant tenderness, nondistended with bowel sounds. No guarding or rigidity. Skin: No rashes. No jaundice. Extremities: Normal skin color and turgor. No pedal edema. Neurological: No focal deficits. Alert and oriented 3.. Results CBC & Chem 7: 01/22/21 03:49 01/22/21 03:49 Labs: Abnormal Lab Results - Last 24 Hours (Table) 01/22/21 01/22/21 Range/Units 03:49 03:49 WBC 14.5 H (3.8-10.6) k/uL RBC 2.68 L (3.80-5.40) m/uL Hgb 8.7 L (11.4-16.0) gm/dL Hct 26.3 L (34.0-46.0) % Sodium 136 L (137-145) mmol/L Chloride 110 H (98-107) mmol/L Carbon Dioxide 17 L (22-30) mmol/L BUN 31 H (7-17) mg/dL Creatinine 1.33 H (0.52-1.04) mg/dL Calcium 8.2 L (8.4-10.2) mg/dL Total Bilirubin 1.4 H (0.2-1.3) mg/dL AST 65 H (14-36) U/L ALT 54 H (4-34) U/L Alkaline Phosphatase 730 H (38-126) U/L Total Protein 5.8 L (6.3-8.2) g/dL Albumin 2.7 L (3.5-5.0) g/dL Microbiology - Last 24 Hours (Table) 01/18/21 22:00 Blood Culture - Preliminary Blood No Growth after 72 hours 01/18/21 20:30 Blood Culture - Preliminary Blood No Growth after 72 hours 01/19/21 11:02 Urine Culture - Final Urine,Voided Escherichia coli Comments: liver ultrasound shows markedly limited exam as discussed above due to large amount of overlying bowel content. Visualized portions of the liver homogeneous. Small amount of fluid surrounding the liver are not excluded correlate with computed tomography scan as clinically warranted. Small right pleural effusion. KUB x-ray shows overall nonobstructive bowel gas pattern. Gas and fecal material seen in nondistended colon. Moderate fecal stasis. Assessment and Plan (1) Transaminitis Narrative/Plan: 85-year-old female who was a transfer from outside facility for shortness of breath and found to have non-STEMI, sepsis possibly related to UTI or aspiration pneumonia, hypotension, and atrial fibrillation was found to also have elevation in her LFTs. Patient was seen back in September of this year for elevated liver enzymes as well as at that time. During that hospitalization the patient had a full serologic workup which was negative. She has no previous history of liver disease, no previous history of alcohol abuse, no history of hepatitis. No recent new medications prior to hospitalization. Ultrasound of the liver was unremarkable showing visualized areas as homogeneous. She is status post flavia cystectomy. CBD with no dilation. Unclear etiology but likely related to septic shock and or hypoperfusion, however she may have underlying liver disease. Will order antimitochondrial antibody. Liver enzymes have been trending down since admission. Current Visit: No Status: Acute Code(s): R74.01 - ELEVATION OF LEVELS OF LIVER TRANSAMINASE LEVELS SNOMED Code(s): 386135462 (2) Abdominal pain Narrative/Plan: KUB x-ray showinggas and fecal material seen in nondistended colon. Moderate fecal stasis. Overall nonobstructive bowel gas pattern. Pain likely related to gas and constipation as patient states she is unsure of last time she had a bow el movement. We'll and MiraLAX daily. Current Visit: Yes Status: Acute Code(s): R10.9 - UNSPECIFIED ABDOMINAL PAIN SNOMED Code(s): 33830269 (3) NSTEMI (non-ST elevated myocardial infarction) Current Visit: No Status: Acute Code(s): I21.4 - NON-ST ELEVATION (NSTEMI) MYOCARDIAL INFARCTION SNOMED Code(s): 09261026 (4) Atrial fibrillation Current Visit: Yes Status: Acute Code(s): I48.91 - UNSPECIFIED ATRIAL FIBRILLATION SNOMED Code(s): 57109965 Plan: 1. Continue symptomatic and supportive care 2. Continue ICU management 3. Repeat daily LFTs 4. Avoid hepatotoxic medications 5. Liver ultrasound reviewed 6. AMA ordered 7. Acute hepatitis panel completed 8. KUB ordered 9. Compazine for nausea 10. Continue Protonix for GI prophylaxis 11. Will add MiraLAX for constipation and Mylicon for gas Thank you for this consultation, we will continue to follow. Dr. Jimenez Champagne I agree with the dictator's note, documented as a scribe by Rosa Ortiz.
[2021-01-22] MEDS: polyethylene glycoL 3350 17 GM POWD.PACK PO SCH (15:13)
[2021-01-22] MEDS: SACUBITRIL/VALSARTAN 24 MG-26 MG TABLET PO SCH (21:00)
[2021-01-22] MEDS: LATANOPROST 0.005% OPHTH DROPS 2.5 ML BTL BOTH EYES SCH (21:00)
[2021-01-22] MEDS ORDERED: ATORVASTATIN 20 MG TAB PO SCH (21:00)
[2021-01-23] MEDS: PIPERACILLIN-TAZOBACTAM 3.375 GM in SODIUM CHLORIDE 0.9% 100 ML IVPB SCH ×3 (00:15→16:53)
[2021-01-23] MEDS: PANTOPRAZOLE 40 MG TABLET PO SCH (06:37)
[2021-01-23] MEDS: FERROUS SULFATE 325 MG TAB PO SCH (09:34)
[2021-01-23] MEDS: AMIODARONE 200 MG TAB PO SCH ×2 (09:34→21:05)
[2021-01-23] MEDS: allopurinoL 100 MG TAB PO SCH (09:34)
[2021-01-23] MEDS: METOPROLOL SUCCINATE (ER) 25 MG TAB.ER.24H PO SCH (09:34)
[2021-01-23] MEDS: APIXABAN 5 MG TAB PO SCH ×2 (09:34→21:05)
[2021-01-23] MEDS: FUROSEMIDE 20 MG TAB PO SCH (09:34)
[2021-01-23] MEDS: polyethylene glycoL 3350 17 GM POWD.PACK PO SCH (09:34)
[2021-01-23 09:40] LABS: HCT 30.6 % (34.0-46.0); HGB 9.9 gm/dL (11.4-16.0); MCH 32.1 pg (25.0-35.0); MCHC 32.5 g/dL (31.0-37.0); MCV 98.6 fL (80.0-100.0); Macrocytosis Slight; Platelet Count 393 k/uL (150-450); RDW 15.6 % (11.5-15.5); WBC 22.2 k/uL (3.8-10.6)
[2021-01-23 09:57] LABS: Albumin 2.5 g/dL (3.5-5.0); Potassium 3.2 mmol/L (3.5-5.1); Total Bilirubin 5.1 mg/dL (0.2-1.3); Total Protein 5.6 g/dL (6.3-8.2)
[2021-01-23] MEDS: SACUBITRIL/VALSARTAN 24 MG-26 MG TABLET PO SCH ×2 (12:28→21:50)
[2021-01-23] MEDS: SIMETHICONE 80 MG CHEWABLE PO SCH ×4 (12:28→21:06)
[2021-01-23] MEDS: POTASSIUM CHLORIDE ER 20 MEQ TAB.ER PO SCH ×2 (12:29→16:53)
--- NOTE | 2021-01-23 12:32 | P.PN ---
Subjective This is an 85 or old female seen and examined sitting up in bed in no acute distress. She is minimally responsive. We are following secondary to cardiomyopathy and atrial fibrillation. Blood pressure 122/70 heart rate 85 afebrile maintaining oxygen saturation on nasal cannula. Laboratory data reviewed, WBC 22.2, hemoglobin 9.9, platelets 393, sodium 134, potassium 3.2, creatinine 1. Currently maintained on amiodarone 400 mg by mouth twice a day, Eliquis 5 mg twice a day, atorvastatin 20 mg at bedtime, Lasix 20 mg by mouth daily, Toprol 25 mg daily and entresto 24/26 mg BID. Telemetry tracings reveal atrial fibrillation with controlled ventricular rates. GENERAL: Well-appearing, well-nourished and in no acute distress. NECK: Supple without JVD or thyromegaly. LUNGS: Breath sounds clear to auscultation bilaterally. Respiration equal and unlabored. No wheezes, rales or rhonchi. HEART: Irregular rate and rhythm without murmurs, rubs or gallops. S1 and S2 heard. EXTREMITIES: Normal range of motion, no edema. No clubbing or cyanosis. Peripheral pulses intact. ASSESSMENT Acute coronary syndrome Acute systolic heart failure New-onset atrial fibrillation, duration unknown Urinary tract infection Aspiration pneumonia Hypertension Dyslipidemia Chronic kidney disease Peripheral vascular disease, bilateral carotid stenosis PLAN Continue current medical regimen. Amiodaroine taper upon discharge. Prognosis guarded. Nurse Practitioner note has been reviewed, I agree with a documented findings and plan of care. Patient was seen and examined. Objective - Vital Signs Vital signs: Vital Signs Temp 97.5 F L 01/23/21 04:00 Pulse 85 01/23/21 04:00 Resp 24 01/23/21 04:00 BP 122/70 01/23/21 04:00 Pulse Ox 95 01/23/21 04:00 Intake & Output 01/22/21 01/23/21 01/23/21 18:59 06:59 18:59 Intake Total 980 540 Output Total 1300 1500 275 Balance -320 -1500 265 Weight 77 kg Intake: IV 800 Piperacillin-Tazobactam 3 200 .375 gm In Sodium Chloride 0.9% 100 ml @ 25 mls/hr IVPB Q8HR [facility] Rx# :[id number] Sodium Chloride 0.9% 1, 600 000 ml @ 50 mls/hr IV . Q20H [facility] Rx#:[id number] Oral 180 540 Output: Urine 1300 1500 275 Other: Voiding Method Indwelling Catheter Indwelling Catheter # Voids 1 # Bowel Movements 1 1 - Labs CBC & Chem 7: 01/23/21 08:34 01/23/21 08:34 Labs: Abnormal Lab Results - Last 24 Hours (Table) 01/23/21 01/23/21 Range/Units 08:34 08:34 WBC 22.2 H (3.8-10.6) k/uL RBC 3.10 L (3.80-5.40) m/uL Hgb 9.9 L (11.4-16.0) gm/dL Hct 30.6 L (34.0-46.0) % RDW 15.6 H (11.5-15.5) % Sodium 134 L (137-145) mmol/L Potassium 3.2 L (3.5-5.1) mmol/L Chloride 108 H (98-107) mmol/L Carbon Dioxide 16 L (22-30) mmol/L BUN 23 H (7-17) mg/dL Calcium 8.0 L (8.4-10.2) mg/dL Total Bilirubin 5.1 H (0.2-1.3) mg/dL AST 92 H (14-36) U/L ALT 55 H (4-34) U/L Alkaline Phosphatase 854 H (38-126) U/L Total Protein 5.6 L (6.3-8.2) g/dL Albumin 2.5 L (3.5-5.0) g/dL Microbiology - Last 24 Hours (Table) 01/18/21 22:00 Blood Culture - Preliminary Blood No Growth after 96 hours 01/18/21 20:30 Blood Culture - Preliminary Blood No Growth after 96 hours
--- NOTE | 2021-01-23 14:45 | P.PN ---
Subjective Progress Note Date: 01/23/21 HISTORY OF PRESENT ILLNESS This is an 85-year-old female patient of Dr. Brennon Delong with past medical history of hypertension, gout, chronic kidney disease stage III, bilateral carotid stenosis. Patient had a recent hospitalization with us in September of this year which time she presented with slurring of speech and right-sided weakness, sepsis with bacteremia and Klebsiella UTI. Patient was discharged to subacute rehab at [facility] and continues to reside there. She states that yesterday she developed a cough along with shortness of breath and chest pressure. She denies abdominal pain. She was found to be hypoxic with pulse ox in the 80s. She states she has not had much of an appetite over the last 3 days, has not been eating or drinking much and had a fever approximately 3 days ago. She was transferred to [facility] for evaluation and there was concern about ST elevation on EKG but subsequently cardiology has evaluated and EKG was A. fib with left bundle branch. Patient was provided with TPA. Lab work from [place] reveals elevated white blood cell count in the 20s, initial troponin 0.16, d-dimer greater than 4.4. Chest x-ray without acute process. Patient was then transferred to [facility] emergency center. Patient has been placed on BiPAP initially now seen in the ICU on O2 at 2 L nasal cannula. Patient was on norepinephrine for brief period and is status post 2 L of IV fluid maintaining adequate blood pressure. Patient did have episode of A. fib with heart rates in the 100s to 130s And cardiology has ordered amiodarone bolus which has affected her blood pressure somewhat but not back on vasopressors at this point and amiodarone drip. Laboratory studies here revealed white count of 29.2, hemoglobin 11.3, platelet count 304. INR 1.2. Sodium 129 with repeat 134. CO2 17, BUN 34 creatinine 1.0 3. Troponins have been 0.79 and 2.57. Lactic acid 7.1 currently down to 1.4. Magnesium 2.0. Liver function tests are all elevated with total bilirubin 2.5, AST 250, ALT 115, alkaline phosphatase 873. Marvin virus not detected. Echocardiogram reveals EF of 30-35% with borderline concentric left ventricular hypertrophy, moderate mitral regurgitation, moderate tricuspid regurgitation, mild pulmonary hypertension. Echocardiogram performed in September revealed EF of 50-55% with mild mitral regurgitation, mild tricuspid regurgitation. Patient was admitted into the intensive care unit and consults are also in place with pulmonary medicine. Patient is status post a azithromycin and Rocephin 1 dose each and currently on Zosyn. CT angiogram of the chest and repeat chest x- ray ordered for today. Patient denies history of irregular heartbeat. She is not O2 dependent. 01/20: Patient is doing slightly but better today, ejection fraction came at 30- 35% Only. Patient was switched to azithromycin and Zosyn after receiving 1 dose of Rocephin with suspicion for aspiration pneumonia. Heart failure management still not doing well at this point. Liver function test and ultrasound did not show any major abnormality, patient still been treated for UTI, culture is not finalized so far. She still on heparin drip and patient most likely will require amiodarone drip at this point because of her A. fib still not well-controlled with oral medication. Chest x-ray will be done tomorrow again to see the change compared to the original one if there is any more infiltrate or more heart failure with fluid retention. 01/21: Patient is resting comfortable still in the ICU as an overflow, she is not having any chest pain or angina, her A. fib is well controlled this point. Patient remain on anticoagulation with Eliquis 5 mg twice a day pulse rate is under better control so far having to start amiodarone 400 mg twice a day when she is ready to be discharge we will reduce amiodarone to 200 mg twice a day for one week then once a day thereafter the meanwhile patient is to be watch for any bradycardia she was taking off metoprolol by cardiology since yesterday. Hemoglobin is dropped down today to 8.7 and her GFR decline down to 37 from 47 yesterday. Repeat CMP and CBC tomorrow patient possible discharge to [facility] on Friday. 01/22: Patient is not comfortable today she still in the ICU as an overflow has not had any chest pain or angina but has been feeling sick to her stomach with significant nausea, abdominal x-ray showed severe constipation with impacted stool, patient will be having Fleet Enema originally and some laxative to help to resolve the problem. Review her chest x-ray still showing no sign of infection with the base of the lungs more clear at this point. Patient also is not any management for heart failure more than the metoprolol and Lasix with try to add Entresto smaller dose if patient able to tolerate it. 01/23: Continue good bowel movement yesterday and abdominal pain and constipation have resolved. Patient has been started on Entresto is currently on amiodarone at 400 mg twice daily followed by cardiology. Patient is seen and followed by GI for elevated liver function tests possibly related to medication effect. There is concern is related to amiodarone which cardiology is to address, allopurinol and Lipitor have been discontinued. Repeat blood work reveals WBC 22.2, hemoglobin 9.9, platelet count 393. Sodium 134, potassium 3.2 and has been replaced, chloride 108, CO2 16, BUN 23 creatinine 1. Total bilirubin 5.1, AST 92, ALT 55, alkaline phosphatase 854. Anti-mitochondrial antibody 8.2. Urine culture has been finalized with E. coli REVIEW OF SYSTEMS Constitutional: Reported fever, no chills, no night sweats. No weight change. Reported weakness, reported fatigue no lethargy. No daytime sleepiness. EENT: No headache. No blurred vision or double vision, no loss of vision. No dizziness. No nasal drainage or congestion. No epistaxis. No sore throat. Lungs: Reported shortness of breath, cough, no sputum production. No wheezing. Cardiovascular: Reported chest pain and resolved, no lower extremity edema. Denies palpitations. No paroxysmal nocturnal dyspnea. No orthopnea. No lightheadedness or dizziness. No syncopal episodes. Abdominal: Denies abdominal pain. No nausea, vomiting. No diarrhea. No constipation. No bloody or tarry stools. Reports loss of appetite. Genitourinary: No dysuria, increased frequency, urgency. No urinary retention. Musculoskeletal: No myalgias. No muscle weakness, no gait dysfunction, no frequent falls. No back pain. No neck pain. Integumentary: No wounds, no lesions. No rash or pruritus. No unusual bruising. No change in hair or nails. Neurologic: No aphasia. No facial droop. No change in mentation. No head injury. No headache. No paralysis. No paresthesia. Psychiatric: No depression. No anxiety. No mood swings. Endocrine: No abnormal blood sugars. No weight change. PHYSICAL EXAMINATION Gen: This is an 85-year-old female. Patient is sitting up in the ICU bed and appears to be comfortable, in no acute distress noted. She is currently on nasal cannula oxygen at 2 L. HEENT: Head is atraumatic, normocephalic. Pupils equal, round. Sclerae is anicteric. Oral mucous membranes slightly dry. NECK: Supple. No JVD. No lymphadenopathy. No thyromegaly. LUNGS: Clear to auscultation. No wheezes or rhonchi. No intercostal retractions. No accessory muscle usage. HEART: Irregular rate and rhythm. No murmur. ABDOMEN: Soft. Bowel sounds are present. No masses. No tenderness. Sultana catheter draining clear francisco urine. EXTREMITIES: No pedal edema. No calf tenderness. Dorsalis pedis +2 bilaterally. NEUROLOGICAL: Patient is awake, alert and oriented x3. Cranial nerves 2 through 12 are grossly intact. ASSESSMENT AND PLAN 1. Non-ST elevated myocardial infarction. post TPA patient still seeing cardiology echocardiogram showed ischemic cardiopathy no intervention will be done at this point with her medical management will add Entresto continue metoprolol along with furosemide and if able to tolerate smaller dose of spironolactone. 2. ischemic cardiomyopathy: With very low ejection fraction, patient be started on Entresto will try to add Aldactone the next day or 2 if she is able to tolerated. 3. UTI and possible aspiration pneumonia: Urine culture was positive for E. coli with ESBL patient remain on Zosyn will be switched to Macrodantin or Bactrim when she is ready to leave the hospital. 4. Hypotension possible septic shock versus cardiogenic shock. Suspect sepsis as underlying cause due to fever prior to arrival and leukocytosis. Patient is currently on Zosyn, repeat chest x-ray ordered, urinalysis and culture to be obtained. 5. A. fib with RVR, new onset paroxysmal atrial fibrillation. Patient is still on metoprolol and amiodarone 400 mg twice a day and try to move to 200 mg twice a day before she leaves the hospital also still on Eliquis 5 mg twice a day. 6. Elevated liver function tests secondary to shock liver. Hold atorvastatin, monitor CMP. Doing well so far. 7. History of hypertension. She is off amlodipine and continue metoprolol. 8. Chronic gout. Continue allopurinol 100 mg daily. 9. Hyperlipidemia. Was start patient back on Lipitor 40 mg daily. 10. Chronic kidney disease stage III. Avoid nephrotoxic agents, hypotension, monitor renal function. 11. Anemia of chronic disease. Continue ferrous sulfate 325 mg daily. 12. Bilateral carotid stenosis. Continue aspirin 81 mg daily, Plavix 75 mg daily, hold atorvastatin 40 mg at bedtime. 13. Glaucoma. Continue eyedrops. 14 severe constipation and impaction: Continue patient on laxatives along with Fleet enema. CODE STATUS: DO NOT RESUSCITATE Prognosis: Is very guarded. DISCHARGE PLAN Return to [facility] Impression and plan of care have been directed as dictated by the signing physician. Elidia Messina nurse practitioner acting as scribe for signing physician. Objective - Vital Signs Vital signs: Vital Signs Temp 97.5 F L 01/23/21 04:00 Pulse 85 01/23/21 04:00 Resp 24 01/23/21 04:00 BP 122/70 01/23/21 04:00 Pulse Ox 95 01/23/21 04:00 Intake & Output 01/22/21 01/23/21 01/23/21 18:59 06:59 18:59 Intake Total 980 540 Output Total 1300 1500 275 Balance -320 -1500 265 Weight 77 kg Intake: IV 800 Piperacillin-Tazobactam 3 200 .375 gm In Sodium Chloride 0.9% 100 ml @ 25 mls/hr IVPB Q8HR KARI Rx# :[id number] Sodium Chloride 0.9% 1, 600 000 ml @ 50 mls/hr IV . Q20H KARI Rx#:[id number] Oral 180 540 Output: Urine 1300 1500 275 Other: Voiding Method Indwelling Catheter Indwelling Catheter # Voids 1 # Bowel Movements 1 1 - Labs CBC & Chem 7: 01/23/21 08:34 01/23/21 08:34 Labs: Abnormal Lab Results - Last 24 Hours (Table) 01/23/21 01/23/21 Range/Units 08:34 08:34 WBC 22.2 H (3.8-10.6) k/uL RBC 3.10 L (3.80-5.40) m/uL Hgb 9.9 L (11.4-16.0) gm/dL Hct 30.6 L (34.0-46.0) % RDW 15.6 H (11.5-15.5) % Sodium 134 L (137-145) mmol/L Potassium 3.2 L (3.5-5.1) mmol/L Chloride 108 H (98-107) mmol/L Carbon Dioxide 16 L (22-30) mmol/L BUN 23 H (7-17) mg/dL Calcium 8.0 L (8.4-10.2) mg/dL Total Bilirubin 5.1 H (0.2-1.3) mg/dL AST 92 H (14-36) U/L ALT 55 H (4-34) U/L Alkaline Phosphatase 854 H (38-126) U/L Total Protein 5.6 L (6.3-8.2) g/dL Albumin 2.5 L (3.5-5.0) g/dL Microbiology - Last 24 Hours (Table) 01/18/21 22:00 Blood Culture - Preliminary Blood No Growth after 96 hours 01/18/21 20:30 Blood Culture - Preliminary Blood No Growth after 96 hours
--- NOTE | 2021-01-23 16:32 | P.PN ---
Subjective Progress Note Date: 01/23/21 Principal diagnosis: Transaminitis 85-year-old female who presented to the emergency department with complaints of shortness of breath. She was diagnosed with non-STEMI, atrial fibrillation, hypotension, acute hypoxic respiratory failure and sepsis. She was noted to have elevated LFTs on admission. They initially were trending down however today she had an increase in LFTs. Today her total bilirubin was 5.1 AST 92 AST 55 alkaline phosphatase 854. Yesterday the patient was complaining of abdominal pain, she was unsure of her last bowel movement. She was given an enema and MiraLAX. States that she was able to have a bowel movement and abdominal pain has improved. Patient was seen previously and September of this year with elevated LFTs at that time as well. Patient continues to deny any history of liver disease, alcohol abuse, hepatitis, or any new medications. She previously had a full liver serology workup which was negative. AMA was ordered which was negative. Objective - Vital Signs Vital signs: Vital Signs Temp 97.5 F L 01/23/21 04:00 Pulse 85 01/23/21 04:00 Resp 24 01/23/21 04:00 BP 122/70 01/23/21 04:00 Pulse Ox 95 01/23/21 04:00 Intake & Output 01/22/21 01/23/21 01/23/21 18:59 06:59 18:59 Intake Total 980 540 Output Total 1300 1500 275 Balance -320 -1500 265 Weight 77 kg Intake: IV 800 Piperacillin-Tazobactam 3 200 .375 gm In Sodium Chloride 0.9% 100 ml @ 25 mls/hr IVPB Q8HR KARI Rx# :[id number] Sodium Chloride 0.9% 1, 600 000 ml @ 50 mls/hr IV . Q20H KARI Rx#:[id number] Oral 180 540 Output: Urine 1300 1500 275 Other: Voiding Method Indwelling Catheter Indwelling Catheter # Voids 1 # Bowel Movements 1 1 - Exam General appearance: The patient is alert, oriented, appears in no acute distress. HET: Head is normocephalic and atraumatic. Conjunctiva pink. Sclera anicteric. Neck: Supple without lymphadenopathy. Abdomen: Soft, nontender, nondistended with bowel sounds. No guarding or rigidity. Extremities: Normal skin color and turgor. No pedal edema Skin: No rashes, no jaundice Neurological: No focal deficits. Alert and oriented 3. - Labs CBC & Chem 7: 01/23/21 08:34 01/23/21 08:34 Labs: Abnormal Lab Results - Last 24 Hours (Table) 01/23/21 01/23/21 Range/Units 08:34 08:34 WBC 22.2 H (3.8-10.6) k/uL RBC 3.10 L (3.80-5.40) m/uL Hgb 9.9 L (11.4-16.0) gm/dL Hct 30.6 L (34.0-46.0) % RDW 15.6 H (11.5-15.5) % Sodium 134 L (137-145) mmol/L Potassium 3.2 L (3.5-5.1) mmol/L Chloride 108 H (98-107) mmol/L Carbon Dioxide 16 L (22-30) mmol/L BUN 23 H (7-17) mg/dL Calcium 8.0 L (8.4-10.2) mg/dL Total Bilirubin 5.1 H (0.2-1.3) mg/dL AST 92 H (14-36) U/L ALT 55 H (4-34) U/L Alkaline Phosphatase 854 H (38-126) U/L Total Protein 5.6 L (6.3-8.2) g/dL Albumin 2.5 L (3.5-5.0) g/dL Microbiology - Last 24 Hours (Table) 01/18/21 22:00 Blood Culture - Preliminary Blood No Growth after 96 hours 01/18/21 20:30 Blood Culture - Preliminary Blood No Growth after 96 hours Assessment and Plan (1) Transaminitis Narrative/Plan: 85-year-old female who was a transfer from outside facility for shortness of breath and found to have non-STEMI, sepsis possibly related to UTI or aspiration pneumonia, hypotension, and atrial fibrillation was found to also have elevation in her LFTs. Patient was seen back in September of this year for elevated liver enzymes as well as at that time. During that hospitalization the patient had a full serologic workup which was negative. She has no previous history of liver disease, no previous history of alcohol abuse, no history of hepatitis. No rec ent new medications prior to hospitalization. Ultrasound of the liver was unremarkable showing visualized areas as homogeneous. She is status post cholecystectomy. CBD with no dilation. Unclear etiology but likely related to septic shock and or hypoperfusion, however she may have underlying liver disease. Antimitochondrial antibody ordered and negative. Liver enzymes have been trending down since admission, however did see a spike and LFTs today. Cannot rule out medication-induced hepatitis. Recommend discontinuing Lipitor, allopurinol, and will discuss with cardiology regarding discontinuing amiodarone if possible as these may contribute to medication-induced hepatitis. Current Visit: No Status: Acute Code(s): R74.01 - ELEVATION OF LEVELS OF LIVER TRANSAMINASE LEVELS SNOMED Code(s): 199355179 (2) Abdominal pain Narrative/Plan: KUB x-ray showinggas and fecal material seen in nondistended colon. Moderate fecal stasis. Overall nonobstructive bowel gas pattern. Pain likely related to gas and constipation as patient states she is unsure of last time she had a bowel movement. We'll and MiraLAX daily. Patient had fleets enema and MiraLAX, patient had bowel movement. Abdominal pain improved. Current Visit: Yes Status: Acute Code(s): R10.9 - UNSPECIFIED ABDOMINAL PAIN SNOMED Code(s): 70743541 (3) NSTEMI (non-ST elevated myocardial infarction) Current Visit: No Status: Acute Code(s): I21.4 - NON-ST ELEVATION (NSTEMI) MYOCARDIAL INFARCTION SNOMED Code(s): 53113764 (4) Atrial fibrillation Current Visit: Yes Status: Acute Code(s): I48.91 - UNSPECIFIED ATRIAL FIBRILLATION SNOMED Code(s): 36513558 Plan: 1. Continue symptomatic and supportive care 2. Repeat CBC, INR in the a.m. 3. Repeat daily LFTs 4. Avoid hepatotoxic medications, discontinue Lipitor, discontinue allopurinol, recommend discontinuing amiodarone as possibly causing medication induced hepatitis 5. Liver ultrasound reviewed 6. AMA ordered 7. Acute hepatitis panel completed 8. KUB ordered 9. Compazine for nausea when necessary 10. Continue Protonix for GI prophylaxis 11. Continue MiraLAX for constipation and Mylicon for gas when necessary Thank you for this consultation, we will continue to follow. Dr. Jimenez Champagne I agree with the dictator's note, documented as a scribe by Rosa Ortiz.
[2021-01-23] MEDS: SODIUM CHLORIDE 0.9% 1,000 ML IV SCH (18:27)
[2021-01-23] MEDS: LATANOPROST 0.005% OPHTH DROPS 2.5 ML BTL BOTH EYES SCH (21:06)
[2021-01-24] MEDS: PIPERACILLIN-TAZOBACTAM 3.375 GM in SODIUM CHLORIDE 0.9% 100 ML IVPB SCH ×4 (00:09→23:08)
[2021-01-24] MEDS: PANTOPRAZOLE 40 MG TABLET PO SCH (06:40)
[2021-01-24 08:42] LABS: Magnesium 2.2 mg/dL (1.6-2.3); Potassium 3.7 mmol/L (3.5-5.1)
[2021-01-24] MEDS: AMIODARONE 200 MG TAB PO SCH ×2 (09:23→19:59)
[2021-01-24] MEDS: APIXABAN 5 MG TAB PO SCH ×2 (09:23→19:59)
[2021-01-24] MEDS: METOPROLOL SUCCINATE (ER) 25 MG TAB.ER.24H PO SCH (09:23)
[2021-01-24] MEDS: SIMETHICONE 80 MG CHEWABLE PO SCH ×4 (09:24→19:59)
[2021-01-24] MEDS: FERROUS SULFATE 325 MG TAB PO SCH (09:24)
[2021-01-24] MEDS: FUROSEMIDE 20 MG TAB PO SCH (09:24)
[2021-01-24] MEDS: SACUBITRIL/VALSARTAN 24 MG-26 MG TABLET PO SCH ×2 (09:24→19:59)
[2021-01-24] MEDS: polyethylene glycoL 3350 17 GM POWD.PACK PO SCH (09:25)
[2021-01-24 09:44] LABS: HGB 9.9 gm/dL (11.4-16.0); Hypochromasia Slight; MCH 31.9 pg (25.0-35.0); MCHC 30.9 g/dL (31.0-37.0); MCV 103.1 fL (80.0-100.0); Macrocytosis Slight; Mean Platelet Volume 8.1; Platelet Count 350 k/uL (150-450); RBC 3.11 m/uL (3.80-5.40); RDW 15.4 % (11.5-15.5); WBC 20.7 k/uL (3.8-10.6)
[2021-01-24 09:57] LABS: Albumin 2.4 g/dL (3.5-5.0); Potassium 3.8 mmol/L (3.5-5.1); Total Bilirubin 3.8 mg/dL (0.2-1.3); Total Protein 5.5 g/dL (6.3-8.2)
[2021-01-24 10:21] LABS: INR 1.2 (<1.2)
[2021-01-24 10:22] LABS: Prothrombin Time 12.2 sec (9.0-12.0)
--- NOTE | 2021-01-24 12:16 | P.PN ---
Subjective This is an 85 or old female seen and examined sitting up in bed in no acute distress. She is minimally responsive. We are following secondary to cardiomyopathy and atrial fibrillation. Blood pressure 122/70 heart rate 85 afebrile maintaining oxygen saturation on nasal cannula. Laboratory data reviewed, WBC 22.2, hemoglobin 9.9, platelets 393, sodium 134, potassium 3.2, creatinine 1. Currently maintained on amiodarone 400 mg by mouth twice a day, Eliquis 5 mg twice a day, atorvastatin 20 mg at bedtime, Lasix 20 mg by mouth daily, Toprol 25 mg daily and entresto 24/26 mg BID. Telemetry tracings reveal atrial fibrillation with controlled ventricular rates. 01/24/2021 Pt seen and examined sitting up in bed in no acute distress. She is more conversational today. She denies symptoms of chest pain, shortness of breath, dizziness or palpitations. Blood pressure 111/65 heart rate 70 afebrile and maintaining oxygen saturation on room air. Laboratory data reviewed, WBC 20, hemoglobin 9.9, platelets 350, sodium 134, potassium 3.8, creatinine 1.22. Telemetry tracings reveal atrial fibrillation with controlled ventricular rates. GENERAL: Well-appearing, well-nourished and in no acute distress. NECK: Supple without JVD or thyromegaly. LUNGS: Breath sounds clear to auscultation bilaterally. Respiration equal and unlabored. No wheezes, rales or rhonchi. HEART: Irregular rate and rhythm without murmurs, rubs or gallops. S1 and S2 heard. EXTREMITIES: Normal range of motion, no edema. No clubbing or cyanosis. Peripheral pulses intact. ASSESSMENT Acute coronary syndrome Acute systolic heart failure New-onset atrial fibrillation, duration unknown Urinary tract infection Aspiration pneumonia Hypertension Dyslipidemia Chronic kidney disease Peripheral vascular disease, bilateral carotid stenosis PLAN Continue current medical regimen. We will follow along as needed. Nurse Practitioner note has been reviewed, I agree with a documented findings and plan of care. Patient was seen and examined. Objective - Vital Signs Vital signs: Vital Signs Temp 97.8 F 01/24/21 09:30 Pulse 70 01/24/21 09:30 Resp 16 01/24/21 09:30 BP 111/65 01/24/21 09:30 Pulse Ox 98 01/24/21 09:30 Intake & Output 01/23/21 01/24/21 01/24/21 18:59 06:59 18:59 Intake Total 1260 240 Output Total 275 900 Balance 985 -900 240 Weight 77.5 kg Intake: Oral 1260 240 Output: Urine 275 900 Other: Voiding Method Indwelling Catheter Indwelling Catheter Indwelling Catheter # Voids 1 - Labs CBC & Chem 7: 01/24/21 09:11 01/24/21 09:11 Labs: Abnormal Lab Results - Last 24 Hours (Table) 01/24/21 01/24/21 01/24/21 Range/Units 09:11 09:11 09:11 WBC 20.7 H (3.8-10.6) k/uL RBC 3.11 L (3.80-5.40) m/uL Hgb 9.9 L (11.4-16.0) gm/dL Hct 32.0 L (34.0-46.0) % MCV 103.1 H (80.0-100.0) fL MCHC 30.9 L (31.0-37.0) g/dL PT 12.2 H (9.0-12.0) sec INR 1.2 H (<1.2) Sodium 134 L (137-145) mmol/L Chloride 109 H (98-107) mmol/L Carbon Dioxide 14 L (22-30) mmol/L BUN 29 H (7-17) mg/dL Creatinine 1.22 H (0.52-1.04) mg/dL Glucose 140 H (74-99) mg/dL Calcium 8.0 L (8.4-10.2) mg/dL Total Bilirubin 3.8 H (0.2-1.3) mg/dL AST 79 H (14-36) U/L ALT 45 H (4-34) U/L Alkaline Phosphatase 754 H (38-126) U/L Total Protein 5.5 L (6.3-8.2) g/dL Albumin 2.4 L (3.5-5.0) g/dL Microbiology - Last 24 Hours (Table) 01/18/21 22:00 Blood Culture - Preliminary Blood No Growth after 120 hours 01/18/21 20:30 Blood Culture - Preliminary Blood No Growth after 120 hours
--- NOTE | 2021-01-24 14:09 | P.PN ---
Subjective Progress Note Date: 01/24/21 HISTORY OF PRESENT ILLNESS This is an 85-year-old female patient of Dr. Brennon Delong with past medical history of hypertension, gout, chronic kidney disease stage III, bilateral carotid stenosis. Patient had a recent hospitalization with us in September of this year which time she presented with slurring of speech and right-sided weakness, sepsis with bacteremia and Klebsiella UTI. Patient was discharged to subacute rehab at [facility] and continues to reside there. She states that yesterday she developed a cough along with shortness of breath and chest pressure. She denies abdominal pain. She was found to be hypoxic with pulse ox in the 80s. She states she has not had much of an appetite over the last 3 days, has not been eating or drinking much and had a fever approximately 3 days ago. She was transferred to [facility] for evaluation and there was concern about ST elevation on EKG but subsequently cardiology has evaluated and EKG was A. fib with left bundle branch. Patient was provided with TPA. Lab work from [place] reveals elevated white blood cell count in the 20s, initial troponin 0.16, d-dimer greater than 4.4. Chest x-ray without acute process. Patient was then transferred to [facility] emergency center. Patient has been placed on BiPAP initially now seen in the ICU on O2 at 2 L nasal cannula. Patient was on norepinephrine for brief period and is status post 2 L of IV fluid maintaining adequate blood pressure. Patient did have episode of A. fib with heart rates in the 100s to 130s And cardiology has ordered amiodarone bolus which has affected her blood pressure somewhat but not back on vasopressors at this point and amiodarone drip. Laboratory studies here revealed white count of 29.2, hemoglobin 11.3, platelet count 304. INR 1.2. Sodium 129 with repeat 134. CO2 17, BUN 34 creatinine 1.0 3. Troponins have been 0.79 and 2.57. Lactic acid 7.1 currently down to 1.4. Magnesium 2.0. Liver function tests are all elevated with total bilirubin 2.5, AST 250, ALT 115, alkaline phosphatase 873. Marvin virus not detected. Echocardiogram reveals EF of 30-35% with borderline concentric left ventricular hypertrophy, moderate mitral regurgitation, moderate tricuspid regurgitation, mild pulmonary hypertension. Echocardiogram performed in September revealed EF of 50-55% with mild mitral regurgitation, mild tricuspid regurgitation. Patient was admitted into the intensive care unit and consults are also in place with pulmonary medicine. Patient is status post a azithromycin and Rocephin 1 dose each and currently on Zosyn. CT angiogram of the chest and repeat chest x- ray ordered for today. Patient denies history of irregular heartbeat. She is not O2 dependent. 01/20: Patient is doing slightly but better today, ejection fraction came at 30- 35% Only. Patient was switched to azithromycin and Zosyn after receiving 1 dose of Rocephin with suspicion for aspiration pneumonia. Heart failure management still not doing well at this point. Liver function test and ultrasound did not show any major abnormality, patient still been treated for UTI, culture is not finalized so far. She still on heparin drip and patient most likely will require amiodarone drip at this point because of her A. fib still not well-controlled with oral medication. Chest x-ray will be done tomorrow again to see the change compared to the original one if there is any more infiltrate or more heart failure with fluid retention. 01/21: Patient is resting comfortable still in the ICU as an overflow, she is not having any chest pain or angina, her A. fib is well controlled this point. Patient remain on anticoagulation with Eliquis 5 mg twice a day pulse rate is under better control so far having to start amiodarone 400 mg twice a day when she is ready to be discharge we will reduce amiodarone to 200 mg twice a day for one week then once a day thereafter the meanwhile patient is to be watch for any bradycardia she was taking off metoprolol by cardiology since yesterday. Hemoglobin is dropped down today to 8.7 and her GFR decline down to 37 from 47 yesterday. Repeat CMP and CBC tomorrow patient possible discharge to [facility] on Friday. 01/22: Patient is not comfortable today she still in the ICU as an overflow has not had any chest pain or angina but has been feeling sick to her stomach with significant nausea, abdominal x-ray showed severe constipation with impacted stool, patient will be having Fleet Enema originally and some laxative to help to resolve the problem. Review her chest x-ray still showing no sign of infection with the base of the lungs more clear at this point. Patient also is not any management for heart failure more than the metoprolol and Lasix with try to add Entresto smaller dose if patient able to tolerate it. 01/23: Continue good bowel movement yesterday and abdominal pain and constipation have resolved. Patient has been started on Entresto is currently on amiodarone at 400 mg twice daily followed by cardiology. Patient is seen and followed by GI for elevated liver function tests possibly related to medication effect. There is concern is related to amiodarone which cardiology is to address, allopurinol and Lipitor have been discontinued. Repeat blood work reveals WBC 22.2, hemoglobin 9.9, platelet count 393. Sodium 134, potassium 3.2 and has been replaced, chloride 108, CO2 16, BUN 23 creatinine 1. Total bilirubin 5.1, AST 92, ALT 55, alkaline phosphatase 854. Anti-mitochondrial antibody 8.2. Urine culture has been finalized with E. coli 01/24: Patient has no new complaints today. Her repeat blood work reveals total bilirubin 3.8, AST 79, ALT 45, alkaline phosphatase 754. Sodium 134, potassium 3.8, chloride 109, CO2 14, BUN 29 and creatinine 1.22. WBC 20.7, hemoglobin 9.9, platelet count 350. Heart rate is in the 70s, afebrile, blood pressure 111/65, pulse ox 90% on room air. We will decrease amiodarone to 200 mg twice daily. Repeat lab work ordered for tomorrow probable discharge back to [facility] tomorrow. Sultana catheter will be removed. REVIEW OF SYSTEMS Constitutional: Reported fever, no chills, no night sweats. No weight change. Reported weakness, reported fatigue no lethargy. No daytime sleepiness. EENT: No headache. No blurred vision or double vision, no loss of vision. No dizziness. No nasal drainage or congestion. No epistaxis. No sore throat. Lungs: Reported mild shortness of breath, cough, no sputum production. No wheezing. Cardiovascular: Denies chest pain, no lower extremity edema. Denies palpitations. No paroxysmal nocturnal dyspnea. No orthopnea. No lightheadedness or dizziness. No syncopal episodes. Abdominal: Denies abdominal pain. No nausea, vomiting. No diarrhea. No constipation. No bloody or tarry stools. Reports loss of appetite. Genitourinary: No dysuria, increased frequency, urgency. No urinary retention. Musculoskeletal: No myalgias. No muscle weakness, no gait dysfunction, no frequent falls. No back pain. No neck pain. Integumentary: No wounds, no lesions. No rash or pruritus. No unusual bruising. No change in hair or nails. Neurologic: No aphasia. No facial droop. No change in mentation. No head injury. No headache. No paralysis. No paresthesia. Psychiatric: No depression. No anxiety. No mood swings. Endocrine: No abnormal blood sugars. No weight change. PHYSICAL EXAMINATION Gen: This is an 85-year-old female. Patient is sitting up in bed and appears to be comfortable, in no acute distress noted. HEENT: Head is atraumatic, normocephalic. Pupils equal, round. Sclerae is anicteric. Oral mucous membranes slightly dry. NECK: Supple. No JVD. No lymphadenopathy. No thyromegaly. LUNGS: Clear to auscultation. No wheezes or rhonchi. No intercostal retractions. No accessory muscle usage. HEART: Irregular rate and rhythm. No murmur. ABDOMEN: Soft. Bowel sounds are present. No masses. No tenderness. Sultana catheter draining clear francisco urine. EXTREMITIES: bilat pedal edema. No calf tenderness. Dorsalis pedis +2 bilaterally. NEUROLOGICAL: Patient is awake, alert and oriented x3. Cranial nerves 2 through 12 are grossly intact. ASSESSMENT AND PLAN 1. Non-ST elevated myocardial infarction. post TPA patient still seeing cardiology echocardiogram showed ischemic cardiopathy no intervention will be done at this point with her medical management will add Entresto continue metoprolol along with furosemide and if able to tolerate smaller dose of spironolactone. 2. ischemic cardiomyopathy: With very low ejection fraction, patient be started on Entresto will try to add Aldactone the next day or 2 if she is able to tolerated. 3. UTI and possible aspiration pneumonia: Urine culture was positive for E. coli with ESBL patient remain on Zosyn will be switched to Macrodantin or Bactrim when she is ready to leave the hospital. 4. Hypotension possible septic shock versus cardiogenic shock. Suspect sepsis as underlying cause due to fever prior to arrival and leukocytosis. Patient is currently on Zosyn, repeat chest x-ray ordered, urinalysis and culture to be obtained. 5. A. fib with RVR, new onset paroxysmal atrial fibrillation. Patient is still on metoprolol and amiodarone decreased to 200 mg twice a day and try to move to 200 mg twice a day before she leaves the hospital also still on Eliquis 5 mg twice a day. 6. Elevated liver function tests secondary to shock liver. Hold atorvastatin, monitor CMP. Doing well so far. 7. History of hypertension. She is off amlodipine and continue metoprolol. 8. Chronic gout. Continue allopurinol 100 mg daily. 9. Hyperlipidemia. Was start patient back on Lipitor 40 mg daily. 10. Chronic kidney disease stage III. Avoid nephrotoxic agents, hypotension, monitor renal function. 11. Anemia of chronic disease. Continue ferrous sulfate 325 mg daily. 12. Bilateral carotid stenosis. Continue aspirin 81 mg daily, Plavix 75 mg daily, hold atorvastatin 40 mg at bedtime. 13. Glaucoma. Continue eyedrops. 14 severe constipation and impaction: Continue patient on laxatives along with Fleet enema. 15. Drug-induced hepatitis. Lipitor and allopurinol on hold. We'll decrease amiodarone to 200 mg twice daily. CODE STATUS: DO NOT RESUSCITATE Prognosis: Is very guarded. DISCHARGE PLAN Return to [facility] on Impression and plan of care have been directed as dictated by the signing physician. Elidia Messina nurse practitioner acting as scribe for signing physician. Objective - Vital Signs Vital signs: Vital Signs Temp 97.8 F 01/24/21 09:30 Pulse 70 01/24/21 09:30 Resp 16 01/24/21 09:30 BP 111/65 01/24/21 09:30 Pulse Ox 98 01/24/21 09:30 Intake & Output 01/23/21 01/24/21 01/24/21 18:59 06:59 18:59 Intake Total 1260 240 Output Total 275 900 Balance 985 -900 240 Weight 77.5 kg Intake: Oral 1260 240 Output: Urine 275 900 Other: Voiding Method Indwelling Catheter Indwelling Catheter Indwelling Catheter # Voids 1 - Labs CBC & Chem 7: 01/24/21 09:11 01/24/21 09:11 Labs: Abnormal Lab Results - Last 24 Hours (Table) 01/24/21 01/24/21 01/24/21 Range/Units 09:11 09:11 09:11 WBC 20.7 H (3.8-10.6) k/uL RBC 3.11 L (3.80-5.40) m/uL Hgb 9.9 L (11.4-16.0) gm/dL Hct 32.0 L (34.0-46.0) % MCV 103.1 H (80.0-100.0) fL MCHC 30.9 L (31.0-37.0) g/dL PT 12.2 H (9.0-12.0) sec INR 1.2 H (<1.2) Sodium 134 L (137-145) mmol/L Chloride 109 H (98-107) mmol/L Carbon Dioxide 14 L (22-30) mmol/L BUN 29 H (7-17) mg/dL Creatinine 1.22 H (0.52-1.04) mg/dL Glucose 140 H (74-99) mg/dL Calcium 8.0 L (8.4-10.2) mg/dL Total Bilirubin 3.8 H (0.2-1.3) mg/dL AST 79 H (14-36) U/L ALT 45 H (4-34) U/L Alkaline Phosphatase 754 H (38-126) U/L Total Protein 5.5 L (6.3-8.2) g/dL Albumin 2.4 L (3.5-5.0) g/dL Microbiology - Last 24 Hours (Table) 01/18/21 22:00 Blood Culture - Preliminary Blood No Growth after 120 hours 01/18/21 20:30 Blood Culture - Preliminary Blood No Growth after 120 hours
--- NOTE | 2021-01-24 15:17 | P.PN ---
Subjective Progress Note Date: 01/24/21 Principal diagnosis: Transaminitis 85-year-old female who presented to the emergency department with complaints of shortness of breath. She was diagnosed with non-STEMI, atrial fibrillation, hypotension, acute hypoxic respiratory failure and sepsis. She was noted to have elevated LFTs on admission. They initially were trending down however today she had an increase in LFTs. Today her total bilirubin was 5.1 AST 92 AST 55 alkaline phosphatase 854. Yesterday the patient was complaining of abdominal pain, she was unsure of her last bowel movement. She was given an enema and MiraLAX.. Patient was seen previously and September of this year with elevated LFTs at that time as well. Patient continues to deny any history of liver disease, alcohol abuse, hepatitis, or any new medications. She previously had a full liver serology workup which was negative. AMA was ordered which was negative. Patient is denying any abdominal pain, nausea, or vomiting. She had another lar ge bowel movement today. LFTs are stable, trending down. Objective - Vital Signs Vital signs: Vital Signs Temp 98.7 F 01/24/21 13:15 Pulse 86 01/24/21 13:15 Resp 20 01/24/21 13:15 BP 101/45 01/24/21 13:15 Pulse Ox 95 01/24/21 13:15 Intake & Output 01/23/21 01/24/21 01/24/21 18:59 06:59 18:59 Intake Total 1260 1780 Output Total 275 900 Balance 985 -900 1780 Weight 77.5 kg Intake: Oral 1260 1780 Output: Urine 275 900 Other: Voiding Method Indwelling Catheter Indwelling Catheter Indwelling Catheter # Voids 1 - Exam General appearance: The patient is alert, oriented, appears in no acute distress. HET: Head is normocephalic and atraumatic. Conjunctiva pink. Sclera anicteric. Neck: Supple without lymphadenopathy. Abdomen: Soft, nontender, nondistended with bowel sounds. No guarding or rigi dity. Extremities: Normal skin color and turgor. No pedal edema Skin: No rashes, no jaundice Neurological: No focal deficits. Alert and oriented 3. - Labs CBC & Chem 7: 01/24/21 09:11 01/24/21 09:11 Labs: Abnormal Lab Results - Last 24 Hours (Table) 01/24/21 01/24/21 01/24/21 Range/Units 09:11 09:11 09:11 WBC 20.7 H (3.8-10.6) k/uL RBC 3.11 L (3.80-5.40) m/uL Hgb 9.9 L (11.4-16.0) gm/dL Hct 32.0 L (34.0-46.0) % MCV 103.1 H (80.0-100.0) fL MCHC 30.9 L (31.0-37.0) g/dL PT 12.2 H (9.0-12.0) sec INR 1.2 H (<1.2) Sodium 134 L (137-145) mmol/L Chloride 109 H (98-107) mmol/L Carbon Dioxide 14 L (22-30) mmol/L BUN 29 H (7-17) mg/dL Creatinine 1.22 H (0.52-1.04) mg/dL Glucose 140 H (74-99) mg/dL Calcium 8.0 L (8.4-10.2) mg/dL Total Bilirubin 3.8 H (0.2-1.3) mg/dL AST 79 H (14-36) U/L ALT 45 H (4-34) U/L Alkaline Phosphatase 754 H (38-126) U/L Total Protein 5.5 L (6.3-8.2) g/dL Albumin 2.4 L (3.5-5.0) g/dL Microbiology - Last 24 Hours (Table) 01/18/21 22:00 Blood Culture - Preliminary Blood No Growth after 120 hours 01/18/21 20:30 Blood Culture - Preliminary Blood No Growth after 120 hours Assessment and Plan (1) Transaminitis Narrative/Plan: 85-year-old female who was a transfer from outside facility for shortness of breath and found to have non-STEMI, sepsis possibly related to UTI or aspiration pneumonia, hypotension, and atrial fibrillation was found to also have elevation in her LFTs. Patient was seen back in September of this year for elevated liver enzymes as well as at that time. During that hospitalization the patient had a full serologic workup which was negative. She has no previous history of liver disease, no previous history of alcohol abuse, no history of hepatitis. No recent new medications prior to hospitalization. Ultrasound of the liver was unremarkable showing visualized areas as homogeneous. She is status post cho lecystectomy. CBD with no dilation. Unclear etiology but likely related to septic shock and or hypoperfusion, however she may have underlying liver disease. Antimitochondrial antibody ordered and negative. Liver enzymes have been trending down since admission, however did see a spike and LFTs today. Cannot rule out medication-induced hepatitis. Recommend discontinuing Lipitor, allopurinol, and will discuss with cardiology regarding discontinuing amiodarone if possible as these may contribute to medication-induced hepatitis. Current Visit: No Status: Acute Code(s): R74.01 - ELEVATION OF LEVELS OF LIVER TRANSAMINASE LEVELS SNOMED Code(s): 291902948 (2) Abdominal pain Narrative/Plan: KUB x-ray showinggas and fecal material seen in nondistended colon. Moderate fecal stasis. Overall nonobstructive bowel gas pattern. Pain likely related to gas and constipation as patient states she is unsure of last time she had a bowel movement. We'll and MiraLAX daily. Patient had fleets enema and MiraLAX, patient had bowel movement. Abdominal pain resolved. Current Visit: Yes Status: Acute Code(s): R10.9 - UNSPECIFIED ABDOMINAL PAIN SNOMED Code(s): 54229936 (3) NSTEMI (non-ST elevated myocardial infarction) Current Visit: No Status: Acute Code(s): I21.4 - NON-ST ELEVATION (NSTEMI) MYOCARDIAL INFARCTION SNOMED Code(s): 62721019 (4) Atrial fibrillation Current Visit: Yes Status: Acute Code(s): I48.91 - UNSPECIFIED ATRIAL FIBRILLATION SNOMED Code(s): 08423001 Plan: 1. Continue symptomatic and supportive care 2. Repeat daily LFTs 4. Avoid hepatotoxic medications, discontinue Lipitor, discontinue allopurinol 5. Liver ultrasound reviewed 6. AMA ordered 7. Acute hepatitis panel completed 8. Antiemetics as needed 9. Continue Protonix for GI prophylaxis 10. Continue MiraLAX for constipation and Mylicon for gas when necessary 11. Continue outpatient follow-up on LFTs, elevated LFTs likely related to sepsis/hypoperfusion with possibility of component of underlying liver disease Thank you for this consultation, we will continue to follow. Dr. Jimenez Champagne I agree with the dictator's note, documented as a scribe by Rosa Ortiz.
[2021-01-24] MEDS: SODIUM CHLORIDE 0.9% 1,000 ML IV SCH (15:38)
[2021-01-24] MEDS: LATANOPROST 0.005% OPHTH DROPS 2.5 ML BTL BOTH EYES SCH (21:22)
[2021-01-25] MEDS: PANTOPRAZOLE 40 MG TABLET PO SCH (06:16)
[2021-01-25] MEDS: PIPERACILLIN-TAZOBACTAM 3.375 GM in SODIUM CHLORIDE 0.9% 100 ML IVPB SCH (07:53)
[2021-01-25] MEDS: polyethylene glycoL 3350 17 GM POWD.PACK PO SCH (07:53)
[2021-01-25] MEDS: SIMETHICONE 80 MG CHEWABLE PO SCH ×2 (07:54→11:54)
[2021-01-25] MEDS: SACUBITRIL/VALSARTAN 24 MG-26 MG TABLET PO SCH (07:54)
[2021-01-25] MEDS: FERROUS SULFATE 325 MG TAB PO SCH (07:55)
[2021-01-25] MEDS: METOPROLOL SUCCINATE (ER) 25 MG TAB.ER.24H PO SCH (07:55)
[2021-01-25] MEDS: AMIODARONE 200 MG TAB PO SCH (07:55)
[2021-01-25] MEDS: FUROSEMIDE 20 MG TAB PO SCH (07:56)
[2021-01-25] MEDS: SODIUM CHLORIDE 0.9% 1,000 ML IV SCH (07:56)
[2021-01-25] MEDS: APIXABAN 5 MG TAB PO SCH (07:56)
--- NOTE | 2021-01-25 10:19 | P.DS ---
Providers Date of admission: 01/18/21 20:59 Expected date of discharge: 01/25/21 Attending physician: Maria A Sparks MD Consults: 01/18/21 20:52 Consult Physician Routine Consulting Provider: Bianca Villalobos Consult Reason/Comments: dx w stemi at outside hospital and given TNK Do you want consulting provider notified?: Already Contacted 01/18/21 20:53 Consult Physician Routine Consulting Provider: Meagan Padron Consult Reason/Comments: icu patient Do you want consulting provider notified?: Already Contacted 01/19/21 14:53 Consult Physician Routine Consulting Provider: Peggy Champagne Consult Reason/Comments: elevated LFT's Do you want consulting provider notified?: Yes Primary care physician: Brennon Delong [facility] Course: HISTORY OF PRESENT ILLNESS This is an 85-year-old female patient of Dr. Brennon Delong with past medical history of hypertension, gout, chronic kidney disease stage III, bilateral carotid stenosis. Patient had a recent hospitalization with us in September of this year which time she presented with slurring of speech and right-sided weakness, sepsis with bacteremia and Klebsiella UTI. Patient was discharged to subacute rehab at [facility] and continues to reside there. She states that yesterday she developed a cough along with shortness of breath and chest pressure. She denies abdominal pain. She was found to be hypoxic with pulse ox in the 80s. She states she has not had much of an appetite over the last 3 days, has not been eating or drinking much and had a fever approximately 3 days ago. She was t ransferred to [facility] for evaluation and there was concern about ST elevation on EKG but subsequently cardiology has evaluated and EKG was A. fib with left bundle branch. Patient was provided with TPA. Lab work from [facility] reveals elevated white blood cell count in the 20s, initial troponin 0.16, d-dimer greater than 4.4. Chest x-ray without acute process. Patient was then transferred to [facility] emergency center. Patient has been placed on BiPAP initially now seen in the ICU on O2 at 2 L nasal cannula. Patient was on norepinephrine for brief period and is status post 2 L of IV fluid maintaining adequate blood pressure. Patient did have episode of A. fib with heart rates in the 100s to 130s And cardiology has ordered amiodarone bolus which has affected her blood pressure somewhat but not back on vasopressors at this point and amiodarone drip. Laboratory studies here revealed white count of 29.2, hemoglobin 11.3, platelet count 304. INR 1.2. Sodium 129 with repeat 134. CO2 17, BUN 34 creatinine 1.03. Troponins have been 0.79 and 2.57. Lactic acid 7.1 currently down to 1.4. Magnesium 2.0. Liver function tests are all elevated with total bilirubin 2.5, AST 250, ALT 115, alkaline phosphatase 873. Marvin virus not detected. Echocardiogram reveals EF of 30-35% with borderline concentric left ventricular hypertrophy, moderate mitral regurgitation, moderate tricuspid regurgitation, mild pulmonary hypertension. Echocardiogram performed in September revealed EF of 50-55% with mild mitral regurgitation, mild tricuspid regurgitation. Patient was admitted into the intensive care unit and consults are also in place with pulmonary medicine. Patient is status post a azithromycin and Rocephin 1 dose each and currently on Zosyn. CT angiogram of the chest and repeat chest x- ray ordered for today. Patient denies history of irregular heartbeat. She is not O2 dependent. 01/20: Patient is doing slightly but better today, ejection fraction came at 30- 35% Only. Patient was switched to azithromycin and Zosyn after receiving 1 dose of Rocephin with suspicion for aspiration pneumonia. Heart failure management still not doing well at this point. Liver function test and ultrasound did not show any major abnormality, patient still been treated for UTI, culture is not finalized so far. She still on heparin drip and patient most likely will require amiodarone drip at this point because of her A. fib still not well-controlled with oral medication. Chest x-ray will be done tomorrow again to see the change compared to the or iginal one if there is any more infiltrate or more heart failure with fluid retention. 01/21: Patient is resting comfortable still in the ICU as an overflow, she is not having any chest pain or angina, her A. fib is well controlled this point. Patient remain on anticoagulation with Eliquis 5 mg twice a day pulse rate is under better control so far having to start amiodarone 400 mg twice a day when she is ready to be discharge we will reduce amiodarone to 200 mg twice a day for one week then once a day thereafter the meanwhile patient is to be watch for any bradycardia she was taking off metoprolol by cardiology since yesterday. Hemoglobin is dropped down today to 8.7 and her GFR decline down to 37 from 47 yesterday. Repeat CMP and CBC tomorrow patient possible discharge to [facility] on Friday morning. 01/22: Patient is not comfortable today she still in the ICU as an overflow has not had any chest pain or angina but has been feeling sick to her stomach with significant nausea, abdominal x-ray showed severe constipation with impacted stool, patient will be having Fleet Enema originally and some laxative to help to resolve the problem. Review her chest x-ray still showing no sign of infection with the base of the lungs more clear at this point. Patient also is not any management for heart failure more than the metoprolol and Lasix with try to add Entresto smaller dose if patient able to tolerate it. 01/23: Continue good bowel movement yesterday and abdominal pain and constipation have resolved. Patient has been started on Entresto is currently on amiodarone at 400 mg twice daily followed by cardiology. Patient is seen and followed by GI for elevated liver function tests possibly related to medication effect. There is concern is related to amiodarone which cardiology is to address, allopurinol and Lipitor have been discontinued. Repeat blood work reveals WBC 22.2, hemoglobin 9.9, platelet count 393. Sodium 134, potassium 3.2 and has been replaced, chloride 108, CO2 16, BUN 23 creatinine 1. Total bilirubin 5.1, AST 92, ALT 55, alkaline phosphatase 854. Anti-mitochondrial antibody 8.2. Urine culture has been finalized with E. coli 01/24: Patient has no new complaints today. Her repeat blood work reveals total bilirubin 3.8, AST 79, ALT 45, alkaline phosphatase 754. Sodium 134, potassium 3.8, chloride 109, CO2 14, BUN 29 and creatinine 1.22. WBC 20.7, hemoglobin 9.9, platelet count 350. Heart rate is in the 70s, afebrile, blood pressure 111/65, pulse ox 90% on room air. We will decrease amiodarone to 200 mg twice daily. Repeat lab work ordered for tomorrow probable discharge back to [facility] tomorrow. Sultana catheter will be removed. 01/25: Patient is seen today in follow-up. She denies any new complaints. She's been afebrile, heart rate 82, blood pressure 136/89, pulse ox 95% on room air. Repeat blood work reveals sodium 134, potassium 4.4, chloride 110, CO2 13, BUN 40, creatinine 1.24. Blood sugar 118. Total bilirubin 1.8, AST 50, ALT 36, alkaline phosphatase 591. Albumin 2.4. Attempted to contact patient's nephew Chris Lubin but no answer on several occasions. Plan was to update him on her condition and recommend palliative care/hospice care in the future. Antibiotics will be switched to oral Augmentin and patient will be discharged to [facility] today in stable condition. DISCHARGE DIAGNOSES 1. Non-ST elevated myocardial infarction. post TPA 2. Ischemic cardiomyopathy. 3. UTI and possible aspiration pneumonia. 4. Hypotension possible septic shock versus cardiogenic shock. Suspect sepsis as underlying cause due to fever prior to arrival and leukocytosis. . 5. A. fib with RVR, new onset paroxysmal atrial fibrillation. . 6. Elevated liver function tests secondary to shock liver. . 7. History of hypertension. . 8. Chronic gout. 9. Hyperlipidemia. 10. Chronic kidney disease stage III. 11. Anemia of chronic disease. 12. Bilateral carotid stenosis. 13. Glaucoma. C 14. Severe constipation and impaction. DISCHARGE PLAN Return to [facility] Impression and plan of care have been directed as dictated by the signing physician. Elidia Messina nurse practitioner acting as scribe for signing physician. Patient Condition at Discharge: Stable Plan - Discharge Summary Discharge Rx Participant: No New Discharge Prescriptions: New Apixaban [Eliquis] 5 mg PO BID tab Potassium Chloride ER [K-Dur 20] 20 meq PO Q1HR tablet Amiodarone [Cordarone] 200 mg PO BID tab Sacubitril/Valsartan [Entresto 24 mg-26 mg Tablet] 1 each PO BID tablet polyethylene glycoL 3350 [Miralax] 17 gm PO DAILY packet Pantoprazole [Protonix] 40 mg PO AC-BRKFST tab Metoprolol Succinate (ER) [Toprol XL] 25 mg PO DAILY tablet Amoxic-Pot Clav 500-125 mg [Augmentin 500-125 mg] 1 tab PO Q12HR #14 tab Continue Ipratropium-Albuterol Nebulize [Duoneb 0.5 mg-3 mg/3 ml Soln] 3 ml INHALATION RT-QID PRN ml PRN Reason: Shortness Of Breath Mag Hydrox/Aluminum Hyd/Simeth [Mylanta Maximum Strength Liq] 30 ml PO Q4H PRN PRN Reason: Indigestion Ferrous Sulfate [Iron (65 MG Elemental)] 325 mg PO DAILY Travoprost [Travatan Z 0.004%] 1 drop BOTH EYES HS Acetaminophen Tab [Tylenol] 650 mg PO Q6H PRN PRN Reason: Pain Bisacodyl 5 - 10 mg PO Q72H PRN PRN Reason: Constipation bisacodyL [Dulcolax] 10 mg RECTAL Q72H PRN PRN Reason: Constipation Furosemide [Lasix] 20 mg PO DAILY Ascorbic Acid [Vitamin C] 500 mg PO DAILY Discontinued Aspirin 81 mg PO DAILY chew Metoprolol Tartrate [Lopressor] 25 mg PO BID Allopurinol [Zyloprim] 100 mg PO DAILY amLODIPine [Norvasc] 5 mg PO DAILY tab Clopidogrel [Plavix] 75 mg PO DAILY #0 tab HYDROcodone/APAP 5-325MG [[place] 5-325] 1 tab PO TID@0900,1300,2100 Atorvastatin [Lipitor] 40 mg PO HS Discharge Medication List Travoprost [Travatan Z 0.004%] 1 drop BOTH EYES HS 09/12/20 [History] Ipratropium-Albuterol Nebulize [Duoneb 0.5 mg-3 mg/3 ml Soln] 3 ml INHALATION RT-QID PRN ml 09/18/20 [Rx] Acetaminophen Tab [Tylenol] 650 mg PO Q6H PRN 01/18/21 [History] Ascorbic Acid [Vitamin C] 500 mg PO DAILY 01/18/21 [History] Bisacodyl 5 - 10 mg PO Q72H PRN 01/18/21 [History] Ferrous Sulfate [Iron (65 MG Elemental)] 325 mg PO DAILY 01/18/21 [History] Furosemide [Lasix] 20 mg PO DAILY 01/18/21 [History] Mag Hydrox/Aluminum Hyd/Simeth [Mylanta Maximum Strength Liq] 30 ml PO Q4H PRN 01/18/21 [History] bisacodyL [Dulcolax] 10 mg RECTAL Q72H PRN 01/18/21 [History] Amiodarone [Cordarone] 200 mg PO BID tab 01/23/21 [Rx] Apixaban [Eliquis] 5 mg PO BID tab 01/23/21 [Rx] Metoprolol Succinate (ER) [Toprol XL] 25 mg PO DAILY tablet 01/23/21 [Rx] Pantoprazole [Protonix] 40 mg PO AC-BRKFST tab 01/23/21 [Rx] Potassium Chloride ER [K-Dur 20] 20 meq PO Q1HR tablet 01/23/21 [Rx] Sacubitril/Valsartan [Entresto 24 mg-26 mg Tablet] 1 each PO BID tablet 01/23/21 [Rx] polyethylene glycoL 3350 [Miralax] 17 gm PO DAILY packet 01/23/21 [Rx] Amoxic-Pot Clav 500-125 mg [Augmentin 500-125 mg] 1 tab PO Q12HR #14 tab 01/25/21 [Rx] Follow up Appointment(s)/Referral(s): Peggy Champagne MD [STAFF PHYSICIAN] - 1 Week None,Stated [REFERRING] - 1-2 days Brennon Delong MD [Primary Care Provider] - 1 Week Activity/Diet/Wound Care/Special Instructions: Hold Entresto for SBP < 90. Discharge Disposition: TRANSFER TO SNF/ECF
[2021-01-25 10:30] LABS: Albumin 2.4 g/dL (3.5-5.0); Calcium 7.8 mg/dL (8.4-10.2); Total Bilirubin 1.8 mg/dL (0.2-1.3); Total Protein 5.6 g/dL (6.3-8.2)
[2021-01-25 10:31] LABS: Potassium 4.4 mmol/L (3.5-5.1)
[2021-01-25 11:20] VITALS: BMI 31.2
[2021-01-25 12:19] VITALS: BP 114/58; PULSE 92; RESP 18; TEMP 97.9
== END 2021-01-25 12:52 | DRG 871 ==
LOC: EC 18:42 → 2SICU 20:59 → 3SCARD 01-22 20:29
PROVIDERS: ADMIT Internal Medicine; ATTEND Internal Medicine
PROC: 5A09357 Assistance with Respiratory Ventilation, Less than 24 Consecutive Hours, Continuous Positive Airway Pressure (ICD-10-PCS; principal; 2021-01-18)
DX: A41.9 Sepsis, unspecified organism (principal); R65.21 Severe sepsis with septic shock; J96.01 Acute respiratory failure with hypoxia; J69.0 Pneumonitis due to inhalation of food and vomit; I50.21 Acute systolic (congestive) heart failure; I21.4 Non-ST elevation (NSTEMI) myocardial infarction; K72.00 Acute and subacute hepatic failure without coma; N39.0 Urinary tract infection, site not specified; E87.1 Hypo-osmolality and hyponatremia; E87.2 Acidosis; I13.0 Hypertensive heart and chronic kidney disease with heart failure and stage 1 through stage 4 chronic kidney disease, or unspecified chronic kidney disease; J98.11 Atelectasis; T82.838A Hemorrhage due to vascular prosthetic devices, implants and grafts, initial encounter; N18.30 Chronic kidney disease, stage 3 unspecified; D63.1 Anemia in chronic kidney disease; I73.9 Peripheral vascular disease, unspecified; E78.5 Hyperlipidemia, unspecified; H40.9 Unspecified glaucoma; I08.1 Rheumatic disorders of both mitral and tricuspid valves; Z66 Do not resuscitate; I27.20 Pulmonary hypertension, unspecified; Z20.822 Contact with and (suspected) exposure to COVID-19; I25.2 Old myocardial infarction; I25.5 Ischemic cardiomyopathy; I48.0 Paroxysmal atrial fibrillation; I65.23 Occlusion and stenosis of bilateral carotid arteries; I44.7 Left bundle-branch block, unspecified; K56.41 Fecal impaction; R11.0 Nausea; M1A.9XX0 Chronic gout, unspecified, without tophus (tophi); E86.1 Hypovolemia; T46.2X5A Adverse effect of other antidysrhythmic drugs, initial encounter; T45.615A Adverse effect of thrombolytic drugs, initial encounter; Z79.02 Long term (current) use of antithrombotics/antiplatelets; Z79.82 Long term (current) use of aspirin; Z79.899 Other long term (current) drug therapy; Z80.9 Family history of malignant neoplasm, unspecified; Z82.49 Family history of ischemic heart disease and other diseases of the circulatory system; Z90.49 Acquired absence of other specified parts of digestive tract; Z98.890 Other specified postprocedural states
CPT/HCPCS: 36410; 36415; 71045; 71275; 74018; 76705; 76937; 80048; 80053; 80074; 81001; 82150; 83516; 83605; 83690; 83735; 84132; 84484; 85025; 85027; 85610; 85730; 86850; 86900; 86901; 87040; 87077; 87086; 87186; 87635; 93005; 93306; 94660; 94760; 96361; 96374; 99291

== ENCOUNTER 2021-05-11 08:24 | Inpatient (IN) | payer MEDICARE, BC ==
[2021-05-11] MEDS ORDERED: ONDANSETRON 4 MG/2 ML VIAL IVP STA (08:39)
[2021-05-11] MEDS ORDERED: HYDROmorphone 0.5 MG/0.5 ML SYRINGE IVP STA (08:39)
[2021-05-11] MEDS ORDERED: PANTOPRAZOLE 40 MG/10 ML VIAL IVP STA (08:39)
[2021-05-11] MEDS ORDERED: SODIUM CHLORIDE 0.9% 1,000 ML IV STA ×2 (08:39→10:29)
--- NOTE | 2021-05-11 08:43 | ED ---
General Adult HPI - General Chief complaint: Abdominal Pain Stated complaint: abd pain, black stool Time Seen by Provider: 05/11/21 08:31 Source: patient, EMS, RN notes reviewed Mode of arrival: EMS Limitations: no limitations - History of Present Illness Initial comments: Patient is a pleasant 86-year-old female presenting to the emergency Department with concerns with abdominal discomfort. Onset of symptoms was 2 days ago. Patient has had nausea and decreased appetite. Patient was supposed to have dark stool today. Patient denies history of similar symptoms previously. Patient is on Eliquis with history of atrial fibrillation. - Related Data Home Medications Medication Instructions Recorded Confirmed Acetaminophen Tab [Tylenol] 650 mg PO Q6H PRN 01/18/21 05/11/21 Ascorbic Acid [Vitamin C] 500 mg PO DAILY 01/18/21 05/11/21 Bisacodyl 10 mg PO Q48H PRN 01/18/21 05/11/21 Ferrous Sulfate [Iron (65 MG 325 mg PO DAILY 01/18/21 05/11/21 Elemental)] Furosemide [Lasix] 20 mg PO MOWEFR 01/18/21 05/11/21 Mag Hydrox/Aluminum Hyd/Simeth 30 ml PO Q4H PRN 01/18/21 05/11/21 [Mylanta Maximum Strength Liq] Amiodarone [Cordarone] 200 mg PO DAILY 05/11/21 05/11/21 Cholecalciferol [Vitamin D3 (125 125 mcg PO DAILY 05/11/21 05/11/21 Mcg = 5000 Iu)] Fenofibrate,Micronized 67 mg PO DAILY 05/11/21 05/11/21 [Fenofibrate] HYDROcodone/APAP 5-325MG [[place] 1 tab PO TID@0900,1300,2100 05/11/21 05/11/21 5-325] Latanoprost [Xalatan 0.005%] 1 drop BOTH EYES HS 05/11/21 05/11/21 Magnesium Hydroxide [Milk of 2,400 mg PO Q48H PRN 05/11/21 05/11/21 Magnesia] Omeprazole 20 mg PO DAILY 05/11/21 05/11/21 Potassium Chloride ER [K-Dur 20] 20 meq PO DAILY 05/11/21 05/11/21 Sacubitril/Valsartan [Entresto 24 1 tab PO BID 05/11/21 05/11/21 mg-26 mg Tablet] polyethylene glycoL 3350 [Miralax] 17 gm PO Q12H PRN 05/11/21 05/11/21 Previous Rx's Medication Instructions Recorded Apixaban [Eliquis] 5 mg PO BID tab 01/23/21 Allergies Allergy/AdvReac Type Severity Reaction Status Date / Time No Known Allergies Allergy Verified 05/11/21 09:28 Review of Systems ROS Statement: Those systems with pertinent positive or pertinent negative responses have been documented in the HPI. ROS Other: All systems not noted in ROS Statement are negative. Constitutional: Denies: fever Eyes: Denies: eye pain ENT: Denies: ear pain Respiratory: Denies: cough Cardiovascular: Denies: chest pain Endocrine: Denies: fatigue Gastrointestinal: Reports: as per HPI, abdominal pain, nausea, melena. Denies: vomiting Genitourinary: Denies: dysuria Musculoskeletal: Denies: back pain Skin: Denies: rash Neurological: Denies: weakness Past Medical History Past Medical History: Atrial Fibrillation, Hyperlipidemia, Hypertension Additional Past Medical History / Comment(s): gout, anemia History of Any Multi-Drug Resistant Organisms: ESBL Date of last positivie culture/infection: 01/19/21 MDRO Source:: ESBL URINE Past Surgical History: Cholecystectomy, Orthopedic Surgery Past Anesthesia/Blood Transfusion Reactions: No Reported Reaction Past Psychological History: No Psychological Hx Reported Smoking Status: Never smoker Past Alcohol Use History: None Reported Past Drug Use History: None Reported - Past Family History Mother History Unknown: Yes Family Medical History: Cancer Father History Unknown: Yes Family Medical History: Myocardial Infarction (MD) General Exam Limitations: no limitations General appearance: alert, in no apparent distress Head exam: Present: normocephalic Eye exam: Present: normal appearance Neck exam: Present: normal inspection Respiratory exam: Present: normal lung sounds bilaterally Cardiovascular Exam: Present: regular rate, normal rhythm GI/Abdominal exam: Present: soft, distended (Suprapubic), tenderness, normal bowel sounds. Absent: guarding, rebound, rigid, pulsatile mass Rectal exam: Present: other (Dark stool on exam) Extremities exam: Present: normal inspection Neurological exam: Present: alert Psychiatric exam: Present: normal affect, normal mood Skin exam: Present: normal color Course Vital Signs 05/11/21 05/11/21 08:30 11:00 Temperature 97.8 F Pulse Rate 104 H 101 H Respiratory 18 18 Rate Blood Pressure 132/68 107/50 O2 Sat by Pulse 100 100 Oximetry EKG Findings - EKG Comments: EKG Findings:: Sinus tachycardia 104. For screening AV block MS of 212. QRS 134. QT 394. QTC 518. Normal axis. Left bundle branch block. No acute ST change. Lateral T wave inversion. Medical Decision Making - Medical Decision Making Patient reevaluated and resting comfortably in bed. Patient is feeling somewhat better. Multiple hospitals contacted earlier for potential transfer for GI bleed including [facility] and [facility], and others and all still are not accepting transfers. - Lab Data Result diagrams: 05/11/21 09:00 05/11/21 09:45 Lab Results 05/11/21 05/11/21 05/11/21 Range/Units 09:00 09:00 09:00 WBC 14.5 H (3.8-10.6) k/uL RBC 3.53 L (3.80-5.40) m/uL Hgb 11.0 L (11.4-16.0) gm/dL Hct 35.0 (34.0-46.0) % MCV 99.1 (80.0-100.0) fL MCH 31.3 (25.0-35.0) pg MCHC 31.6 (31.0-37.0) g/dL RDW 14.5 (11.5-15.5) % Plt Count 329 (150-450) k/uL MPV 8.7 Neutrophils % 87 % Lymphocytes % 6 % Monocytes % 6 % Eosinophils % 1 % Basophils % 0 % Neutrophils # 12.6 H (1.3-7.7) k/uL Lymphocytes # 0.8 L (1.0-4.8) k/uL Monocytes # 0.8 (0-1.0) k/uL Eosinophils # 0.2 (0-0.7) k/uL Basophils # 0.0 (0-0.2) k/uL PT 12.0 (9.0-12.0) sec INR 1.2 H (<1.2) APTT 25.1 (22.0-30.0) sec Sodium (137-145) mmol/L Potassium (3.5-5.1) mmol/L Chloride (98-107) mmol/L Carbon Dioxide (22-30) mmol/L Anion Gap mmol/L BUN (7-17) mg/dL Creatinine (0.52-1.04) mg/dL Est GFR (CKD-EPI)AfAm (>60 ml/min/1.73 sqM) Est GFR (CKD-EPI)NonAf (>60 ml/min/1.73 sqM) Glucose (74-99) mg/dL Calcium (8.4-10.2) mg/dL Total Bilirubin (0.2-1.3) mg/dL AST (14-36) U/L ALT (4-34) U/L Alkaline Phosphatase (38-126) U/L Total Protein (6.3-8.2) g/dL Albumin (3.5-5.0) g/dL Urine Color Urine Appearance (Clear) Urine pH (5.0-8.0) Ur Specific [place] (1.001-1.035) Urine Protein (Negative) Urine Glucose (UA) (Negative) Urine Ketones (Negative) Urine Blood (Negative) Urine Nitrite (Negative) Urine Bilirubin (Negative) Urine Urobilinogen (<2.0) mg/dL Ur Leukocyte Esterase (Negative) Urine RBC (0-5) /hpf Urine WBC (0-5) /hpf Ur Squamous Epith Cells (0-4) /hpf Urine Bacteria (None) /hpf Hyaline Casts (0-2) /lpf Urine Mucus (None) /hpf Stool Occult Blood Positive H (Negative) 05/11/21 05/11/21 Range/Units 09:45 10:41 WBC (3.8-10.6) k/uL RBC (3.80-5.40) m/uL Hgb (11.4-16.0) gm/dL Hct (34.0-46.0) % MCV (80.0-100.0) fL MCH (25.0-35.0) pg MCHC (31.0-37.0) g/dL RDW (11.5-15.5) % Plt Count (150-450) k/uL MPV Neutrophils % % Lymphocytes % % Monocytes % % Eosinophils % % Basophils % % Neutrophils # (1.3-7.7) k/uL Lymphocytes # (1.0-4.8) k/uL Monocytes # (0-1.0) k/uL Eosinophils # (0-0.7) k/uL Basophils # (0-0.2) k/uL PT (9.0-12.0) sec INR (<1.2) APTT (22.0-30.0) sec Sodium 134 L (137-145) mmol/L Potassium 4.7 (3.5-5.1) mmol/L Chloride 107 (98-107) mmol/L Carbon Dioxide 17 L (22-30) mmol/L Anion Gap 10 mmol/L BUN 51 H (7-17) mg/dL Creatinine 1.25 H (0.52-1.04) mg/dL Est GFR (CKD-EPI)AfAm 45 (>60 ml/min/1.73 sqM) Est GFR (CKD-EPI)NonAf 39 (>60 ml/min/1.73 sqM) Glucose 108 H (74-99) mg/dL Calcium 9.0 (8.4-10.2) mg/dL Total Bilirubin 0.8 (0.2-1.3) mg/dL AST 22 (14-36) U/L ALT 9 (4-34) U/L Alkaline Phosphatase 55 (38-126) U/L Total Protein 6.5 (6.3-8.2) g/dL Albumin 3.2 L (3.5-5.0) g/dL Urine Color Yellow Urine Appearance Cloudy H (Clear) Urine pH 5.0 (5.0-8.0) Ur Specific [place] 1.014 (1.001-1.035) Urine Protein Negative (Negative) Urine Glucose (UA) Negative (Negative) Urine Ketones Negative (Negative) Urine Blood Negative (Negative) Urine Nitrite Negative (Negative) Urine Bilirubin Negative (Negative) Urine Urobilinogen <2.0 (<2.0) mg/dL Ur Leukocyte Esterase Large H (Negative) Urine RBC 3 (0-5) /hpf Urine WBC 96 H (0-5) /hpf Ur Squamous Epith Cells <1 (0-4) /hpf Urine Bacteria Many H (None) /hpf Hyaline Casts 3 H (0-2) /lpf Urine Mucus Rare H (None) /hpf Stool Occult Blood (Negative) - Radiology Data Radiology results: report reviewed (Computed tomography scan abdomen pelvis shows fecal impaction. Wall thickening. Fluid in the vaginal canal.) Disposition Clinical Impression: Lower GI hemorrhage, Urinary tract infection Disposition: ADMITTED IP TO THIS HOSP Is patient prescribed a controlled substance at d/c from ED?: No Referrals: Michael Gabriel MD [Primary Care Provider] - 1-2 days Decision Time: 11:48
[2021-05-11 09:24] LABS: INR 1.2 (<1.2); Partial Thromboplastin Time 25.1 sec (22.0-30.0)
[2021-05-11 09:40] LABS: Basophils % (A) 0 %; Eosinophils # (A) 0.2 k/uL (0-0.7); Eosinophils % (A) 1 %; Lymphocytes # (A) 0.8 k/uL (1.0-4.8); Lymphocytes % (A) 6 %; MCH 31.3 pg (25.0-35.0); MCHC 31.6 g/dL (31.0-37.0); MCV 99.1 fL (80.0-100.0); Mean Platelet Volume 8.7; Monocytes # (A) 0.8 k/uL (0-1.0); Monocytes % (A) 6 %; Neutrophils # (A) 12.6 k/uL (1.3-7.7); Neutrophils % (A) 87 %; Platelet Count 329 k/uL (150-450); RBC 3.53 m/uL (3.80-5.40); RDW 14.5 % (11.5-15.5); WBC 14.5 k/uL (3.8-10.6)
[2021-05-11 10:16] LABS: Albumin 3.2 g/dL (3.5-5.0); Potassium 4.7 mmol/L (3.5-5.1); Total Bilirubin 0.8 mg/dL (0.2-1.3); Total Protein 6.5 g/dL (6.3-8.2)
[2021-05-11 11:14] LABS: Appearance,Urine Cloudy (Clear); Bacteria,Urine Many /hpf; Bilirubin,Urine Negative (Negative); Blood,Urine Negative (Negative); Color,Urine Yellow; Glucose,Urine (UA) Negative (Negative); Hyaline Casts,Urine 3 /lpf (0-2); Ketones,Urine Negative (Negative); Leukocyte Esterase,Urine Large (Negative); Mucus,Urine Rare /hpf; Nitrite,Urine Negative (Negative); Protein,Urine Negative (Negative); RBC,Urine 3 /hpf (0-5); Specific Gravity,Urine 1.014 (1.001-1.035); Squamous Epithelial Cell,Urine <1 /hpf (0-4); Urobilinogen,Urine <2.0 mg/dL (<2.0); WBC,Urine 96 /hpf (0-5)
--- NOTE | 2021-05-11 11:14 | CT ---
EXAMINATION TYPE: CT abdomen pelvis w con DATE OF EXAM: 05/11/2021 COMPARISON: 09/12/2020 HISTORY: 86-year-old female pain, black stools TECHNIQUE: Contiguous axial scanning of the abdomen and pelvis following administration of 80 ml Isov ue 300 IV contrast. Delayed images through the kidneys and coronal/sagittal reconstructions performe d. CT DLP: 888 mGycm Automated exposure control for dose reduction was used. FINDINGS: Heart upper limits of normal in size without pericardial effusion. LAD coronary artery calcifications are present. Generalized hazy areas of probable atelectasis in the lower lungs. Mild emphysema. Calcified granulom a left lower lobe. No pleural effusion. Bile duct mildly dilated at 1.1 cm. Mild intrahepatic biliary ductal dilatation as well. This is in c omparison to 8 mm, previously. Further correlation with alkaline phosphatase and bilirubin levels rec ommended. Portal venous system is patent. No focal liver lesion. Gallbladder surgically absent. Adrenal glands, spleen, and atrophic pancreas show no gross abnormal. Bilateral renal cortical thinning. Small 8 mm cortical hypodensity upper pole left kidney and 5 mm la teral mid pole right kidney too small for accurate CT characterization, likely cysts. Bilateral renal cortical thinning suggesting chronic medical renal disease. No dilated small bowel, free fluid, or free air. No mesenteric or retroperitoneal lymphadenopathy. There is moderate stool in the right side of the colon. Short segments of the appendix are seen. Severe fecal impaction of the rectum, distended up to 9.7 cm wide. Mild circumferential rectal wall t hickening and mild presacral edema. A Sultana catheter is in place decompressing the bladder. There is some fluid noted within the vaginal canal. Mass effect with anterior displacement of the uterus. There is an anterior right uterine body fibroid measuring 2.5 cm. Both ovaries are visualized. No pelvic lymphadenopathy. Bones: Severe degenerative change of both hips. Bridging endplate spondylosis lower thoracic and uppe r lumbar spine compatible with DISH. Baastrup's disease. IMPRESSION: 1. SEVERE FECAL IMPACTION WITH THE RECTUM DISTENDED UP TO 9.7 CM WIDE. THE PATIENT WILL LIKELY REQUIR E DISIMPACTION. THERE IS RECTAL WALL THICKENING THAT COULD REPRESENT REACTIVE VENOUS CONGESTION OR EA RLY STERCORAL COLITIS. ADDITIONAL REACTIVE PRESACRAL EDEMA. 2. THERE IS FLUID WITHIN THE VAGINAL CANAL. QUERY ANY BLOOD FROM THE VAGINA. CORRELATE TO EXCLUDE URI NE FROM THE VAGINA SUCH FROM A FISTULA WITH THE ADJACENT BLADDER. 3. MILDLY DILATED BILE DUCT 1.1 CM PROBABLY DUE TO POSTCHOLECYSTECTOMY STATUS. IT APPEARS SLIGHTLY MO RE PROMINENT COMPARED TO 09/12/2020. CORRELATE WITH ALKALINE PHOSPHATASE AND BILIRUBIN LEVELS.
[2021-05-11] MEDS ORDERED: ONDANSETRON 4 MG/2 ML VIAL IVP PRN (11:58)
[2021-05-11] MEDS ORDERED: NALOXONE 0.4 MG/ML 1 ML VIAL IV PRN (11:58)
[2021-05-11] MEDS ORDERED: HYDROmorphone 0.5 MG/0.5 ML SYRINGE IVP PRN (11:58)
[2021-05-11] MEDS ORDERED: cefTRIAXone IN SWFI 1,000 MG/10 ML SYRINGE IVP STA (11:59)
[2021-05-11] MEDS: SODIUM CHLORIDE 0.9% 1,000 ML IV SCH (13:14)
[2021-05-11] MEDS ORDERED: MAG HYDROX/AL HYDROX/SIMETH 30 ML CUP PO PRN (15:54)
[2021-05-11] MEDS ORDERED: bisacodyL 5 MG TABLET.DR PO PRN (15:54)
[2021-05-11] MEDS ORDERED: polyethylene glycoL 3350 17 GM POWD.PACK PO PRN (15:54)
[2021-05-11] MEDS ORDERED: MAGNESIUM HYDROXIDE 2,400 MG/10 ML CUP PO PRN (15:54)
[2021-05-11] MEDS: FUROSEMIDE 20 MG TAB PO SCH (16:28)
[2021-05-11] MEDS: AMIODARONE 200 MG TAB PO SCH (16:28)
[2021-05-11] MEDS ORDERED: NA PHOS,M-B/NA PHOS,DI-BA 133 ML ENEMA RECTAL ONE (18:14)
--- NOTE | 2021-05-11 18:46 | HP ---
HISTORY AND PHYSICAL DATE OF SERVICE: 05/11/2021 CHIEF COMPLAINTS: Abdominal pain and black stool. HISTORY OF PRESENT ILLNESS: This 86-year-old woman with a past medical history of multiple medical problems, including atrial fibrillation, history of hypertension, hyperlipidemia, history of history of ESBL, being followed by a family physician in [facility], was complaining of multiple complaints, including weakness and abdominal discomfort, and the patient came to [facility] and was admitted for further evaluation and treatment. The patient also had some dark stools. The patient was found to have creatinine of 1.25, indicating chronic kidney disease, stage 3. The patient also had features of UTI. Patient was also found to be constipated. Stool OB was also positive. The patient was admitted for further evaluation and treatment. GI bleed was suspected. The patient was unable to give a coherent history; most of the history is taken from my discussion with staff and review of the chart at this time. PAST MEDICAL HISTORY: History of atrial fibrillation, history of hypertension, hyperlipidemia, history of gout, anemia, ESBL. HOME MEDICATIONS: Reviewed. They include MiraLAX, Entresto, K-Dur, milk of magnesia, Mylanta, Xalatan, [place]. Doses are reviewed. ALLERGIES: NONE. FAMILY HISTORY: History of cancer in the family. SOCIAL HISTORY: No history of smoking. No history of alcohol intake. REVIEW OF SYSTEMS: ENT: No diminished hearing. No diminished vision. CARDIOVASCULAR SYSTEM: As mentioned earlier. RESPIRATORY SYSTEM: As mentioned earlier. GI: No nausea, vomiting, diarrhea. : No dysuria. NERVOUS SYSTEM: No numbness, weakness. ALLERGY/IMMUNOLOGY: No asthma or hay fever. MUSCULOSKELETAL: As mentioned earlier. HEMATOLOGY/ONCOLOGY: No history of anemia. ENDOCRINE: As mentioned earlier. CONSTITUTIONAL: As mentioned earlier. DERMATOLOGY: Negative. RHEUMATOLOGY: Negative. PSYCHIATRY: As mentioned earlier. PHYSICAL EXAMINATION: Patient alert and oriented x3. Pulse 129, irregular. Blood pressure is 124/61, respiration 14, temperature normal, pulse ox 99% on 2 L. HEENT: Conjunctivae normal. Oral mucosa moist. NECK: No jugular venous distention. CARDIOVASCULAR: S1, S2 muffled. RESPIRATION: Breath sounds diminished at the bases. Scattered rhonchi. ABDOMEN: Soft, obese, non-tender. No mass palpable. LEGS: No edema. No swelling. NERVOUS SYSTEM: Higher functions as mentioned earlier. Moves all 4 limbs. No focal motor or sensory deficit. LYMPHATICS: No lymph node palpable in neck, axillae or groin. SKIN: No ulcer, rash, bleeding. JOINTS: No active deforming arthropathy. LAB STUDIES: WBC 14.5. INR 1.2. Sodium 134. Other labs are noted. ASSESSMENT: 1. Acute urinary tract infection with sepsis, present on admission. 2. Abdominal pain. Rule out GI blood loss. 3. Constipation. 4. Urinary retention. 5. Increased white count. 6. Anemia. 7. Hyponatremia. 8. Chronic kidney disease, stage 3. 9. Atrial fibrillation history with a fast ventricular rate. 10.Hypertension. 11.Hyperlipidemia. 12.History of gout. 13.Anemia. 14.History of ESBL. 15.History of degenerative joint disease. 16.History of cholecystectomy. 17.FULL CODE. RECOMMENDATIONS AND DISCUSSION: In this 86-year-old woman who presented with multiple complex medical issues, I recommend continuing the current medications. At this time will initiate broad- spectrum IV antibiotics. Otherwise, cardiology consultation. The heart rate is persistently high Cardizem drip may be initiated. Otherwise, home medications will be continued and cultures will be obtained. Overall prognosis guarded because of multiple complex medical issues. Further recommendations to follow. MMODL / IJN: [id number] / SPENCER
--- NOTE | 2021-05-11 18:46 | P.GSCN ---
History of Present Illness Consult date: 05/11/21 Reason for Consult: Fecal impaction on CT, Hemoccult-positive stool, question of GI bleed, oral anticoagulation on direct thrombin inhibitor, history of atrial arrhythmia. History of present illness: Patient's an 86-year-old lady who presents to [facility] emergency department on 05/11/2021 from either an extended living facility or correction with complaints of lower abdominal pain over the past week or so. She admits to some manner of difficulty with urination but she is not able to go into detail. She tells me over this time frame she's been having dark blackish bowel movement doesn't describe hematochezia to me. She doesn't disclose fever or chills. She admits to being essentially bedbound due to some manner of lower extremity issues. Patient's maintained on direct thrombin inhibitor, has a history of atrial arrhythmia. She denies history of stroke, DVT, pulmonary embolus or heart attack. Laboratory studies on admission revealed a mild leukocytosis, mildly low hemoglobin, normal range platelet count, borderline INR 1.2, and evidence of urinary tract infection on urinalysis. A computed tomography scan of the abdomen and pelvis showed a rectal fecal impaction measuring 10 x 12.5 Cm on Imaging but No Pronounced Inflammatory Changes No Obstructive Findings No Free Air. There Is Retained Stool up to Just Proximal to the Splenic Flexure. 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 Patient states that she is no code, DO NOT INTUBATE, DO NOT RESUSCITATE. Her abdominal pain seems to have settled for the time being. She's had at least 1 loose bowel movement since coming to the emergency department. She tells me that recently her appetite has been quite poor denies specific nausea or emesis denies epigastric abdominal pains. She does admit to taking Pepto-Bismol on a regular basis. Stool is occult blood positive. Review of Systems All systems: negative (Lower abdominal pain, progressive weakness, poor appetite.) Past Medical History Past Medical History: Atrial Fibrillation, Hyperlipidemia, Hypertension Additional Past Medical History / Comment(s): gout, anemia History of Any Multi-Drug Resistant Organisms: ESBL Year Discovered:: 01/19/21 MDRO Source:: ESBL URINE Past Surgical History: Cholecystectomy, Orthopedic Surgery Past Anesthesia/Blood Transfusion Reactions: No Reported Reaction Past Psychological History: No Psychological Hx Reported Smoking Status: Never smoker Past Alcohol Use History: None Reported Past Drug Use History: None Reported - Past Family History Mother History Unknown: Yes Family Medical History: Cancer Father History Unknown: Yes Family Medical History: Myocardial Infarction ([place]) Medications and Allergies Home Medications Medication Instructions Recorded Confirmed Type Acetaminophen Tab [Tylenol] 650 mg PO Q6H PRN 01/18/21 05/11/21 History Ascorbic Acid [Vitamin C] 500 mg PO DAILY 01/18/21 05/11/21 History Bisacodyl 10 mg PO Q48H PRN 01/18/21 05/11/21 History Ferrous Sulfate [Iron (65 MG 325 mg PO DAILY 01/18/21 05/11/21 History Elemental)] Furosemide [Lasix] 20 mg PO MOWEFR 01/18/21 05/11/21 History Mag Hydrox/Aluminum Hyd/Simeth 30 ml PO Q4H PRN 01/18/21 05/11/21 History [Mylanta Maximum Strength Liq] Apixaban [Eliquis] 5 mg PO BID tab 01/23/21 05/11/21 Rx Amiodarone [Cordarone] 200 mg PO DAILY 05/11/21 05/11/21 History Cholecalciferol [Vitamin D3 (125 125 mcg PO DAILY 05/11/21 05/11/21 History Mcg = 5000 Iu)] Fenofibrate,Micronized 67 mg PO DAILY 05/11/21 05/11/21 History [Fenofibrate] HYDROcodone/APAP 5-325MG [[place] 1 tab PO TID@0900,1300,2100 05/11/21 05/11/21 History 5-325] Latanoprost [Xalatan 0.005%] 1 drop BOTH EYES HS 05/11/21 05/11/21 History Magnesium Hydroxide [Milk of 2,400 mg PO Q48H PRN 05/11/21 05/11/21 History Magnesia] Omeprazole 20 mg PO DAILY 05/11/21 05/11/21 History Potassium Chloride ER [K-Dur 20] 20 meq PO DAILY 05/11/21 05/11/21 History Sacubitril/Valsartan [Entresto 24 1 tab PO BID 05/11/21 05/11/21 History mg-26 mg Tablet] polyethylene glycoL 3350 [Miralax] 17 gm PO Q12H PRN 05/11/21 05/11/21 History Allergies Allergy/AdvReac Type Severity Reaction Status Date / Time No Known Allergies Allergy Verified 05/11/21 09:28 Surgical - Exam Osteopathic Statement: *. No significant issues noted on an osteopathic structural exam other than those noted in the History and Physical/Consult. Vital Signs Temp Pulse Resp BP Pulse Ox 97.8 F 104 H 18 132/68 100 05/11/21 08:30 05/11/21 08:30 05/11/21 08:30 05/11/21 08:30 05/11/21 08:30 - General no distress, cachectic - Eyes PERRL, normal ocular movement - ENT normal pinna, normal nares - Neck no masses - Respiratory normal expansion, normal respiratory effort, clear to auscultation - Cardiovascular Rhythm: other (Heart sounds distant, irregular.) - Abdomen Abdomen: soft, tender (Mild to moderate lower abdominal and suprapubic tenderness to palpation. No guarding, rebound or distention.) Hernia: none - Genitourinary normal external genitalia - Rectum Rectum: no masses (Sphincter tone is somewhat lax, digital rectal exam was performed at bedside, no intraluminal mass no evidence of hematochezia, no significant hemorrhoidal disease. A moderate to large amount of formed although somewhat soft blackish stool was disimpacted without difficulty), other - Musculoskeletal other (Patient has readily apparent peripheral muscle wasting. Exam is consistent with someone has been bedbound for some time.) - Psychiatric oriented to time, oriented to person, oriented to place Results - Labs 05/11/21 09:00 05/11/21 09:45 Abnormal Lab Results - Last 24 Hours (Table) 05/11/21 05/11/21 05/11/21 Range/Units 09:00 09:00 09:00 WBC 14.5 H (3.8-10.6) k/uL RBC 3.53 L (3.80-5.40) m/uL Hgb 11.0 L (11.4-16.0) gm/dL Neutrophils # 12.6 H (1.3-7.7) k/uL Lymphocytes # 0.8 L (1.0-4.8) k/uL INR 1.2 H (<1.2) Sodium (137-145) mmol/L Carbon Dioxide (22-30) mmol/L BUN (7-17) mg/dL Creatinine (0.52-1.04) mg/dL Glucose (74-99) mg/dL Albumin (3.5-5.0) g/dL Urine Appearance (Clear) Ur Leukocyte Esterase (Negative) Urine WBC (0-5) /hpf Urine Bacteria (None) /hpf Hyaline Casts (0-2) /lpf Urine Mucus (None) /hpf Stool Occult Blood Positive H (Negative) 05/11/21 05/11/21 Range/Units 09:45 10:41 WBC (3.8-10.6) k/uL RBC (3.80-5.40) m/uL Hgb (11.4-16.0) gm/dL Neutrophils # (1.3-7.7) k/uL Lymphocytes # (1.0-4.8) k/uL INR (<1.2) Sodium 134 L (137-145) mmol/L Carbon Dioxide 17 L (22-30) mmol/L BUN 51 H (7-17) mg/dL Creatinine 1.25 H (0.52-1.04) mg/dL Glucose 108 H (74-99) mg/dL Albumin 3.2 L (3.5-5.0) g/dL Urine Appearance Cloudy H (Clear) Ur Leukocyte Esterase Large H (Negative) Urine WBC 96 H (0-5) /hpf Urine Bacteria Many H (None) /hpf Hyaline Casts 3 H (0-2) /lpf Urine Mucus Rare H (None) /hpf Stool Occult Blood (Negative) Microbiology - Last 24 Hours (Table) 05/11/21 10:41 Urine Culture - Preliminary Urine,Voided Diabetes panel 05/11/21 Range/Units 09:45 Sodium 134 L (137-145) mmol/L Potassium 4.7 (3.5-5.1) mmol/L Chloride 107 (98-107) mmol/L Carbon Dioxide 17 L (22-30) mmol/L BUN 51 H (7-17) mg/dL Creatinine 1.25 H (0.52-1.04) mg/dL Glucose 108 H (74-99) mg/dL Calcium 9.0 (8.4-10.2) mg/dL AST 22 (14-36) U/L ALT 9 (4-34) U/L Alkaline Phosphatase 55 (38-126) U/L Total Protein 6.5 (6.3-8.2) g/dL Albumin 3.2 L (3.5-5.0) g/dL Calcium panel 05/11/21 Range/Units 09:45 Calcium 9.0 (8.4-10.2) mg/dL Albumin 3.2 L (3.5-5.0) g/dL Pituitary panel 05/11/21 Range/Units 09:45 Sodium 134 L (137-145) mmol/L Potassium 4.7 (3.5-5.1) mmol/L Chloride 107 (98-107) mmol/L Carbon Dioxide 17 L (22-30) mmol/L BUN 51 H (7-17) mg/dL Creatinine 1.25 H (0.52-1.04) mg/dL Glucose 108 H (74-99) mg/dL Calcium 9.0 (8.4-10.2) mg/dL Adrenal panel 05/11/21 Range/Units 09:45 Sodium 134 L (137-145) mmol/L Potassium 4.7 (3.5-5.1) mmol/L Chloride 107 (98-107) mmol/L Carbon Dioxide 17 L (22-30) mmol/L BUN 51 H (7-17) mg/dL Creatinine 1.25 H (0.52-1.04) mg/dL Glucose 108 H (74-99) mg/dL Calcium 9.0 (8.4-10.2) mg/dL Total Bilirubin 0.8 (0.2-1.3) mg/dL AST 22 (14-36) U/L ALT 9 (4-34) U/L Alkaline Phosphatase 55 (38-126) U/L Total Protein 6.5 (6.3-8.2) g/dL Albumin 3.2 L (3.5-5.0) g/dL Assessment and Plan Assessment: 86-year-old lady with presenting fecal impaction, disimpacted at bedside. No obstructive findings, no pronounced evidence of colitis. No intra-abdominal free air or free fluid of significance seen. Positive Hemoccult, maintained on oral anticoagulant in the setting of atrial arrhythmia. Overall clinical picture would be more suggestive of chronic upper GI bleeding source. Unclear as to when the patient's last colonoscopy was. She tells me that she underwent colonoscopy many years ago and there were no specific findings of significance that she recalls. Advanced age of 86, essentially bedbound, DNR/DNI. Mild anemia without flagrant signs of iron deficiency on differential. She has a hemodynamically stable appearance at present. 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 Plan: Patient has been admitted to the medical service, presently awaiting bed availability. She was disimpacted at bedside without any difficulty. I'd suggest warm soapsuds enemas twice daily and then until clear. She is mildly tachycardic with signs of urinary tract infection, antibiotics have been or dered. I would give her some time in the hospital prior to giving further consideration to inpatient EGD. I don't suspect hemodynamically significant ongoing blood loss at present. The decision would be up to her as to whether she wants to pursue endoscopy. We'll give some time for hydration and treatment of UTI and revisit the issue over the coming few days. No urgent indications at present. Daily CBC. Would recommend holding oral anticoagulants for now. Consider urology for [facility] consultation. We will follow Time with Patient: Greater than 30
[2021-05-11] MEDS ORDERED: SACUBITRIL/VALSARTAN 24 MG-26 MG TABLET PO SCH (21:00)
[2021-05-11] MEDS: HYDROcodone/APAP 5-325MG 1 EACH TAB PO SCH (22:24)
[2021-05-11 22:57] LABS: Basophils % (A) 0 %; Eosinophils % (A) 0 %; HCT 30.3 % (34.0-46.0); Hypochromasia Marked; Lymphocytes # (A) 0.5 k/uL (1.0-4.8); Lymphocytes % (A) 2 %; MCH 32.1 pg (25.0-35.0); MCHC 31.3 g/dL (31.0-37.0); MCV 102.5 fL (80.0-100.0); Macrocytosis Slight; Monocytes # (A) 0.8 k/uL (0-1.0); Monocytes % (A) 4 %; Neutrophils # (A) 21.1 k/uL (1.3-7.7); Neutrophils % (A) 93 %; Platelet Count 305 k/uL (150-450); RBC 2.95 m/uL (3.80-5.40); RDW 14.8 % (11.5-15.5); WBC 22.6 k/uL (3.8-10.6)
[2021-05-11] MEDS: LATANOPROST 0.005% OPHTH DROPS 2.5 ML BTL BOTH EYES SCH (22:58)
[2021-05-11 23:00] LABS: HGB 9.5 gm/dL (11.4-16.0)
[2021-05-11 23:00] LABS: African American GFR (CKD) 33 (>60 ml/min/1.73 sqM); Anion Gap 16 mmol/L; Blood Urea Nitrogen 46 mg/dL (7-17); Calcium 8.9 mg/dL (8.4-10.2); Carbon Dioxide 13 mmol/L (22-30); Chloride 103 mmol/L (98-107); Glucose 99 mg/dL (74-99); Non-African American GFR(CKD) 28 (>60 ml/min/1.73 sqM); Potassium 4.6 mmol/L (3.5-5.1); Sodium 132 mmol/L (137-145)
[2021-05-12] MEDS: SODIUM CHLORIDE 0.9% 1,000 ML IV SCH ×5 (01:48→21:33)
[2021-05-12 07:02] LABS: Basophils % (A) 0 %; Eosinophils % (A) 0 %; HCT 27.5 % (34.0-46.0); HGB 8.3 gm/dL (11.4-16.0); Hypochromasia Marked; Lymphocytes # (A) 1.1 k/uL (1.0-4.8); Lymphocytes % (A) 7 %; MCH 31.3 pg (25.0-35.0); MCHC 30.1 g/dL (31.0-37.0); MCV 104.1 fL (80.0-100.0); Macrocytosis Moderate; Monocytes # (A) 0.8 k/uL (0-1.0); Monocytes % (A) 5 %; Neutrophils # (A) 15.1 k/uL (1.3-7.7); Neutrophils % (A) 87 %; Platelet Count 274 k/uL (150-450); RBC 2.64 m/uL (3.80-5.40); RDW 14.9 % (11.5-15.5); WBC 17.4 k/uL (3.8-10.6)
[2021-05-12] MEDS ORDERED: PANTOPRAZOLE 40 MG TABLET PO SCH (07:30)
[2021-05-12] MEDS: CHOLECALCIFEROL 125 MCG (5000 IU) TABLET PO SCH (08:26)
[2021-05-12] MEDS: POTASSIUM CHLORIDE ER 20 MEQ TAB.ER PO SCH (08:26)
[2021-05-12] MEDS: FERROUS SULFATE 325 MG TAB PO SCH ×2 (08:26→21:29)
[2021-05-12] MEDS: AMIODARONE 200 MG TAB PO SCH (08:27)
[2021-05-12] MEDS: FENOFIBRATE 54 MG TAB PO SCH (08:27)
[2021-05-12] MEDS: ASCORBIC ACID 500 MG TAB PO SCH (08:27)
[2021-05-12] MEDS: HYDROcodone/APAP 5-325MG 1 EACH TAB PO SCH ×3 (08:28→21:29)
[2021-05-12] MEDS ORDERED: PANTOPRAZOLE 40 MG/10 ML VIAL IV SCH ×2 (09:00→21:00)
[2021-05-12] MEDS ORDERED: FERROUS SULFATE 325 MG TAB PO SCH (09:00)
[2021-05-12] MEDS: SODIUM CHLORIDE 0.9% 250 ML IV SCH ×2 (12:20→14:02)
[2021-05-12 12:24] LABS: % Iron Saturation 4.23 (12.00-45.00); African American GFR (CKD) 35.9 (60.0-200.0); Anion Gap 17.7 mmol/L (10.00-18.00); BUN/Creat Ratio 31.07 Ratio (12.00-20.00); Blood Urea Nitrogen 46.6 mg/dL (9.0-27.0); Calcium 8.3 mg/dL (8.7-10.3); Carbon Dioxide 14.3 mmol/L (20.0-27.5); Folate, Serum 9.9 ng/mL (4.40-31.00); Potassium 4.3 mmol/L (3.5-5.5)
--- NOTE | 2021-05-12 12:53 | P.CRDCN ---
History of Present Illness Consult date: 05/12/21 Reason for Consult (text): elevated HR, hx afib History of present illness: HISTORY OF PRESENTING ILLNESS This is an 86-year-old female patient with past medical history significant for carotid artery stenosis, hypertension, hyperlipidemia, non-ST [place], paroxysmal atrial fibrillation. ECF due to lower abdominal pain for the past week, dark bl ackish bowel movements and evaluation for GI bleed. We have been asked to see the patient for increased heart rate and history of atrial fibrillation. 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 Patient denies having any abdominal pain and denies having any blood in her stool at this time, no fever or chills. She thinks she is eating okay. Apparently she is normally bed or wheelchair bound. Patient is noted to be no code and blood pressure is low at 78/40. Unclear if family is planning for aggressive treatment. EKG is sinus tachycardia with left bundle branch block. CAT scan of the abdomen revealed severe fecal impaction. Fluid in the vaginal canal. Mildly dilated bile duct probably due to postcholecystectomy status. Laboratory studies: WBC down to 17.4, hemoglobin 8.3 which is down from 11.0. Sodium 134, potassium 4.3, chloride 102, CO2 14.3. BUN 46.6 and creatinine 1.5. Blood sugar 82. Iron 10, TIBC 244, iron saturation 4.2, transferrin 174. Kuldeep ritin level 233. Pro-calcitonin 14.8. Folate 9.9, vitamin B12 375. Urinalysis cloudy, leukoesterase large, WBCs 96, bacteria many. Stool for occult blood positive. Coronavirus PCR not detected. REVIEW OF SYSTEMS At the time of my exam: CONSTITUTIONAL: no fever, no chills. CARDIOVASCULAR: Denies chest pain, no shortness of breath, no orthopnea, PND or palpitations. RESPIRATORY: Denies cough. GASTROINTESTINAL: Denies abdominal pain, diarrhea, constipation, nausea or vomiting. MUSCULOSKELETAL: Denies myalgias. NEUROLOGIC: Denies numbness, tingling or weakness. ENDOCRINE: Denies fatigue, weight change, polydipsia or polyurina. GENITOURINARY: Denies burning, hematuria or urgency with micturation. HEMATOLOGIC: Denies history of anemia or bleeding. PHYSICAL EXAMINATION Vital signs reviewed. CONSTITUTIONAL: No apparent distress. HEENT: Head is normocephalic. Pupils are equal, round. Sclerae anicteric. Mucous membranes of the mouth are moist. No JVD. No carotid bruit. CHEST EXAMINATION: Lungs are clear to auscultation. No chest wall tenderness is noted on palpation or with deep breathing. HEART EXAMINATION: regular rate and rhythm. S1, S2 heard. No murmurs, gallops or rub. ABDOMEN: Soft, nontender. Positive bowel sounds. Sultana catheter. EXTREMITIES: 2+ peripheral pulses, no lower extremity edema and no calf tenderness. NEUROLOGIC EXAMINATION: Patient is awake, alert and oriented x3. ASSESSMENT Acute GI bleed Acute urinary tract infection and sepsis Hypotension Acute kidney injury Anemia, possible acute blood loss anemia Hx of Non-STEMI Carotid artery stenosis Paroxysmal atrial fibrillation History of hypertension Hyperlipidemia PLAN Agree with holding eliquis due to GI bleed Continue amiodarone if blood pressure can tolerate Hold Entresto due to hypotension Would recommend vasopressors if family wishes to aggressively treat Continue antibiotics, urine culture, monitor blood cultures UTI 01/2021 was due to ESBL E. coli and would not be covered by ceftriaxone and fluoroquinolone resistant, patient's nurse updated Further recommendations to follow. Nurse Practitioner note has been reviewed, I agree with a documented findings and plan of care. Patient was seen and examined. Past Medical History Past Medical History: Atrial Fibrillation, Hyperlipidemia, Hypertension Additional Past Medical History / Comment(s): gout, anemia History of Any Multi-Drug Resistant Organisms: ESBL Date of last positivie culture/infection: 01/19/21 MDRO Source:: ESBL URINE Past Surgical History: Cholecystectomy, Orthopedic Surgery Additional Past Surgical History / Comment(s): bilateral knee replacements Past Anesthesia/Blood Transfusion Reactions: No Reported Reaction Past Psychological History: No Psychological Hx Reported Smoking Status: Never smoker Past Alcohol Use History: None Reported Past Drug Use History: None Reported - Past Family History Mother History Unknown: Yes Family Medical History: Cancer Father History Unknown: Yes Family Medical History: Myocardial Infarction ([place]) Medications and Allergies Home Medications Medication Instructions Recorded Confirmed Type Acetaminophen Tab [Tylenol] 650 mg PO Q6H PRN 01/18/21 05/11/21 History Ascorbic Acid [Vitamin C] 500 mg PO DAILY 01/18/21 05/11/21 History Bisacodyl 10 mg PO Q48H PRN 01/18/21 05/11/21 History Ferrous Sulfate [Iron (65 MG 325 mg PO DAILY 01/18/21 05/11/21 History Elemental)] Furosemide [Lasix] 20 mg PO MOWEFR 01/18/21 05/11/21 History Mag Hydrox/Aluminum Hyd/Simeth 30 ml PO Q4H PRN 01/18/21 05/11/21 History [Mylanta Maximum Strength Liq] Apixaban [Eliquis] 5 mg PO BID tab 01/23/21 05/11/21 Rx Amiodarone [Cordarone] 200 mg PO DAILY 05/11/21 05/11/21 History Cholecalciferol [Vitamin D3 (125 125 mcg PO DAILY 05/11/21 05/11/21 History Mcg = 5000 Iu)] Fenofibrate,Micronized 67 mg PO DAILY 05/11/21 05/11/21 History [Fenofibrate] HYDROcodone/APAP 5-325MG [[place] 1 tab PO TID@0900,1300,2100 05/11/21 05/11/21 History 5-325] Latanoprost [Xalatan 0.005%] 1 drop BOTH EYES HS 05/11/21 05/11/21 History Magnesium Hydroxide [Milk of 2,400 mg PO Q48H PRN 05/11/21 05/11/21 History Magnesia] Omeprazole 20 mg PO DAILY 05/11/21 05/11/21 History Potassium Chloride ER [K-Dur 20] 20 meq PO DAILY 05/11/21 05/11/21 History Sacubitril/Valsartan [Entresto 24 1 tab PO BID 05/11/21 05/11/21 History mg-26 mg Tablet] polyethylene glycoL 3350 [Miralax] 17 gm PO Q12H PRN 05/11/21 05/11/21 History Allergies Allergy/AdvReac Type Severity Reaction Status Date / Time No Known Allergies Allergy Verified 05/11/21 09:28 Physical Exam Vitals: Vital Signs Temp Pulse Pulse Resp BP BP BP 05/12/21 08:30 89 16 72/42 05/12/21 06:14 87/50 05/12/21 04:41 80/39 05/12/21 04:39 82/41 05/12/21 04:13 98.0 F 89 12 74/30 05/12/21 03:06 106 H 76/45 05/12/21 01:45 106 H 62/34 05/12/21 00:29 106 H 69/42 05/11/21 23:01 101 H 86/49 05/11/21 22:53 105 H 65/34 05/11/21 22:24 102 H 75/40 05/11/21 22:12 108 H 63/36 05/11/21 22:02 97.5 F L 110 H 20 05/11/21 21:58 101 H 139/118 05/11/21 21:53 138 H 62/30 05/11/21 21:52 125 H 70/40 05/11/21 16:34 129 H 05/11/21 16:26 129 H 124/64 05/11/21 14:00 106 H 14 117/58 05/11/21 13:00 102 H 14 83/70 05/11/21 12:00 99 14 107/50 05/11/21 11:29 100 14 107/50 05/11/21 11:00 101 H 18 107/50 Pulse Ox 05/12/21 08:30 100 05/12/21 06:14 05/12/21 04:41 05/12/21 04:39 05/12/21 04:13 100 05/12/21 03:06 05/12/21 01:45 05/12/21 00:29 05/11/21 23:01 05/11/21 22:53 100 05/11/21 22:24 05/11/21 22:12 05/11/21 22:02 100 05/11/21 21:58 05/11/21 21:53 05/11/21 21:52 05/11/21 16:34 05/11/21 16:26 99 05/11/21 14:00 100 05/11/21 13:00 100 05/11/21 12:00 100 05/11/21 11:29 100 05/11/21 11:00 100 Intake and Output 05/11/21 05/12/21 05/12/21 22:59 06:59 14:59 Intake Total 900 Output Total 500 Balance -500 900 Intake: Intake, IV Titration 900 Amount Sodium Chloride 0.9% 1, 400 000 ml @ 50 mls/hr IV . Q20H [facility] Rx#:[id number] Sodium Chloride 0.9% 1, 500 000 ml @ 500 mls/hr IV . Q2H [facility] Rx#:[id number] Output: Urine 500 Other: Voiding Method Indwelling Catheter Indwelling Catheter # Bowel Movements 1 Weight 71 kg Results 05/12/21 06:11 05/12/21 06:07 CBC 05/11/21 05/12/21 Range/Units 22:18 06:11 WBC 22.6 H 17.4 H (3.8-10.6) k/uL RBC 2.95 L 2.64 L (3.80-5.40) m/uL Hgb 9.5 L D 8.3 L (11.4-16.0) gm/dL Hct 30.3 L 27.5 L (34.0-46.0) % Plt Count 305 274 (150-450) k/uL Comprehensive Metabolic Panel 05/11/21 Range/Units 22:23 Sodium 132 L (137-145) mmol/L Potassium 4.6 (3.5-5.1) mmol/L Chloride 103 (98-107) mmol/L Carbon Dioxide 13 L (22-30) mmol/L BUN 46 H (7-17) mg/dL Creatinine 1.63 H (0.52-1.04) mg/dL Glucose 99 (74-99) mg/dL Calcium 8.9 (8.4-10.2) mg/dL Current Medications Generic Name Dose Route Start Last Admin Trade Name Freq PRN Reason Stop Dose Admin Hydrocodone Bitart/Acetaminophen 1 each 05/11/21 21:00 05/12/21 08:28 Hydrocodone/Apap 5-325mg 1 Each Tab PO Not Given TID@0900,1300,2100 [facility] Al Hydroxide/Mg Hydroxide 30 ml 05/11/21 15:54 Mag Hydrox/Al Hydrox/Simeth 30 Ml Cup PO Q4H PRN Indigestion Amiodarone HCl 200 mg 05/11/21 17:00 05/12/21 08:27 Amiodarone 200 Mg Tab PO 200 mg DAILY [facility] Administration Ascorbic Acid 500 mg 05/12/21 09:00 05/12/21 08:27 Ascorbic Acid 500 Mg Tab PO 500 mg DAILY [facility] Administration Bisacodyl 10 mg 05/11/21 15:54 Bisacodyl 5 Mg Tablet. PO Q48H PRN Constipation Cholecalciferol 125 mcg 05/12/21 09:00 05/12/21 08:26 Cholecalciferol 125 Mcg (5000 Iu) Tablet PO 125 mcg DAILY [facility] Administration Fenofibrate 54 mg 05/12/21 09:00 05/12/21 08:27 Fenofibrate 54 Mg Tab PO 54 mg DAILY [facility] Administration Ferrous Sulfate 325 mg 05/12/21 09:00 05/12/21 08:26 Ferrous Sulfate 325 Mg Tab PO 325 mg BID [facility] Administration Furosemide 20 mg 05/11/21 16:00 05/11/21 16:28 Furosemide 20 Mg Tab PO 20 mg MOWEFR [facility] Administration Hydromorphone HCl 0.5 mg 05/11/21 11:58 Hydromorphone 0.5 Mg/0.5 Ml Syringe IVP Q3HR PRN Moderate Pain Sodium Chloride 1,000 mls @ 50 mls/hr 05/11/21 12:00 05/12/21 01:48 Saline 0.9% IV 50 mls/hr .Q20H [facility] Administration Ceftriaxone Sodium 1 gm/ 50 mls @ 100 mls/hr 05/11/21 21:00 05/12/21 08:25 Sodium Chloride IVPB 100 mls/hr Q12HR [facility] Administration Latanoprost 1 drops 05/11/21 21:00 05/11/21 22:58 Latanoprost 0.005% Ophth Drops 2.5 Ml Btl BOTH EYES Not Given HS [facility] Magnesium Hydroxide 2,400 mg 05/11/21 15:54 Magnesium Hydroxide 2,400 Mg/10 Ml Cup PO Q48H PRN Constipation Naloxone HCl 0.2 mg 05/11/21 11:58 Naloxone 0.4 Mg/Ml 1 Ml Vial IV Q2M PRN Opioid Reversal Ondansetron HCl 4 mg 05/11/21 11:58 Ondansetron 4 Mg/2 Ml Vial IVP Q8HR PRN Nausea And Vomiting Pantoprazole Sodium 40 mg 05/12/21 09:00 05/12/21 08:27 Pantoprazole 40 Mg/10 Ml Vial IV 40 mg DAILY [facility]I Administration Polyethylene Glycol 17 gm 05/11/21 15:54 Polyethylene Glycol 3350 17 Gm Powd.Pack PO Q12H PRN Constipation Potassium Chloride 20 meq 05/12/21 09:00 05/12/21 08:26 Potassium Chloride Er 20 Meq Tab.Er PO 20 meq DAILY [facility]I Administration Intake and Output 05/11/21 05/12/21 05/12/21 22:59 06:59 14:59 Intake Total 900 Output Total 500 Balance -500 900 Intake: Intake, IV Titration 900 Amount Sodium Chloride 0.9% 1, 400 000 ml @ 50 mls/hr IV . Q20H [facility] Rx#:[id number] Sodium Chloride 0.9% 1, 500 000 ml @ 500 mls/hr IV . Q2H [facility] Rx#:[id number] Output: Urine 500 Other: Voiding Method Indwelling Catheter Indwelling Catheter # Bowel Movements 1 Weight 71 kg 05/12/21 06:11 05/11/21 22:23
[2021-05-12] MEDS ORDERED: ERTAPENEM 1 GM in SODIUM CHLORIDE 0.9% 50 ML IVPB STA (13:09)
[2021-05-12] MEDS ORDERED: ERTAPENEM 0.5 GM in SODIUM CHLORIDE 0.9% 50 ML IVPB STA (13:12)
[2021-05-12] MEDS ORDERED: CYANOCOBALAMIN 1,000 MCG/ML 1 ML VIAL IM ONE (13:13)
--- NOTE | 2021-05-12 13:25 | P.PN ---
Progress Note - Text Progress Note Date: 05/12/21 Patient is seen and examined at bedside. She tells me that she is feeling slightly better today than on admission. She's been tolerating small amounts of liquids throughout the day, appetite remains poor. She has no specific complaints of pain. Does not describe fever chills nausea or emesis. She does not report bowel movement overnight but a single bowel movement was charted per nursing. She has been mildly tachycardic up to the 90s and hypotensive with systolics as low as the 70s over 40s. She is presently on Protonix drip equivalent with 40 mg twice daily, 2 units of blood are presently pending impatience awaiting transfer to the ICU for closer monitoring and possible hemodynamic support. CBC this morning shows a slight improvement in leukocytosis with white blood cell count of 17.4, presenting left shift has improved from 21 to 15.1. Hemoglobin has declined from 9.5-8.3, platelet count was 274. Iron panel shows there is in normal range at 233, transferrin was low at 174, absolute iron level was low at 10, TIBC 244, percent saturation 4.23. B12 and folate were both w ithin acceptable thresholds. Serum sodium is 134, potassium 4.3, CO2 of 14.3, creatinine has improved slightly to 1.5. Glucose of 82. Pro calcitonin was elevated at 14.8. Venous lactate 1.3 overnight. Heart rate 89, blood pressure 78/40, respiratory rate 16 at 100% O2 saturation on 2 L nasal cannula. Cardiovascular: Heart sounds are distant without appreciable murmur. Respiratory: Lungs are clear to auscultation bilaterally. Abdominal exam: Today there is mild epigastric tenderness to palpation, no guarding rebound or distention. The patient's suprapubic and lower abdominal tenderness seems to have subsided. Extremities: Distal extremities are all warm and well perfused. There is skeletal muscle wasting evident. Impression: 1) 86-year-old lady with presenting fecal impaction, Hemoccult positive stool, dwindling hemoglobin, suspected urosepsis with question of bladder fistula suggested on CT. Differential diagnosis of low hemoglobin would include hemorrhagic gastritis, peptic ulcer disease, AV malformation or angiodysplasia, complications of portal hypertension, neoplasia, erosive esophagitis and less likely lower GI bleeding sources as well as hemodilution overnight with fluid boluses. History of paroxysmal atrial fibrillation on Eliquis as an outpatient, previous history of non-ST elevation [place]. Persistent hypotension and mild tachycardia overnight. May relate to anemia, may relate to urosepsis or combination thereof. Iron panel is suggestive of a degree of anemia of chronic disease with retained ferritin level. Plan: 1) Agree with Protonix drip equivalent, agree with initial 2 units packed red blood cells to cover for possible ongoing blood loss. I do suspect a degree of hemodilution with respect to the patient's interval hemoglobin drop. It's difficult to exclude ongoing bleeding presently without the benefit of endoscopy. Digital rectal exam and disimpaction in the ER by myself and did not reveal lucy melena, there was no bright red bleeding. She did have dark Hemoccult positive stool and an abundance thereof more consistent with a slow chronic issue. With the patient's age and relatively frail state I think it would be simeon to get 2 units of packed red blood cells on board prior to interventions. The patient tells me that she would want to pursue diagnostic EGD if it helps clarify things. The other question is to presence of urosepsis. Patient has history of previous multidrug resistant organisms and UTI in the relatively recent past. She is presently being treated with Rocephin, antibiotic adjustments are pending. Patient is awaiting transfer to ICU for closer monitoring, possible hemodynamic support. I'll reassess the patient after she has 2 units of blood on board, discussed the case with the piping design specialist and make a plan for timing of endoscopy later this afternoon.
[2021-05-12 14:22] VITALS: BMI 28.6
--- NOTE | 2021-05-12 18:34 | P.CNPUL ---
History of Present Illness Consult date: 05/12/21 Requesting physician: María Serrano Reason for consult: other Chief complaint: Abdominal pain, GI bleed. History of present illness: Pulmonary consult dated 05/12/2021. 86-year-old female who apparently is a resident of [facility]. The patient was brought into the emergency department by EMS. It's not clear to me whether or not she was admitted outside hospital, and then brought here. Her primary care physician is . The patient came to the emergency department with complaints of abdominal pain. Apparently the abdominal pain started 2 days ago. The patient has had nausea, and decreased appetite. In addition, the patient was found have dark stools. The patient is currently on Eliquis, for atrial fibrillation. The patient is currently on 2 L nasal cannula. She's getting saline at 75 mL an hour she was seen in room 517. She looks relatively comfortable but she has very pale. The patient will receive 2 units of blood today. The patient is a DO NOT RESUSCITATE patient. Medical history includes hypertension, hyperlipidemia, chronic atrial fibrillation, chronic gout, anemia, and prior urinary tract infection with extended spectrum beta lactamase producing organisms. She is a lifelong nonsmoker. White count is 17.4, hemoglobin 8.3, hematocrit 27.5, and platelet count was 374,000. Sodium 134, potassium 4.3, chlorides 102, CO2 14, anion gap 18, BUN 46, and creatinine 1.5. Pro-calcitonin level is 14.8. Urine, is yellow and cloudy. Leukocyte esterase is large positive. There is 96 WBCs, and many bacteria. Review of Systems REVIEW OF SYSTEMS: CONSTITUTIONAL: [Negative.] NEUROLOGIC: [ Negative.] HEENT: [ Negative.] CARDIAC: [Negative.] PULMONARY: [Negative.] GI: Abdominal pain, dark stools. : [Negative.] RHEUMATOLOGIC: [ Negative.] IMMUNOLOGIC: [ Negative.] ENDOCRINE: [Negative. ] DERMATOLOGIC: [Negative.] Past Medical History Past Medical History: Atrial Fibrillation, Hyperlipidemia, Hypertension Additional Past Medical History / Comment(s): gout, anemia History of Any Multi-Drug Resistant Organisms: ESBL Date of last positivie culture/infection: 01/19/21 MDRO Source:: ESBL URINE Past Surgical History: Cholecystectomy, Orthopedic Surgery Additional Past Surgical History / Comment(s): bilateral knee replacements Past Anesthesia/Blood Transfusion Reactions: No Reported Reaction Past Psychological History: No Psychological Hx Reported Smoking Status: Never smoker Past Alcohol Use History: None Reported Past Drug Use History: None Reported - Past Family History Mother History Unknown: Yes Family Medical History: Cancer Father History Unknown: Yes Family Medical History: Myocardial Infarction ([place]) Medications and Allergies Home Medications Medication Instructions Recorded Confirmed Type Acetaminophen Tab [Tylenol] 650 mg PO Q6H PRN 01/18/21 05/11/21 History Ascorbic Acid [Vitamin C] 500 mg PO DAILY 01/18/21 05/11/21 History Bisacodyl 10 mg PO Q48H PRN 01/18/21 05/11/21 History Ferrous Sulfate [Iron (65 MG 325 mg PO DAILY 01/18/21 05/11/21 History Elemental)] Furosemide [Lasix] 20 mg PO MOWEFR 01/18/21 05/11/21 History Mag Hydrox/Aluminum Hyd/Simeth 30 ml PO Q4H PRN 01/18/21 05/11/21 History [Mylanta Maximum Strength Liq] Apixaban [Eliquis] 5 mg PO BID tab 01/23/21 05/11/21 Rx Amiodarone [Cordarone] 200 mg PO DAILY 05/11/21 05/11/21 History Cholecalciferol [Vitamin D3 (125 125 mcg PO DAILY 05/11/21 05/11/21 History Mcg = 5000 Iu)] Fenofibrate,Micronized 67 mg PO DAILY 05/11/21 05/11/21 History [Fenofibrate] HYDROcodone/APAP 5-325MG [[place] 1 tab PO TID@0900,1300,2100 05/11/21 05/11/21 History 5-325] Latanoprost [Xalatan 0.005%] 1 drop BOTH EYES HS 05/11/21 05/11/21 History Magnesium Hydroxide [Milk of 2,400 mg PO Q48H PRN 05/11/21 05/11/21 History Magnesia] Omeprazole 20 mg PO DAILY 05/11/21 05/11/21 History Potassium Chloride ER [K-Dur 20] 20 meq PO DAILY 05/11/21 05/11/21 History Sacubitril/Valsartan [Entresto 24 1 tab PO BID 05/11/21 05/11/21 History mg-26 mg Tablet] polyethylene glycoL 3350 [Miralax] 17 gm PO Q12H PRN 05/11/21 05/11/21 History Allergies Allergy/AdvReac Type Severity Reaction Status Date / Time No Known Allergies Allergy Verified 05/11/21 09:28 Physical Exam Osteopathic Statement: *. No significant issues noted on an osteopathic structural exam other than those noted in the History and Physical/Consult. Vitals: Vital Signs Temp Pulse Pulse Resp BP BP BP 05/12/21 18:14 98.2 F 91 18 74/48 05/12/21 17:09 98.2 F 96 18 94/59 05/12/21 15:06 98.2 F 95 18 80/53 05/12/21 14:36 97.7 F 95 18 73/42 05/12/21 14:26 98.5 F 95 18 90/59 05/12/21 11:55 97.7 F 92 15 80/43 05/12/21 11:25 89 16 78/40 05/12/21 08:30 89 16 72/42 05/12/21 06:14 87/50 05/12/21 04:41 80/39 05/12/21 04:39 82/41 05/12/21 04:13 98.0 F 89 12 74/30 05/12/21 03:06 106 H 76/45 05/12/21 01:45 106 H 62/34 05/12/21 00:29 106 H 69/42 05/11/21 23:01 101 H 86/49 05/11/21 22:53 105 H 65/34 05/11/21 22:24 102 H 75/40 05/11/21 22:12 108 H 63/36 05/11/21 22:02 97.5 F L 110 H 20 05/11/21 21:58 101 H 139/118 05/11/21 21:53 138 H 62/30 05/11/21 21:52 125 H 70/40 Pulse Ox 05/12/21 18:14 99 05/12/21 17:09 05/12/21 15:06 99 05/12/21 14:36 99 05/12/21 14:26 99 05/12/21 11:55 98 05/12/21 11:25 100 05/12/21 08:30 100 01/08/22 06:14 05/12/21 04:41 05/12/21 04:39 05/12/21 04:13 100 05/12/21 03:06 05/12/21 01:45 05/12/21 00:29 05/11/21 23:01 05/11/21 22:53 100 05/11/21 22:24 05/11/21 22:12 05/11/21 22:02 100 05/11/21 21:58 05/11/21 21:53 05/11/21 21:52 Intake and Output 05/12/21 05/12/21 05/12/21 06:59 14:59 22:59 Intake Total 900 0 310 Balance 900 0 310 Intake: Intake, IV Titration 900 Amount Sodium Chloride 0.9% 1, 400 000 ml @ 50 mls/hr IV . Q20H [facility] Rx#:[id number] Sodium Chloride 0.9% 1, 500 000 ml @ 500 mls/hr IV . Q2H [facility] Rx#:[id number] Blood Product 0 310 Rc As-1 Unit 0 [id number] Rc As-1 Unit 0 310 [id number] Other: Voiding Method Indwelling Catheter Indwelling Catheter Weight 71 kg No acute distress, oriented 3. The patient is very pale. She is on 2 L nasal cannula. Saturations are 99%. HEENT examination is grossly unremarkable. Neck supple. Full range of motion. No adenopathy thyromegaly or neck vein distention. Cardiovascular examination reveals regular rhythm rate. S1-S2 normal. No S3 or S4. No discernible murmur noted. Heart rate 91 bpm. Lungs reveal clear breath sounds. Breath sounds are equal bilaterally. No adventitious lung sounds including wheezes rhonchi or crackles. Abdomen soft bowel sounds are heard. No masses or tenderness. Extremities are intact. No cyanosis clubbing or edema. Skin is without rash or lesion. Neurologic examination is brief but nonfocal. Results - Laboratory Findings CBC and BMP: 05/12/21 06:11 05/12/21 06:07 PT/INR, D-dimer PT 12.0 sec (9.0-12.0) 05/11/21 09:00 INR 1.2 (<1.2) H 05/11/21 09:00 Abnormal lab findings: Abnormal Labs 05/11/21 05/11/21 05/11/21 09:00 09:00 09:00 WBC 14.5 H RBC 3.53 L Hgb 11.0 L Hct MCV MCHC Neutrophils # 12.6 H Lymphocytes # 0.8 L INR 1.2 H Sodium Carbon Dioxide BUN Creatinine Est GFR (CKD-EPI)AfAm Est GFR (CKD-EPI)NonAf BUN/Creatinine Ratio Glucose Calcium Iron % Saturation Transferrin Albumin Procalcitonin Urine Appearance Ur Leukocyte Esterase Urine WBC Urine Bacteria Hyaline Casts Urine Mucus Stool Occult Blood Positive H Crossmatch 05/11/21 05/11/21 05/11/21 09:45 10:41 22:18 WBC 22.6 H RBC 2.95 L Hgb 9.5 L D Hct 30.3 L MCV 102.5 H MCHC Neutrophils # 21.1 H Lymphocytes # 0.5 L INR Sodium 134 L Carbon Dioxide 17 L BUN 51 H Creatinine 1.25 H Est GFR (CKD-EPI)AfAm Est GFR (CKD-EPI)NonAf BUN/Creatinine Ratio Glucose 108 H Calcium Iron % Saturation Transferrin Albumin 3.2 L Procalcitonin Urine Appearance Cloudy H Ur Leukocyte Esterase Large H Urine WBC 96 H Urine Bacteria Many H Hyaline Casts 3 H Urine Mucus Rare H Stool Occult Blood Crossmatch 05/11/21 05/12/21 05/12/21 22:23 06:07 06:07 WBC RBC Hgb Hct MCV MCHC Neutrophils # Lymphocytes # INR Sodium 132 L 134 L Carbon Dioxide 13 L 14.3 L BUN 46 H 46.6 H Creatinine 1.63 H Est GFR (CKD-EPI)AfAm 35.9 L Est GFR (CKD-EPI)NonAf 31.0 L BUN/Creatinine Ratio 31.07 H Glucose Calcium 8.3 L Iron 10 L % Saturation 4.23 L Transferrin 174.0 L Albumin Procalcitonin 14.80 H Urine Appearance Ur Leukocyte Esterase Urine WBC Urine Bacteria Hyaline Casts Urine Mucus Stool Occult Blood Crossmatch 05/12/21 05/12/21 06:11 12:25 WBC 17.4 H RBC 2.64 L Hgb 8.3 L Hct 27.5 L MCV 104.1 H MCHC 30.1 L Neutrophils # 15.1 H Lymphocytes # INR Sodium Carbon Dioxide BUN Creatinine Est GFR (CKD-EPI)AfAm Est GFR (CKD-EPI)NonAf BUN/Creatinine Ratio Glucose Calcium Iron % Saturation Transferrin Albumin Procalcitonin Urine Appearance Ur Leukocyte Esterase Urine WBC Urine Bacteria Hyaline Casts Urine Mucus Stool Occult Blood Crossmatch See Detail Assessment and Plan Assessment: Abdominal pain, with suspected GI bleed, and resultant anemia. History of chronic atrial fibrillation. History of hyperlipidemia. History of hypertension. History of chronic anemia. History of gout. History of extended spectrum beta-lactamase producing urinary tract infection. Plan: Plan dated 05/12/2021. The patient is to receive 2 units of packed red blood cells. The patient's respiratory status is stable. She is alert and oriented. She's on 2 L nasal cannula. Saturations are 99%. She's getting saline at 75 mL an hour. Coronavirus testing was negative. The patient is a DO NOT RESUSCITATE patient. The patient has been seen by surgery. No decision has been made about a procedure as yet. The patient was placed on ertapenem, for suspected ESBL UTI. Additional recommendations and suggestions are forthcoming. Respiratory status is stable. I will add midodrine for low blood pressure. Time with Patient: Greater than 30
--- NOTE | 2021-05-12 19:54 | P.PN ---
Progress Note - Text Progress Note Date: 05/12/21 Patient's reassess at bedside. She is completed one unit of packed red blood cells transfusion, is in the midst of her second unit. She tells me that she is feeling moderately better compared to this morning. Her color and energy level have improved. She denies abdominal pain of significance. Abdominal exam reveals mild epigastric tenderness, no guarding or rebound; essentially stable compared to earlier today. Antibiotics have been adjusted under suspicion of extended spectrum beta-lactamase UTI. Systolic blood pressures of improved a bit into the 90s, diastolic most recently 53, patient remains mildly tachycardic at 91. She remains afebrile. She appears to be having a good response to packed red cells and antibiotic adjustments. Will anticipate a follow-up CBC 1-2 hours post transfusion. If she has an appropriate response and vital signs remained similar will assume th at her hypotension and mild tachycardia or more related to urosepsis. If she has an inappropriate response will have to assume that she is having ongoing bleeding and will need to discuss urgent EGD. Ideally would like to pursue endoscopy when the patient is more hemodynamically stable unless there are compelling indications otherwise.
[2021-05-12] MEDS: PANTOPRAZOLE 40 MG/10 ML VIAL IV SCH (21:29)
--- NOTE | 2021-05-12 22:33 | P.PN ---
Subjective This is a pleasant 86 years old female with past medical history of atrial fibrillation on Eliquis, Hypertension and Hyperlipidemia and ESBL UTI Present Presents Because of Abdominal Pain and Dark Stool, and Drop in Hemoglobin 11 down to 8.3 Today with Borderline Blood Pressure with Systolic 80s to 90s, Patient Also Was Complaining of from Dysuria and Urinalysis Is Suspicious for Infection and She Was Started on Rocephin and Changed Today to Enzymes Based on Her History of ESBL UTI before with Infectious Disease Team Consulted As Well. Patient Clinically She Is Awake and Alert When She Was She Is in the Hospital and She Knows That Time and the Name of the President and She Is Aware to Her Insight, She Denies Dizziness When I Saw Her at Bedside, No Chest Pain or Dyspnea She Has Some Mild Periumbilical Abdominal Tenderness, No Guarding or Rebound Tenderness, She Rates Her Pain As Mild As Well. Because of a Drop in Hemoglobin and She Was Given 2 Units of Blood Transfusion Closed Monitoring, I Discussed the Case with the Critical Care Team and Surgical Team, Patient Will Be Monitored Closely with the Plan for Possible Endoscopy Tonight or Tomorrow per Surgery Team Decision. Other than that her Eliquis on admission was held and corporate trainer evaluated the patient. She is on normal saline 75 mL/h, Protonix twice daily, iron and vit song B12 replacement therapy. Endocrine was added later on. CT of the abdomen and pelvis was showing fecal impaction with rectal wall thickening which could be reactive versus prostatitis, also there is some vaginal fistula or blood suspected. Her Pro-calcitonin is elevated at 14.8. WBCs trending down 22 down to 14.5. Creatinine 1.25 went up to 1.5, baseline is 1.0-1.4. FOBT was positive Objective - Vital Signs Vital signs: Vital Signs Temp 98.0 F 05/12/21 04:13 Pulse 89 05/12/21 11:25 Resp 16 05/12/21 11:25 BP 78/40 05/12/21 11:25 Pulse Ox 100 05/12/21 11:25 Intake & Output 05/11/21 05/12/21 05/12/21 18:59 06:59 18:59 Intake Total 900 Output Total 1800 Balance -1800 900 Weight 70 kg 71 kg Intake: Intake, IV Titration 900 Amount Sodium Chloride 0.9% 1, 400 000 ml @ 50 mls/hr IV . Q20H [facility] Rx#:[id number] Sodium Chloride 0.9% 1, 500 000 ml @ 500 mls/hr IV . Q2H [facility] Rx#:[id number] Output: Urine 1800 Other: Voiding Method Indwelling Catheter Indwelling Catheter Indwelling Catheter # Bowel Movements 1 1 - Exam GENERAL: The patient is alert and oriented x3, not in any acute distress. Well developed, well nourished. HEENT: Pupils are round and equally reacting to light. EOMI. No scleral icterus. No conjunctival pallor. Normocephalic, atraumatic. No pharyngeal erythema. No thyromegaly. CARDIOVASCULAR: S1 and S2 present. No murmurs, rubs, or gallops. PULMONARY: Chest is clear to auscultation, no wheezing or crackles. -ABDOMEN: Soft, mild periumbilical tenderness, nondistended, normoactive bowel sounds. No palpable organomegaly. MUSCULOSKELETAL: No joint swelling or deformity. EXTREMITIES: No cyanosis, clubbing, or pedal edema. NEUROLOGICAL: Gross neurological examination did not reveal any focal deficits. SKIN: No rashes. no petechiae. - Labs CBC & Chem 7: 05/12/21 06:11 05/12/21 06:07 Labs: Abnormal Lab Results - Last 24 Hours (Table) 05/11/21 05/11/21 05/12/21 Range/Units 22:18 22:23 06:07 WBC 22.6 H (3.8-10.6) k/uL RBC 2.95 L (3.80-5.40) m/uL Hgb 9.5 L D (11.4-16.0) gm/dL Hct 30.3 L (34.0-46.0) % MCV 102.5 H (80.0-100.0) fL MCHC (31.0-37.0) g/dL Neutrophils # 21.1 H (1.3-7.7) k/uL Lymphocytes # 0.5 L (1.0-4.8) k/uL Sodium 132 L 134 L (137-145) mmol/L Carbon Dioxide 13 L 14.3 L (22-30) mmol/L BUN 46 H 46.6 H (7-17) mg/dL Creatinine 1.63 H (0.52-1.04) mg/dL Est GFR (CKD-EPI)AfAm 35.9 L (60.0-200.0) Est GFR (CKD-EPI)NonAf 31.0 L (60.0-200.0) BUN/Creatinine Ratio 31.07 H (12.00-20.00) Ratio Calcium 8.3 L (8.7-10.3) mg/dL Iron 10 L (50-170) ug/dL % Saturation 4.23 L (12.00-45.00) Transferrin 174.0 L (204.0-354.0) mg/dL Procalcitonin (0.02-0.09) ng/mL 05/12/21 05/12/21 Range/Units 06:07 06:11 WBC 17.4 H (3.8-10.6) k/uL RBC 2.64 L (3.80-5.40) m/uL Hgb 8.3 L (11.4-16.0) gm/dL Hct 27.5 L (34.0-46.0) % MCV 104.1 H (80.0-100.0) fL MCHC 30.1 L (31.0-37.0) g/dL Neutrophils # 15.1 H (1.3-7.7) k/uL Lymphocytes # (1.0-4.8) k/uL Sodium (137-145) mmol/L Carbon Dioxide (22-30) mmol/L BUN (7-17) mg/dL Creatinine (0.52-1.04) mg/dL Est GFR (CKD-EPI)AfAm (60.0-200.0) Est GFR (CKD-EPI)NonAf (60.0-200.0) BUN/Creatinine Ratio (12.00-20.00) Ratio Calcium (8.7-10.3) mg/dL Iron (50-170) ug/dL % Saturation (12.00-45.00) Transferrin (204.0-354.0) mg/dL Procalcitonin 14.80 H (0.02-0.09) ng/mL Microbiology - Last 24 Hours (Table) 05/11/21 10:41 Urine Culture - Preliminary Urine,Voided Assessment and Plan Assessment: Acute anemia most likely combination of acute blood loss anemia, could be also some elements of nutritional deficiency and B12 deficiency. Possible GI bleed Acute urinary tract infection, rule out ESBL bacteremia. Fecal impaction Rectal wall thickening suspicious for reactive versus infectious prostatitis. History of A. fib, currently Eliquis on hold for suspected GI bleed Chronic kidney disease, stage III Plan: This is a pleasant 86 years old female who presents with possible GI bleed, ESBL UTI, hypertension and fecal impaction Continue with antibiotics, currently she is on Invanz, follow-up urine culture and infectious disease consult Monitor hemoglobin after 2 units of blood transfusion, hold Eliquis, continue with Protonix, iron and B12 Pulmonary/critical care team consult is appreciated Continue with gentle hydration Continue with midodrine Labs and medication were reviewed.. Continue same treatment. Continue with symptomatic treatment. Resume home medication. Monitor lytes and vitals. DVT and GI prophylaxis. Further recommendations as per clinical course of the patient DVT prophylaxis: Noted cannulation for possible GI bleed GI Prophylaxis: Ppi PT/OT: Pending Prognosis is guarded
[2021-05-12 23:33] LABS: Anisocytosis Slight; HCT 37.2 % (34.0-46.0); Hypochromasia Slight; MCH 29.9 pg (25.0-35.0); MCHC 31.8 g/dL (31.0-37.0); Mean Platelet Volume 8.2; Platelet Count 267 k/uL (150-450); RBC 3.95 m/uL (3.80-5.40); RDW 17.7 % (11.5-15.5); WBC 15.6 k/uL (3.8-10.6)
[2021-05-12] MEDS: LATANOPROST 0.005% OPHTH DROPS 2.5 ML BTL BOTH EYES SCH (23:49)
[2021-05-12 23:57] LABS: HGB 11.8 gm/dL (11.4-16.0)
[2021-05-13] MEDS: HYDROcodone/APAP 5-325MG 1 EACH TAB PO SCH ×3 (08:22→20:25)
[2021-05-13] MEDS: AMIODARONE 200 MG TAB PO SCH (08:23)
[2021-05-13] MEDS: PANTOPRAZOLE 40 MG/10 ML VIAL IV SCH ×2 (08:23→20:27)
[2021-05-13] MEDS: FERROUS SULFATE 325 MG TAB PO SCH ×2 (08:23→20:25)
[2021-05-13] MEDS: CHOLECALCIFEROL 125 MCG (5000 IU) TABLET PO SCH (08:23)
[2021-05-13] MEDS: FENOFIBRATE 54 MG TAB PO SCH (08:23)
[2021-05-13] MEDS: ASCORBIC ACID 500 MG TAB PO SCH (08:24)
[2021-05-13] MEDS: MIDODRINE 5 MG TAB PO SCH ×3 (08:24→16:46)
[2021-05-13] MEDS: POTASSIUM CHLORIDE ER 20 MEQ TAB.ER PO SCH (08:24)
[2021-05-13] MEDS: CYANOCOBALAMIN 500 MCG TAB PO SCH (08:24)
[2021-05-13 09:56] LABS: Anisocytosis Slight; Basophils % (A) 0 %; Eosinophils # (A) 0.2 k/uL (0-0.7); Eosinophils % (A) 1 %; HCT 39.7 % (34.0-46.0); HGB 12.1 gm/dL (11.4-16.0); Hypochromasia Moderate; Lymphocytes % (A) 7 %; MCH 28.7 pg (25.0-35.0); MCHC 30.5 g/dL (31.0-37.0); MCV 94.4 fL (80.0-100.0); Mean Platelet Volume 8.1; Monocytes # (A) 0.7 k/uL (0-1.0); Monocytes % (A) 5 %; Neutrophils % (A) 85 %; Platelet Count 295 k/uL (150-450); RBC 4.21 m/uL (3.80-5.40); RDW 18.2 % (11.5-15.5)
[2021-05-13 10:06] LABS: ALT 10 U/L (4-34); AST 26 U/L (14-36); African American GFR (CKD) 58 (>60 ml/min/1.73 sqM); Albumin 2.6 g/dL (3.5-5.0); Albumin/Globulin Ratio 0.9; Alkaline Phosphatase 68 U/L (38-126); Anion Gap 10 mmol/L; Blood Urea Nitrogen 36 mg/dL (7-17); Calcium 8.6 mg/dL (8.4-10.2); Carbon Dioxide 13 mmol/L (22-30); Chloride 114 mmol/L (98-107); Glucose 106 mg/dL (74-99); Non-African American GFR(CKD) 50 (>60 ml/min/1.73 sqM); Potassium 3.8 mmol/L (3.5-5.1); Sodium 137 mmol/L (137-145); Total Bilirubin 0.6 mg/dL (0.2-1.3); Total Protein 5.6 g/dL (6.3-8.2)
[2021-05-13] MEDS: SODIUM CHLORIDE 0.9% 1,000 ML IV SCH (11:05)
--- NOTE | 2021-05-13 11:23 | P.CONS ---
History of Present Illness - Reason for Consult Consult date: 05/12/21 UTI/ESBL history Requesting physician: Stanislaw E Sheet - Chief Complaint abd pain x 2 days - History of Present Illness History of present illness : Patient is 86-year female who was brought into the ER yesterday for evaluation of abdominal discomfort symptom has been going on for 2 days before presentation to the hospital. Her nausea decreased oral intake but no vomiting has been reported and did have some dark stools patient presentation to the hospital was afebrile and no fever has recorded subsequently patient did have a white count of 22.6 with a left shift BUN and creatinine are mildly elevated patient did have positive UA with large leukocyte esterase and 96 WBC stool for occult blood was positive [place] PCR was negative patient was treated with Rocephin however patient did have a positive urine culture with ESBL E. coli in January 2021 that has prompted this infectious disease consultation patient the time of evaluation is awake however not a very good historian so most information was obtained from review the chart as the patient also noted most of the question asked, patient did have CT abdominal pelvis did show severe fecal impaction with significant distention of the rectum fluid within the vaginal canal and mildly dilated bile duct Review of system: Positive point has been mentioned in HPI complete review could not be obtained because of underlying mental status NEUROLOGIC: No complaint. Past medical history : Reviewed, documented below Past surgical history : Reviewed, documented below Social history: Reviewed, documented below Medications: Reviewed, as documented below EXAMINATION: Vital sigans= Reviewed and documented below GENERAL DESCRIPTION: Elderly female lying in bed, no distress. No tachypnea or accessory muscle of respiration use. HEENT: Shows Pallor , no scleral icterus. Oral mucous membrane is dry. NECK: Trachea central, no thyromegaly. LUNGS: Unlabored breathing. Clear to auscultation anteriorly. No wheeze or crackle. HEART: S1, S2, regular rate and rhythm. ABDOMEN: Soft, no tenderness , guarding or rigidity EXTREMITIES: No edema of feet. SKIN: No rash, no masses palpable. NEUROLOGICAL: The patient is awake, alert orientation could not determine, mood and affect normal. LABS AND RADIOLOGY: Reviewed results see below Assessment : Patient presented to hospital with abdominal pain decreased oral intake nausea in this we did have significantly positive UA with elevated white count concerning for symptomatic urinary tract infection, however the patient did have severe fecal impaction with rectal distention could be responsible for abdominal pain for the patient has been disimpacted in the ER with surgical services Plan: 1-discontinue Rocephin 2-start the patient on Invanz 1 waiting for the urine culture to finalize 3-gentle IV fluid We will follow on clinical condition and cultures to further adjust medication if needed Thank you for this consultation we will follow the patient along with you Past Medical History Past Medical History: Atrial Fibrillation, Hyperlipidemia, Hypertension Additional Past Medical History / Comment(s): gout, anemia History of Any Multi-Drug Resistant Organisms: ESBL Year Discovered:: 01/19/21 MDRO Source:: ESBL URINE Past Surgical History: Cholecystectomy, Orthopedic Surgery Additional Past Surgical History / Comment(s): bilateral knee replacements Past Anesthesia/Blood Transfusion Reactions: No Reported Reaction Past Psychological History: No Psychological Hx Reported Smoking Status: Never smoker Past Alcohol Use History: None Reported Past Drug Use History: None Reported - Past Family History Mother History Unknown: Yes Family Medical History: Cancer Father History Unknown: Yes Family Medical History: Myocardial Infarction ([place]) Medications and Allergies Home Medications Medication Instructions Recorded Confirmed Type Acetaminophen Tab [Tylenol] 650 mg PO Q6H PRN 01/18/21 05/11/21 History Ascorbic Acid [Vitamin C] 500 mg PO DAILY 01/18/21 05/11/21 History Bisacodyl 10 mg PO Q48H PRN 01/18/21 05/11/21 History Ferrous Sulfate [Iron (65 MG 325 mg PO DAILY 01/18/21 05/11/21 History Elemental)] Furosemide [Lasix] 20 mg PO MOWEFR 01/18/21 05/11/21 History Mag Hydrox/Aluminum Hyd/Simeth 30 ml PO Q4H PRN 01/18/21 05/11/21 History [Mylanta Maximum Strength Liq] Apixaban [Eliquis] 5 mg PO BID tab 01/23/21 05/11/21 Rx Amiodarone [Cordarone] 200 mg PO DAILY 05/11/21 05/11/21 History Cholecalciferol [Vitamin D3 (125 125 mcg PO DAILY 05/11/21 05/11/21 History Mcg = 5000 Iu)] Fenofibrate,Micronized 67 mg PO DAILY 05/11/21 05/11/21 History [Fenofibrate] HYDROcodone/APAP 5-325MG [Linn 1 tab PO TID@0900,1300,2100 05/11/21 05/11/21 History 5-325] Latanoprost [Xalatan 0.005%] 1 drop BOTH EYES HS 05/11/21 05/11/21 History Magnesium Hydroxide [Milk of 2,400 mg PO Q48H PRN 05/11/21 05/11/21 History Magnesia] Omeprazole 20 mg PO DAILY 05/11/21 05/11/21 History Potassium Chloride ER [K-Dur 20] 20 meq PO DAILY 05/11/21 05/11/21 History Sacubitril/Valsartan [Entresto 24 1 tab PO BID 05/11/21 05/11/21 History mg-26 mg Tablet] polyethylene glycoL 3350 [Miralax] 17 gm PO Q12H PRN 05/11/21 05/11/21 History Allergies Allergy/AdvReac Type Severity Reaction Status Date / Time No Known Allergies Allergy Verified 05/11/21 09:28 Physical Exam Vitals: Vital Signs Temp Pulse Pulse Resp BP BP BP 05/12/21 15:06 98.2 F 95 18 80/53 05/12/21 14:36 97.7 F 95 18 73/42 05/12/21 14:26 98.5 F 95 18 90/59 05/12/21 11:55 97.7 F 92 15 80/43 05/12/21 11:25 89 16 78/40 05/12/21 08:30 89 16 72/42 05/12/21 06:14 87/50 05/12/21 04:41 80/39 05/12/21 04:39 82/41 05/12/21 04:13 98.0 F 89 12 74/30 05/12/21 03:06 106 H 76/45 05/12/21 01:45 106 H 62/34 05/12/21 00:29 106 H 69/42 05/11/21 23:01 101 H 86/49 05/11/21 22:53 105 H 65/34 05/11/21 22:24 102 H 75/40 05/11/21 22:12 108 H 63/36 05/11/21 22:02 97.5 F L 110 H 20 05/11/21 21:58 101 H 139/118 05/11/21 21:53 138 H 62/30 05/11/21 21:52 125 H 70/40 05/11/21 16:34 129 H 05/11/21 16:26 129 H 124/64 Pulse Ox 05/12/21 15:06 99 05/12/21 14:36 99 05/12/21 14:26 99 05/12/21 11:55 98 05/12/21 11:25 100 05/12/21 08:30 100 05/12/21 06:14 05/12/21 04:41 05/12/21 04:39 05/12/21 04:13 100 05/12/21 03:06 05/12/21 01:45 05/12/21 00:29 05/11/21 23:01 05/11/21 22:53 100 05/11/21 22:24 05/11/21 22:12 05/11/21 22:02 100 05/11/21 21:58 05/11/21 21:53 05/11/21 21:52 05/11/21 16:34 05/11/21 16:26 99 Intake and Output 05/12/21 05/12/21 05/12/21 06:59 14:59 22:59 Intake Total 900 0 Balance 900 0 Intake: Intake, IV Titration 900 Amount Sodium Chloride 0.9% 1, 400 000 ml @ 50 mls/hr IV . Q20H [facility] Rx#:[id number] Sodium Chloride 0.9% 1, 500 000 ml @ 500 mls/hr IV . Q2H [facility] Rx#:[id number] Blood Product 0 Rc As-1 Unit 0 [id number] Other: Voiding Method Indwelling Catheter Indwelling Catheter Weight 71 kg Results CBC & Chem 7: 05/13/21 09:16 05/13/21 09:16 Labs: Abnormal Lab Results - Last 24 Hours (Table) 05/11/21 05/11/21 05/12/21 Range/Units 22:18 22:23 06:07 WBC 22.6 H (3.8-10.6) k/uL RBC 2.95 L (3.80-5.40) m/uL Hgb 9.5 L D (11.4-16.0) gm/dL Hct 30.3 L (34.0-46.0) % MCV 102.5 H (80.0-100.0) fL MCHC (31.0-37.0) g/dL Neutrophils # 21.1 H (1.3-7.7) k/uL Lymphocytes # 0.5 L (1.0-4.8) k/uL Sodium 132 L 134 L (137-145) mmol/L Carbon Dioxide 13 L 14.3 L (22-30) mmol/L BUN 46 H 46.6 H (7-17) mg/dL Creatinine 1.63 H (0.52-1.04) mg/dL Est GFR (CKD-EPI)AfAm 35.9 L (60.0-200.0) Est GFR (CKD-EPI)NonAf 31.0 L (60.0-200.0) BUN/Creatinine Ratio 31.07 H (12.00-20.00) Ratio Calcium 8.3 L (8.7-10.3) mg/dL Iron 10 L (50-170) ug/dL % Saturation 4.23 L (12.00-45.00) Transferrin 174.0 L (204.0-354.0) mg/dL Procalcitonin (0.02-0.09) ng/mL Crossmatch 05/12/21 05/12/21 05/12/21 Range/Units 06:07 06:11 12:25 WBC 17.4 H (3.8-10.6) k/uL RBC 2.64 L (3.80-5.40) m/uL Hgb 8.3 L (11.4-16.0) gm/dL Hct 27.5 L (34.0-46.0) % MCV 104.1 H (80.0-100.0) fL MCHC 30.1 L (31.0-37.0) g/dL Neutrophils # 15.1 H (1.3-7.7) k/uL Lymphocytes # (1.0-4.8) k/uL Sodium (137-145) mmol/L Carbon Dioxide (22-30) mmol/L BUN (7-17) mg/dL Creatinine (0.52-1.04) mg/dL Est GFR (CKD-EPI)AfAm (60.0-200.0) Est GFR (CKD-EPI)NonAf (60.0-200.0) BUN/Creatinine Ratio (12.00-20.00) Ratio Calcium (8.7-10.3) mg/dL Iron (50-170) ug/dL % Saturation (12.00-45.00) Transferrin (204.0-354.0) mg/dL Procalcitonin 14.80 H (0.02-0.09) ng/mL Crossmatch See Detail Microbiology - Last 24 Hours (Table) 05/11/21 10:41 Urine Culture - Preliminary Urine,Voided
--- NOTE | 2021-05-13 12:52 | P.PN ---
Subjective Progress Note Date: 05/13/21 HISTORY OF PRESENTING ILLNESS This is an 86-year-old female patient with past medical history significant for carotid artery stenosis, hypertension, hyperlipidemia, non-ST CO, paroxysmal atrial fibrillation. ECF due to lower abdominal pain for the past week, dark blackish bowel movements and evaluation for GI bleed. We have been asked to see the patient for increased heart rate and history of atrial fibrillation. library monitor has been a sinus rhythm running in the 80s and 90s. Patient denies having any abdominal pain and denies having any blood in her stool at this time, no fever or chills. She thinks she is eating okay. Apparently she is normally bed or wheelchair bound. Patient is noted to be no code and blood pressure is low at 78/40. Unclear if family is planning for aggressive tr eatment. EKG is sinus tachycardia with left bundle branch block. CAT scan of the abdomen revealed severe fecal impaction. Fluid in the vaginal canal. Mildly dilated bile duct probably due to postcholecystectomy status. Laboratory studies: WBC down to 17.4, hemoglobin 8.3 which is down from 11.0. Sodium 134, potassium 4.3, chloride 102, CO2 14.3. BUN 46.6 and creatinine 1.5. Blood sugar 82. Iron 10, TIBC 244, iron saturation 4.2, transferrin 174. Ferritin level 233. Pro-calcitonin 14.8. Folate 9.9, vitamin B12 375. Urinalysis cloudy, leukoesterase large, WBCs 96, bacteria many. Stool for occult blood positive. Coronavirus PCR not detected. 05/13 Patient is on clear liquid diet and tolerating, she states she has a good appetite. She denies abdominal pain. She states she's feeling a lot better today from yesterday. Blood pressure is improved. Patient did go into atrial fibrillation with concern of heart rate in the 120s but mostly in the low 100s. She is status post 2 units packed RBCs with hemoglobin of 12.1. PHYSICAL EXAMINATION Vital signs reviewed. CONSTITUTIONAL: No apparent distress. HEENT: Head is normocephalic. Pupils are equal, round. Sclerae anicteric. Mucous membranes of the mouth are moist. No JVD. No carotid bruit. CHEST EXAMINATION: Lungs are clear to auscultation. No chest wall tenderness is noted on palpation or with deep breathing. HEART EXAMINATION: regular rate and rhythm. S1, S2 heard. No murmurs, gallops or rub. ABDOMEN: Soft, nontender. Positive bowel sounds. Sultana catheter. EXTREMITIES: 2+ peripheral pulses, no lower extremity edema and no calf tenderness. NEUROLOGIC EXAMINATION: Patient is awake, alert and oriented x3. ASSESSMENT Acute GI bleed Acute urinary tract infection and sepsis Hypotension Acute kidney injury Anemia, possible acute blood loss anemia Hx of Non-STEMI Carotid artery stenosis Paroxysmal atrial fibrillation History of hypertension Hyperlipidemia PLAN Agree with holding eliquis due to GI bleed Continue amiodarone if blood pressure can tolerate Hold Entresto due to hypotension Continue antibiotics, urine culture, monitor blood cultures Further recommendations to follow. Nurse Practitioner note has been reviewed, I agree with a documented findings and plan of care. Patient was seen and examined. Objective - Vital Signs Vital signs: Vital Signs Temp 98.1 F 05/13/21 08:20 Pulse 128 H 05/13/21 08:20 Resp 18 05/13/21 08:20 BP 90/56 05/13/21 08:20 Pulse Ox 97 05/13/21 08:20 Intake & Output 05/12/21 05/13/21 05/13/21 18:59 06:59 18:59 Intake Total 1510 510 240 Output Total 750 400 Balance 760 110 240 Weight 71 kg Intake: Intake, IV Titration 1200 Amount Ertapenem 0.5 gm In 50 Sodium Chloride 0.9% 50 ml @ 100 mls/hr IVPB Q24H [facility] Rx#:[id number] Sodium Chloride 0.9% 1, 900 000 ml @ 75 mls/hr IV . [id number] [facility] Rx#:[id number] Sodium Chloride 0.9% 250 250 ml @ 999 mls/hr IV .Q16M [facility] Rx#:[id number] Oral 200 240 Blood Product 310 310 Rc As-1 Unit 0 310 [id number] Rc As-1 Unit 310 [id number] Output: Urine 750 400 Uretheral (Sultana) 200 Other: Voiding Method Indwelling Catheter Indwelling Catheter - Labs CBC & Chem 7: 05/13/21 09:16 05/13/21 09:16 Labs: Abnormal Lab Results - Last 24 Hours (Table) 05/12/21 05/12/21 05/12/21 Range/Units 06:07 06:07 12:25 WBC (3.8-10.6) k/uL MCHC (31.0-37.0) g/dL RDW (11.5-15.5) % Neutrophils # (1.3-7.7) k/uL Sodium 134 L (135-145) mmol/L Chloride (98-107) mmol/L Carbon Dioxide 14.3 L (20.0-27.5) mmol/L BUN 46.6 H (9.0-27.0) mg/dL Est GFR (CKD-EPI)AfAm 35.9 L (60.0-200.0) Est GFR (CKD-EPI)NonAf 31.0 L (60.0-200.0) BUN/Creatinine Ratio 31.07 H (12.00-20.00) Ratio Glucose (74-99) mg/dL Calcium 8.3 L (8.7-10.3) mg/dL Iron 10 L (50-170) ug/dL % Saturation 4.23 L (12.00-45.00) Transferrin 174.0 L (204.0-354.0) mg/dL Total Protein (6.3-8.2) g/dL Albumin (3.5-5.0) g/dL Procalcitonin 14.80 H (0.02-0.09) ng/mL Crossmatch See Detail 05/12/21 05/13/21 05/13/21 Range/Units 22:31 09:16 09:16 WBC 15.6 H 14.0 H (3.8-10.6) k/uL MCHC 30.5 L (31.0-37.0) g/dL RDW 17.7 H 18.2 H (11.5-15.5) % Neutrophils # 12.0 H (1.3-7.7) k/uL Sodium (135-145) mmol/L Chloride 114 H (98-107) mmol/L Carbon Dioxide 13 L (20.0-27.5) mmol/L BUN 36 H (9.0-27.0) mg/dL Est GFR (CKD-EPI)AfAm (60.0-200.0) Est GFR (CKD-EPI)NonAf (60.0-200.0) BUN/Creatinine Ratio (12.00-20.00) Ratio Glucose 106 H (74-99) mg/dL Calcium (8.7-10.3) mg/dL Iron (50-170) ug/dL % Saturation (12.00-45.00) Transferrin (204.0-354.0) mg/dL Total Protein 5.6 L (6.3-8.2) g/dL Albumin 2.6 L (3.5-5.0) g/dL Procalcitonin (0.02-0.09) ng/mL Crossmatch Microbiology - Last 24 Hours (Table) 05/11/21 10:41 Urine Culture - Preliminary Urine,Voided Gram Neg Bacilli
[2021-05-13] MEDS ORDERED: ERTAPENEM 0.5 GM in SODIUM CHLORIDE 0.9% 50 ML IVPB SCH (14:00)
--- NOTE | 2021-05-13 15:10 | P.PN ---
Progress Note - Text Progress Note Date: 05/13/21 Patient is seen and examined at bedside. She tells me that she is day yesterday. Energy level has improved. She is starting to feel hungry. Her epigastric pains of nearly completely subsided. Sultana catheters in place with clear-appearing urine. She status post 2 units of packed red blood cells and has had a more than appropriate response from hemoglobin of 8 prior to transfusion to 12. She does not report additional bowel movement. Urine cultures are still pending, preliminary report shows an excess of 100,000 CFU gram-negative bacilli. She remains mildly to moderately tachycardic and mildly hypotensive. No reported chest pain or shortness of breath. She ended up staying on the medical floor, was not transferred to the ICU overnight. Morning CBC reveals leukocytosis trending down to 14,000, hemoglobin 12.1, platelet count 295. Serum sodium was 137, potassium 3.8, CO2 of 13, creatinine of 1.01, glucose of 106. Liver function studies were within normal limits, albumin low at 5.6. Temperature 98.1F, heart rate 128, blood pressure 90/56, respiratory rate 18 at 97% O2 saturation on 2 L nasal cannula. Cardiovascular: Heart sounds are distant without appreciable murmur. Respiratory: Lungs are clear to auscultation bilaterally. Abdominal exam: Abdomen is soft with minimal epigastric tenderness to deep palpation. No guarding, rebound or distention. Abdominal exam is improved compared to yesterday. Extremities: Distal extremities are warm and well perfused no edema. Impression: 1) 86-year-old lady with presenting fecal impaction, Hemoccult positive stool, dwindling hemoglobin, suspected urosepsis with question of bladder fistula suggested on CT. more than appropriate response to 2 units PRBCs. Doubt ongoing hemodynamically significant blood loss at present. Differential diagnosis of low hemoglobin would include hemorrhagic gastritis, peptic ulcer disease, AV malformation or angiodysplasia, complications of portal hypertension, neoplasia, erosive esophagitis and less likely lower GI bleeding sources as well as hemodilution overnight with fluid boluses. History of paroxysmal atrial fibrillation on Eliquis as an outpatient, previous history of non-ST elevation [place]. Anticoagulants presently held. Persistent hypotension and mild tachycardia. Suspect relating more to urosepsis than hemorrhage. Iron panel is suggestive of a degree of anemia of chronic disease with retained ferritin level. Plan: 1) A suspect the etiology of the patient's tachycardia and low blood pressure has more to do with urosepsis, likely with multidrug resistant organisms. Cultures and sensitivities are presently pending. With her advanced age, relatively frail state and cardiac history I do suspect putting her under IV sedation for potentially low yield in terms of intervention procedure may be unwise with respect to precipitating cardiovascular and neurovascular events. If there was evidence of ongoing hemodynamically significant bleeding in the wrist to benefit ratio would be more in favor of endoscopy. She's had a more than appropriate response to units PRBCs, seems to be holding stable with respect to hemoglobin. Diagnostic EGD would help clarify things in terms of her treatment plan for blood loss. In the meantime withholding for her anticoagu lants and treating her empirically for peptic ulcer disease and gastritis with Protonix drip equivalent is a gaining some headway. Patient will like to hold off on EGD for now. I'll continue to follow. If she turns a corner with respect to this infection and hypotension and she wishes to move forward with diagnostic EGD prior to discharge that would be reasonable.
--- NOTE | 2021-05-13 16:17 | P.PN ---
Subjective Progress Note Date: 05/13/21 Principal diagnosis: Acute GI bleeding On 05/13/2021 patient seen in follow-up on medical surgical floor. She is resting in bed, in no acute distress, she is currently on 2 L of oxygen pulse ox is 97%, denies any pulmonary complaints, lung sounds are clear to auscultation, no abdominal discomfort, she remains in atrial fibrillation with a controlled rate, she is currently off Eliquis for acute GI bleeding, she status post 2 units of packed red blood cell transfusion, today's hemoglobin is 12.1 Objective - Vital Signs Vital signs: Vital Signs Temp 98.7 F 05/13/21 11:50 Pulse 87 05/13/21 11:50 Resp 18 05/13/21 11:50 BP 97/58 05/13/21 11:50 Pulse Ox 96 05/13/21 11:50 Intake & Output 05/12/21 05/13/21 05/13/21 18:59 06:59 18:59 Intake Total 1510 510 240 Output Total 750 400 Balance 760 110 240 Weight 71 kg Intake: Intake, IV Titration 1200 Amount Ertapenem 0.5 gm In 50 Sodium Chloride 0.9% 50 ml @ 100 mls/hr IVPB Q24H [facility] Rx#:[id number] Sodium Chloride 0.9% 1, 900 000 ml @ 75 mls/hr IV . [id number] [facility] Rx#:[id number] Sodium Chloride 0.9% 250 250 ml @ 999 mls/hr IV .Q16M [facility] Rx#:[id number] Oral 200 240 Blood Product 310 310 Rc As-1 Unit 0 310 [id number] Rc As-1 Unit 310 [id number] Output: Urine 750 400 Uretheral (Sultana) 200 Other: Voiding Method Indwelling Catheter Indwelling Catheter Indwelling Catheter - Exam GENERAL EXAM: Alert, very pleasant, 86-year-old white female, on 2 L of oxygen with pulse ox of 96% comfortable in no apparent distress. HEAD: Normocephalic/atraumatic. EYES: Normal reaction of pupils, equal size. Conjunctiva pink, sclera white. NOSE: Clear with pink turbinates. THROAT: No erythema or exudates. NECK: No masses, no JVD, no thyroid enlargement, no adenopathy. CHEST: No chest wall deformity. Symmetrical expansion. LUNGS: Equal air entry with no crackles, wheeze, rhonchi or dullness. CVS: Irregular rate and rhythm, normal S1 and S2, no gallops, no murmurs, no rubs ABDOMEN: Soft, nontender. No hepatosplenomegaly, normal bowel sounds, no guarding or rigidity. EXTREMITIES: No clubbing, no edema, no cyanosis, 2+ pulses and upper and lower extremities. MUSCULOSKELETAL: Muscle strength and tone normal. SPINE: No scoliosis or deformity SKIN: No rashes CENTRAL NERVOUS SYSTEM: Alert and oriented -3. No focal deficits, tone is normal in all 4 extremities. PSYCHIATRIC: Alert and oriented -3. Appropriate affect. Intact judgment and insight. - Labs CBC & Chem 7: 05/13/21 09:16 05/13/21 09:16 Labs: Abnormal Lab Results - Last 24 Hours (Table) 05/12/21 05/12/21 05/13/21 Range/Units 12:25 22:31 09:16 WBC 15.6 H 14.0 H (3.8-10.6) k/uL MCHC 30.5 L (31.0-37.0) g/dL RDW 17.7 H 18.2 H (11.5-15.5) % Neutrophils # 12.0 H (1.3-7.7) k/uL Chloride (98-107) mmol/L Carbon Dioxide (22-30) mmol/L BUN (7-17) mg/dL Glucose (74-99) mg/dL Total Protein (6.3-8.2) g/dL Albumin (3.5-5.0) g/dL Crossmatch See Detail 05/13/21 Range/Units 09:16 WBC (3.8-10.6) k/uL MCHC (31.0-37.0) g/dL RDW (11.5-15.5) % Neutrophils # (1.3-7.7) k/uL Chloride 114 H (98-107) mmol/L Carbon Dioxide 13 L (22-30) mmol/L BUN 36 H (7-17) mg/dL Glucose 106 H (74-99) mg/dL Total Protein 5.6 L (6.3-8.2) g/dL Albumin 2.6 L (3.5-5.0) g/dL Crossmatch Microbiology - Last 24 Hours (Table) 05/11/21 10:41 Urine Culture - Preliminary Urine,Voided Gram Neg Bacilli Assessment and Plan Plan: Assessment: #1. Acute abdominal pain, with suspected GI bleeding, requiring transfusion with 2 units of packed red blood cells. #2. Chronic A. fib, on Eliquis which is placed on hold for possibility of GI bleeding #3. Hypertension #4. Hyperlipidemia #5. Previous history of ESBL infection #6. Nonsmoker #7. Osteoarthritis with history of bilateral knee replacement Plan: Patient denies any pulmonary complaints She is on room air Eliquis remains on hold Denies any active bleeding Vital signs are stable Patient is status post 2 units of packed red blood cell transfusion Today's labs have been noted I performed a history & physical examination of the patient and discussed their management with my nurse practitioner, Radha Gurrola. I reviewed the nurse practitioner's note and agree with the documented findings and plan of care. Lung sounds are positive for clear breath sounds throughout the lung goldstein. The findings and the impression was discussed with the patient. I attest to the documentation by the nurse practitioner. Time with Patient: Less than 30
[2021-05-13] MEDS: LATANOPROST 0.005% OPHTH DROPS 2.5 ML BTL BOTH EYES SCH (20:26)
--- NOTE | 2021-05-13 21:00 | P.PN ---
Subjective This is a pleasant 86 years old female with past medical history of atrial fibrillation on Eliquis, Hypertension and Hyperlipidemia and ESBL UTI Present Presents Because of Abdominal Pain and Dark Stool, and Drop in Hemoglobin 11 down to 8.3 Today with Borderline Blood Pressure with Systolic 80s to 90s, Patient Also Was Complaining of from Dysuria and Urinalysis Is Suspicious for Infection and She Was Started on Rocephin and Changed Today to Enzymes Based on Her History of ESBL UTI before with Infectious Disease Team Consulted As Well. Patient Clinically She Is Awake and Alert When She Was She Is in the Hospital and She Knows That Time and the Name of the President and She Is Aware to Her Insight, She Denies Dizziness When I Saw Her at Bedside, No Chest Pain or Dyspnea She Has Some Mild Periumbilical Abdominal Tenderness, No Guarding or Rebound Tenderness, She Rates Her Pain As Mild As Well. Because of a Drop in Hemoglobin and She Was Given 2 Units of Blood Transfusion Closed Monitoring, I Discussed the Case with the Critical Care Team and Surgical Team, Patient Will Be Monitored Closely with the Plan for Possible Endoscopy Tonight or Tomorrow per Surgery Team Decision. Other than that her Eliquis on admission was held and clerical administrative assistant evaluated the patient. She is on normal saline 75 mL/h, Protonix twice daily, iron and vit song B12 replacement therapy. Endocrine was added later on. CT of the abdomen and pelvis was showing fecal impaction with rectal wall thickening which could be reactive versus prostatitis, also there is some vaginal fistula or blood suspected. Her Pro-calcitonin is elevated at 14.8. WBCs trending down 22 down to 14.5. Creatinine 1.25 went up to 1.5, baseline is 1.0-1.4. FOBT was positive 05/13/2021 Patient is clinically improving, she is awake alert, she is called, no abdominal pain today, no dysuria or other urinary symptoms. Her blood pressure improved 100/60. WBC came down to 14 K, hemoglobin is improved up to 12. Creatinine went to normal at 1.0. Her urine culture is growing ESBL E. coli and she is currently comfortable on Invanz. Also she is continuing on normal saline at 75 mL/h. Also she is on Protonix 40 mg She remains on midodrine and we are still holding her eliquis for possible gi bleed Objective - Vital Signs Vital signs: Vital Signs Temp 98.1 F 05/13/21 08:20 Pulse 128 H 05/13/21 08:20 Resp 18 05/13/21 08:20 BP 90/56 05/13/21 08:20 Pulse Ox 97 05/13/21 08:20 Intake & Output 05/12/21 05/13/21 05/13/21 18:59 06:59 18:59 Intake Total 1510 510 240 Output Total 750 400 Balance 760 110 240 Weight 71 kg Intake: Intake, IV Titration 1200 Amount Ertapenem 0.5 gm In 50 Sodium Chloride 0.9% 50 ml @ 100 mls/hr IVPB Q24H [facility] Rx#:[id number] Sodium Chloride 0.9% 1, 900 000 ml @ 75 mls/hr IV . [id number] [facility] Rx#:[id number] Sodium Chloride 0.9% 250 250 ml @ 999 mls/hr IV .Q16M [facility] Rx#:[id number] Oral 200 240 Blood Product 310 310 Rc As-1 Unit 0 310 [id number] Rc As-1 Unit 310 [id number] Output: Urine 750 400 Uretheral (Sultana) 200 Other: Voiding Method Indwelling Catheter Indwelling Catheter - Exam GENERAL: The patient is alert and oriented x3, not in any acute distress. Well developed, well nourished. HEENT: Pupils are round and equally reacting to light. EOMI. No scleral icterus. No conjunctival pallor. Normocephalic, atraumatic. No pharyngeal erythema. No thyromegaly. CARDIOVASCULAR: S1 and S2 present. No murmurs, rubs, or gallops. PULMONARY: Chest is clear to auscultation, no wheezing or crackles. -ABDOMEN: Soft, mild periumbilical tenderness, nondistended, normoactive bowel sounds. No palpable organomegaly. MUSCULOSKELETAL: No joint swelling or deformity. EXTREMITIES: No cyanosis, clubbing, or pedal edema. NEUROLOGICAL: Gross neurological examination did not reveal any focal deficits. SKIN: No rashes. no petechiae. - Labs CBC & Chem 7: 05/13/21 09:16 05/13/21 09:16 Labs: Abnormal Lab Results - Last 24 Hours (Table) 05/12/21 05/12/21 05/12/21 Range/Units 06:07 06:07 12:25 WBC (3.8-10.6) k/uL MCHC (31.0-37.0) g/dL RDW (11.5-15.5) % Neutrophils # (1.3-7.7) k/uL Sodium 134 L (135-145) mmol/L Chloride (98-107) mmol/L Carbon Dioxide 14.3 L (20.0-27.5) mmol/L BUN 46.6 H (9.0-27.0) mg/dL Est GFR (CKD-EPI)AfAm 35.9 L (60.0-200.0) Est GFR (CKD-EPI)NonAf 31.0 L (60.0-200.0) BUN/Creatinine Ratio 31.07 H (12.00-20.00) Ratio Glucose (74-99) mg/dL Calcium 8.3 L (8.7-10.3) mg/dL Iron 10 L (50-170) ug/dL % Saturation 4.23 L (12.00-45.00) Transferrin 174.0 L (204.0-354.0) mg/dL Total Protein (6.3-8.2) g/dL Albumin (3.5-5.0) g/dL Procalcitonin 14.80 H (0.02-0.09) ng/mL Crossmatch See Detail 05/12/21 05/13/21 05/13/21 Range/Units 22:31 09:16 09:16 WBC 15.6 H 14.0 H (3.8-10.6) k/uL MCHC 30.5 L (31.0-37.0) g/dL RDW 17.7 H 18.2 H (11.5-15.5) % Neutrophils # 12.0 H (1.3-7.7) k/uL Sodium (135-145) mmol/L Chloride 114 H (98-107) mmol/L Carbon Dioxide 13 L (20.0-27.5) mmol/L BUN 36 H (9.0-27.0) mg/dL Est GFR (CKD-EPI)AfAm (60.0-200.0) Est GFR (CKD-EPI)NonAf (60.0-200.0) BUN/Creatinine Ratio (12.00-20.00) Ratio Glucose 106 H (74-99) mg/dL Calcium (8.7-10.3) mg/dL Iron (50-170) ug/dL % Saturation (12.00-45.00) Transferrin (204.0-354.0) mg/dL Total Protein 5.6 L (6.3-8.2) g/dL Albumin 2.6 L (3.5-5.0) g/dL Procalcitonin (0.02-0.09) ng/mL Crossmatch Microbiology - Last 24 Hours (Table) 05/11/21 10:41 Urine Culture - Preliminary Urine,Voided Gram Neg Bacilli Assessment and Plan Assessment: Acute anemia most likely combination of acute blood loss anemia, could be also some elements of nutritional deficiency and B12 deficiency. Possible GI bleed Acute urinary tract infection, due to ESBL E. coli Fecal impaction Rectal wall thickening suspicious for reactive versus infectious prostatitis. History of A. fib, currently Eliquis on hold for suspected GI bleed Chronic kidney disease, stage III Plan: This is a pleasant 86 years old female who presents with possible GI bleed, ESBL UTI, hypertension and fecal impaction Continue with antibiotics, currently she is on Invanz, follow-up urine culture and infectious disease consult Monitor hemoglobin after 2 units of blood transfusion, hold Eliquis, continue with Protonix, iron and B12 Pulmonary/critical care team consult is appreciated Continue with gentle hydration Continue with midodrine Labs and medication were reviewed.. Continue same treatment. Continue with symptomatic treatment. Resume home medication. Monitor lytes and vitals. DVT and GI prophylaxis. Further recommendations as per clinical course of the patient DVT prophylaxis: Noted cannulation for possible GI bleed GI Prophylaxis: Ppi PT/OT: Pending Prognosis is guarded
[2021-05-14] MEDS: SODIUM CHLORIDE 0.9% 1,000 ML IV SCH ×2 (00:35→17:48)
--- NOTE | 2021-05-14 05:42 | PN ---
PROGRESS NOTE DATE OF SERVICE: 05/13/2021 REASON FOR FOLLOWUP: ESBL E coli urinary tract infection. INTERVAL HISTORY: Patient is afebrile. The patient is slightly more awake and alert today. She is breathing comfortably. Lower abdominal pain has improved. No chest pain, shortness of breath or cough and no diarrhea. PHYSICAL EXAMINATION: Blood pressure 100/68 with a pulse of 85. Temperature 98.5. She is 93% on room air. General description is an elderly female lying in bed in no distress. Respiratory system: Unlabored breathing, decreased intensity in breath sounds. No wheeze. Heart S1, S2. Regular rate and rhythm. Abdomen soft, no tenderness. LABS: Hemoglobin is 12.1, white count 14, DIAGNOSTIC IMPRESSION AND PLAN: Patient with ESBL E coli urinary tract infection in this patient who has overall improvement in kidney function. Dose of the Invanz to be adjusted up to 1 gram daily. White count needs to be monitored closely. Continue supportive care. MMODL / IJN: [id number] /
[2021-05-14 07:21] LABS: Anisocytosis Slight; Basophils % (A) 0 %; Eosinophils # (A) 0.2 k/uL (0-0.7); Eosinophils % (A) 2 %; HCT 35.1 % (34.0-46.0); HGB 10.9 gm/dL (11.4-16.0); Hypochromasia Marked; Lymphocytes # (A) 0.9 k/uL (1.0-4.8); Lymphocytes % (A) 11 %; MCH 29.8 pg (25.0-35.0); MCHC 31.1 g/dL (31.0-37.0); MCV 95.8 fL (80.0-100.0); Macrocytosis Slight; Mean Platelet Volume 7.8; Monocytes # (A) 0.4 k/uL (0-1.0); Monocytes % (A) 5 %; Neutrophils # (A) 6.4 k/uL (1.3-7.7); Neutrophils % (A) 80 %; Platelet Count 298 k/uL (150-450); RBC 3.67 m/uL (3.80-5.40); RDW 18.4 % (11.5-15.5)
--- NOTE | 2021-05-14 07:54 | XR ---
EXAMINATION TYPE: XR chest 1V portable DATE OF EXAM: 05/14/2021 COMPARISON: 01/20/2021 HISTORY: Cough TECHNIQUE: Single frontal view of the chest is obtained. FINDINGS: Right-sided area of infiltrate and small effusion. Arthropathy of the shoulders. No pneumo thorax. Hyperinflation. IMPRESSION: Right lower lobe infiltrate and small effusion correlate clinically for pneumonia.
[2021-05-14] MEDS: ERTAPENEM 1 GM in SODIUM CHLORIDE 0.9% 50 ML IVPB SCH (08:16)
[2021-05-14] MEDS: HYDROcodone/APAP 5-325MG 1 EACH TAB PO SCH ×3 (08:17→20:32)
[2021-05-14] MEDS: PANTOPRAZOLE 40 MG/10 ML VIAL IV SCH ×2 (08:17→20:33)
[2021-05-14] MEDS: AMIODARONE 200 MG TAB PO SCH (08:17)
[2021-05-14] MEDS: CYANOCOBALAMIN 500 MCG TAB PO SCH (08:17)
[2021-05-14] MEDS: FENOFIBRATE 54 MG TAB PO SCH (08:17)
[2021-05-14] MEDS: FERROUS SULFATE 325 MG TAB PO SCH ×2 (08:17→20:32)
[2021-05-14] MEDS: MIDODRINE 5 MG TAB PO SCH ×3 (08:17→17:45)
[2021-05-14] MEDS: CHOLECALCIFEROL 125 MCG (5000 IU) TABLET PO SCH (08:17)
[2021-05-14] MEDS: ASCORBIC ACID 500 MG TAB PO SCH (08:17)
[2021-05-14] MEDS: POTASSIUM CHLORIDE ER 20 MEQ TAB.ER PO SCH (08:18)
[2021-05-14 11:22] LABS: ALT 8 U/L (8-44); AST 13 U/L (13-35); African American GFR (CKD) 61.2 (60.0-200.0); Albumin 2.4 g/dL (3.8-4.9); Alkaline Phosphatase 54 U/L (41-126); BUN/Creat Ratio 30.26 Ratio (12.00-20.00); Blood Urea Nitrogen 29.2 mg/dL (9.0-27.0); Calcium 8.4 mg/dL (8.7-10.3); Carbon Dioxide 14.6 mmol/L (20.0-27.5); Chloride 113 mmol/L (96-109); Globulin 2.2 g/dL (1.6-3.3); Glucose 93 mg/dL (70-110); Non-African American GFR(CKD) 52.8 (60.0-200.0); Potassium 4.2 mmol/L (3.5-5.5); Sodium 137 mmol/L (135-145); Total Bilirubin <0.20 mg/dL (0.30-1.20); Total Protein 4.6 g/dL (6.2-8.2)
--- NOTE | 2021-05-14 12:17 | P.PN ---
Subjective Progress Note Date: 05/14/21 HISTORY OF PRESENT ILLNESS: This is an 86-year-old female patient with past medical history significant for carotid artery stenosis, hypertension, hyperlipidemia, non-ST HI, paroxysmal atrial fibrillation. ECF due to lower abdominal pain for the past week, dark blackish bowel movements and evaluation for GI bleed. We have been asked to see the patient for increased heart rate and history of atrial fibrillation. 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 Patient denies having any abdominal pain and denies having any blood in her stool at this time, no fever or chills. She thinks she is eating okay. Apparently she is normally bed or wheelchair bound. Patient is noted to be no code and blood pressure is low at 78/40. Unclear if family is planning for aggressive treatment. EKG is sinus tachycardia with left bundle branch block. CAT scan of the abdomen revealed severe fecal impaction. Fluid in the vaginal canal. Mildly dilated bile duct probably due to postcholecystectomy status. Laboratory studies: WBC down to 17.4, hemoglobin 8.3 which is down from 11.0. Sodium 134, potassium 4.3, chloride 102, CO2 14.3. BUN 46.6 and creatinine 1.5. Blood sugar 82. Iron 10, TIBC 244, iron saturation 4.2, transferrin 174. Ferritin level 233. Pro-calcitonin 14.8. Folate 9.9, vitamin B12 375. Urinalysis cloudy, leukoesterase large, WBCs 96, bacteria many. Stool for occult blood positive. Coronavirus PCR not detected. 05/13 Patient is on clear liquid diet and tolerating, she states she has a good appetite. She denies abdominal pain. She states she's feeling a lot better today from yesterday. Blood pressure is improved. Patient did go into atrial fibrillation with concern of heart rate in the 120s but mostly in the low 100s. She is status post 2 units packed RBCs with hemoglobin of 12.1. 05/14/2021 Patient examined this morning at the bedside. Patient denies chest pain or pressure. Denies SOB. Hemoglobin 10.9. Eliquis remains on hold. Vital signs stable. PHYSICAL EXAM: VITAL SIGNS: Reviewed. GENERAL: Well-developed in no acute distress. NECK: Supple. No JVD or thyromegaly LUNGS: Respirations even and unlabored. Lungs essentially clear to auscultation bilaterally. HEART: Regular rate and rhythm. S1 and S2 heard. EXTREMITIES: Normal range of motion. No clubbing or cyanosis. Peripheral pulses intact. No lower extremity edema ASSESSMENT: Acute GI bleed Acute urinary tract infection and sepsis Hypotension Acute kidney injury Anemia, possible acute blood loss anemia Hx of Non-STEMI Carotid artery stenosis Paroxysmal atrial fibrillation, currently maintaining SR History of hypertension Hyperlipidemia PLAN: Continue to hold Eliquis. Monitor hemoglobin. Restart when cleared by surgery. Continue amiodarone Continue to hold Entresto Further recommendations pending patient course Nurse practitioner note has been reviewed by physician. Signing provider agrees with the documented findings, assessment, and plan of care. Objective - Vital Signs Vital signs: Vital Signs Temp 97.9 F 05/14/21 11:24 Pulse 81 05/14/21 11:24 Resp 16 05/14/21 11:24 BP 113/66 05/14/21 11:24 Pulse Ox 98 05/14/21 11:24 Intake & Output 05/13/21 05/14/21 05/14/21 18:59 06:59 18:59 Intake Total 1190 900 Output Total 650 400 Balance 540 500 Intake: Intake, IV Titration 950 900 Amount Ertapenem 0.5 gm In 50 Sodium Chloride 0.9% 50 ml @ 100 mls/hr IVPB Q24H [facility] Rx#:[id number] Sodium Chloride 0.9% 1, 900 900 000 ml @ 75 mls/hr IV . [id number] [facility] Rx#:[id number] Oral 240 Output: Urine 650 400 Other: Voiding Method Indwelling Catheter Indwelling Catheter Indwelling Catheter # Bowel Movements 3 - Labs CBC & Chem 7: 05/14/21 06:39 05/14/21 06:39 Labs: Abnormal Lab Results - Last 24 Hours (Table) 05/14/21 05/14/21 Range/Units 06:39 06:39 RBC 3.67 L (3.80-5.40) m/uL Hgb 10.9 L (11.4-16.0) gm/dL RDW 18.4 H (11.5-15.5) % Lymphocytes # 0.9 L (1.0-4.8) k/uL Chloride 113 H (96-109) mmol/L Carbon Dioxide 14.6 L (20.0-27.5) mmol/L Anion Gap 9.80 L (10.00-18.00) mmol/L BUN 29.2 H (9.0-27.0) mg/dL Est GFR (CKD-EPI)NonAf 52.8 L (60.0-200.0) BUN/Creatinine Ratio 30.26 H (12.00-20.00) Ratio Calcium 8.4 L (8.7-10.3) mg/dL Total Bilirubin <0.20 L (0.30-1.20) mg/dL Total Protein 4.6 L (6.2-8.2) g/dL Albumin 2.4 L (3.8-4.9) g/dL Albumin/Globulin Ratio 1.10 L (1.60-3.17) g/dL Microbiology - Last 24 Hours (Table) 05/11/21 10:41 Urine Culture - Final Urine,Voided Escherichia coli
--- NOTE | 2021-05-14 16:05 | P.PN ---
Subjective Progress Note Date: 05/14/21 Principal diagnosis: Acute GI bleeding On 05/13/2021 patient seen in follow-up on medical surgical floor. She is resting in bed, in no acute distress, she is currently on 2 L of oxygen pulse ox is 97%, denies any pulmonary complaints, lung sounds are clear to auscultation, no abdominal discomfort, she remains in atrial fibrillation with a controlled rate, she is currently off Eliquis for acute GI bleeding, she status post 2 units of packed red blood cell transfusion, today's hemoglobin is 12.1 On the 05/14/2021 patient seen in follow-up on medical surgical floor, she is resting comfortably in bed, breathing comfortably, room air pulse ox is 98%, blood pressures are stable, no fever or chills, patient has had no bleeding, no abdominal pain, today's labs have been reviewed hemoglobin is 10.9. Vital signs have been stable, lung sounds are clear. Today's chest x-ray showing right lower lobe infiltrate and small effusion however patient has no pulmonary complaints, no shortness of breath or coughing. No phlegm production, no chest pain. Patient is currently on Invanz for ESBL E. coli. Patient lives at [facility], discharge planning is in progress for return to [facility] Objective - Vital Signs Vital signs: Vital Signs Temp 97.9 F 05/14/21 11:24 Pulse 81 05/14/21 11:24 Resp 16 05/14/21 11:24 BP 113/66 05/14/21 11:24 Pulse Ox 98 05/14/21 11:24 Intake & Output 05/13/21 05/14/21 05/14/21 18:59 06:59 18:59 Intake Total 1190 900 Output Total 650 400 Balance 540 500 Intake: Intake, IV Titration 950 900 Amount Ertapenem 0.5 gm In 50 Sodium Chloride 0.9% 50 ml @ 100 mls/hr IVPB Q24H [facility] Rx#:[id number] Sodium Chloride 0.9% 1, 900 900 000 ml @ 75 mls/hr IV . [id number] [facility] Rx#:[id number] Oral 240 Output: Urine 650 400 Other: Voiding Method Indwelling Catheter Indwelling Catheter Indwelling Catheter # Bowel Movements 3 1 - Exam GENERAL EXAM: Alert, very pleasant, 86-year-old white female, on room air with a pulse ox of 98% comfortable in no apparent distress. HEAD: Normocephalic/atraumatic. EYES: Normal reaction of pupils, equal size. Conjunctiva pink, sclera white. NOSE: Clear with pink turbinates. THROAT: No erythema or exudates. NECK: No masses, no JVD, no thyroid enlargement, no adenopathy. CHEST: No chest wall deformity. Symmetrical expansion. LUNGS: Equal air entry with no crackles, wheeze, rhonchi or dullness. CVS: Irregular rate and rhythm, normal S1 and S2, no gallops, no murmurs, no rubs ABDOMEN: Soft, nontender. No hepatosplenomegaly, normal bowel sounds, no guarding or rigidity. EXTREMITIES: No clubbing, no edema, no cyanosis, 2+ pulses and upper and lower extremities. MUSCULOSKELETAL: Muscle strength and tone normal. SPINE: No scoliosis or deformity SKIN: No rashes CENTRAL NERVOUS SYSTEM: Alert and oriented -3. No focal deficits, tone is normal in all 4 extremities. PSYCHIATRIC: Alert and oriented -3. Appropriate affect. Intact judgment and insight. - Labs CBC & Chem 7: 05/14/21 06:39 05/14/21 06:39 Labs: Abnormal Lab Results - Last 24 Hours (Table) 05/14/21 05/14/21 Range/Units 06:39 06:39 RBC 3.67 L (3.80-5.40) m/uL Hgb 10.9 L (11.4-16.0) gm/dL RDW 18.4 H (11.5-15.5) % Lymphocytes # 0.9 L (1.0-4.8) k/uL Chloride 113 H (96-109) mmol/L Carbon Dioxide 14.6 L (20.0-27.5) mmol/L Anion Gap 9.80 L (10.00-18.00) mmol/L BUN 29.2 H (9.0-27.0) mg/dL Est GFR (CKD-EPI)NonAf 52.8 L (60.0-200.0) BUN/Creatinine Ratio 30.26 H (12.00-20.00) Ratio Calcium 8.4 L (8.7-10.3) mg/dL Total Bilirubin <0.20 L (0.30-1.20) mg/dL Total Protein 4.6 L (6.2-8.2) g/dL Albumin 2.4 L (3.8-4.9) g/dL Albumin/Globulin Ratio 1.10 L (1.60-3.17) g/dL Microbiology - Last 24 Hours (Table) 05/11/21 10:41 Urine Culture - Final Urine,Voided Escherichia coli Assessment and Plan Plan: Assessment: #1. Acute abdominal pain, with suspected GI bleeding, requiring transfusion with 2 units of packed red blood cells. #2. Right lower lobe infiltrate and small effusion, however patient has no pulmonary symptoms, no coughing, no shortness of breath, and patient isn't ready on Invanz for ESBL E. coli urinary tract infection. Currently on room air, #2. Chronic A. fib, on Eliquis which is placed on hold for possibility of GI bleeding #3. Hypertension #4. Hyperlipidemia #5. Previous history of ESBL infection #6. Nonsmoker #7. Osteoarthritis with history of bilateral knee replacement Plan: Today's chest x-ray has been reviewed showing right lower lobe infiltrate and small effusion Our patient is asymptomatic, no pulmonary complaints Patient is ready covered with antibiotics for ESBL urinary tract infection Patient is on room air, breathing comfortably Patient had no active bleeding Vital signs have been stable Pulmonary service will follow on as-needed basis I performed a history & physical examination of the patient and discussed their management with my nurse practitioner, Radha Gurrola. I reviewed the nurse practitioner's note and agree with the documented findings and plan of care. Lung sounds are positive for clear breath sounds throughout the lung goldstein. The findings and the impression was discussed with the patient. I attest to the documentation by the nurse practitioner. Time with Patient: Less than 30
[2021-05-14] MEDS: FUROSEMIDE 20 MG TAB PO SCH (16:15)
--- NOTE | 2021-05-14 16:44 | P.PN ---
Progress Note - Text Progress Note Date: 05/14/21 Patient is seen and examined at bedside. Sleeping comfortably, no acute overnight events. No recurrent signs of GI bleeding, tolerating regular diet. Morning CBC reveals leukocytosis normalize with probable token of a 0.0, hemoglobin essentially stable at 10.9, platelet count 298. Serum sodium was 137, potassium 4.2, CO2 of 14.6, creatinine of 1.0, glucose of 93. AST and L2 within normal limits at 13 and 8 respectively, alkaline phosphatase was 54. Urine culture results are available showing E. coli with ESBL, multidrug resistant, sensitive to carbapenems. Temperature 97.9F, heart rate 81, blood pressure 113/66, systolics have been over 100, respiratory rate 16 at 98% O2 saturation on room air. Cardiovascular: Heart sounds are distant without appreciable murmur. Respiratory: Lungs are clear to auscultation bilaterally. Abdominal exam: Abdomen is soft with minimal epigastric tenderness to deep palpation. No guarding, rebound or distention. Abdominal exam is improved compared to yesterday. Extremities: Distal extremities are warm and well perfused no edema. Impression: 1) 86-year-old lady with presenting fecal impaction, Hemoccult positive stool, dwindling hemoglobin, suspected urosepsis with question of bladder fistula suggested on CT. Appropriate response to 2 units PRBCs. Doubt ongoing hemodynamically significant blood loss at present. Differential diagnosis would include hemorrhagic gastritis, peptic ulcer disease, AV malformation or angiodysplasia, complications of portal hypertension, neoplasia, erosive esophagitis and less likely lower GI bleeding sources as well as hemodilution overnight with fluid boluses. History of paroxysmal atrial fibrillation on Eliquis as an outpatient, previous history of non-ST elevation PR. Anticoagulants presently held. Hypotension and tachycardia resolving with antibiotic adjustments. Suspect relating more to urosepsis than hemorrhage. Iron panel is suggestive of a degree of anemia of chronic disease with retained ferritin level. Plan: 1) Patient wishes to hold off on invasive diagnostic testing for now. She appears to be turning the corner with respect to her urosepsis. I suspect she is not quite normotensive, but is improving. She is rather frail and bedbound, technically she is a fall risk with oral anticoagulation. Unless there are compelling indications for continued anticoagulation it may be worthwhile to just take her off Eliquis long-term given her presenting low hemoglobin and aforementioned frail state, would defer to cardiology in terms of risk to benefit ratio. If she does need to be back on our greatest due to elevated stroke risk having that could be resumed at any time I would plan on checking a follow-up CBC 24 hours after starting medication and home 1-2 weeks post discharge. If she has signs of repeat bleeding it should be discontinued out right. Empiric treatment for peptic ulcer disease, recommend stool for H. pylori antigen and eradication treatment if positive.
[2021-05-14] MEDS: LATANOPROST 0.005% OPHTH DROPS 2.5 ML BTL BOTH EYES SCH (20:34)
--- NOTE | 2021-05-14 21:22 | P.PN ---
Subjective This is a pleasant 86 years old female with past medical history of atrial fibrillation on Eliquis, Hypertension and Hyperlipidemia and ESBL UTI Present Presents Because of Abdominal Pain and Dark Stool, and Drop in Hemoglobin 11 down to 8.3 Today with Borderline Blood Pressure with Systolic 80s to 90s, Patient Also Was Complaining of from Dysuria and Urinalysis Is Suspicious for Infection and She Was Started on Rocephin and Changed Today to Enzymes Based on Her History of ESBL UTI before with Infectious Disease Team Consulted As Well. Patient Clinically She Is Awake and Alert When She Was She Is in the Hospital and She Knows That Time and the Name of the President and She Is Aware to Her Insight, She Denies Dizziness When I Saw Her at Bedside, No Chest Pain or Dyspnea She Has Some Mild Periumbilical Abdominal Tenderness, No Guarding or Rebound Tenderness, She Rates Her Pain As Mild As Well. Because of a Drop in Hemoglobin and She Was Given 2 Units of Blood Transfusion Closed Monitoring, I Discussed the Case with the Critical Care Team and Surgical Team, Patient Will Be Monitored Closely with the Plan for Possible Endoscopy Tonight or Tomorrow per Surgery Team Decision. Other than that her Eliquis on admission was held and asphalt surface heater operator evaluated the patient. She is on normal saline 75 mL/h, Protonix twice daily, iron and vit song B12 replacement therapy. Endocrine was added later on. CT of the abdomen and pelvis was showing fecal impaction with rectal wall thickening which could be reactive versus prostatitis, also there is some vaginal fistula or blood suspected. Her Pro-calcitonin is elevated at 14.8. WBCs trending down 22 down to 14.5. Creatinine 1.25 went up to 1.5, baseline is 1.0-1.4. FOBT was positive 05/13/2021 Patient is clinically improving, she is awake alert, she is called, no abdominal pain today, no dysuria or other urinary symptoms. Her blood pressure improved 100/60. WBC came down to 14 K, hemoglobin is improved up to 12. Creatinine went to normal at 1.0. Her urine culture is growing ESBL E. coli and she is currently comfortable on Invanz. Also she is continuing on normal saline at 75 mL/h. Also she is on Protonix 40 mg She remains on midodrine and we are still holding her eliquis for possible gi bleed 05/14/2021 Patient is awake and alert, she denies any respiratory symptoms, no abdominal pain or GI symptoms, no urinary tract symptoms. Blood pressure improved for example 106/61. Also labs showing improvement with WBC back to normal at 8K, hemoglobin 10.9 and creatinine back to normal 1.08 Her chest x-ray today showing right lower lobe infiltrate but no pulmonary symptoms, therefore pulmonary service signed off. Her Invanz dose increased to 1 mg. He will lower midodrine 25 mg 3 times a day while keep monitoring her blood pressure. Also she is kept on normal saline 75 mL/h Surgery team recommended to keep holding Eliquis pending cardiology recommendation if anything benefits more than risk then he recommends to check hemoglobin 24 hours after starting Eliquis. Patient continued to improve slowly but steadily Objective - Vital Signs Vital signs: Vital Signs Temp 97.9 F 05/14/21 11:24 Pulse 81 05/14/21 11:24 Resp 16 05/14/21 11:24 BP 113/66 05/14/21 11:24 Pulse Ox 98 05/14/21 11:24 Intake & Output 05/13/21 05/14/21 05/14/21 18:59 06:59 18:59 Intake Total 1190 900 Output Total 650 400 Balance 540 500 Intake: Intake, IV Titration 950 900 Amount Ertapenem 0.5 gm In 50 Sodium Chloride 0.9% 50 ml @ 100 mls/hr IVPB Q24H [facility] Rx#:[id number] Sodium Chloride 0.9% 1, 900 900 000 ml @ 75 mls/hr IV . [id number] [facility] Rx#:[id number] Oral 240 Output: Urine 650 400 Other: Voiding Method Indwelling Catheter Indwelling Catheter Indwelling Catheter # Bowel Movements 3 - Exam GENERAL: The patient is alert and oriented x3, not in any acute distress. Well developed, well nourished. HEENT: Pupils are round and equally reacting to light. EOMI. No scleral icterus. No conjunctival pallor. Normocephalic, atraumatic. No pharyngeal erythema. No thyromegaly. CARDIOVASCULAR: S1 and S2 present. No murmurs, rubs, or gallops. PULMONARY: Chest is clear to auscultation, no wheezing or crackles. -ABDOMEN: Soft, mild periumbilical tenderness, nondistended, normoactive bowel sounds. No palpable organomegaly. MUSCULOSKELETAL: No joint swelling or deformity. EXTREMITIES: No cyanosis, clubbing, or pedal edema. NEUROLOGICAL: Gross neurological examination did not reveal any focal deficits. SKIN: No rashes. no petechiae. - Labs CBC & Chem 7: 05/14/21 06:39 05/14/21 06:39 Labs: Abnormal Lab Results - Last 24 Hours (Table) 05/14/21 05/14/21 Range/Units 06:39 06:39 RBC 3.67 L (3.80-5.40) m/uL Hgb 10.9 L (11.4-16.0) gm/dL RDW 18.4 H (11.5-15.5) % Lymphocytes # 0.9 L (1.0-4.8) k/uL Chloride 113 H (96-109) mmol/L Carbon Dioxide 14.6 L (20.0-27.5) mmol/L Anion Gap 9.80 L (10.00-18.00) mmol/L BUN 29.2 H (9.0-27.0) mg/dL Est GFR (CKD-EPI)NonAf 52.8 L (60.0-200.0) BUN/Creatinine Ratio 30.26 H (12.00-20.00) Ratio Calcium 8.4 L (8.7-10.3) mg/dL Total Bilirubin <0.20 L (0.30-1.20) mg/dL Total Protein 4.6 L (6.2-8.2) g/dL Albumin 2.4 L (3.8-4.9) g/dL Albumin/Globulin Ratio 1.10 L (1.60-3.17) g/dL Microbiology - Last 24 Hours (Table) 05/11/21 10:41 Urine Culture - Final Urine,Voided Escherichia coli Assessment and Plan Assessment: Acute anemia most likely combination of acute blood loss anemia, could be also some elements of nutritional deficiency and B12 deficiency. Possible GI bleed Acute urinary tract infection, due to ESBL E. coli Fecal impaction Rectal wall thickening suspicious for reactive versus infectious prostatitis. History of Jus manzanares, currently Eliquis on hold for suspected GI bleed Chronic kidney disease, stage III Plan: This is a pleasant 86 years old female who presents with possible GI bleed, ESBL UTI, hypertension and fecal impaction Continue with antibiotics, currently she is on Invanz, follow-up urine culture and infectious disease consult Monitor hemoglobin after 2 units of blood transfusion, hold Eliquis, continue with Protonix, iron and B12 Pulmonary/critical care team consult is appreciated. This signed off the case Continue with gentle hydration Continue with midodrine Labs and medication were reviewed.. Continue same treatment. Continue with symptomatic treatment. Resume home medication. Monitor lytes and vitals. DVT and GI prophylaxis. Further recommendations as per clinical course of the patient DVT prophylaxis: Noted cannulation for possible GI bleed GI Prophylaxis: Ppi PT/OT: Pending Prognosis is guarded
--- NOTE | 2021-05-14 22:55 | PN ---
PROGRESS NOTE DATE OF SERVICE: 05/14/2021 REASON FOR FOLLOWUP: ESBL E coli urinary tract infection. INTERVAL HISTORY: Patient is afebrile. The patient is breathing slightly comfortably. She is more awake and alert. She is denying any chest pain, shortness of breath or cough. No abdominal pain. No diarrhea. PHYSICAL EXAMINATION: Blood pressure 106/61 with a pulse of 76, temperature 97.7. She is 98% on room air. General description is an elderly female lying in bed in no distress. Respiratory system: Unlabored breathing. Clear to auscultation anteriorly. Heart S1, S2. Regular rate and rhythm. Abdomen: Soft. LABORATORY DATA: Hemoglobin is 10.1, white count 8.0, creatinine is 1.0. DIAGNOSTIC IMPRESSION AND PLAN: Patient with ESBL E coli urinary tract infection in this patient seems to show overall clinical improvement on Invanz to continue for about a week to finish a course of therapy and close outpatient followup. MMODL / IJN: [id number] /
[2021-05-15 06:30] LABS: Anisocytosis Slight; Basophils % (A) 0 %; Eosinophils # (A) 0.4 k/uL (0-0.7); Eosinophils % (A) 5 %; HGB 11.2 gm/dL (11.4-16.0); Hypochromasia Marked; Lymphocytes # (A) 1.1 k/uL (1.0-4.8); Lymphocytes % (A) 13 %; MCH 29.7 pg (25.0-35.0); MCHC 31.2 g/dL (31.0-37.0); MCV 95.3 fL (80.0-100.0); Mean Platelet Volume 7.8; Monocytes # (A) 0.4 k/uL (0-1.0); Monocytes % (A) 5 %; Neutrophils % (A) 74 %; Platelet Count 321 k/uL (150-450); RBC 3.78 m/uL (3.80-5.40); RDW 17.7 % (11.5-15.5); WBC 8.1 k/uL (3.8-10.6)
[2021-05-15] MEDS: FERROUS SULFATE 325 MG TAB PO SCH ×2 (09:05→21:39)
[2021-05-15] MEDS: POTASSIUM CHLORIDE ER 20 MEQ TAB.ER PO SCH (09:05)
[2021-05-15] MEDS: CYANOCOBALAMIN 500 MCG TAB PO SCH (09:05)
[2021-05-15] MEDS: CHOLECALCIFEROL 125 MCG (5000 IU) TABLET PO SCH (09:05)
[2021-05-15] MEDS: FENOFIBRATE 54 MG TAB PO SCH (09:05)
[2021-05-15] MEDS: ASCORBIC ACID 500 MG TAB PO SCH (09:05)
[2021-05-15] MEDS: MIDODRINE 5 MG TAB PO SCH ×3 (09:05→17:11)
[2021-05-15] MEDS: SODIUM CHLORIDE 0.9% 1,000 ML IV SCH (09:06)
[2021-05-15] MEDS: AMIODARONE 200 MG TAB PO SCH (09:06)
[2021-05-15] MEDS: HYDROcodone/APAP 5-325MG 1 EACH TAB PO SCH ×3 (09:06→21:38)
[2021-05-15] MEDS: PANTOPRAZOLE 40 MG/10 ML VIAL IV SCH ×2 (09:06→21:37)
[2021-05-15] MEDS: ERTAPENEM 1 GM in SODIUM CHLORIDE 0.9% 50 ML IVPB SCH (09:08)
[2021-05-15 09:09] LABS: ALT <5 U/L (8-44); AST 12 U/L (13-35); African American GFR (CKD) 66.6 (60.0-200.0); Albumin 2.5 g/dL (3.8-4.9); Albumin/Globulin Ratio 1.14 (1.60-3.17); Alkaline Phosphatase 53 U/L (41-126); BUN/Creat Ratio 25.78 Ratio (12.00-20.00); Blood Urea Nitrogen 23.2 mg/dL (9.0-27.0); Calcium 8.4 mg/dL (8.7-10.3); Carbon Dioxide 16.5 mmol/L (20.0-27.5); Chloride 113 mmol/L (96-109); Globulin 2.2 g/dL (1.6-3.3); Glucose 100 mg/dL (70-110); Non-African American GFR(CKD) 57.5 (60.0-200.0); Potassium 4.2 mmol/L (3.5-5.5); Sodium 137 mmol/L (135-145); Total Protein 4.7 g/dL (6.2-8.2)
[2021-05-15] MEDS ORDERED: FUROSEMIDE 10 MG/ML 2 ML VIAL IV ONE (10:52)
--- NOTE | 2021-05-15 10:58 | P.PN ---
Subjective This is a pleasant 86 years old female with past medical history of atrial fibrillation on Eliquis, Hypertension and Hyperlipidemia and ESBL UTI Present Presents Because of Abdominal Pain and Dark Stool, and Drop in Hemoglobin 11 down to 8.3 Today with Borderline Blood Pressure with Systolic 80s to 90s, Patient Also Was Complaining of from Dysuria and Urinalysis Is Suspicious for Infection and She Was Started on Rocephin and Changed Today to Enzymes Based on Her History of ESBL UTI before with Infectious Disease Team Consulted As Well. Patient Clinically She Is Awake and Alert When She Was She Is in the Hospital and She Knows That Time and the Name of the President and She Is Aware to Her Insight, She Denies Dizziness When I Saw Her at Bedside, No Chest Pain or Dyspnea She Has Some Mild Periumbilical Abdominal Tenderness, No Guarding or Rebound Tenderness, She Rates Her Pain As Mild As Well. Because of a Drop in Hemoglobin and She Was Given 2 Units of Blood Transfusion Closed Monitoring, I Discussed the Case with the Critical Care Team and Surgical Team, Patient Will Be Monitored Closely with the Plan for Possible Endoscopy Tonight or Tomorrow per Surgery Team Decision. Other than that her Eliquis on admission was held and intellectual property lawyer evaluated the patient. She is on normal saline 75 mL/h, Protonix twice daily, iron and vit song B12 replacement therapy. Endocrine was added later on. CT of the abdomen and pelvis was showing fecal impaction with rectal wall thickening which could be reactive versus prostatitis, also there is some vaginal fistula or blood suspected. Her Pro-calcitonin is elevated at 14.8. WBCs trending down 22 down to 14.5. Creatinine 1.25 went up to 1.5, baseline is 1.0-1.4. FOBT was positive 05/13/2021 Patient is clinically improving, she is awake alert, she is called, no abdominal pain today, no dysuria or other urinary symptoms. Her blood pressure improved 100/60. WBC came down to 14 K, hemoglobin is improved up to 12. Creatinine went to normal at 1.0. Her urine culture is growing ESBL E. coli and she is currently comfortable on Invanz. Also she is continuing on normal saline at 75 mL/h. Also she is on Protonix 40 mg She remains on midodrine and we are still holding her eliquis for possible gi bleed 05/14/2021 Patient is awake and alert, she denies any respiratory symptoms, no abdominal pain or GI symptoms, no urinary tract symptoms. Blood pressure improved for example 106/61. Also labs showing improvement with WBC back to normal at 8K, hemoglobin 10.9 and creatinine back to normal 1.08 Her chest x-ray today showing right lower lobe infiltrate but no pulmonary symptoms, therefore pulmonary service signed off. Her Invanz dose increased to 1 mg. He will lower midodrine 25 mg 3 times a day while keep monitoring her blood pressure. Also she is kept on normal saline 75 mL/h Surgery team recommended to keep holding Eliquis pending cardiology recommendation if anything benefits more than risk then he recommends to check hemoglobin 24 hours after starting Eliquis. Patient continued to improve slowly but steadily 05/15/2021 Patient remains asymptomatic since yesterday with no urinary tract symptoms, no abdominal pain, no more evidence of bleeding, no overt respiratory symptoms but she looks somewhat congested therefore we discontinued her normal saline 75 mL/h and we give her 1 time dose of IV Lasix 20 mg, she is also on oral Lasix at home every a day. Her blood pressure is improved this morning 124/80. Her CBC is normal at 8.1, hemoglobin is stable at 11.2, creatinine improved down to 0.9. Urine culture is growing E. coli ESBL which is covered with Invanz at 1 g daily. Surgery team recommended holding Eliquis for now until cleared by cardiology team. If cardiology team will recommend we can restart her Eliquis today and check her hemoglobin tomorrow. Discussed with the staff. She's continued on Protonix. Continued on midodrine 5 mg. Also she is on vitamin B12 500 mg at for a sulfate twice a day. Possible discharge in 24-48 hours if she keeps improvement Possible discharge in 24-48 hours if she keeps improvement Objective - Vital Signs Vital signs: Vital Signs Temp 98.3 F 05/15/21 04:51 Pulse 83 05/15/21 09:08 Resp 18 05/15/21 04:51 BP 125/65 05/15/21 09:08 Pulse Ox 99 05/15/21 04:51 Intake & Output 05/14/21 05/15/21 05/15/21 18:59 06:59 18:59 Intake Total 600 Output Total 600 1000 Balance -600 600 -1000 Weight 71 kg Intake: Intake, IV Titration 600 Amount Sodium Chloride 0.9% 1, 600 000 ml @ 75 mls/hr IV . [id number] [facility] Rx#:[id number] Output: Urine 600 1000 Other: Voiding Method Indwelling Catheter Indwelling Catheter Indwelling Catheter # Bowel Movements 1 - Exam GENERAL: The patient is alert and oriented x3, not in any acute distress. Well developed, well nourished. HEENT: Pupils are round and equally reacting to light. EOMI. No scleral icterus. No conjunctival pallor. Normocephalic, atraumatic. No pharyngeal erythema. No thyromegaly. CARDIOVASCULAR: S1 and S2 present. No murmurs, rubs, or gallops. PULMONARY: Chest is clear to auscultation, no wheezing or crackles. -ABDOMEN: Soft, mild periumbilical tenderness, nondistended, normoactive bowel sounds. No palpable organomegaly. MUSCULOSKELETAL: No joint swelling or deformity. EXTREMITIES: No cyanosis, clubbing, or pedal edema. NEUROLOGICAL: Gross neurological examination did not reveal any focal deficits. SKIN: No rashes. no petechiae. - Labs CBC & Chem 7: 05/15/21 05:53 05/15/21 05:53 Labs: Abnormal Lab Results - Last 24 Hours (Table) 05/14/21 05/15/21 05/15/21 Range/Units 06:39 05:53 05:53 RBC 3.78 L (3.80-5.40) m/uL Hgb 11.2 L (11.4-16.0) gm/dL RDW 17.7 H (11.5-15.5) % Chloride 113 H 113 H (96-109) mmol/L Carbon Dioxide 14.6 L 16.5 L (20.0-27.5) mmol/L Anion Gap 9.80 L 7.50 L (10.00-18.00) mmol/L BUN 29.2 H (9.0-27.0) mg/dL Est GFR (CKD-EPI)NonAf 52.8 L 57.5 L (60.0-200.0) BUN/Creatinine Ratio 30.26 H 25.78 H (12.00-20.00) Ratio Calcium 8.4 L 8.4 L (8.7-10.3) mg/dL Total Bilirubin <0.20 L 0.20 L (0.30-1.20) mg/dL AST 12 L (13-35) U/L ALT <5 L (8-44) U/L Total Protein 4.6 L 4.7 L (6.2-8.2) g/dL Albumin 2.4 L 2.5 L (3.8-4.9) g/dL Albumin/Globulin Ratio 1.10 L 1.14 L (1.60-3.17) g/dL Procalcitonin (0.02-0.09) ng/mL 05/15/21 Range/Units 05:53 RBC (3.80-5.40) m/uL Hgb (11.4-16.0) gm/dL RDW (11.5-15.5) % Chloride (96-109) mmol/L Carbon Dioxide (20.0-27.5) mmol/L Anion Gap (10.00-18.00) mmol/L BUN (9.0-27.0) mg/dL Est GFR (CKD-EPI)NonAf (60.0-200.0) BUN/Creatinine Ratio (12.00-20.00) Ratio Calcium (8.7-10.3) mg/dL Total Bilirubin (0.30-1.20) mg/dL AST (13-35) U/L ALT (8-44) U/L Total Protein (6.2-8.2) g/dL Albumin (3.8-4.9) g/dL Albumin/Globulin Ratio (1.60-3.17) g/dL Procalcitonin 3.32 H (0.02-0.09) ng/mL Assessment and Plan Assessment: Acute anemia most likely combination of acute blood loss anemia, could be also some elements of nutritional deficiency and B12 deficiency. Possible GI bleed, felt less likely Hypotension secondary to sepsis rather than GI bleed, improved with the treatment. Acute urinary tract infection, due to ESBL E. coli Fecal impaction Rectal wall thickening suspicious for reactive versus infectious prostatitis. History of Jus manzanares, currently Eliquis on hold for suspected GI bleed Chronic kidney disease, stage III Plan: This is a pleasant 86 years old female who presents with possible GI bleed, ESBL UTI, hypertension and fecal impaction Continue with antibiotics, currently she is on Invanz, infectious disease consult on the case Hemoglobin is stable. Continue with Protonix, iron and B12 replacement therapy. Discussed with cardiology team to resume Eliquis Pulmonary/critical care team consult is appreciated. This signed off the case Continue with gentle hydration Continue with midodrine Labs and medication were reviewed.. Continue same treatment. Continue with symptomatic treatment. Resume home medication. Monitor lytes and vitals. DVT and GI prophylaxis. Further recommendations as per clinical course of the patient DVT prophylaxis: No heparin or anticoagulation for possible GI bleed GI Prophylaxis: Ppi PT/OT: patient is going back to [facility] Prognosis is guarded
--- NOTE | 2021-05-15 11:40 | P.PN ---
Progress Note - Text Progress Note Date: 05/15/21 Patient is seen and examined at bedside. Comfortable, no complaints, no acute overnight events. No recurrent signs of GI bleeding, tolerating regular diet. Morning CBC reveals WBC of 8.1, hemoglobin stable at 11.2, platelet count 321. Serum sodium was 137, potassium 4.2, CO2 of 16.5, creatinine of 0.9, glucose of 100. Urine culture results show E. coli with ESBL, multidrug resistant, sensitive to carbapenems. Temperature 97.9F, heart rate 83, blood pressure 125/65, respiratory rate 18 at 99% O2 saturation on room air. Cardiovascular: Heart sounds are distant without appreciable murmur. Respiratory: Lungs are clear to auscultation bilaterally. Abdominal exam: Abdomen is soft with minimal epigastric tenderness to deep palpation. No guarding, rebound or distention. Abdominal exam is improved compared to yesterday. Extremities: Distal extremities are warm and well perfused no edema. Impression: 1) 86-year-old lady with presenting fecal impaction, Hemoccult positive stool, dwindling hemoglobin, urosepsis with question of bladder fistula suggested on CT. Appropriate response to 2 units PRBCs. Doubt ongoing hemodynamically significant blood loss at present. Differential diagnosis would include hemorrhagic gastritis, peptic ulcer disease, AV malformation or angiodysplasia, complications of portal hypertension, neoplasia, erosive esophagitis and less likely lower GI bleeding sources as well as hemodilution overnight with fluid boluses. History of paroxysmal atrial fibrillation on Eliquis, previous history of non-ST elevation [place]. Anticoagulants presently held. Hypotension and tachycardia resolving with antibiotic adjustments. Suspect relating more to urosepsis than hemorrhage. Iron panel is suggestive of a degree of anemia of chronic disease with retained ferritin. Plan: 1) Patient wishes to hold off on invasive diagnostic testing for now. She appears to be turning the corner with respect to her urosepsis. Plan for resuming eliquis and follow up CBC in the morning. Empiric treatment for peptic ulcer disease, stool for H. pylori antigen and eradication treatment if positive. Colace BID, outpatient fiber supplementation with Metamucil or Citrucel given fecal impaction on presentation in the setting of iron supplementation.
[2021-05-15] MEDS: DOCUSATE 100 MG CAP PO SCH (12:12)
--- NOTE | 2021-05-15 13:43 | P.PN ---
Subjective Progress Note Date: 05/15/21 HISTORY OF PRESENT ILLNESS: This is an 86-year-old female patient with past medical history significant for carotid artery stenosis, hypertension, hyperlipidemia, non-ST [place], paroxysmal atrial fibrillation. ECF due to lower abdominal pain for the past week, dark blackish bowel movements and evaluation for GI bleed. We have been asked to see the patient for increased heart rate and history of atrial fibrillation. school lunch monitor has been a sinus rhythm running in the 80s and 90s. Patient denies having any abdominal pain and denies having any blood in her stool at this time, no fever or chills. She thinks she is eating okay. Apparently she is normally bed or wheelchair bound. Patient is noted to be no code and blood pressure is low at 78/40. Unclear if family is planning for aggressive treatment. EKG is sinus tachycardia with left bundle branch block. CAT scan of the abdomen revealed severe fecal impaction. Fluid in the vaginal canal. Mildly dilated bile duct probably due to postcholecystectomy status. Laboratory studies: WBC down to 17.4, hemoglobin 8.3 which is down from 11.0. Sodium 134, potassium 4.3, chloride 102, CO2 14.3. BUN 46.6 and creatinine 1.5. Blood sugar 82. Iron 10, TIBC 244, iron saturation 4.2, transferrin 174. Ferritin level 233. Pro-calcitonin 14.8. Folate 9.9, vitamin B12 375. Urinalysis cloudy, leukoesterase large, WBCs 96, bacteria many. Stool for occult blood positive. Coronavirus PCR not detected. 05/13 Patient is on clear liquid diet and tolerating, she states she has a good appetite. She denies abdominal pain. She states she's feeling a lot better today from yesterday. Blood pressure is improved. Patient did go into atrial fibrillation with concern of heart rate in the 120s but mostly in the low 100s. She is status post 2 units packed RBCs with hemoglobin of 12.1. 05/14/2021 Patient examined this morning at the bedside. Patient denies chest pain or pressure. Denies SOB. Hemoglobin 10.9. Eliquis remains on hold. Vital signs stable. 05/15/2021 Patient examined this morning at the bedside. She denies chest pain or pressure. She denies shortness of breath. Eliquis remains on hold. Hemoglobin stable. Patient states she lives at an assisted living and does not ambulate by herself. She states she is essentially bedbound and transfer to a wheelchair and uses a Elvis lift. PHYSICAL EXAM: VITAL SIGNS: Reviewed. GENERAL: Well-developed in no acute distress. NECK: Supple. No JVD or thyromegaly LUNGS: Respirations even and unlabored. Lungs essentially clear to auscultation bilaterally. HEART: Regular rate and rhythm. S1 and S2 heard. EXTREMITIES: Normal range of motion. No clubbing or cyanosis. Peripheral pulses intact. No lower extremity edema ASSESSMENT: Acute GI bleed Acute urinary tract infection and sepsis Hypotension Acute kidney injury Anemia, possible acute blood loss anemia Hx of Non-STEMI Carotid artery stenosis Paroxysmal atrial fibrillation, currently maintaining SR History of hypertension Hyperlipidemia PLAN: Resume Eliquis at a lower dose of 2.5mg BID Continue additional cardiac medications No further inpatient recommendations from a cardiac standpoint. We will sign off. Please reconsult if needed. Nurse practitioner note has been reviewed by physician. Signing provider agrees with the documented findings, assessment, and plan of care. Objective - Vital Signs Vital signs: Vital Signs Temp 98.2 F 05/15/21 11:05 Pulse 77 05/15/21 12:13 Resp 16 05/15/21 11:05 BP 113/76 05/15/21 12:13 Pulse Ox 97 05/15/21 11:05 Intake & Output 05/14/21 05/15/21 05/15/21 18:59 06:59 18:59 Intake Total 600 Output Total 600 1000 Balance -600 600 -1000 Weight 71 kg Intake: Intake, IV Titration 600 Amount Sodium Chloride 0.9% 1, 600 000 ml @ 75 mls/hr IV . [id number] [facility] Rx#:[id number] Output: Urine 600 1000 Other: Voiding Method Indwelling Catheter Indwelling Catheter Indwelling Catheter # Bowel Movements 1 - Labs CBC & Chem 7: 05/15/21 05:53 05/15/21 05:53 Labs: Abnormal Lab Results - Last 24 Hours (Table) 05/15/21 05/15/21 05/15/21 Range/Units 05:53 05:53 05:53 RBC 3.78 L (3.80-5.40) m/uL Hgb 11.2 L (11.4-16.0) gm/dL RDW 17.7 H (11.5-15.5) % Chloride 113 H (96-109) mmol/L Carbon Dioxide 16.5 L (20.0-27.5) mmol/L Anion Gap 7.50 L (10.00-18.00) mmol/L Est GFR (CKD-EPI)NonAf 57.5 L (60.0-200.0) BUN/Creatinine Ratio 25.78 H (12.00-20.00) Ratio Calcium 8.4 L (8.7-10.3) mg/dL Total Bilirubin 0.20 L (0.30-1.20) mg/dL AST 12 L (13-35) U/L ALT <5 L (8-44) U/L Total Protein 4.7 L (6.2-8.2) g/dL Albumin 2.5 L (3.8-4.9) g/dL Albumin/Globulin Ratio 1.14 L (1.60-3.17) g/dL Procalcitonin 3.32 H (0.02-0.09) ng/mL
--- NOTE | 2021-05-15 19:53 | PN ---
PROGRESS NOTE DATE OF SERVICE: 05/15/2021 REASON FOR FOLLOWUP: ESBL E coli urinary tract infection. INTERVAL HISTORY: The patient is afebrile. The patient is breathing comfortably. The patient denies having any chest pain, shortness of breath or cough. No abdominal pain or diarrhea. PHYSICAL EXAMINATION: Her blood pressure is 119/76, pulse of 83, temperature 98.2. She is 97% on room air. General description is an elderly female lying in bed in no distress. Respiratory system: Unlabored breathing, clear to auscultation anteriorly. Heart S1, S2. Regular rate and rhythm. Abdomen soft, no tenderness. LABS: Hemoglobin is 11.1, white count 8.1, creatinine 0.9. Procalcitonin down to 3.32. DIAGNOSTIC IMPRESSION AND PLAN: Patient with ESBL E coli urinary tract infection clinically responding to the Invanz, to continue to finish a total of two week course of therapy and close outpatient followup. MMODL / GLADISN: [id number] /
[2021-05-15] MEDS: APIXABAN 2.5 MG TABLET PO SCH (21:38)
[2021-05-15] MEDS: LATANOPROST 0.005% OPHTH DROPS 2.5 ML BTL BOTH EYES SCH (21:40)
[2021-05-16 07:00] LABS: Anisocytosis Slight; Basophils % (A) 1 %; Eosinophils # (A) 0.4 k/uL (0-0.7); Eosinophils % (A) 5 %; HCT 37.1 % (34.0-46.0); HGB 11.6 gm/dL (11.4-16.0); Hypochromasia Slight; Lymphocytes # (A) 1.2 k/uL (1.0-4.8); Lymphocytes % (A) 15 %; MCH 29.2 pg (25.0-35.0); MCHC 31.3 g/dL (31.0-37.0); MCV 93.3 fL (80.0-100.0); Mean Platelet Volume 7.5; Monocytes # (A) 0.6 k/uL (0-1.0); Monocytes % (A) 7 %; Neutrophils # (A) 5.8 k/uL (1.3-7.7); Neutrophils % (A) 71 %; Platelet Count 329 k/uL (150-450); RBC 3.98 m/uL (3.80-5.40); RDW 17.6 % (11.5-15.5); WBC 8.1 k/uL (3.8-10.6)
[2021-05-16] MEDS: ERTAPENEM 1 GM in SODIUM CHLORIDE 0.9% 50 ML IVPB SCH (07:24)
[2021-05-16] MEDS: APIXABAN 2.5 MG TABLET PO SCH ×2 (07:25→20:37)
[2021-05-16] MEDS: AMIODARONE 200 MG TAB PO SCH (07:25)
[2021-05-16] MEDS: ASCORBIC ACID 500 MG TAB PO SCH (07:25)
[2021-05-16] MEDS: HYDROcodone/APAP 5-325MG 1 EACH TAB PO SCH ×3 (07:25→20:36)
[2021-05-16] MEDS: POTASSIUM CHLORIDE ER 20 MEQ TAB.ER PO SCH (07:26)
[2021-05-16] MEDS: FERROUS SULFATE 325 MG TAB PO SCH ×2 (07:26→20:36)
[2021-05-16] MEDS: DOCUSATE 100 MG CAP PO SCH (07:26)
[2021-05-16] MEDS: CHOLECALCIFEROL 125 MCG (5000 IU) TABLET PO SCH (07:26)
[2021-05-16] MEDS: PANTOPRAZOLE 40 MG/10 ML VIAL IV SCH ×2 (07:26→20:37)
[2021-05-16] MEDS: CYANOCOBALAMIN 500 MCG TAB PO SCH (07:26)
[2021-05-16] MEDS: MIDODRINE 5 MG TAB PO SCH ×3 (07:26→17:41)
[2021-05-16] MEDS: FENOFIBRATE 54 MG TAB PO SCH (07:26)
[2021-05-16] MEDS: METOPROLOL TARTRATE 25 MG TAB PO SCH ×2 (08:58→20:36)
[2021-05-16 10:57] LABS: ALT 8 U/L (8-44); AST 13 U/L (13-35); African American GFR (CKD) 51.2 (60.0-200.0); Albumin 2.6 g/dL (3.8-4.9); Albumin/Globulin Ratio 1.06 (1.60-3.17); Alkaline Phosphatase 58 U/L (41-126); BUN/Creat Ratio 20.71 Ratio (12.00-20.00); Blood Urea Nitrogen 23.2 mg/dL (9.0-27.0); Calcium 8.6 mg/dL (8.7-10.3); Carbon Dioxide 19.9 mmol/L (20.0-27.5); Chloride 107 mmol/L (96-109); Globulin 2.4 g/dL (1.6-3.3); Glucose 88 mg/dL (70-110); Non-African American GFR(CKD) 44.1 (60.0-200.0); Potassium 4.5 mmol/L (3.5-5.5); Sodium 138 mmol/L (135-145); Total Bilirubin <0.20 mg/dL (0.30-1.20)
--- NOTE | 2021-05-16 11:43 | P.PN ---
Subjective Progress Note Date: 05/16/21 HISTORY OF PRESENT ILLNESS: This is an 86-year-old female patient with past medical history significant for carotid artery stenosis, hypertension, hyperlipidemia, non-ST ID, paroxysmal atrial fibrillation. ECF due to lower abdominal pain for the past week, dark blackish bowel movements and evaluation for GI bleed. We have been asked to see the patient for increased heart rate and history of atrial fibrillation. 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 Patient denies having any abdominal pain and denies having any blood in her stool at this time, no fever or chills. She thinks she is eating okay. Apparently she is normally bed or wheelchair bound. Patient is noted to be no code and blood pressure is low at 78/40. Unclear if family is planning for aggressive treatment. EKG is sinus tachycardia with left bundle branch block. CAT scan of the abdomen revealed severe fecal impaction. Fluid in the vaginal canal. Mildly dilated bile duct probably due to postcholecystectomy status. Laboratory studies: WBC down to 17.4, hemoglobin 8.3 which is down from 11.0. Sodium 134, potassium 4.3, chloride 102, CO2 14.3. BUN 46.6 and creatinine 1.5. Blood sugar 82. Iron 10, TIBC 244, iron saturation 4.2, transferrin 174. Ferritin level 233. Pro-calcitonin 14.8. Folate 9.9, vitamin B12 375. Urinalysis cloudy, leukoesterase large, WBCs 96, bacteria many. Stool for occult blood positive. Coronavirus PCR not detected. 05/13 Patient is on clear liquid diet and tolerating, she states she has a good appetite. She denies abdominal pain. She states she's feeling a lot better today from yesterday. Blood pressure is improved. Patient did go into atrial fibrillation with concern of heart rate in the 120s but mostly in the low 100s. She is status post 2 units packed RBCs with hemoglobin of 12.1. 05/14/2021 Patient examined this morning at the bedside. Patient denies chest pain or pressure. Denies SOB. Hemoglobin 10.9. Eliquis remains on hold. Vital signs stable. 05/15/2021 Patient examined this morning at the bedside. She denies chest pain or pressure. She denies shortness of breath. Eliquis remains on hold. Hemoglobin stable. Patient states she lives at an assisted living and does not ambulate by herself. She states she is essentially bedbound and transfer to a wheelchair and uses a Elvis lift. 05/16/2021 Cardiology was asked to reevaluate patient today secondary to tachycardia. Patient had a few short episodes this morning of atrial fibrillation with RVR. She is currently maintaining a heart rate in the 90s. She denies chest pain or pressure. Denies shortness of breath. PHYSICAL EXAM: VITAL SIGNS: Reviewed. GENERAL: Well-developed in no acute distress. NECK: Supple. No JVD or thyromegaly LUNGS: Respirations even and unlabored. Lungs essentially clear to auscultation bilaterally. HEART: Regular rate and rhythm. S1 and S2 heard. EXTREMITIES: Normal range of motion. No clubbing or cyanosis. Peripheral pulses intact. No lower extremity edema ASSESSMENT: Acute GI bleed Acute urinary tract infection and sepsis Hypotension Acute kidney injury Anemia, possible acute blood loss anemia Hx of Non-STEMI Carotid artery stenosis Paroxysmal atrial fibrillation History of hypertension Hyperlipidemia PLAN: Begin metoprolol 25 mg twice a day Continue additional cardiac medications Continue telemetry monitoring Further recommendations pending patient's course Nurse practitioner note has been reviewed by physician. Signing provider agrees with the documented findings, assessment, and plan of care. Objective - Vital Signs Vital signs: Vital Signs Temp 98.7 F 05/16/21 05:00 Pulse 98 05/16/21 08:55 Resp 16 05/16/21 08:04 BP 103/58 05/16/21 08:55 Pulse Ox 97 05/16/21 08:55 Intake & Output 05/15/21 05/16/21 05/16/21 18:59 06:59 18:59 Intake Total 170 Output Total 2700 900 Balance -2530 -900 Intake: Intake, IV Titration 170 Amount Ertapenem 1 gm In Sodium 50 Chloride 0.9% 50 ml @ 100 mls/hr IVPB Q24H [facility] Rx# :[id number] Sodium Chloride 0.9% 1, 120 000 ml @ 75 mls/hr IV . [id number] [facility] Rx#:[id number] Output: Urine 2700 900 Uretheral (Sultana) 900 Other: Voiding Method Indwelling Catheter Indwelling Catheter Indwelling Catheter - Labs CBC & Chem 7: 05/16/21 06:24 05/16/21 06:24 Labs: Abnormal Lab Results - Last 24 Hours (Table) 05/16/21 05/16/21 Range/Units 06:24 06:24 RDW 17.6 H (11.5-15.5) % Carbon Dioxide 19.9 L (20.0-27.5) mmol/L Est GFR (CKD-EPI)AfAm 51.2 L (60.0-200.0) Est GFR (CKD-EPI)NonAf 44.1 L (60.0-200.0) BUN/Creatinine Ratio 20.71 H (12.00-20.00) Ratio Calcium 8.6 L (8.7-10.3) mg/dL Total Bilirubin <0.20 L (0.30-1.20) mg/dL Total Protein 5.0 L (6.2-8.2) g/dL Albumin 2.6 L (3.8-4.9) g/dL Albumin/Globulin Ratio 1.06 L (1.60-3.17) g/dL
--- NOTE | 2021-05-16 11:48 | P.PN ---
Progress Note - Text Progress Note Date: 05/16/21 Patient is seen and examined at bedside. Comfortable, no complaints, no acute overnight events. No recurrent signs of GI bleeding, tolerating regular diet. Morning CBC reveals WBC of 8.1, hemoglobin stable at 11.6, platelet count 329. Serum sodium was 138, potassium 4.5, CO2 of 19.9, creatinine of 1.1, glucose of 88. Urine culture results show E. coli with ESBL, multidrug resistant, sensitive to carbapenems. Temperature 98.7F, heart rate 98, blood pressure 103/58, respiratory rate 16 at 97% O2 saturation on room air. Cardiovascular: Heart sounds are distant without appreciable murmur. Respiratory: Lungs are clear to auscultation bilaterally. Abdominal exam: Abdomen is soft with minimal epigastric tenderness to deep palpation. No guarding, rebound or distention. Abdominal exam is improved compared to yesterday. Extremities: Distal extremities are warm and well perfused no edema. Impression: 1) 86-year-old lady with presenting fecal impaction, Hemoccult positive stool, dwindling hemoglobin, urosepsis with question of bladder fistula suggested on CT. Appropriate response to 2 units PRBCs. Doubt ongoing hemodynamically significant blood loss at present. Differential diagnosis would include hemorrhagic gastritis, peptic ulcer disease, AV malformation or angiodysplasia, complications of portal hypertension, neoplasia, erosive esophagitis and less likely lower GI bleeding sources as well as hemodilution overnight with fluid boluses. History of paroxysmal atrial fibrillation on Eliquis, previous history of non-ST elevation OR. Anticoagulants presently held. Hypotension and tachycardia resolving with antibiotic adjustments. Suspect relating more to urosepsis than hemorrhage. Iron panel is suggestive of a degree of anemia of chronic disease with retained ferritin. Plan: 1) Patient wishes to hold off on invasive diagnostic testing for now. She appears to be turning the corner with respect to her urosepsis. Plan for resuming eliquis and follow up CBC in the morning. Empiric treatment for peptic ulcer disease, stool for H. pylori antigen and eradication treatment if positive. Colace BID, outpatient fiber supplementation with Metamucil or Citrucel given fecal impaction on presentation in the setting of iron supplementation. Will sign off today, will reassess at your request. Anticipate discharge to senior living tomorrow.
--- NOTE | 2021-05-16 17:18 | P.PN ---
Subjective This is a pleasant 86 years old female with past medical history of atrial fibrillation on Eliquis, Hypertension and Hyperlipidemia and ESBL UTI Present Presents Because of Abdominal Pain and Dark Stool, and Drop in Hemoglobin 11 down to 8.3 Today with Borderline Blood Pressure with Systolic 80s to 90s, Patient Also Was Complaining of from Dysuria and Urinalysis Is Suspicious for Infection and She Was Started on Rocephin and Changed Today to Enzymes Based on Her History of ESBL UTI before with Infectious Disease Team Consulted As Well. Patient Clinically She Is Awake and Alert When She Was She Is in the Hospital and She Knows That Time and the Name of the President and She Is Aware to Her Insight, She Denies Dizziness When I Saw Her at Bedside, No Chest Pain or Dyspnea She Has Some Mild Periumbilical Abdominal Tenderness, No Guarding or Rebound Tenderness, She Rates Her Pain As Mild As Well. Because of a Drop in Hemoglobin and She Was Given 2 Units of Blood Transfusion Closed Monitoring, I Discussed the Case with the Critical Care Team and Surgical Team, Patient Will Be Monitored Closely with the Plan for Possible Endoscopy Tonight or Tomorrow per Surgery Team Decision. Other than that her Eliquis on admission was held and pharmacy resident evaluated the patient. She is on normal saline 75 mL/h, Protonix twice daily, iron and vit song B12 replacement therapy. Endocrine was added later on. CT of the abdomen and pelvis was showing fecal impaction with rectal wall thickening which could be reactive versus prostatitis, also there is some vaginal fistula or blood suspected. Her Pro-calcitonin is elevated at 14.8. WBCs trending down 22 down to 14.5. Creatinine 1.25 went up to 1.5, baseline is 1.0-1.4. FOBT was positive 05/13/2021 Patient is clinically improving, she is awake alert, she is called, no abdominal pain today, no dysuria or other urinary symptoms. Her blood pressure improved 100/60. WBC came down to 14 K, hemoglobin is improved up to 12. Creatinine went to normal at 1.0. Her urine culture is growing ESBL E. coli and she is currently comfortable on Invanz. Also she is continuing on normal saline at 75 mL/h. Also she is on Protonix 40 mg She remains on midodrine and we are still holding her eliquis for possible gi bleed 05/14/2021 Patient is awake and alert, she denies any respiratory symptoms, no abdominal pain or GI symptoms, no urinary tract symptoms. Blood pressure improved for example 106/61. Also labs showing improvement with WBC back to normal at 8K, hemoglobin 10.9 and creatinine back to normal 1.08 Her chest x-ray today showing right lower lobe infiltrate but no pulmonary symptoms, therefore pulmonary service signed off. Her Invanz dose increased to 1 mg. He will lower midodrine 25 mg 3 times a day while keep monitoring her blood pressure. Also she is kept on normal saline 75 mL/h Surgery team recommended to keep holding Eliquis pending cardiology recommendation if anything benefits more than risk then he recommends to check hemoglobin 24 hours after starting Eliquis. Patient continued to improve slowly but steadily 05/15/2021 Patient remains asymptomatic since yesterday with no urinary tract symptoms, no abdominal pain, no more evidence of bleeding, no overt respiratory symptoms but she looks somewhat congested therefore we discontinued her normal saline 75 mL/h and we give her 1 time dose of IV Lasix 20 mg, she is also on oral Lasix at home every a day. Her blood pressure is improved this morning 124/80. Her CBC is normal at 8.1, hemoglobin is stable at 11.2, creatinine improved down to 0.9. Urine culture is growing E. coli ESBL which is covered with Invanz at 1 g daily. Surgery team recommended holding Eliquis for now until cleared by cardiology team. If cardiology team will recommend we can restart her Eliquis today and check her hemoglobin tomorrow. Discussed with the staff. She's continued on Protonix. Continued on midodrine 5 mg. Also she is on vitamin B12 500 mg at for a sulfate twice a day. Possible discharge in 24-48 hours if she keeps improvement Possible discharge in 24-48 hours if she keeps improvement 05/16/2021 Patient today remains asymptomatic, no respiratory, GI or urinary symptoms. And Eliquis was started yesterday by pharmacy resident team for her history of A. fib. Repeat hemoglobin today is a stable at around 12. However patient developed A. fib and RVR with heart rate around 140, so metoprolol 25 mg was added as well. BNP and other labs reviewed and it looks unremarkable. Continue with Invanz 1 mg, IV fluids stopped, continue with Protonix area Possible discharge in 24-48 hours Objective - Vital Signs Vital signs: Vital Signs Temp 98.7 F 05/16/21 05:00 Pulse 98 05/16/21 08:55 Resp 16 05/16/21 08:04 BP 103/58 05/16/21 08:55 Pulse Ox 97 05/16/21 08:55 Intake & Output 05/15/21 05/16/21 05/16/21 18:59 06:59 18:59 Intake Total 170 Output Total 2700 900 Balance -2530 -900 Intake: Intake, IV Titration 170 Amount Ertapenem 1 gm In Sodium 50 Chloride 0.9% 50 ml @ 100 mls/hr IVPB Q24H [facility] Rx# :[id number] Sodium Chloride 0.9% 1, 120 000 ml @ 75 mls/hr IV . [id number] [facility] Rx#:[id number] Output: Urine 2700 900 Uretheral (Sultana) 900 Other: Voiding Method Indwelling Catheter Indwelling Catheter - Exam GENERAL: The patient is alert and oriented x3, not in any acute distress. Well developed, well nourished. HEENT: Pupils are round and equally reacting to light. EOMI. No scleral icterus. No conjunctival pallor. Normocephalic, atraumatic. No pharyngeal erythema. No thyromegaly. CARDIOVASCULAR: S1 and S2 present. No murmurs, rubs, or gallops. PULMONARY: Chest is clear to auscultation, no wheezing or crackles. -ABDOMEN: Soft, mild periumbilical tenderness, nondistended, normoactive bowel sounds. No palpable organomegaly. MUSCULOSKELETAL: No joint swelling or deformity. EXTREMITIES: No cyanosis, clubbing, or pedal edema. NEUROLOGICAL: Gross neurological examination did not reveal any focal deficits. SKIN: No rashes. no petechiae. - Labs CBC & Chem 7: 05/16/21 06:24 05/16/21 06:24 Labs: Abnormal Lab Results - Last 24 Hours (Table) 05/16/21 Range/Units 06:24 RDW 17.6 H (11.5-15.5) % Assessment and Plan Assessment: Acute anemia most likely combination of acute blood loss anemia, could be also some elements of nutritional deficiency and B12 deficiency. Hemoglobin stable and Eliquis was started A. fib and RVR, resumed Eliquis and metoprolol Hypotension secondary to sepsis rather than GI bleed, improved with the treatment. Acute urinary tract infection, due to ESBL E. coli Fecal impaction Rectal wall thickening suspicious for reactive versus infectious prostatitis. Chronic kidney disease, stage III Plan: This is a pleasant 86 years old female who presents with possible GI bleed, ESBL UTI, hypertension and fecal impaction Continue with antibiotics, currently she is on Invanz, infectious disease consult on the case Hemoglobin is stable. Continue with Protonix, iron and B12 replacement therapy. Discussed with cardiology team to resume Eliquis Pulmonary/critical care team consult is appreciated. This signed off the case Continue with gentle hydration Continue with midodrine Continue with metoprolol and Eliquis Labs and medication were reviewed.. Continue same treatment. Continue with symptomatic treatment. Resume home medication. Monitor lytes and vitals. DVT and GI prophylaxis. Further recommendations as per clinical course of the patient DVT prophylaxis: Eliquis GI Prophylaxis: Ppi PT/OT: patient is going back to residential Prognosis is guarded
[2021-05-16] MEDS: FUROSEMIDE 20 MG TAB PO SCH (17:41)
[2021-05-16] MEDS: LATANOPROST 0.005% OPHTH DROPS 2.5 ML BTL BOTH EYES SCH (20:37)
--- NOTE | 2021-05-16 23:08 | PN ---
PROGRESS NOTE DATE OF SERVICE: 05/16/2021 REASON FOR FOLLOWUP: ESBL E coli UTI infection. INTERVAL HISTORY: Patient is afebrile. The patient is currently breathing comfortably. The patient denies having any chest pain, shortness of breath or cough. No abdominal pain. No diarrhea. PHYSICAL EXAMINATION: Blood pressure 105/64, pulse of 59, 0.1. She is 95% on room air. General description is an elderly female lying in bed in no distress. Respiratory system: Unlabored breathing, decreased breath sounds with no wheeze. Heart S1, S2. Regular rate and rhythm. Abdomen soft, no tenderness. LABS: Hemoglobin is 9.4, white count 8.1, creatinine is 1.1. DIAGNOSTIC IMPRESSION AND PLAN: Patient with ESBL E coli urinary tract infection in this patient clinically responding to Invanz to continue to finish a 2 week course of therapy and monitor clinical course closely. MMODL / IJN: [id number] /
[2021-05-17 03:53] VITALS: RESP 16
[2021-05-17] MEDS: APIXABAN 2.5 MG TABLET PO SCH (08:27)
[2021-05-17] MEDS: AMIODARONE 200 MG TAB PO SCH (08:27)
[2021-05-17] MEDS: CHOLECALCIFEROL 125 MCG (5000 IU) TABLET PO SCH (08:29)
[2021-05-17] MEDS: ASCORBIC ACID 500 MG TAB PO SCH (08:29)
[2021-05-17] MEDS: FENOFIBRATE 54 MG TAB PO SCH (08:30)
[2021-05-17] MEDS: POTASSIUM CHLORIDE ER 20 MEQ TAB.ER PO SCH (08:30)
[2021-05-17] MEDS: DOCUSATE 100 MG CAP PO SCH (08:30)
[2021-05-17] MEDS: FERROUS SULFATE 325 MG TAB PO SCH (08:30)
[2021-05-17] MEDS: CYANOCOBALAMIN 500 MCG TAB PO SCH (08:30)
[2021-05-17] MEDS: METOPROLOL TARTRATE 25 MG TAB PO SCH (08:31)
[2021-05-17] MEDS: PANTOPRAZOLE 40 MG/10 ML VIAL IV SCH (08:31)
[2021-05-17] MEDS: HYDROcodone/APAP 5-325MG 1 EACH TAB PO SCH ×2 (08:32→12:36)
[2021-05-17] MEDS: MIDODRINE 5 MG TAB PO SCH ×3 (08:32→15:10)
[2021-05-17] MEDS: ERTAPENEM 1 GM in SODIUM CHLORIDE 0.9% 50 ML IVPB SCH (09:05)
[2021-05-17 11:25] LABS: African American GFR (CKD) 58.7 (60.0-200.0); Anion Gap 9.9 mmol/L (10.00-18.00); BUN/Creat Ratio 30.8 Ratio (12.00-20.00); Blood Urea Nitrogen 30.8 mg/dL (9.0-27.0); Calcium 8.7 mg/dL (8.7-10.3); Carbon Dioxide 21.1 mmol/L (20.0-27.5); Magnesium 1.7 mg/dL (1.5-2.4); Non-African American GFR(CKD) 50.6 (60.0-200.0); Potassium 4.5 mmol/L (3.5-5.5)
[2021-05-17 13:25] LABS: Anisocytosis Slight; HCT 38.2 % (34.0-46.0); HGB 11.8 gm/dL (11.4-16.0); Hypochromasia Moderate; MCH 29.5 pg (25.0-35.0); MCV 95.2 fL (80.0-100.0); Mean Platelet Volume 9.6; Platelet Count 314 k/uL (150-450); RBC 4.01 m/uL (3.80-5.40); RDW 17.3 % (11.5-15.5); WBC 9.2 k/uL (3.8-10.6)
--- NOTE | 2021-05-17 13:29 | P.DS ---
Providers Date of admission: 05/11/21 12:14 Attending physician: María Serrano MD Consults: 05/11/21 11:58 Consult Physician Urgent Consulting Provider: Felipe Asif Consult Reason/Comments: lower gi hemorrhage Do you want consulting provider notified?: Yes 05/12/21 12:20 Consult Physician Urgent Consulting Provider: Felipe Michaud Consult Reason/Comments: hypotension with worsening anemia Do you want consulting provider notified?: Already Contacted 05/12/21 13:10 Consult Physician Urgent Consulting Provider: Lynne Eisenberg Consult Reason/Comments: UTI, h/o ESBL Do you want consulting provider notified?: Yes 05/16/21 10:47 Consult Physician Urgent Consulting Provider: Bianca Villalobos Consult Reason/Comments: a fib with rvr Do you want consulting provider notified?: Already Contacted Primary care physician: Michael Gabriel [facility] Course: Diagnoses: Acute anemia most likely combination of acute blood loss anemia, could be also some elements of nutritional deficiency and B12 deficiency. Hemoglobin stable and Eliquis was started A. fib and RVR, resumed Eliquis and metoprolol Hypotension secondary to sepsis rather than GI bleed, improved with the treatment. Acute urinary tract infection, due to ESBL E. coli Fecal impaction Rectal wall thickening suspicious for reactive versus infectious prostatitis. Chronic kidney disease, stage III Hospital course: This is a pleasant 86 years old female with past medical history of atrial fibrillation on Eliquis, Hypertension and Hyperlipidemia and ESBL UTI Present Presents Because of Abdominal Pain and Dark Stool, and Drop in Hemoglobin 11 down to 8.3 also she was hypotensive, found mostly due to ESBL urinary tract infection that she responded to treatment with Invanz. Also she received 2 units of blood transfusion and her hemoglobin improved up to 11.6 yesterday, she was placed on iron pills and vitamin B12, her anemia workup showed iron deficiency anemia and general surgeon evaluated the patient and recommended to hold on EGD for now as there is no evidence of active GI bleed her blood pressure and hemoglobin improved. As she was resumed her Eliquis back, yesterday she developed A. fib and RVR, motor vehicle salesperson to the patient and she was placed on metoprolol 25 mg twice a day. Currently her heart rate is controlled and her blood pressure is acceptable. She is also on midodrine for her hypotension. Patient also evaluated by pulmonary/critical care team, and by infectious disease team. Patient will need 10 more days of IV Invanz for her ESBL E. coli UTI. Midline to be placed. A LAD that patient is back to her baseline, she is fully awake and oriented. She denies any respiratory symptoms, no chest pain or dyspnea or coughing. No abdominal pain. She tolerated his diet well. She has some constipation and she may need some laxative as needed. No urinary tract symptoms and her dysuria present on the presentation is resolved now. Patient also hemodynamically stable and she is on room air. Patient was cleared for discharge by all consultants including motor vehicle salesperson, infectious disease, paper products inspector and general surgeon. Problems and management plan were discussed with the patient and he verbalized understanding and acceptance Patient was found stable and can be discharged ECF in guarded prognosis however he needs follow-up as an outpatient. Patient was instructed to follow up with PCP Dr. Gabriel within one week and patient agrees Physical exam -Gen: patient is a AAOx3, no distress. Generally weak CVS: S1-S2, RRR, no murmur Lungs: B/L CTA, no wheezing Abdomen: soft, no distention, no tenderness, positive bowel sounds Extremity: no leg edema or induration Time spent more than 35 minutes Plan - Discharge Summary Discharge Rx Participant: Yes New Discharge Prescriptions: No Action Mag Hydrox/Aluminum Hyd/Simeth [Mylanta Maximum Strength Liq] 30 ml PO Q4H PRN PRN Reason: Indigestion Ferrous Sulfate [Iron (65 MG Elemental)] 325 mg PO DAILY Apixaban [Eliquis] 5 mg PO BID tab Fenofibrate,Micronized [Fenofibrate] 67 mg PO DAILY Cholecalciferol [Vitamin D3 (125 Mcg = 5000 Iu)] 125 mcg PO DAILY Acetaminophen Tab [Tylenol] 650 mg PO Q6H PRN PRN Reason: Pain Bisacodyl 10 mg PO Q48H PRN PRN Reason: Constipation Furosemide [Lasix] 20 mg PO MOWEFR Ascorbic Acid [Vitamin C] 500 mg PO DAILY Latanoprost [Xalatan 0.005%] 1 drop BOTH EYES HS Potassium Chloride ER [K-Dur 20] 20 meq PO DAILY Omeprazole 20 mg PO DAILY Magnesium Hydroxide [Milk of Magnesia] 2,400 mg PO Q48H PRN PRN Reason: Constipation HYDROcodone/APAP 5-325MG [[place] 5-325] 1 tab PO TID@0900,1300,2100 Sacubitril/Valsartan [Entresto 24 mg-26 mg Tablet] 1 tab PO BID Amiodarone [Cordarone] 200 mg PO DAILY polyethylene glycoL 3350 [Miralax] 17 gm PO Q12H PRN PRN Reason: Constipation Discharge Medication List Acetaminophen Tab [Tylenol] 650 mg PO Q6H PRN 01/18/21 [History] Ascorbic Acid [Vitamin C] 500 mg PO DAILY 01/18/21 [History] Bisacodyl 10 mg PO Q48H PRN 01/18/21 [History] Ferrous Sulfate [Iron (65 MG Elemental)] 325 mg PO DAILY 01/18/21 [History] Furosemide [Lasix] 20 mg PO MOWEFR 01/18/21 [History] Mag Hydrox/Aluminum Hyd/Simeth [Mylanta Maximum Strength Liq] 30 ml PO Q4H PRN 01/18/21 [History] Apixaban [Eliquis] 5 mg PO BID tab 01/23/21 [Rx] Amiodarone [Cordarone] 200 mg PO DAILY 05/11/21 [History] Cholecalciferol [Vitamin D3 (125 Mcg = 5000 Iu)] 125 mcg PO DAILY 05/11/21 [History] Fenofibrate,Micronized [Fenofibrate] 67 mg PO DAILY 05/11/21 [History] HYDROcodone/APAP 5-325MG [[place] 5-325] 1 tab PO TID@0900,1300,2100 05/11/21 [History] Latanoprost [Xalatan 0.005%] 1 drop BOTH EYES HS 05/11/21 [History] Magnesium Hydroxide [Milk of Magnesia] 2,400 mg PO Q48H PRN 05/11/21 [History] Omeprazole 20 mg PO DAILY 05/11/21 [History] Potassium Chloride ER [K-Dur 20] 20 meq PO DAILY 05/11/21 [History] Sacubitril/Valsartan [Entresto 24 mg-26 mg Tablet] 1 tab PO BID 05/11/21 [History] polyethylene glycoL 3350 [Miralax] 17 gm PO Q12H PRN 05/11/21 [History] Follow up Appointment(s)/Referral(s): [facility] [Provider Group] - 1 Week Michael Gabriel MD [Primary Care Provider] - 1-2 days
--- NOTE | 2021-05-17 14:55 | PN ---
PROGRESS NOTE DATE OF SERVICE: 05/17/2021 REASON FOR FOLLOWUP: ESBL E coli urinary tract infection. INTERVAL HISTORY: The patient is afebrile. The patient is feeling better. Breathing comfortably. No chest pain, shortness of breath or cough. Abdominal pain is currently controlled. No diarrhea. PHYSICAL EXAMINATION: Blood pressure 124/66, pulse of 73, temperature 98.3. She is 95% on room air. General description is an elderly female lying in bed in no distress. Respiratory system: Unlabored breathing, clear to auscultation anteriorly. Heart S1, S2. Regular rate and rhythm. Abdomen soft, no tenderness. LABORATORY DATA: Hemoglobin are 11.1, white count 9.2, creatinine 1.0. DIAGNOSTIC IMPRESSION AND PLAN: Patient with ESBL E coli urinary tract infection/pyelonephritis, received about 5 days of IV Invanz. Continue for another 10 days to finish two weeks of therapy, midline or continue supportive care. MMODL / GLADISN: [id number] /
[2021-05-17 15:00] VITALS: BP 117/67; PULSE 93; TEMP 97.6
== END 2021-05-17 19:15 | DRG 872 ==
LOC: EC 08:24 → 5NMEDONC 12:14
PROVIDERS: ADMIT Internal Medicine; ATTEND Internal Medicine
PROC: 30233N1 Transfusion of Nonautologous Red Blood Cells into Peripheral Vein, Percutaneous Approach (ICD-10-PCS; principal; 2021-05-12)
PROC: 05HF33Z Insertion of Infusion Device into Left Cephalic Vein, Percutaneous Approach (ICD-10-PCS; 2021-05-17 17:15)
DX: A41.51 Sepsis due to Escherichia coli [E. coli] (principal); N12 Tubulo-interstitial nephritis, not specified as acute or chronic; Z16.12 Extended spectrum beta lactamase (ESBL) resistance; D62 Acute posthemorrhagic anemia; E87.1 Hypo-osmolality and hyponatremia; K92.2 Gastrointestinal hemorrhage, unspecified; N17.9 Acute kidney failure, unspecified; Z16.24 Resistance to multiple antibiotics; I95.89 Other hypotension; B96.20 Unspecified Escherichia coli [E. coli] as the cause of diseases classified elsewhere; E78.5 Hyperlipidemia, unspecified; I12.9 Hypertensive chronic kidney disease with stage 1 through stage 4 chronic kidney disease, or unspecified chronic kidney disease; I25.2 Old myocardial infarction; I44.7 Left bundle-branch block, unspecified; I48.0 Paroxysmal atrial fibrillation; D53.9 Nutritional anemia, unspecified; I65.29 Occlusion and stenosis of unspecified carotid artery; K56.41 Fecal impaction; M19.90 Unspecified osteoarthritis, unspecified site; D63.1 Anemia in chronic kidney disease; Z20.822 Contact with and (suspected) exposure to COVID-19; R33.9 Retention of urine, unspecified; D51.9 Vitamin B12 deficiency anemia, unspecified; M1A.9XX0 Chronic gout, unspecified, without tophus (tophi); N18.30 Chronic kidney disease, stage 3 unspecified; Z66 Do not resuscitate; Z79.01 Long term (current) use of anticoagulants; Z79.899 Other long term (current) drug therapy; Z80.9 Family history of malignant neoplasm, unspecified; Z82.49 Family history of ischemic heart disease and other diseases of the circulatory system; Z86.19 Personal history of other infectious and parasitic diseases; Z87.440 Personal history of urinary (tract) infections; Z90.49 Acquired absence of other specified parts of digestive tract; Z96.653 Presence of artificial knee joint, bilateral; Z99.3 Dependence on wheelchair; Z74.01 Bed confinement status
CPT/HCPCS: 36410; 36415; 71045; 74177; 76937; 80048; 80053; 81001; 82272; 82607; 82728; 82746; 83540; 83550; 83605; 83735; 84145; 85025; 85027; 85610; 85730; 86850; 86900; 86901; 86920; 87077; 87086; 87186; 87635; 93005